=== PATIENT | female | born 1955 | race Caucasian/White ===

== ENCOUNTER → 2017-09-22 09:22 | Outpatient (CLI) | payer MEDICARE, MEDICAID, SELFPAY ==
--- NOTE | 2017-09-22 09:40 | MRI_ITS ---
STUDY: MRI BRAIN WITH AND WITHOUT CONTRAST REASON FOR EXAM: Female, 62 years old. lung ca, c/o headaches. TECHNIQUE: Standardized multiplanar fat and water weighted pulse sequences were obtained. 7 ml of Gadavist contrast material was administered intravenously for the contrast portion of the examination. COMPARISON: May 29, 2017 FINDINGS: Normal size of the ventricles and extra-axial spaces for the patient's age. There are a limited number of small white matter hyperintensities, distributed throughout the deep white matter tracts of the cerebral hemispheres, consistent with mild chronic white matter ischemic changes. There is no associated enhancement. Normal bilateral basal ganglia. Normal thalami. There is no extra-axial fluid accumulation. Normal flow voids within the major intracranial circulation suggesting patency by spin echo criteria. Normal venous enhancement. There is no enhancing intra-axial or extra-axial abnormality. Right frontal DVA is again noted. Normal sella turcica, pituitary gland, infundibular stalk, optic chiasm and hypothalamus. Normal tectal plate and pineal gland. Normal midbrain, dane and medulla. Normal cerebellum. Normal basal cisterns. Normal bilateral temporal bones. Normal bilateral internal auditory canals. No demonstrated orbital abnormality, within the constraints of a routine brain study. Normal visualized paranasal sinuses. Normal calvarium and skull base. Normal visualized soft tissue structures. Normal visualized upper cervical spine. MRI/Brain W/WO Contrast IMPRESSION: No acute intracranial abnormality or masses. Electronically Signed: Fadi Gonzales MD at 8:09 EST Tel , Service support ,
== END ==
PROVIDERS: Family Provider Family Medicine Geriatric Medicine; PCP Family Medicine Geriatric Medicine; Visit Provider Internal Medicine Medical Oncology
DX: C34.90 Malignant neoplasm of unspecified part of unspecified bronchus or lung (principal); R93.0 Abnormal findings on diagnostic imaging of skull and head, not elsewhere classified
CPT/HCPCS: 70553; A9585

== ENCOUNTER → 2017-11-04 08:29 | Outpatient (CLI) | payer MEDICARE, MEDICAID, SELFPAY ==
--- NOTE | 2017-11-04 08:32 | RAD_ITS ---
PROCEDURE: Fluoroscopic guided Hip Injection DATE: November 04, 2017. INDICATION: Female, 62 years old. Right hip pain. PHYSICIAN: Aubrey Noble M.D. MEDICATIONS: 6 mg of betamethasone and 3 cc of 1% lidocaine. 2% Lidocaine administered subcutaneously for local anesthesia. ACCESS SITE: Right hip. NEEDLE: 22-gauge spinal needle. FLUOROSCOPY TIME (if supplied): (0:33) minutes/seconds FINDINGS: The risks, benefits, and alternatives to the procedure were explained to the patient. The specific risks of bleeding, infection, and neurovascular injury were detailed and accepted. Witnessed informed consent was obtained. A 22-gauge spinal needle was positioned under radiographic fluoroscopic localization. Approximately 2 cc of Isovue-300 instilled for localization purposes. Medication was then injected. The patient tolerated the procedure well without any immediate complications. The patient was placed supine with head elevated and returned to the floor in stable condition. RAD/Inj/Asp Zak Jt Should/Hip/Knee IMPRESSION: 1. Successful fluoroscopic guided hip injection. Electronically Signed: Aubrey Noble MD at 10:24 EDT Tel [phone], Service support ,
== END ==
PROVIDERS: Family Provider Family Medicine Geriatric Medicine; PCP Family Medicine Geriatric Medicine; Visit Provider Specialist
DX: M16.11 Unilateral primary osteoarthritis, right hip (principal)
CPT/HCPCS: 20610; 77002; Q9967; J0702

== ENCOUNTER → 2017-11-17 12:36 | Outpatient (CLI) | payer MEDICARE, MEDICAID, SELFPAY ==
--- NOTE | 2017-11-17 12:38 | CT_ITS ---
STUDY: CT CHEST WITH CONTRAST REASON FOR EXAM: Female, 62 years old. Lung cancer follow up, COUGH,SMOKER RADIATION DOSAGE (If Supplied By Facility): CTDIvol = ( 12.10 ) mGy, DLP = ( 492.64 ) mGycm TECHNIQUE: Transaxial imaging was performed following intravenous administration of 100 ml of Isovue 300 contrast material. Individualized dose optimization techniques were used for this CT. COMPARISON: None. FINDINGS: The right lung upper lobe and right middle lobe has been removed. There is no demonstrated pleural abnormality. Normal heart and pericardium. Normal mediastinum. Normal hilar regions. Normal enhanced pulmonary arteries. Normal aorta arch and descending thoracic aorta. Postsurgical changes are noted in the right sixth and seventh ribs. There is no demonstrated abnormality of the visualized upper abdomen. CT/Chest WITH Contrast IMPRESSION: Status post right upper lobectomy and right middle lobectomy there is no evidence of recurrent neoplastic process or metastatic disease. Electronically Signed: Lee Bobby MD at 13:20 EDT Tel , Service support ,
[2017-11-17 12:50] LABS: CREATININE FINGERSTICK < 0.6 mg/dL (0.55-1.02); EGFR FINGERSTICK > 60.0000 mL/min (>60)
== END ==
PROVIDERS: Family Provider Family Medicine Geriatric Medicine; PCP Family Medicine Geriatric Medicine; Visit Provider Internal Medicine Medical Oncology
DX: C34.90 Malignant neoplasm of unspecified part of unspecified bronchus or lung (principal)
CPT/HCPCS: 71260; Q9967

== ENCOUNTER 2017-12-03 05:33 | Inpatient (IN) | payer MEDICARE, MEDICAID, SELFPAY ==
[2017-11-21 10:52] VITALS: BP 117/79; PULSE 76; RESP 16; TEMP 37.1; O2SAT 97; BMI 27.8
--- NOTE | 2017-11-21 11:38 | SDCEKG_ITS ---
Test Reason : Blood Pressure : / mmHG Vent. Rate : 068 BPM Atrial Rate : 068 BPM P-R Int : 138 ms QRS Dur : 082 ms QT Int : 396 ms P-R-T Axes : 070 070 069 degrees QTc Int : 421 ms Normal sinus rhythm Normal ECG Confirmed by ARIN AGUILAR, TEAGAN ([id number]), senior technical editor MIRTHA BEARDEN ([id number] on 11/24/2017 2:24:29 PM Referred By: Gabe Lerma Confirmed By:TEAGAN HINKLE MD
--- NOTE | 2017-11-21 12:00 | RAD_ITS ---
STUDY: X-RAY CHEST REASON FOR EXAM: Female, 62 years old. Preoperative evaluation for total hip replacement. History of lung cancer. TECHNIQUE: PA and lateral views of the chest. COMPARISON: Comparison is made with prior examination dated November 14, 2016. FINDINGS: Once again, the patient is status post right upper lobectomy with resultant postoperative changes in the right perihilar region. Blunting of the right costophrenic angle posteriorly. Stable mild increased markings at the left lung base suggestive of scarring. Normal size heart. Normal mediastinum and james. Normal visualized pulmonary arteries. There is atherosclerotic calcification of the aortic arch with tortuosity. There are diffuse degenerative changes of the visualized thoracic spine. Mild dextroscoliosis. Posterior rib fractures of the right seventh and eighth ribs in keeping with prior thoracotomy. There is no demonstrated abnormality of the visualized soft tissue structures of the upper abdomen. RAD/Chest PA and Lateral IMPRESSION: Stable examination. No acute abnormality is seen. Electronically Signed: Aubrey Noble MD at 12:28 EDT Tel [phone], Service support ,
[2017-11-21 12:09] LABS: Absolute Lymphocyte Count 2.43 X10^3/ul (0.83-4.51); Basophil# 0.05 X10^3/uL; Basophil% 0.6 % (0-1); Eosinophil# 0.05 X10^3/uL; Eosinophils% 0.6 % (0-5); Hematocrit 38.9 % (37-47); Hemoglobin 13.1 g/dl (12.0-15.0); Lymphocyte # 2.43 X10^3/ul (4.0); Lymphocyte % 30.3 % (19-41); Mean Corp Hgb Conc 33.7 g/gl (32-36); Mean Corpuscular Hgb 31.6 pg (27.0-32.0); Mean Corpuscular Volume 93.7 fL (81-99); Mean Platelet Vol. 9.4 fl (6.2-12.0); Monocyte# 0.53 X10^3/uL; Monocyte% 6.6 % (0-10); Neutrophil # 4.95 X10^3/uL (2.7-7.7); Neutrophil % 61.7 % (47-70); Platelet Count 292 K/mm3 (150-450); RBC Distribution Width CV 13.4 % (11.6-14.6); Red Blood Count 4.15 M/mm3 (4.2-5.4)
[2017-11-21 12:12] LABS: POSITIVE COUNT NO; POSITIVE DIFFERENTIAL NO; POSITIVE MORPHOLOGY NO
[2017-11-21 12:14] LABS: Prothrombin Time (Protime)PT. 13.4 SECONDS (11.7-14.9)
[2017-11-21 12:15] LABS: Partial Thromboplast Time 26.9 Seconds (24.1-36.2)
[2017-11-21 12:54] LABS: AST(SGOT) 9 U/L (15-37); Alanine Aminotransfer ALT/SGPT 14 U/L (13-56); Albumin, Serum 3.3 g/dL (3.2-5.0); Alkaline Phosphatase 109 U/L (45-117); Anion Gap 7 (5-15); BUN 10 mg/dL (7-18); BUN/Creat Ratio 15.4 RATIO (10-20); Bilirubin, Direct < 0.05 mg/dL (0.00-0.30); Calcium,Total 8.4 mg/dL (8.5-10.1); Chloride 106 mmol/L (98-107); Creatinine, Serum 0.65 mg/dL (0.55-1.02); EST Glomerular Filtration Rate 98 mL/min (>60); Est Glom Filt Rate - Afr Amer 119 mL/min (>60); Estimated Creatinine Clearance 71.88 ml/min; Globulin 3.7 g/dL (2.2-4.2); Glucose 102 mg/dL (74-106); Potassium 3.8 mmol/L (3.5-5.1); Sodium Level 142 mmol/L (136-145)
--- NOTE | 2017-11-21 16:50 | PCM.HP.BLA ---
History and Physical DATE OF SURGERY: 12/03/2017 SCHEDULED PROCEDURE: Direct anterior left total hip arthroplasty HISTORY OF PRESENT ILLNESS: This is a 62-year-old female who is been having ongoing pain in her left hip for the past 2 years. She has increased pain going up and down stairs, walking any amount of distance, and sitting for extended periods of time. Pain is located in her left groin. She does have start up pain. Patient has difficult time with activities of daily living including getting dressed as well as tying her shoes. Patient's pain can reach as high as a 7-8 out of 10. Patient has undergone previous conservative measures consisting of oral medications as well as corticosteroid injection. Patient states the injection helped for approximately 4 months. She continues now to have ongoing left hip pain despite conservative care. X-rays do reveal bilateral severe osteoarthritis in the hips. There is flattening of the femoral head on the left. After failing conservative measures and discussing all treatment but the patient would like to proceed with a left total hip arthroplasty. Patient currently denies any chest pain, shortness of breath, fevers chills, recent infections. Patient does have a medical history pertinent for COPD, emphysema, and anxiety. She has also had previous lung cancer in 2016. Patient is a cigarette user as well as marijuana user. REVIEW OF SYSTEMS: ROS: Const: Reports difficulty sleeping, but denies anorexia, change in appetite, fever, weight change. CV: Denies chest pain, heart murmur, irregular heartbeat and peripheral vascular disease. Resp: Reports asthma, cough, pneumonia, shortness of breath and wheezing, but denies sleep apnea and tuberculosis. GI: Reports rectal itching, but denies constipation, diarrhea, heartburn, nausea, bloody stools and vomiting. : . (F Genital Sx) Denies incontinence. Musculo: Denies leg swelling, pain, trouble walking and weakness. Skin: Reports history of shingles, but denies Raynaud's and tattoo. Neuro: Reports numbness/tingling but denies ambulatory dysfunction, dizziness and tremor. Psych: Reports anxiety, but denies depression, insomnia, mental illness and stress. Alex/Lymph: Denies anemia, bleeding/bruising tendency and past transfusion. Reviewed, no changes. PAST MEDICAL HISTORY: Advance Care Plan: Other Directive, POA Effective Date: 05/08/2017 Other Directive, LIVING WILL Effective Date: 05/08/2017 PMH: Medical Problems: COPD, Thyroid Disease, Osetoporosis, Emphysema, Arthritis, Asthma, Anxiety Cancer - LUNG Accidents: LT Elbow FX - (12/2010) Surgical Hx: Section, Bladder Surgery Gallbladder - (1974) LT Knee Arthroscopy - 1989 & 1990 LT ACL Repair - (1991) LT TKR - (2003) Carpal Tunnel Release LT - (2001) Carpal Tunnel Release RT - (2003) repeat L CTR 2003 LT TKR Revision - (2012) Discectomy, Saliva Gland Removed, , Cervical Fusion, RT Lung Cancer Removed Anesthesia Complications: None Assistive Devices: Dentures, Glasses, Cane Reviewed, no changes. SOCIAL HISTORY: SH: Marital: .Occupation: Medically Retired.Work Status: Disabled.Hand Dominance: Right-handed. Personal Habits: Cigarette Use: Currently smokes - 1 PPD.Alcohol: Occasionally.Drug Use: Denies Use.Enjoy Exercising: Exercises 1-3 X/Week. Reviewed, no changes. VITALS: Ht: 62 Wt: 152lb Wt k.947 BMI: 27.8 BP: 128/70 Pulse: 80 Resp: 16 T: 97.8 T: 36.6C ALLERGIES: No Known Drug Allergy MEDICATIONS: Soma 350 mg 1 PO qhs, Xanax 1 mg 1 PO tid, Effexor XR 150 mg 1 po qd, Synthroid 100 mcg 1 PO q am, Singulair 10 mg 1 po qd, Vitamin C 500 mg 2 po qd, Vitamin B-12 CR 1000 mcg 1 PO q day, Nasonex 50 mcg/Act sniff in each nostril daily, Gabapentin 600 mg 1 by mouth every day, Claritin 10 mg by mouth once daily, Dexilant 60 mg 1 by mouth every day, Vitamin D (Ergocalciferol) 57924 Unit one PO monthly, Latanoprost 0.005 % 2 drops each eye daily, Lidocaine 5 % apply to affected area 12 hours on, 12 hours off, Urea 40 % apply daily to foot, Montelukast Sodium 10 mg 1 by mouth every day, Alprazolam 1 mg 1po qday, Levothyroxine Sodium 88 mcg 1po qday, Albuterol Sulfate (2.5 mg/3ml) 0.083% 1po qday PRE-OP EXAM: General appearance:NORMAL Other: Eyes: Conjunctivae and lids: NORMAL Pupils: ERR Ears, Nose, Mouth, and Throat: NORMAL Other: Inspection of lips, teeth and gums: NORMAL Other: Neck: Examination of neck: no masses noted. Respiratory: Assessment of respiratory effort: NORMAL Other: Auscultation of lungs: clear to auscultation no wheezes, rhonchi or rales. Cardiovascular: Auscultation of heart: regular rate and rhythm, positive systolic murmur. Exam of carotid arteries: NORMAL Other: Gastrointestinal: Exam of abdomen: soft, nontender, nondistended bowel sounds present. PHYSICAL EXAMINATION: Patient walks with an antalgic gait. Pain is increased with left hip range of motion including flexion, internal rotation, and external rotation. Patient also has low back pain in the lumbar region with limited motion of the spine. Sensations intact light touch. Neurovascularly intact. IMAGING STUDIES: X-rays were obtained at [facility] [place] on May 22, 2017 which does reveal severe osteoarthritis of the left hip with osteophyte formation, joint space narrowing, and subchondral sclerosis with the left being worse than the right. Left hip also demonstrates femoral head flattening. Right hip does show some moderate to severe osteoarthritis. IMPRESSION: 1. Severe left hip osteoarthritis with flattening of the femoral head 2. Moderate to severe right hip osteoarthritis 3. COPD 4. Emphysema 5. Osteoporosis 6. Asthma 7. Anxiety 8. History of previous lung cancer PLAN: Dr. Lerma did discuss and review with the patient all treatment options including surgical versus nonsurgical. Patient wishes to proceed with above-stated procedure. Potential risks, benefits, and complications of this procedure were discussed in detail including but not limited to , infection, nerve and blood vessel damage, persistent pain, numbness, tingling, paresthesias, blood clot, pulmonary embolism, and requirement for further surgery. The patient expressed full understanding has no further questions for the doctor. Patient does agree to proceed with the above-stated procedure and has signed the surgery consent form. We are obtaining surgical clearance from patient's primary care physician. ___ I have re-examined the patient. There are no clinical changes since date of exam. ___ See progress notes for changes. ___ Dictated on admission Date: Time: Signature:
--- NOTE | 2017-11-21 16:59 | HP.PCM_ITS ---
History and Physical DATE OF SURGERY: 12/03/2017 SCHEDULED PROCEDURE: Direct anterior left total hip arthroplasty HISTORY OF PRESENT ILLNESS: This is a 62-year-old female who is been having ongoing pain in her left hip for the past 2 years. She has increased pain going up and down stairs, walking any amount of distance, and sitting for extended periods of time. Pain is located in her left groin. She does have start up pain. Patient has difficult time with activities of daily living including getting dressed as well as tying her shoes. Patient's pain can reach as high as a 7-8 out of 10. Patient has undergone previous conservative measures consisting of oral medications as well as corticosteroid injection. Patient states the injection helped for approximately 4 months. She continues now to have ongoing left hip pain despite conservative care. X-rays do reveal bilateral severe osteoarthritis in the hips. There is flattening of the femoral head on the left. After failing conservative measures and discussing all treatment but the patient would like to proceed with a left total hip arthroplasty. Patient currently denies any chest pain, shortness of breath, fevers chills, recent infections. Patient does have a medical history pertinent for COPD, emphysema, and anxiety. She has also had previous lung cancer in 2016. Patient is a cigarette user as well as marijuana user. REVIEW OF SYSTEMS: ROS: Const: Reports difficulty sleeping, but denies anorexia, change in appetite, fever, weight change. CV: Denies chest pain, heart murmur, irregular heartbeat and peripheral vascular disease. Resp: Reports asthma, cough, pneumonia, shortness of breath and wheezing, but denies sleep apnea and tuberculosis. GI: Reports rectal itching, but denies constipation, diarrhea, heartburn, nausea , bloody stools and vomiting. : . (F Genital Sx) Denies incontinence. Musculo: Denies leg swelling, pain, trouble walking and weakness. Skin: Reports history of shingles, but denies Raynaud's and tattoo. Neuro: Reports numbness/tingling but denies ambulatory dysfunction, dizziness and tremor. Psych: Reports anxiety, but denies depression, insomnia, mental illness and stress. Alex/Lymph: Denies anemia, bleeding/bruising tendency and past transfusion. Reviewed, no changes. PAST MEDICAL HISTORY: Advance Care Plan: Other Directive, POA Effective Date: 05/08/2017 Other Directive, LIVING WILL Effective Date: 05/08/2017 PMH: Medical Problems: COPD, Thyroid Disease, Osetoporosis, Emphysema, Arthritis, Asthma, Anxiety Cancer - LUNG Accidents: LT Elbow FX - (12/2010) Surgical Hx: Section, Bladder Surgery Gallbladder - (1974) LT Knee Arthroscopy - 1989 & 1990 LT ACL Repair - (1991) LT TKR - (2003) Carpal Tunnel Release LT - (2001) Carpal Tunnel Release RT - (2003) repeat L CTR 2003 LT TKR Revision - (2012) Discectomy, Saliva Gland Removed, , Cervical Fusion, RT Lung Cancer Removed Anesthesia Complications: None Assistive Devices: Dentures, Glasses, Cane Reviewed, no changes. SOCIAL HISTORY: SH: Marital: .Occupation: Medically Retired.Work Status: Disabled.Hand Dominance: Right-handed. Personal Habits: Cigarette Use: Currently smokes - 1 PPD.Alcohol: Occasionally.Drug Use: Denies Use.Enjoy Exercising: Exercises 1-3 X/Week. Reviewed, no changes. VITALS: Ht: 62 Wt: 152lb Wt k.947 BMI: 27.8 BP: 128/70 Pulse: 80 Resp: 16 T: 97.8 T: 36.6C ALLERGIES: No Known Drug Allergy MEDICATIONS: Soma 350 mg 1 PO qhs, Xanax 1 mg 1 PO tid, Effexor XR 150 mg 1 po qd, Synthroid 100 mcg 1 PO q am, Singulair 10 mg 1 po qd, Vitamin C 500 mg 2 po qd, Vitamin B- 12 CR 1000 mcg 1 PO q day, Nasonex 50 mcg/Act sniff in each nostril daily, Gabapentin 600 mg 1 by mouth every day, Claritin 10 mg by mouth once daily, Dexilant 60 mg 1 by mouth every day, Vitamin D (Ergocalciferol) 79804 Unit one PO monthly, Latanoprost 0.005 % 2 drops each eye daily, Lidocaine 5 % apply to affected area 12 hours on, 12 hours off, Urea 40 % apply daily to foot, Montelukast Sodium 10 mg 1 by mouth every day, Alprazolam 1 mg 1po qday, Levothyroxine Sodium 88 mcg 1po qday, Albuterol Sulfate (2.5 mg/3ml) 0.083% 1po qday PRE-OP EXAM: General appearance:NORMAL Other: Eyes: Conjunctivae and lids: NORMAL Pupils: ERR Ears, Nose, Mouth, and Throat: NORMAL Other: Inspection of lips, teeth and gums: NORMAL Other: Neck: Examination of neck: no masses noted. Respiratory: Assessment of respiratory effort: NORMAL Other: Auscultation of lungs: clear to auscultation no wheezes, rhonchi or rales. Cardiovascular: Auscultation of heart: regular rate and rhythm, positive systolic murmur. Exam of carotid arteries: NORMAL Other: Gastrointestinal: Exam of abdomen: soft, nontender, nondistended bowel sounds present. PHYSICAL EXAMINATION: Patient walks with an antalgic gait. Pain is increased with left hip range of motion including flexion, internal rotation, and external rotation. Patient also has low back pain in the lumbar region with limited motion of the spine. Sensations intact light touch. Neurovascularly intact. IMAGING STUDIES: X-rays were obtained at [facility] [place] on May 22, 2017 which does reveal severe osteoarthritis of the left hip with osteophyte formation, joint space narrowing, and subchondral sclerosis with the left being worse than the right. Left hip also demonstrates femoral head flattening. Right hip does show some moderate to severe osteoarthritis. IMPRESSION: 1. Severe left hip osteoarthritis with flattening of the femoral head 2. Moderate to severe right hip osteoarthritis 3. COPD 4. Emphysema 5. Osteoporosis 6. Asthma 7. Anxiety 8. History of previous lung cancer PLAN: Dr. Lerma did discuss and review with the patient all treatment options including surgical versus nonsurgical. Patient wishes to proceed with above- stated procedure. Potential risks, benefits, and complications of this procedure were discussed in detail including but not limited to , infection , nerve and blood vessel damage, persistent pain, numbness, tingling, paresthesias, blood clot, pulmonary embolism, and requirement for further surgery. The patient expressed full understanding has no further questions for the doctor. Patient does agree to proceed with the above-stated procedure and has signed the surgery consent form. We are obtaining surgical clearance from patient's primary care physician. ___ I have re-examined the patient. There are no clinical changes since date of exam. ___ See progress notes for changes. ___ Dictated on admission Date: Time: Signature:
--- NOTE | 2017-11-26 11:15 | CASEMGMT ---
PRE-OP Joint Call: SHAY LR called Ms. Mendez to discuss transition planning and care coordination. Ms. Mendez states she is not sure if she will want to go home with outpatient therapy, go home with HHC, or transfer to TCU for therapy prior to transitioning to home. Ms. Mendez reports she met with Dr. Martinez and he recommended TCU to her. SHAY LR educated patient to each option and MCR A/B criteria for HHC and TCU. SHAY LR advises a member of the case management team will meet with her following her surgery to go over options and assist as needed with decision making. Ms. 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 She does have a FWW and shower chair. Ms. Mendez reports if she does go home she would like a script for a toilet riser. Ms. Mendez does have 4 entry steps into her home. This SHAY CM placed Ms. Mendez on the TCU list given Ms. Mendez reports limited support and lives alone, and may require transfer to SNF for rehab. Disposition Plan: JUANCARLOS Saleem, BSN, RN-BC, CCM
[2017-12-03] VITALS (12 sets, daily range): BP systolic 114–146; BP diastolic 59–94; PULSE 66–81; RESP 16–18; TEMP 36.3–36.8; O2SAT 92–100; BMI 27.8; BMI 27.1
[2017-12-03] MEDS: Celecoxib 200 MG Capsule 400 MG PO (06:20)
[2017-12-03] MEDS: Acetaminophen 500 MG Tablet 1000 MG PO ×3 (06:20→23:12)
[2017-12-03] MEDS: oxyCODONE HCl Cr 10 MG Tablet PO (06:21)
[2017-12-03] MEDS: Lactated Ringers 1,000 ML 999 ML IV (06:35)
--- NOTE | 2017-12-03 07:04 | RAD_ITS ---
STUDY: X-RAY - PELVIS AND LEFT HIP REASON FOR EXAM: Female, 62 years old. Left anterior hip replacement. TECHNIQUE: Radiological exam, hip, unilateral, with pelvis when performed; 2 or 3 views. COMPARISON: None. FINDINGS: The patient is status post left total hip preplacement. There is good alignment. Postoperative soft tissue changes. Degenerative changes in the lower lumbar spine. RAD/Hip Min 2 Views (Portable) IMPRESSION: Status post left hip replacement. There is good alignment. Postoperative soft tissue changes. Electronically Signed: Aubrey Noble MD at 10:12 EDT Tel [phone], Service support ,
--- NOTE | 2017-12-03 07:15 | RAD_ITS ---
STUDY: X-RAY - PELVIS AND LEFT HIP REASON FOR EXAM: Female, 62 years old. Anterior hip replacement. TECHNIQUE: Radiological exam, hip, unilateral, with pelvis when performed; 2 or 3 views. COMPARISON: None. FINDINGS: The patient is status post anterior hip replacement. There is good alignment. RAD/Hip 1 view with Pelvis IMPRESSION: Imaging provided for anterior hip replacement. There is good alignment. Electronically Signed: Aubrey Noble MD at 10:11 EDT Tel [phone], Service support ,
[2017-12-03] MEDS: Cefazolin 2 GM in 0.9% Normal Saline 100 ML IV (07:16)
--- NOTE | 2017-12-03 08:46 | PCM.OPRPT ---
Report of Operation Date of Procedure: 12/03/17 Pre-Operative Diagnosis: Left hip primary osteoarthritis Post-Operative Diagnosis: Left hip primary osteoarthritis Surgery/Procedure Performed:: Left direct anterior total hip replacement Description of Surgical Findings:: Stable hip with equal leg lengths cloth wire weaver: Anisha Braun Type of Anesthesia:: Spinal Anesthesiologist: Rusty Garrett Special Medications: 2 g Ancef, 1 g TXA at incision, 1 g TXA closure, 10 mg Decadron, joint cocktail (5 mg Duramorph, 30 mL of 0.5% Ropivicaine, 1000 units of epinephrine, 30 mg of Toradol) Specimen's removed: Bony cuts Estimated Blood Loss (mL): 150 Fluids Replaced: 1200 ml crystalloid Description of Procedure: Components used: 1. Anato Marcos femoral stem size 4 2. [place] trident acetabular shell size 52 mm 3. Marcos X3 polyethylene E 4. Marcos Biolox delta 36mm, -5mm femoral head Brief history operative indications: 62yo female who failed conservative measures for their hip osteoarthritis. X-rays were consistent with osteoarthritis including joint space narrowing, osteophyte formation and subchondral cysts. Total hip replacement was discussed with the patient with risks and benefits including but not limited to blood loss, DVTs, PEs, neurovascular damage, dislocation, general risks of anesthesia including loss of life. Patient demonstrated an understanding medical clearance is obtained the patient was consented for surgery. Procedure: On the date of procedure the patient's L hip was marked in the preoperative area. Patient was then taken back to the operating room where anesthesia assumed control of the C-spine and airway and administered anesthetic. Patient was transferred to the operating table and placed in the supine position. The hips were placed at the break of the bed and a sacral bump was placed. The L lower extremity was then prepped out in a sterile fashion using chlorhexidine while the surgeon scrubbed. The PA was vital in the positioning of the patient. Upon reentering the room the L lower extremity was draped in the standard orthopedic fashion and the incision was marked. A timeout was called and everyone agreed upon the side, the site, the procedure be performed, antibody given, and patient's identity. At this time incision was made through skin, subcutaneous tissue, and fat down to fascia. The fascia was then incised and the TFL was retracted laterally. A retractor was placed on the lateral border of the femoral neck. Attention was directed to the inferior portion of the approach and all crossing vessels were identified and appropriately coagulated. A retractor was then placed on the medial portion of the femoral neck. The anterior capsule was then cleared of all soft tissue and then H shaped capsulotomy was made. The retractors were then placed inside the capsule. The femoral neck was identified and a cleanup cut was made. At this time a power corkscrew was used to remove the femoral head. Attention was then turned toward the acetabulum where the soft tissues were appropriately retracted and the acetabulum was sequentially reamed to 51 mm. A 52 mm cup was then selected and impacted into place. Acetabular liner was impacted into place and locking mechanism was verified. The position of the acetabular cup was then verified under live fluoroscopy. Attention was then turned to the femur. Soft tissue releases on the medial and lateral femoral neck were appropriately done, the leg was externally rotated and lateralized. A Trammell retractor was placed medially and proximally to the greater trochanter this allowed appropriate visualization and exposure of the femoral canal. Rongeour was then used to remove excess lateral bone. A canal finder and entry broach were used to open the proximal canal. Once we verified we were down the femoral canal we subsequently reamed the canal to 11 mm broached up to a size 4 femur. The appropriate neck was placed in the previously selected head was trialed with a -5 mm neck. Traction was pulled and the hip was reduced with internal rotation. Once it was appropriately reduced and stability was checked. There was minimal shuck, equal leg lengths and appropriate stability with hyperextension and external rotation as well as with 90? flexion and internal rotation. Fluoroscopy was then also used to verify the position of the components and leg lengths using the contralateral side for comparison. The trial components were then dislocated the proximal femur was again exposed and the components were removed from the wound. The final components were verified and opened. The wound was copiously irrigated out with normal saline. The acetabulum was checked for any residual debris. The final components were placed and impacted. Traction and internal rotation were again used to reduce the hip. After adequate reduction the hip remained stable with appropriate leg lengths. The final components were once again checked with live fluoroscopy and were found to be satisfactory. The wound was then copiously irrigated with normal saline once more, and hemostasis was obtained. Closure was then done using #1 Vicryl runner to close the fascia. A 2-0 vicryl interuppted sutures were used to close the subcutaneous skin. A 3-0 Monocryl and Steri-Strips were used for final skin closure. A Silverlon dressing was placed. Patient was awakened by anesthesia and transferred to the [facility]. Patient was then transferred to the PACU for recovery. Postoperative plan: Patient will get 24 hours postop antibiotics. Patient will get in-house physical therapy and will be weight-bear as tolerated. Patient will follow up in office in 2 weeks for a wound check and x-rays. Grafts/Implants Used: [place] - Complications None - Admit VTE Documentation VTE Present on Admission: No VTE Mechan Device Prophylaxis: SCD's, Thigh High YCNDIE Hose VTE Pharm Prophylaxis ordered?: Yes
--- NOTE | 2017-12-03 08:50 | OP.PCM_ITS ---
Report of Operation Date of Procedure: 12/03/17 Pre-Operative Diagnosis: Left hip primary osteoarthritis Post-Operative Diagnosis: Left hip primary osteoarthritis Surgery/Procedure Performed:: Left direct anterior total hip replacement Description of Surgical Findings:: Stable hip with equal leg lengths freelance graphic designer: Anisha Braun Type of Anesthesia:: Spinal Anesthesiologist: Rusty Garrett Special Medications: 2 g Ancef, 1 g TXA at incision, 1 g TXA closure, 10 mg Decadron, joint cocktail (5 mg Duramorph, 30 mL of 0.5% Ropivicaine, 1000 units of epinephrine, 30 mg of Toradol) Specimen's removed: Bony cuts Estimated Blood Loss (mL): 150 Fluids Replaced: 1200 ml crystalloid Description of Procedure: Components used: 1. Anato Marcos femoral stem size 4 2. [place] trident acetabular shell size 52 mm 3. Marcos X3 polyethylene E 4. Marcos Biolox delta 36mm, -5mm femoral head Brief history operative indications: 62yo female who failed conservative measures for their hip osteoarthritis. X- rays were consistent with osteoarthritis including joint space narrowing, osteophyte formation and subchondral cysts. Total hip replacement was discussed with the patient with risks and benefits including but not limited to blood loss, DVTs, PEs, neurovascular damage, dislocation, general risks of anesthesia including loss of life. Patient demonstrated an understanding medical clearance is obtained the patient was consented for surgery. Procedure: On the date of procedure the patient's L hip was marked in the preoperative area. Patient was then taken back to the operating room where anesthesia assumed control of the C-spine and airway and administered anesthetic. Patient was transferred to the operating table and placed in the supine position. The hips were placed at the break of the bed and a sacral bump was placed. The L lower extremity was then prepped out in a sterile fashion using chlorhexidine while the surgeon scrubbed. The PA was vital in the positioning of the patient. Upon reentering the room the L lower extremity was draped in the standard orthopedic fashion and the incision was marked. A timeout was called and everyone agreed upon the side, the site, the procedure be performed, antibody given, and patient's identity. At this time incision was made through skin, subcutaneous tissue, and fat down to fascia. The fascia was then incised and the TFL was retracted laterally. A retractor was placed on the lateral border of the femoral neck. Attention was directed to the inferior portion of the approach and all crossing vessels were identified and appropriately coagulated. A retractor was then placed on the medial portion of the femoral neck. The anterior capsule was then cleared of all soft tissue and then H shaped capsulotomy was made. The retractors were then placed inside the capsule. The femoral neck was identified and a cleanup cut was made. At this time a power corkscrew was used to remove the femoral head. Attention was then turned toward the acetabulum where the soft tissues were appropriately retracted and the acetabulum was sequentially reamed to 51 mm. A 52 mm cup was then selected and impacted into place. Acetabular liner was impacted into place and locking mechanism was verified. The position of the acetabular cup was then verified under live fluoroscopy. Attention was then turned to the femur. Soft tissue releases on the medial and lateral femoral neck were appropriately done, the leg was externally rotated and lateralized. A Trammell retractor was placed medially and proximally to the greater trochanter this allowed appropriate visualization and exposure of the femoral canal. Rongeour was then used to remove excess lateral bone. A canal finder and entry broach were used to open the proximal canal. Once we verified we were down the femoral canal we subsequently reamed the canal to 11 mm broached up to a size 4 femur. The appropriate neck was placed in the previously selected head was trialed with a -5 mm neck. Traction was pulled and the hip was reduced with internal rotation. Once it was appropriately reduced and stability was checked. There was minimal shuck, equal leg lengths and appropriate stability with hyperextension and external rotation as well as with 90? flexion and internal rotation. Fluoroscopy was then also used to verify the position of the components and leg lengths using the contralateral side for comparison. The trial components were then dislocated the proximal femur was again exposed and the components were removed from the wound. The final components were verified and opened. The wound was copiously irrigated out with normal saline. The acetabulum was checked for any residual debris. The final components were placed and impacted. Traction and internal rotation were again used to reduce the hip. After adequate reduction the hip remained stable with appropriate leg lengths. The final components were once again checked with live fluoroscopy and were found to be satisfactory. The wound was then copiously irrigated with normal saline once more, and hemostasis was obtained. Closure was then done using #1 Vicryl runner to close the fascia. A 2-0 vicryl interuppted sutures were used to close the subcutaneous skin. A 3-0 Monocryl and Steri-Strips were used for final skin closure. A Silverlon dressing was placed. Patient was awakened by anesthesia and transferred to the [facility]. Patient was then transferred to the PACU for recovery. Postoperative plan: Patient will get 24 hours postop antibiotics. Patient will get in-house physical therapy and will be weight-bear as tolerated. Patient will follow up in office in 2 weeks for a wound check and x-rays. Grafts/Implants Used: Marcos - Complications None - Admit VTE Documentation VTE Present on Admission: No VTE Mechan Device Prophylaxis: SCD's, Thigh High CYNDIE Hose VTE Pharm Prophylaxis ordered?: Yes
[2017-12-03] MEDS: Venlafaxine XR 150 MG Capsule PO (10:53)
[2017-12-03] MEDS: Loratadine 10 MG Tablet PO (10:53)
[2017-12-03] MEDS: Scopolamine 1mg/72hr Patch 1 PATCH TD (10:53)
[2017-12-03] MEDS: Ascorbic Acid 500 MG Tablet 1000 MG PO (10:54)
[2017-12-03] MEDS: Cyanocobalamin 500 MCG Tablet 1000 MCG PO (10:54)
[2017-12-03] MEDS: Montelukast 10 MG Tablet PO (10:55)
[2017-12-03] MEDS: Senna/Docusate Sodium 1 Tablet 2 TABLET PO ×2 (10:55→23:06)
[2017-12-03] MEDS: Gabapentin 600 MG Tablet PO ×2 (11:57→17:08)
[2017-12-03] MEDS: oxyCODONE 5 MG Tablet PO ×3 (11:57→23:06)
[2017-12-03] MEDS: Lactated Ringers 1,000 ML 125 ML IV (12:00)
[2017-12-03] MEDS: ALPRAZolam 0.5 MG Tablet 1 MG PO ×2 (12:00→23:12)
--- NOTE | 2017-12-03 12:12 | CASEMGMT ---
Social Work Note Pt is interested in TCU at discharge. Tim Nagy pt is on TCU list and is scheduled to come to TCU Friday to meet her required three midnight stays. Plan: TCU at discharge Michelle Cardenas MSW, VETERINARY LIVESTOCK INSPECTOR
[2017-12-03] MEDS: Albuterol 2.5 MG/3 ML VIAL.NEB. INHALATION ×2 (13:34→18:44)
[2017-12-03] MEDS: Cefazolin 1 GM/50 ML BAG IV ×2 (15:24→23:13)
--- NOTE | 2017-12-03 15:49 | PN_ITS ---
Subjective: Patient seen and examined. She has status post left total hip arthroplasty today with Dr. Lerma. Hospitalist services consulted for medical management. Patient has a past medical history of COPD, asthma, emphysema, osteoporosis, hypothyroidism, GERD, anxiety, depression. Patient denies pain currently. States she ambulated with physical therapy earlier without any significant pain. Denies shortness of breath. Denies other current complaints. - Physical Exam General: Alert, Oriented x3, Cooperative, No apparent distress HEENT: Atraumatic, PERRLA, EOMI, Normocephalic Neck: Supple, No JVD, Negative Carotid Bruits Lungs: Clear to auscultation, Diminished Cardiovascular: Regular rate, Regular Rhythm, Normal S1, Normal S2, No murmurs Abdomen: Bowel Sounds Present, Soft, Non Tender, Non-Distended Extremities: No clubbing, No cyanosis, No edema, Capillary Refill Less than 3 Seconds Skin: - - Left hip post op dressing dry and intact. Musculoskeletal: Tenderness - Left hip Neurological: Cranial nerves II-XII grossly intact, Neuro grossly intact Psych/Mental Status: Normal Affect, Appropriate Vital Signs Temp Pulse Resp BP Pulse Ox 98.3 F 80 16 117/81 H 98 12/03/17 12:45 12/03/17 13:34 12/03/17 13:34 12/03/17 12:45 12/03/17 13:34 Oxygen Delivery Method Room Air Weight: 66.86 kg Body Mass Index (BMI) 27.1 Intake and Output for Last 24 Hours 12/01/17 12/02/17 12/03/17 23:59 23:59 23:59 Intake Total 1976 Balance 1976 Medical Necessity - Tobacco Use Smoking Status: Current every day smoker Assessment/Plan 1. Status post left total hip arthroplasty with Dr. Lerma 12/03/17 secondary to left hip primary osteoarthritis-continue as needed pain regimen per ortho. PT /OT. TCU at [place]. 2. COPD/asthma/emphysema-no acute exacerbation. Oxygen stable on room air. Albuterol aerosol as needed for shortness of breath. Continue budesonide aerosol. Continue Claritin, Singulair. 3. Osteoporosis-continue calcium/Vitamin D supplementation. 4. Hypothyroidism-continue home Synthroid regimen. 5. GERD-continue PPI. 6. Anxiety/depression-continue home Effexor regimen. 7. History of lung cancer DVT prophylaxis-SCDs, Lovenox [place] Discharge planning-TCU This patient was seen by PB Friedman under the supervision of Dr. Marc.
[2017-12-03] MEDS: Aspirin 325 MG Tablet PO (17:08)
[2017-12-03] MEDS: Budesonide Respules 0.5 MG/2 ML AMPUL.NEB. INHALATION (18:44)
[2017-12-03] MEDS: Carisoprodol 350 MG Tablet PO (23:08)
[2017-12-03] MEDS: Latanoprost 0.005% 1 Bottle 1 DRP EACH EYE (23:13)
[2017-12-04] MEDS: Ketorolac 15 MG/ML Vial IV ×3 (01:38→14:25)
[2017-12-04 04:00] VITALS: BP 105/70; PULSE 73; RESP 16; TEMP 36.9; O2SAT 100
[2017-12-04 06:01] LABS: Hematocrit 28.1 % (37-47); Hemoglobin 9.3 g/dl (12.0-15.0); Mean Corp Hgb Conc 33.1 g/gl (32-36); Mean Corpuscular Hgb 31.2 pg (27.0-32.0); Mean Corpuscular Volume 94.3 fL (81-99); Mean Platelet Vol. 9.9 fl (6.2-12.0); Platelet Count 244 K/mm3 (150-450); RBC Distribution Width CV 13.1 % (11.6-14.6); RBC Distribution Width SD 43.3 fl (35.1-43.9); Red Blood Count 2.98 M/mm3 (4.2-5.4); White Blood Count 10.9 K/mm3 (4.4-11.0)
[2017-12-04 06:13] LABS: Anion Gap 7 (5-15); BUN 13 mg/dL (7-18); BUN/Creat Ratio 22.7 RATIO (10-20); Calcium,Total 7.8 mg/dL (8.5-10.1); Chloride 105 mmol/L (98-107); Creatinine, Serum 0.57 mg/dL (0.55-1.02); EST Glomerular Filtration Rate 114 mL/min (>60); Est Glom Filt Rate - Afr Amer 138 mL/min (>60); Estimated Creatinine Clearance 78.21 ml/min; Glucose 108 mg/dL (74-106); Potassium 3.6 mmol/L (3.5-5.1); Scan Indicated on CBC? Y/N NO; Sodium Level 143 mmol/L (136-145)
[2017-12-04] MEDS: Enoxaparin 40 MG/0.4 ML Syringe SC (06:25)
[2017-12-04] MEDS: Acetaminophen 500 MG Tablet 1000 MG PO ×2 (06:25→13:42)
[2017-12-04] MEDS: Levothyroxine 88 MCG Tablet PO (06:26)
[2017-12-04] MEDS: ALPRAZolam 0.5 MG Tablet 1 MG PO ×2 (06:26→13:43)
[2017-12-04] MEDS: Albuterol 2.5 MG/3 ML VIAL.NEB. INHALATION ×2 (06:57→13:14)
[2017-12-04] MEDS: Budesonide Respules 0.5 MG/2 ML AMPUL.NEB. INHALATION (06:57)
[2017-12-04 07:03] VITALS: PULSE 81; RESP 12
--- NOTE | 2017-12-04 07:32 | PN_ITS ---
Subjective: Post operative day #1 Afebrile with stable vital signs. She is 100% saturated on 2 L nasal cannula. All lab was personally reviewed. Hemoglobin has dropped from 13.1 on 11/21/2017 to 9.3 today. Platelets and white blood cell count are within normal limits. Electrolytes and BUN and creatinine are within normal limits. Chest pain, shortness of breath, wheezing, lightheadedness. Pain is adequately controlled. - Physical Exam General: Alert, Oriented x3, Cooperative, No apparent distress, Well developed, Well nourished HEENT: Atraumatic, PERRLA, EOMI Oral: Moist Mucosa Neck: Supple, No Nodes, No Nuchal Rigidity, Trachea Midline Lungs: Clear to auscultation, No rhonchi, No wheeze, No rales Cardiovascular: Regular rate, Regular Rhythm, Normal S1, Normal S2, No rub noted , No Gallop Abdomen: Bowel Sounds Present, Soft, Non Tender, Non-Distended Extremities: No cyanosis, No edema, Capillary Refill Less than 3 Seconds, - - intact neuovascular bundle LE's Skin: No rashes, - - the bandage on the left hip is dry Musculoskeletal: No Muscle Wasting Neurological: Cranial nerves II-XII grossly intact, Neuro grossly intact Psych/Mental Status: Normal Affect, Appropriate Vital Signs Temp Pulse Resp BP Pulse Ox 98.5 F 73 16 105/70 100 12/04/17 04:00 12/04/17 04:00 12/04/17 04:00 12/04/17 04:00 12/04/17 04:00 Oxygen Flow Rate (L/min) 2 Oxygen Delivery Method Nasal Cannula Weight: 147 lb 6.417 oz Body Mass Index (BMI) 27.1 Intake and Output for Last 24 Hours 12/02/17 12/03/17 12/04/17 23:59 23:59 23:59 Intake Total 3164 / 3164 908 / 908 Balance 3164 / 3164 908 / 908 Laboratory Tests Past 24 Hrs 12/04/17 12/04/17 05:20 05:20 WBC 10.9 RBC 2.98 L Hgb 9.3 L Hct 28.1 L MCV 94.3 MCH 31.2 MCHC 33.1 RDW 13.1 RDW Differential 43.3 Plt Count 244 MPV 9.9 Sodium 143 Potassium 3.6 Chloride 105 Carbon Dioxide 31.0 Anion Gap 7 BUN 13 Creatinine 0.57 Estim Creat Clear Calc 78.21 Est GFR (MDRD) Af Amer 138 Est GFR (MDRD) Non-Af 114 BUN/Creatinine Ratio 22.7 H Glucose 108 H Calcium 7.8 L Medical Necessity - Tobacco Use Smoking Status: Current every day smoker Assessment/Plan Impressions 1. S/P L DOUG 12/03 2. COPD/asthma 3. Hx of lung CA 4. Osteopenia - currently only on Calcium + vitamin D. May want to consider adding a bisphosphonate going forward and repeating the DEXA in 1 year 5. Hypothyroidism 6. anemia due to blood loss - asymptomatic Stable for DC from IM perspective. Will continue to follow as long as she is in the hospital Code Visit Inpatient E&M: 93672 Subs Hosp L2
[2017-12-04] MEDS: 0.9% NaCl Peripheral Flush Adult/Peds IV ×2 (08:08→14:25)
[2017-12-04] MEDS: Aspirin 325 MG Tablet PO ×2 (08:09→16:59)
[2017-12-04] MEDS: Senna/Docusate Sodium 1 Tablet 2 TABLET PO (08:09)
[2017-12-04] MEDS: Gabapentin 600 MG Tablet PO ×3 (08:10→16:59)
[2017-12-04] MEDS: Ascorbic Acid 500 MG Tablet 1000 MG PO (08:10)
[2017-12-04] MEDS: Cyanocobalamin 500 MCG Tablet 1000 MCG PO (08:10)
[2017-12-04] MEDS: Pantoprazole Sodium 40 MG Tablet PO (08:10)
[2017-12-04] MEDS: Venlafaxine XR 150 MG Capsule PO (08:10)
[2017-12-04] MEDS: Famotidine 20 MG Tablet PO (08:11)
[2017-12-04] MEDS: Loratadine 10 MG Tablet PO (08:11)
[2017-12-04] MEDS: Montelukast 10 MG Tablet PO (08:13)
[2017-12-04] MEDS: Fluticasone 0.05% 1 SPRAY NASAL.SRY 2 SPRAY NASAL (09:13)
[2017-12-04 09:15] VITALS: BP 106/63; PULSE 66; PULSE 70; RESP 18; TEMP 36.7; O2SAT 94
[2017-12-04 13:20] VITALS: PULSE 80; RESP 12
--- NOTE | 2017-12-04 14:14 | PN.ORTHO_ITS ---
Subjective: The patient was sitting in bed upon examination. Patient denies any chest pain , shortness of breath, dizziness, lightheadedness, nausea or vomiting, or calf pain. Pain is controlled on medications. No adverse overnight events. Overall patient is doing very well. Her pain is well controlled. She is doing well with physical therapy. Patient is requesting to get home health physical therapy due to inability to drive and therapy is 1 hour away. Patient does wish to go home today. Objective: Vital signs stable and afebrile. Patient is able to plantarflex and dorsiflex actively. Sensation is intact to light touch to saphenous, sural, superficial and deep peroneal, and tibial distribution. Dressing is clean dry and intact. Negative Homans bilaterally, negative signs and symptoms of DVT. - Physical Exam General: Alert, Oriented x3, Cooperative, No apparent distress Vital Signs Temp Pulse Resp BP Pulse Ox 98.0 F 70 18 106/63 94 12/04/17 09:15 12/04/17 09:15 12/04/17 09:15 12/04/17 09:15 12/04/17 09:15 Oxygen Flow Rate (L/min) 2 Oxygen Delivery Method Room Air Weight: 66.86 kg Body Mass Index (BMI) 27.1 Intake and Output for Last 24 Hours 12/02/17 12/03/17 12/04/17 23:59 23:59 23:59 Intake Total 3164 / 3164 908 / 908 Output Total 350 / 350 Balance 3164 / 3164 558 / 558 Laboratory Tests Past 24 Hrs 12/04/17 12/04/17 05:20 05:20 WBC 10.9 RBC 2.98 L Hgb 9.3 L Hct 28.1 L MCV 94.3 MCH 31.2 MCHC 33.1 RDW 13.1 RDW Differential 43.3 Plt Count 244 MPV 9.9 Sodium 143 Potassium 3.6 Chloride 105 Carbon Dioxide 31.0 Anion Gap 7 BUN 13 Creatinine 0.57 Estim Creat Clear Calc 78.21 Est GFR (MDRD) Af Amer 138 Est GFR (MDRD) Non-Af 114 BUN/Creatinine Ratio 22.7 H Glucose 108 H Calcium 7.8 L Medical Necessity - Tobacco Use Smoking Status: Current every day smoker Assessment/Plan 1. S/P left direct anterior total hip arthroplasty POD #1 2. Continue Pain Medications: Tylenol and oxycodone 3. DVT Prophylaxis: Aspirin 325 mg twice daily 4. PT/OT: Weightbearing as tolerated 5. H & H: 9.3/28.1, asymptomatic 6. Encouraged Incentive Spirometry 7. Continue postoperative medical management per medicine 8. Disposition: Orthopedically stable, plan is for discharge home today. Prescriptions will be E scribed to [facility]. Patient will follow-up per postop instructions. Due to patient unable to drive and therapy began 1 hour away, the patient is wishing to have home health physical therapy.
--- NOTE | 2017-12-04 14:20 | PCM.DC.THR ---
Discharge Activity: May Not Drive - while taking narcotic pain medications. May shower in (days): 1 - only if incision is dry and without drainage. Do NOT soak/submerge in tub/pool/ma/stream/hot tub. Ice area for (Minutes): 20 - Every 1-2 hours while awake Weight Bearing Status: Weight bearing as tolerated Additional Activity Instructions:: Wear elastic stockings for 2 weeks. DO NOT use alcohol with narcotic pain medication. DO NOT make important decisions while taking narcotic medication. If you have problems with taking your medication (rash, itching, nausea, etc.) call the office at once. Call your doctor if your incision/area has: Increased Pain/ Swelling, Increased Redness, Foul Smelling Discharge Call your doctor if you observe: Fever of 101 or Higher Remove Dressing in (days):: 4 - Okay to remove on December 08, 2017 Additional Instructions: Follow [place] [facility] postop instructions Allergies/Adverse Reactions: Allergies No Known Allergies Allergy (Verified 11/21/17 10:52) Medications to take at Discharge ALPRAZolam [Xanax] 1 mg PO TID 01/19/16 Albuterol Aerosols [Ventolin Aerosols] 0.083 mg INHALATION Q4H PRN PRN 01/19/16 Ascorbic Acid [Vitamin C] 1,000 mg PO DAILY 01/19/16 Carisoprodol [Soma] 350 mg PO QHS 01/19/16 Dexlansoprazole [Dexilant] 60 mg PO DAILY 01/19/16 Gabapentin [Neurontin] 600 mg PO TIDCM 01/19/16 Levothyroxine [Synthroid] 88 mcg PO DAILY 01/19/16 Loratadine [Claritin] 10 mg PO DAILY 01/19/16 Mometasone Furoate [Nasonex] 1 spray NASAL BID 01/19/16 Montelukast [Singulair] 10 mg PO DAILY 01/19/16 Venlafaxine XR [Effexor Xr] 150 mg PO DAILY 01/19/16 Cholecalciferol (Vitamin D3) [Vitamin D3] 50,000 unit PO QMONTH 11/11/16 Latanoprost 0.005% [Xalatan Opthalmic] 1 drp EACH EYE QHS 02/18/17 Cyanocobalamin (Vitamin B-12) [Vitamin B-12] 1,000 mcg PO DAILY 11/21/17 Urea [Urevaz] 40 gm TP DAILY 11/21/17 fluticasone 250 mcg-salmeterol 50 mcg/dose blistr powdr for inhalation 1 inh INHALATION BID #60 ea 11/27/17 Acetaminophen [Tylenol] 1,000 mg PO Q8 #90 tab 12/04/17 Aspirin 325 mg PO BIDCM #30 tab 12/04/17 Oxycodone [Oxyir] 5 - 10 mg PO Q4H PRN PRN 7 Days #80 tablet 12/04/17 The following prescriptions were given: Oxycodone [Oxyir] 5 - 10 mg PO Q4H PRN PRN 7 Days #80 tablet PRN Reason: Mod-Severe Pain (-05/27) Acetaminophen [Tylenol] 1,000 mg PO Q8 #90 tab Aspirin 325 mg PO BIDCM #30 tab Primary Care Physician: Oziel Maritnez Chi, MD [Primary Care Provider] - Please Follow Up With: Home health physical therapy Please Follow Up With: Dave Mckoy PA-C When: 12/17/17 @ 10:30 am
--- NOTE | 2017-12-04 16:46 | CASEMGMT ---
Social Work Note Pt is interested in home health care. Pt would like [facility]. ДМИТРИЙ placed call to [facility] but per [facility] they don't provide services in [place], [place] where pt currently lives. ДМИТРИЙ placed call to multiple home health care agencies who were unable to accept pt. ДМИТРИЙ placed call to [facility] and they are able to accept pt and they will begin services on Friday. ДМИТРИЙ updated pt of this and RN Domingo of this as well. Plan: Discharge Home with Home Health Services through [facility] Michelle Cardenas SMALL ELECTRIC ENGINE TECHNICIAN, CARE TRANSPORT NURSE
--- NOTE | 2017-12-05 09:02 | CASEMGMT ---
Social Work Note Lilo in TCU knows that pt was discharged home and that she will no longer be going to TCU. Michelle Cardenas TRAFFIC CONTROL SUPERVISOR, HIDE TRIMMER
--- NOTE | 2017-12-05 15:05 | CASEMGMT ---
Social Work Note SW faxed face to face and order for home health care to [facility] Michelle Cardenas HAND LASTER, DEVELOPMENT GEOLOGIST
== END 2017-12-04 17:43 | disposition home health service (06) | DRG 470 ==
PROVIDERS: Admitting Provider Specialist; Family Provider Family Medicine Geriatric Medicine; PCP Family Medicine Geriatric Medicine; Visit Provider Specialist
PROC: 0SRB049 Replacement of Left Hip Joint with Ceramic on Polyethylene Synthetic Substitute, Cemented, Open Approach (ICD-10-PCS; CPT 27284; principal; 2017-12-03 06:50)
DX: M16.0 Bilateral primary osteoarthritis of hip (principal); M81.0 Age-related osteoporosis without current pathological fracture; J43.9 Emphysema, unspecified; E03.9 Hypothyroidism, unspecified; F41.9 Anxiety disorder, unspecified; F17.200 Nicotine dependence, unspecified, uncomplicated; Z85.118 Personal history of other malignant neoplasm of bronchus and lung
CPT/HCPCS: 36415; 73501; 73502; 76000; 80048; 80076; 85025; 85027; 85610; 85730; 87081; 94640; 97110; 97162; 97165; 97530; 97802; 99251; J7120; A4216; G0463

== ENCOUNTER → 2018-03-05 09:16 | Outpatient (CLI) | payer MEDICARE, MEDICAID, SELFPAY | LOC: POLAB3 09:17 → LAB.FUTURE 11:05 | PROVIDERS: Family Provider Family Medicine Geriatric Medicine; PCP Family Medicine Geriatric Medicine; Visit Provider Family Medicine Geriatric Medicine | DX: E55.9 Vitamin D deficiency, unspecified (principal); R53.83 Other fatigue ==

== ENCOUNTER → 2018-03-31 11:48 | Outpatient (CLI) | payer MEDICARE, MEDICAID, SELFPAY ==
[2018-03-31 12:32] LABS: Absolute Lymphocyte Count 2.22 X10^3/ul (0.83-4.51); Absolute Neutrophil Count 5.2 X10^3/uL (2.0-7.7); Basophil# 0.04 X10^3/uL; Basophil% 0.5 % (0-1); Eosinophil# 0.05 X10^3/uL; Eosinophils% 0.6 % (0-5); Hematocrit 41.4 % (37-47); Hemoglobin 13.9 g/dl (12.0-15.0); Lymphocyte # 2.22 X10^3/ul (4.0); Lymphocyte % 27.3 % (19-41); Mean Corp Hgb Conc 33.6 g/gl (32-36); Mean Corpuscular Volume 89.2 fL (81-99); Mean Platelet Vol. 9.9 fl (6.2-12.0); Monocyte# 0.55 X10^3/uL; Monocyte% 6.8 % (0-10); Neutrophil # 5.22 X10^3/uL (2.7-7.7); Neutrophil % 64.3 % (47-70); Platelet Count 405 K/mm3 (150-450); RBC Distribution Width CV 14.6 % (11.6-14.6); RBC Distribution Width SD 47.2 fl (35.1-43.9); Red Blood Count 4.64 M/mm3 (4.2-5.4); White Blood Count 8.1 K/mm3 (4.4-11.0)
[2018-03-31 12:39] LABS: POSITIVE COUNT NO; POSITIVE DIFFERENTIAL NO; POSITIVE MORPHOLOGY NO
[2018-03-31 12:49] LABS: ALB/GLOB Ratio 0.8 RATIO (0.9-2.4); AST(SGOT) 11 U/L (15-37); Alanine Aminotransfer ALT/SGPT 21 U/L (13-56); Albumin, Serum 3.5 g/dL (3.2-5.0); Alkaline Phosphatase 120 U/L (45-117); Anion Gap 12 (5-15); BUN 9 mg/dL (7-18); BUN/Creat Ratio 12.6 RATIO (10-20); Calcium,Total 8.8 mg/dL (8.5-10.1); Chloride 100 mmol/L (98-107); Creatinine, Serum 0.71 mg/dL (0.55-1.02); EST Glomerular Filtration Rate 88 mL/min (>60); Est Glom Filt Rate - Afr Amer 107 mL/min (>60); Globulin 4.4 g/dL (2.2-4.2); Glucose 136 mg/dL (74-106); Potassium 3.7 mmol/L (3.5-5.1); Protein, Total 7.9 g/dL (6.4-8.2); Sodium Level 139 mmol/L (136-145)
[2018-04-01 08:36] LABS: Vitamin D,25 Hydroxy 23.4 ng/mL (29.95-100.01)
[2018-04-01 11:59] LABS: Hep C Antibodies 0.1 s/co ratio (0.0-0.9)
== END ==
PROVIDERS: Family Provider Family Medicine Geriatric Medicine; PCP Family Medicine Geriatric Medicine; Visit Provider Family Medicine Geriatric Medicine
DX: R53.83 Other fatigue (principal); E55.9 Vitamin D deficiency, unspecified; Z13.89 Encounter for screening for other disorder
CPT/HCPCS: 36415; 80053; 82306; 84443; 85025; 86803

== ENCOUNTER → 2018-05-01 11:16 | Outpatient (CLI) | payer MEDICARE, MEDICAID, SELFPAY ==
--- NOTE | 2018-05-01 11:29 | RAD_ITS ---
STUDY: X-RAY CHEST REASON FOR EXAM: Female, 63 years old. Cough x2 weeks and weakness TECHNIQUE: PA and lateral views of the chest. COMPARISON: 11/21/2017 FINDINGS: There is hyperinflation of the lungs consistent with chronic obstructive lung disease (COPD). Stable tethering of the right hemidiaphragm with mild elevation. Distortion right perihilar parenchyma. There is no demonstrated pleural abnormality. Normal size heart. Normal mediastinum and james. Normal visualized pulmonary arteries. Normal visualized aortic arch and descending thoracic aorta. There are diffuse degenerative changes of the visualized thoracic spine. Priors lower cervical fusion. 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 Stable mild loss of vertebral body height and gentle S scoliosis. There is no demonstrated abnormality of the visualized soft tissue structures of the upper abdomen. RAD/Chest PA and Lateral IMPRESSION: No pulmonary edema, congestive heart failure or confluent pneumonia. Stable nonacute findings as above. Electronically Signed: Jocy Potts MD at 7:00 EDT , Service support ,
== END ==
PROVIDERS: Family Provider Family Medicine Geriatric Medicine; PCP Family Medicine Geriatric Medicine; Visit Provider Nurse Practitioner Acute Care
DX: J44.9 Chronic obstructive pulmonary disease, unspecified (principal)
CPT/HCPCS: 71046; 87070; 87205

== ENCOUNTER → 2018-06-04 13:11 | Outpatient (CLI) | payer MEDICARE, MEDICAID, SELFPAY ==
--- NOTE | 2018-06-04 13:15 | BI_ITS ---
MAMMOGRAPHY - BILATERAL SCREENING REASON FOR EXAM: Female, 63 years old. Routine annual screening examination. PERTINENT HISTORY: Sister with breast cancer. TECHNIQUE: Digital bilateral breast geovanna (3D mammographic acquisition) in the CC and MLO projections. 2-D mediolateral oblique (MLO) and craniocaudad (CC) views of both breasts were obtained. CAD: Full Field Digital Mammography with Computer Added Detection was performed. COMPARISON: Comparison is made with prior examination dated December 25, 2016. FINDINGS: Breast Composition: There are scattered areas of fibroglandular density. Stable 2.3 cm x 3.4 cm inhomogeneous nodule in the deep mid lateral portion of the right breast. On the prior ultrasound the breast dated December 25, 2016, this most likely represents a hamartoma. No other significant abnormalities are identified. There has been no significant change since the prior study. BI/SCREENING MAMM (CAD), BILAT IMPRESSION: Stable bilateral screening mammogram. Yearly follow-up mammogram recommended. (A) ASSESSMENT CATEGORY: BIRADS Category 2: Benign. A letter regarding these results will be sent to the patient by the facility within 30 days. Approximately 10% of breast cancers are not detected by mammography. A normal mammogram should not delay biopsy of a clinically suspicious abnormality. [id number] Electronically Signed: Aubrey Noble MD at 10:17 EDT Tel [phone], Service support ,
== END ==
PROVIDERS: Family Provider Family Medicine Geriatric Medicine; PCP Family Medicine Geriatric Medicine; Visit Provider Family Medicine Geriatric Medicine
DX: Z12.31 Encounter for screening mammogram for malignant neoplasm of breast (principal)
CPT/HCPCS: 77063; 77067

== ENCOUNTER → 2018-06-24 14:20 | Outpatient (CLI) | payer MEDICARE, MEDICAID, SELFPAY ==
--- NOTE | 2018-06-24 14:25 | RAD_ITS ---
STUDY: X-RAY - CERVICAL SPINE REASON FOR EXAM: Female, 63 years old. Cervical radiculopathy. TECHNIQUE: 3 view(s) of the cervical spine were obtained. COMPARISON: None FINDINGS: There are degenerative changes of the anterior atlantoaxial articulation. Normal odontoid process. Normal cervical lordosis. There is anterior fusion of C4-C7. The metallic plate and screws are intact. There is minimal endplate spondylosis and disc space narrowing at C3-4. There is no evidence of acute fracture or loss of vertebral axial height. The soft tissue structures are unremarkable. RAD/Cerv Spine 2 or 3 Views IMPRESSION: Anterior fusion of C4-C7. Electronically Signed: Burt Avery DO at 23:31 EST Tel [phone], Service support ,
== END ==
PROVIDERS: Family Provider Family Medicine Geriatric Medicine; PCP Family Medicine Geriatric Medicine; Referring Provider Family Medicine Geriatric Medicine; Visit Provider Family Medicine Geriatric Medicine
DX: G54.2 Cervical root disorders, not elsewhere classified (principal)
CPT/HCPCS: 72040

== ENCOUNTER → 2018-09-01 11:34 | Outpatient (CLI) | payer MEDICARE, MEDICAID, SELFPAY ==
[2018-09-01 10:43] VITALS: BMI 25.9
== END ==
PROVIDERS: Family Provider Family Medicine Geriatric Medicine; PCP Family Medicine Geriatric Medicine; Referring Provider Nurse Practitioner Acute Care; Visit Provider Nurse Practitioner Acute Care
DX: J44.9 Chronic obstructive pulmonary disease, unspecified (principal)
CPT/HCPCS: 87070; 87205

== ENCOUNTER → 2018-09-22 10:59 | Outpatient (CLI) | payer MEDICARE, MEDICAID, SELFPAY ==
[2018-09-01 10:43] VITALS: BMI 25.9
[2018-09-22 11:00] VITALS: PULSE 101; PULSE 103; PULSE 104; PULSE 105; PULSE 89; PULSE 90; PULSE 97; O2SAT 94; O2SAT 95; O2SAT 96; O2SAT 97
--- NOTE | 2018-09-22 12:52 | PCM.PSN.6M ---
PSN 6 Minute Walk Test - 6 Minute Walk Test 6 Minute Walk Test: 6 Minute Walk Test PSN:6-Minute Walk Test Start: 09/22/18 11:32 Freq: Status: Active Protocol: RESP.6MINW Document 09/22/18 11:00 ROMY (Rec: 09/22/18 11:36 JLA [id number]) 6 Minute Walk Test Date Performed 09/22/18 Time Performed 11:00 Height 5 ft 1 in Weight: 59.874 kg Weight in Pounds 132.[address]: Patti Hope Assistive device used: None Pre-test Oxygen Delivery Method Room Air Pulse Ox (%) 96 Pulse Rate (60-100 beats/min) 90 Dyspnea Violeta Scale (0-10) 0.5 Exertion Violeta Scale (6-20) 6 1st minute Oxygen Delivery Method Room Air Pulse Ox (%) 97 Pulse Rate (60-100 beats/min) 97 2nd minute Oxygen Delivery Method Room Air Pulse Ox (%) 95 Pulse Rate (60-100 beats/min) 101 H 3rd minute Oxygen Delivery Method Room Air Pulse Ox (%) 95 Pulse Rate (60-100 beats/min) 103 H 4th minute Oxygen Delivery Method Room Air Pulse Ox (%) 94 Pulse Rate (60-100 beats/min) 104 H 5th minute Oxygen Delivery Method Room Air Pulse Ox (%) 95 Pulse Rate (60-100 beats/min) 105 H 6th minute Oxygen Delivery Method Room Air Pulse Ox (%) 95 Pulse Rate (60-100 beats/min) 104 H Reported Symptoms Increased Work of Breathing Post-test Oxygen Delivery Method Room Air Pulse Ox (%) 97 Pulse Rate (60-100 beats/min) 89 Dyspnea Violeta Scale (0-10) 4 Exertion Violeta Scale (6-20) 13 Full Laps Walked 22 Partial Lap, Number of Tiles Walked 0 Total Distance Walked (ft) 1298 - Interpretation Interpretation: The patient was able to ambulate 1298 feet over the course of 6 minutes on room air with no assistive devices or breaks. The patient experienced no significant desaturation, but did have a peak heart rate of 105 bpm. These findings are consistent with deconditioning. - Recommendations Recommendations: No supplemental oxygen is indicated at this time.
== END ==
PROVIDERS: Family Provider Family Medicine Geriatric Medicine; PCP Family Medicine Geriatric Medicine; Referring Provider Nurse Practitioner Acute Care; Visit Provider Nurse Practitioner Acute Care
DX: J44.9 Chronic obstructive pulmonary disease, unspecified (principal)
CPT/HCPCS: 94618

== ENCOUNTER → 2018-09-24 09:59 | Outpatient (CLI) | payer MEDICARE, MEDICAID, SELFPAY ==
[2018-09-01 10:43] VITALS: BMI 25.9
--- NOTE | 2018-09-24 12:48 | PFTCOMP ---
COMPLETE PULMONARY FUNCTION TEST INTERPRETATION Brief HPI: Patient is a 63 year old female, currently under the care of Zahida in 3 months with myself, who presents to [facility] for complete pulmonary function tests secondary to diagnosis of COPD. Respiratory therapist reports good effort and reproducible results. Interpretation: Forced expiration spirometry shows a moderately-severe large airways obstructive ventilatory defect with an FEV1 of 55% predicted. There is no significant bronchodilator response by strict ATS criteria. Spirograms are of good quality and plateau slowly, indicating slowly emptying areas of the lungs. The respiratory flow volume loop shows decreased expiratory flow rates at all lung volumes consistent with airway obstruction. Lung volumes by body plethysmography show an elevated total lung capacity at 5.2 L, 122% predicted. FRC and RV are elevated out of proportion. Lung volume measurements are consistent with hyperinflation and air-trapping. Diffusion capacity by carbon monoxide is at the lower limit of normal at 67% predicted. The airway resistance is elevated. Compared to previous pulmonary function tests from 08/28/2017, there has been no significant change. Impression: Irreversible moderately severe large airways obstructive ventilatory defect resulting in air trapping with hyperinflation. No significant change compared to previous.
== END ==
PROVIDERS: Family Provider Family Medicine Geriatric Medicine; PCP Family Medicine Geriatric Medicine; Referring Provider Nurse Practitioner Acute Care; Visit Provider Nurse Practitioner Acute Care
DX: J44.9 Chronic obstructive pulmonary disease, unspecified (principal)
CPT/HCPCS: 94060; 94726; 94729

== ENCOUNTER → 2018-11-18 06:41 | Outpatient (CLI) | payer MEDICARE, MEDICAID, SELFPAY ==
[2018-09-01 10:43] VITALS: BMI 25.9
--- NOTE | 2018-11-18 06:50 | CT_ITS ---
STUDY: CT CHEST WITH CONTRAST REASON FOR EXAM: Female, 63 years old. History of lung cancer with prior right upper lobectomy. RADIATION DOSAGE (If Supplied By Facility): CTDIvol = ( 9.53 ) mGy, DLP = ( 298.02 ) mGycm TECHNIQUE: Transaxial imaging was performed following intravenous administration of 100 IV Isovue 300. Multiplanar coronal and sagittal images were reformatted. Individualized dose optimization techniques were used for this CT. COMPARISON: Comparison is made with prior study dated November 17, 2017. FINDINGS: Mild degree of volume loss in the right upper hemithorax secondary to prior lumpectomy. This is unchanged. Mild scarring in the right lower lobe. There is no demonstrated pleural abnormality. Normal heart and pericardium. Normal mediastinum. Normal hilar regions. Normal enhanced pulmonary arteries. Normal aorta arch and descending thoracic aorta. There are multi-level degenerative changes of the thoracic spine. There is no demonstrated abnormality of the visualized upper abdomen. CT/Chest WITH Contrast IMPRESSION: Status post right upper lobectomy. There has been no change since prior study. Electronically Signed: Aubrey Noble, at 15:34 EDT , Service support ,
[2018-11-18 07:01] LABS: CREATININE FINGERSTICK 0.7 mg/dL (0.55-1.02); EGFR FINGERSTICK > 60.0000 mL/min (>60)
== END ==
PROVIDERS: Family Provider Family Medicine Geriatric Medicine; PCP Family Medicine Geriatric Medicine; Referring Provider Internal Medicine Medical Oncology; Visit Provider Internal Medicine Medical Oncology
DX: C34.11 Malignant neoplasm of upper lobe, right bronchus or lung (principal)
CPT/HCPCS: 71260; Q9967

== ENCOUNTER → 2018-12-08 14:58 | Outpatient (CLI) | payer MEDICARE, MEDICAID, SELFPAY ==
[2018-12-08 11:00] VITALS: BMI 26.0
[2018-12-08 16:56] LABS: Absolute Lymphocyte Count 2.63 X10^3/ul (0.83-4.51); Absolute Neutrophil Count 4.6 X10^3/uL (2.0-7.7); Basophil# 0.09 X10^3/uL; Basophil% 1.1 % (0-1); Eosinophil# 0.01 X10^3/uL; Eosinophils% 0.1 % (0-5); Hematocrit 39.4 % (37-47); Hemoglobin 13.2 g/dl (12.0-15.0); Lymphocyte # 2.63 X10^3/ul (4.0); Lymphocyte % 33.5 % (19-41); Mean Corp Hgb Conc 33.5 g/gl (32-36); Mean Corpuscular Hgb 31.5 pg (27.0-32.0); Mean Platelet Vol. 9.7 fl (6.2-12.0); Monocyte# 0.44 X10^3/uL; Monocyte% 5.6 % (0-10); Neutrophil # 4.64 X10^3/uL (2.7-7.7); Neutrophil % 59.3 % (47-70); Platelet Count 314 K/mm3 (150-450); RBC Distribution Width CV 13.8 % (11.6-14.6); RBC Distribution Width SD 47.3 fl (35.1-43.9); Red Blood Count 4.19 M/mm3 (4.2-5.4); White Blood Count 7.8 K/mm3 (4.4-11.0)
[2018-12-08 17:16] LABS: POSITIVE COUNT NO; POSITIVE DIFFERENTIAL NO; POSITIVE MORPHOLOGY NO
[2018-12-08 17:19] LABS: AST(SGOT) 12 U/L (15-37); Alanine Aminotransfer ALT/SGPT 20 U/L (13-56); Albumin, Serum 3.6 g/dL (3.2-5.0); Alkaline Phosphatase 92 U/L (45-117); Anion Gap 6 (5-15); BUN 10 mg/dL (7-18); BUN/Creat Ratio 17.9 RATIO (10-20); Calcium,Total 8.8 mg/dL (8.5-10.1); Chloride 102 mmol/L (98-107); Creatinine, Serum 0.56 mg/dL (0.55-1.02); EST Glomerular Filtration Rate 117 mL/min (>60); Est Glom Filt Rate - Afr Amer 141 mL/min (>60); Globulin 3.7 g/dL (2.2-4.2); Glucose 109 mg/dL (74-106); Potassium 3.8 mmol/L (3.5-5.1); Protein, Total 7.3 g/dL (6.4-8.2); Sodium Level 139 mmol/L (136-145); Thyroid Stim Hormone (TSH) 1.12 uIU/mL (0.358-3.74)
[2018-12-08 17:23] LABS: Vitamin D,25 Hydroxy 21.7 ng/mL (29.95-100.01)
== END ==
PROVIDERS: Family Provider Family Medicine Geriatric Medicine; PCP Family Medicine Geriatric Medicine; Visit Provider Family Medicine Geriatric Medicine
DX: R53.83 Other fatigue (principal); E55.9 Vitamin D deficiency, unspecified
CPT/HCPCS: 36415; 80053; 82306; 84443; 85025

== ENCOUNTER → 2019-04-05 09:53 | Outpatient (CLI) | payer MEDICARE, MEDICAID, SELFPAY ==
[2018-12-08 11:00] VITALS: BMI 26.0
[2019-04-05 12:37] LABS: Absolute Lymphocyte Count 1.97 X10^3/uL (0.83-4.51); Absolute Neutrophil Count 3.8 X10^3/uL (2.0-7.7); Basophil# 0.07 X10^3/uL; Basophil% 1.1 % (0-1); Eosinophil# 0.04 X10^3/uL; Eosinophils% 0.6 % (0-5); Hematocrit 40.5 % (37-47); Hemoglobin 13.6 g/dL (12.0-15.0); Lymphocyte # 1.97 X10^3/ul (4.0); Lymphocyte % 31.1 % (19-41); Mean Corp Hgb Conc 33.6 g/dL (32-36); Mean Corpuscular Hgb 32.1 pg (27.0-32.0); Mean Corpuscular Volume 95.5 fL (81-99); Monocyte# 0.48 X10^3/uL; Monocyte% 7.6 % (0-10); NRBC Flagged by Analyzer 0 % (0-5); Neutrophil # 3.76 X10^3/uL (2.7-7.7); Neutrophil % 59.3 % (47-70); Platelet Count 283 K/mm3 (150-450); RBC Distribution Width CV 13.2 % (11.6-14.6); RBC Distribution Width SD 46.5 fl (35.1-43.9); Red Blood Count 4.24 M/mm3 (4.2-5.4); White Blood Count 6.3 K/mm3 (4.4-11.0)
[2019-04-05 12:54] LABS: Vitamin D,25 Hydroxy 29.7 ng/mL (29.95-100.01)
[2019-04-05 12:55] LABS: ALB/GLOB Ratio 0.8 RATIO (0.9-2.4); AST(SGOT) 11 U/L (15-37); Alanine Aminotransfer ALT/SGPT 19 U/L (13-56); Albumin, Serum 3.3 g/dL (3.2-5.0); Alkaline Phosphatase 109 U/L (45-117); Anion Gap 5 (5-15); BUN 13 mg/dL (7-18); BUN/Creat Ratio 24.7 RATIO (10-20); Calcium,Total 8.8 mg/dL (8.5-10.1); Chloride 105 mmol/L (98-107); Creatinine, Serum 0.53 mg/dL (0.55-1.02); EST Glomerular Filtration Rate 125 mL/min (>60); Est Glom Filt Rate - Afr Amer 151 mL/min (>60); Glucose 102 mg/dL (74-106); Potassium 4.1 mmol/L (3.5-5.1); Protein, Total 7.3 g/dL (6.4-8.2); Sodium Level 141 mmol/L (136-145); Thyroid Stim Hormone (TSH) 1.13 uIU/mL (0.358-3.74)
== END ==
PROVIDERS: Family Provider Family Medicine Geriatric Medicine; PCP Family Medicine Geriatric Medicine; Visit Provider Family Medicine Geriatric Medicine
DX: E55.9 Vitamin D deficiency, unspecified (principal); R53.83 Other fatigue
CPT/HCPCS: 36415; 80053; 82306; 84443; 85025

== ENCOUNTER → 2019-05-25 13:06 | Outpatient (CLI) | payer MEDICARE, MEDICAID, SELFPAY ==
[2019-05-25 12:56] VITALS: BMI 26.0
--- NOTE | 2019-05-25 13:50 | RAD_ITS ---
STUDY: X-RAY CHEST REASON FOR EXAM: Female, 64 years old. Short of breath. TECHNIQUE: 2 view chest. COMPARISON: 11/18/2018 CT chest. FINDINGS: No evidence of pneumonia, pulmonary edema, pneumothorax or pleural effusion. Emphysema, partial right pneumonectomy, and bibasilar scarring again demonstrated. Cardiac silhouette, hilar and mediastinal contours with no acute findings. Atherosclerosis of the thoracic aorta. Degenerative osseous changes with no acute osseous abnormality. Cervical spine fusion hardware and mild reverse S scoliosis. Postthoracotomy changes right posterior seventh rib. RAD/Chest PA and Lateral IMPRESSION: No acute findings. Emphysema, previous partial right pneumonectomy. Electronically Signed: Kehinde Jordan, at 18:48 EDT Tel , Service support ,
--- NOTE | 2019-05-25 14:31 | CPS ---
Given as a outpatient per Dr. martinez.
== END ==
PROVIDERS: Family Provider Family Medicine Geriatric Medicine; PCP Family Medicine Geriatric Medicine; Referring Provider Nurse Practitioner Acute Care; Visit Provider Nurse Practitioner Acute Care
DX: R05 Cough (principal); C34.90 Malignant neoplasm of unspecified part of unspecified bronchus or lung
CPT/HCPCS: 71046; 87070; 87077; 87186; 87205; 94667

== ENCOUNTER → 2019-06-07 08:33 | Outpatient (CLI) | payer MEDICARE, MEDICAID, SELFPAY ==
[2018-12-08 11:00] VITALS: BMI 26.0
[2019-05-25 12:56] VITALS: BMI 26.0
--- NOTE | 2019-06-07 08:35 | BI_ITS ---
MAMMOGRAPHY - BILATERAL SCREENING REASON FOR EXAM: Female, 64 years old. Routine annual screening examination. PERTINENT HISTORY: Sister with breast cancer. Patient has a history of lung cancer. TECHNIQUE: Digital bilateral breast gab (3D mammographic acquisition) in the CC and MLO projections. 2-D mediolateral oblique (MLO) and craniocaudad (CC) views of both breasts were obtained. CAD: Full Field Digital Mammography with Computer Added Detection was performed. COMPARISON: Comparison is made with prior examination dated June 04, 2018 and December 25, 2016. FINDINGS: Breast Composition: There are scattered areas of fibroglandular density. There are no dominant masses or suspicious calcifications. Stable 2.3 cm x 3.4 cm inhomogeneous nodule in the deep mid lateral portion of the right breast. Findings suggestive of fat containing within the nodule. This most likely represents a hamartoma. This is unchanged. Stable appearance of the small benign-appearing bilateral axillary lymph nodes. No other significant abnormalities are identified. There has been no significant change since the prior study. BI/SCREEN MAMM (CAD) W/GAB BILAT IMPRESSION: Stable bilateral screening mammogram. Yearly follow-up mammogram recommended. (A) ASSESSMENT CATEGORY: BIRADS Category 2: Benign. A letter regarding these results will be sent to the patient by the facility within 30 days. Approximately 10% of breast cancers are not detected by mammography. A normal mammogram should not delay biopsy of a clinically suspicious abnormality. [id number] Electronically Signed: Aubrey Noble, at 11:19 EDT , Service support ,
== END ==
PROVIDERS: Family Provider Family Medicine Geriatric Medicine; PCP Family Medicine Geriatric Medicine; Referring Provider Family Medicine Geriatric Medicine; Visit Provider Family Medicine Geriatric Medicine
DX: Z12.31 Encounter for screening mammogram for malignant neoplasm of breast (principal); Z80.3 Family history of malignant neoplasm of breast; Z85.118 Personal history of other malignant neoplasm of bronchus and lung
CPT/HCPCS: 77063; 77067

== ENCOUNTER → 2019-06-10 13:59 | Outpatient (CLI) | payer MEDICARE, MEDICAID, SELFPAY ==
[2019-06-10 12:47] VITALS: BMI 24.1
[2019-06-13 04:08] LABS: Alternaria alternata <0.10 kU/L (Class 0); Bermuda Grass <0.10 kU/L (Class 0); Bluegrass, Kentucky <0.10 kU/L (Class 0); Cat Hair/Dander, Standard <0.10 kU/L (Class 0); D farinae Mite <0.10 kU/L (Class 0); D pteronyssinus <0.10 kU/L (Class 0); Dog Epithelia <0.10 kU/L (Class 0); Elm, American White <0.10 kU/L (Class 0); Oak, White <0.10 kU/L (Class 0); Plantain, English <0.10 kU/L (Class 0); Ragweed, Short/Common <0.10 kU/L (Class 0)
[2019-06-14 10:23] LABS: Immunoglobulin E 79 IU/mL (6-495)
[2019-06-14 10:37] LABS: Mouse Urine <0.10 kU/L (Class 0)
== END ==
PROVIDERS: Family Provider Family Medicine Geriatric Medicine; PCP Family Medicine Geriatric Medicine; Referring Provider Nurse Practitioner Acute Care; Visit Provider Nurse Practitioner Acute Care
DX: J30.9 Allergic rhinitis, unspecified (principal)
CPT/HCPCS: 36415; 82785; 86003

== ENCOUNTER → 2019-06-23 06:20 | Outpatient (CLI) | payer MEDICARE, MEDICAID, SELFPAY ==
[2019-06-10 12:47] VITALS: BMI 24.1
--- NOTE | 2019-06-23 06:33 | MRI_ITS ---
STUDY: MRI LUMBAR SPINE WITHOUT CONTRAST REASON FOR EXAM: Female, 64 years old. The patient presents with a history of multilevel degenerative disc disease, scoliosis, radiculopathy and back pain, with a history of small cell lung carcinoma. TECHNIQUE: Standardized fat and water weighted pulse sequences were obtained in the sagittal and axial planes. COMPARISON: X-RAY LUMBAR SPINE-September 26, 2015 FINDINGS: Vertebrae, Alignment and Curvature Vertebrae: Sagittal STIR sequence demonstrates bone marrow edema of the inferior endplate of T9 vertebra, mild bone marrow edema of the T10 and T11 vertebra. The marrow edema also involves the associated pedicles and margin of the corresponding ribs., There is no geographic pattern of destruction suggesting osteoporotic stress phenomena. The x-ray examination of September 26, 2015 further discloses severe multilevel degenerative disc disease and endplate spondylosis at the corresponding vertebra. There is intense bone marrow edema of the T12 and L1 vertebra (sagittal STIR series 5, image 12) extending from the superior inferior endplates of both vertebra. There are underlying vertebral body hemangiomas of the T12 and L1 vertebra (axial T2 series 6, images 26 and 30; sagittal T2 series 2, image 13). There is disc desiccation, collapse of the intervertebral discs with prominent anterior endplate spondylosis and minimal retrolisthesis of T12 vertebra. There are linear hypointense central regions within both the T12 and L1 vertebra (sagittal STIR series 5, image 10), consistent with acute intervertebral stress fractures. There is no endplate compression fracture or loss of vertical height of either the T12 or L1 vertebra. There is no geographic pattern of destruction and there are no findings suspicious for metastatic disease. The findings are most compatible with acute compression fracture superimposed upon underlying vertebral body hemangiomas. There is a heterogeneous hypointense fibrous bone marrow consistent with senescent marrow changes. Alignment: Multilevel malalignment with mild retrolisthesis of the T12, L1 vertebra with anterolisthesis of the L3 and L4 vertebrae, further described below. Curvature: Exaggerated cervical lordosis. There is a prominent dextroscoliosis of the thoracolumbar junction measuring approximately 18 degrees, unchanged as to the degree of scoliosis demonstrated on the x-ray lumbar spine on September 26, 2015. Thoracic Cord (visualized distal) / Conus Medullaris Normal. Terminates at the superior endplate of the L1 vertebra. Disc Space Levels N.B.: Normal level statement indicates: Normal endplates; disc height, signal and morphology; facet joints; central canal, lateral recesses, and intervertebral neuroformina. T9-10: (Imaged only in the sagittal plane). There is disc desiccation, collapse intervertebral disc with a posterior right central disc extrusion (sagittal T2 series 2, image 12). This disc extrusion measures approximately 4 mm in its AP dimension with no demonstrated impingement upon the thoracic cord or exiting nerve root. Normal central canal and intervertebral neural foramina. T10-11: (Imaged only in the sagittal plane). There is disc desiccation, collapse intervertebral discs with circumferential endplate spondylosis. Normal central canal and intervertebral neural foramina. T11-12: (Imaged only in the sagittal plane). There is disc desiccation, collapse intervertebral discs with circumferential endplate spondylosis. Normal central canal and intervertebral neural foramina. T12-L1: Vertebral body hemangiomas with acute compression fractures of the T12 and L1 vertebra, as described above). There is disc desiccation with collapse of the intervertebral disc without demonstrated endplate destruction or intervertebral disc fluid. There is no perivertebral inflammatory phlegmon and there are no findings of an disc or vertebral osteomyelitis. There is a 3 mm retrolisthesis of the T12 vertebra in relationship to the L1 vertebra with uncovering the annulus. Normal central canal with patent intervertebral neural foramina.. L1-L2: There is disc desiccation, collapse of the intervertebral disc, prominent anterior disc protrusion with a 3 mm L1 retrolisthesis relationship to the L2 vertebra with uncovering the annulus. There is annular bulging and mild facet arthrosis. The intervertebral neural foramina are mildly compromised however there is no definitive neural impingement upon the exiting L1 nerve roots. L2-L3: There is disc desiccation, preservation of the disc height with posterior right foraminal annular bulging with a left foraminal disc herniation of protrusion type (sagittal T2 series 2, 6; axial T2 series 6, image 18). Disc protrusion measures approximately 4 mm in width and is producing retrodiscal foraminal compromise but without morphologic neural impingement upon the exiting left L2 nerve root (sagittal T1 series 4, images 6-7). Normal central canal with a patent right L2-3 intervertebral neural foramina. L3-L4: There is disc desiccation, preservation of the disc height, severe bilateral facet arthroses (axial T2 series 6, image 12-13 with hypertrophy and infolding of the ligamentum flavum. There is a minimal 2 mm anterolisthesis of the L3 vertebra in relationship to the L3-L4 vertebra. There is a posterior right foraminal disc protrusion (sagittal T2 series 2, image 10; axial T2 series 6, image 12) measuring approximately 3 mm in width. There is mild uncovering the annulus with mild left-sided foraminal annular bulging. There is no foraminal neural impingement upon the exiting L3 nerve roots. There remains a normal central canal. L4-L5: There is disc desiccation, collapse intervertebral disc, severe bilateral hypertrophic facet arthrosis (right greater than left), (axial T2 series 6, image 9), with a 6 mm L4 anterolisthesis relationship to the L5 vertebra with uncovering the annulus. The combined processes have produced severe foraminal neural impingement upon the exiting right L4 nerve root (sagittal T2 series 2, images 11-12). The left L4-5 intervertebral neural foramina remains patent. There is hypertrophy with infolding of ligamentum flavum producing dorsolateral thecal sac flattening. The residual AP diameter of the central canal measures approximately 8 mm consistent with a mild central canal stenosis. L5-S1: There is disc desiccation, collapse intervertebral disc, circumferential endplate spondylosis, annular bulging and moderate bilateral facet arthroses. There is mild marrow edema of the L5 and sacral vertebra (sagittal STIR series 5, image 8), consistent with a marrow stress phenomena. There is bilateral foraminal stenosis with neural impingement upon the bilateral exiting L5 nerve roots (sagittal T2 series 2, images 3 and 12). Normal central canal. Sacral Alae: Normal. Retroperitoneum and Paraspinal Structures Kidneys: Partially imaged with no demonstrated abnormality. Aorta: Normal. Inferior Vena Cava: Normal. Lymph Nodes: None visualized. Muscles (Paraspinal): Normal. MRI/Spine Lumbar (Routine) IMPRESSION: 1. Severe multilevel degenerative disc disease, endplate spondylosis and facet arthrosis producing an increased lumbar lordosis and moderate dextroscoliosis of the vertebra, 2. 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 3. T12-L1 vertebral body hemangiomas with acute intervertebral linear fractures but without endplate compression fractures or loss of the vertical height of the vertebral bodies. 4. L2-3 left foraminal disc protrusion without neural impingement. 5. L3-4 small posterior right foraminal disc protrusion without neural impingement. 6. L4-5 severe bilateral facet arthroses (right greater than left), with an L4 anterolisthesis producing severe foraminal neural impingement upon the exiting right L4 nerve root. 7. L4-5 mild central canal stenosis. 8. L5-S1 juxta-endplate bone marrow edema consistent with type I discogenic endplate degeneration with bilateral foraminal stenosis with neural impingement upon the bilateral exiting L5 nerve roots. Electronically Signed: Keaton Palomino DO at 11:15 EST Tel , Service support ,
== END ==
PROVIDERS: Family Provider Family Medicine Geriatric Medicine; PCP Family Medicine Geriatric Medicine; Referring Provider Physician Assistant; Visit Provider Physician Assistant
DX: M41.9 Scoliosis, unspecified (principal); M51.36 Other intervertebral disc degeneration, lumbar region; M43.16 Spondylolisthesis, lumbar region; M54.16 Radiculopathy, lumbar region
CPT/HCPCS: 72148

== ENCOUNTER → 2019-07-09 14:25 | Outpatient (CLI) | payer MEDICARE, MEDICAID, SELFPAY ==
[2019-06-10 12:47] VITALS: BMI 24.1
--- NOTE | 2019-07-09 14:32 | CT_ITS ---
STUDY: CT CHEST WITH CONTRAST REASON FOR EXAM: Female, 64 years old. History of lung cancer. RADIATION DOSAGE (If Supplied By Facility): CTDIvol = ( 10.06 ) mGy, DLP = ( 230.36 ) mGycm TECHNIQUE: Transaxial imaging was performed following intravenous administration of IV Isovue 300 100. Multiplanar coronal and sagittal images were reformatted. Individualized dose optimization techniques were used for this CT. COMPARISON: 11/18/2018. FINDINGS: The lungs are normally expanded with mild bullous disease along the bilateral mid upper lung martinez and more so in the lung apices . There is mild diffuse interstitial prominence, nonspecific. There are 2 subpleural calcified nodules or plaques within the right lung field, image 38, series 4. There is a small nodularity within the right lower lobe, image 25, series 4 measuring 3.5 mm, stable in the interval. Unremarkable throughout with no solid lesion or pleural effusion. Heart maintains normal size. Normal mediastinum with no distinct lymphadenopathy. Sequela of volume loss within the right lung field with changes consistent with known prior right upper lobectomy. Otherwise normal hilar regions. Normal enhanced pulmonary arteries. There is atherosclerotic calcification of the aortic arch with tortuosity and elongation of the aortic arch and descending thoracic aorta. There are severe, multi-level degenerative changes of the thoracic spine. There is a low-attenuation nodule within the body of the left adrenal gland measuring approximately 1.2 x 1.0 cm. Questionable second nodules with the medial limb, ill-defined, new when compared to 10/07/2016, cannot exclude left adrenal metastatic lesion. Otherwise there is no demonstrated abnormality of the visualized upper abdomen. CT/Chest WITH Contrast IMPRESSION: Status post right upper lobectomy with mild bilateral bullous/emphysematous changes. Small left-sided nodularity as described above and stable in the interval Siemens 05/20/2017 . No lymphadenopathy or mass visualized. Questionable enlargement versus nodule within the left adrenal gland, new or increased in the interval when compared to 10/07/2016 examination and therefore, cannot exclude metastatic disease at this level. Clinical correlation recommended. Electronically Signed: Maggi Buck MD at 3:51 EST , Service support ,
[2019-07-09 14:56] LABS: CREATININE FINGERSTICK < 0.6 mg/dL (0.55-1.02)
== END ==
PROVIDERS: Family Provider Family Medicine Geriatric Medicine; PCP Family Medicine Geriatric Medicine; Referring Provider Nurse Practitioner Family; Visit Provider Nurse Practitioner Family
DX: Z85.118 Personal history of other malignant neoplasm of bronchus and lung (principal); Z90.2 Acquired absence of lung [part of]
CPT/HCPCS: 71260; Q9967

== ENCOUNTER → 2019-10-04 | Outpatient (CLI) | payer MEDICARE, MEDICAID, SELFPAY ==
[2019-07-12 10:10] VITALS: BMI 24.1
[2019-10-04 12:38] LABS: Absolute Lymphocyte Count 2.03 X10^3/uL (0.83-4.51); Absolute Neutrophil Count 4.8 X10^3/uL (2.0-7.7); Basophil# 0.08 X10^3/uL; Basophil% 1.1 % (0-1); Eosinophil# 0.03 X10^3/uL; Eosinophils% 0.4 % (0-5); Hematocrit 43.1 % (37-47); Lymphocyte # 2.03 X10^3/ul (4.0); Lymphocyte % 27.2 % (19-41); Mean Corp Hgb Conc 32.5 g/dL (32-36); Mean Corpuscular Hgb 30.6 pg (27.0-32.0); Mean Corpuscular Volume 94.3 fL (81-99); Mean Platelet Vol. 9.9 fl (6.2-12.0); Monocyte% 6.7 % (0-10); NRBC Flagged by Analyzer 0 % (0-5); Neutrophil # 4.77 X10^3/uL (2.7-7.7); Neutrophil % 64.1 % (47-70); Platelet Count 300 K/mm3 (150-450); RBC Distribution Width CV 13.3 % (11.6-14.6); RBC Distribution Width SD 45.9 fl (35.1-43.9); Red Blood Count 4.57 M/mm3 (4.2-5.4); White Blood Count 7.5 K/mm3 (4.4-11.0)
[2019-10-04 13:08] LABS: ALB/GLOB Ratio 0.9 RATIO (0.9-2.4); AST(SGOT) 16 U/L (15-37); Alanine Aminotransfer ALT/SGPT 26 U/L (13-56); Albumin, Serum 3.6 g/dL (3.2-5.0); Alkaline Phosphatase 100 U/L (45-117); Anion Gap 5 (5-15); BUN 16 mg/dL (7-18); BUN/Creat Ratio 23.7 RATIO (10-20); Calcium,Total 9.2 mg/dL (8.5-10.1); Chloride 102 mmol/L (98-107); Creatinine, Serum 0.68 mg/dL (0.55-1.02); EST Glomerular Filtration Rate 93 mL/min (>60); Est Glom Filt Rate - Afr Amer 113 mL/min (>60); Glucose 115 mg/dL (74-106); Protein, Total 7.6 g/dL (6.4-8.2); Sodium Level 136 mmol/L (136-145); Thyroid Stim Hormone (TSH) 1.54 uIU/mL (0.358-3.74)
[2019-10-04 14:20] LABS: Vitamin D,25 Hydroxy 16.1 ng/mL (29.95-100.01)
== END | disposition home or self-care (01) ==
LOC: POLAB3 09:05
PROVIDERS: PCP Family Medicine Geriatric Medicine; Visit Provider Family Medicine Geriatric Medicine
DX: E55.9 Vitamin D deficiency, unspecified (principal); R53.83 Other fatigue
CPT/HCPCS: 36415; 80053; 82306; 84443; 85025

== ENCOUNTER → 2020-02-07 13:05 | Outpatient (CLI) | payer MEDICARE, MEDICAID, SELFPAY ==
[2019-07-12 10:10] VITALS: BMI 24.1
[2019-11-25 08:18] VITALS: BMI 24.1
--- NOTE | 2020-02-07 13:06 | CT_ITS ---
STUDY: CT CHEST WITH CONTRAST REASON FOR EXAM: Female, 64 years old. PT STATED F/U TO LUNG CA, HX COPD, SMOKER, TUMOR AND NODES REMOVED 2014 RADIATION DOSAGE (If Supplied By Facility): CTDIvol = ( 8.76 ) mGy, DLP = ( 272.37 ) mGycm TECHNIQUE: Transaxial imaging was performed following intravenous administration of IV 100mL Isovue-370. Individualized dose optimization techniques were used for this CT. COMPARISON: 07/09/2019 FINDINGS: Lung windows again show underlying emphysema with bleb formation in the upper lobes. Chronic interstitial changes noted in both lung martinez without a superimposed infiltrate or effusion. No suspicious groundglass opacifications. Soft tissue windows show normal-appearing thyroid gland. No suspicious axillary, mediastinal, or perihilar adenopathy. Normal heart and pericardium. There are calcifications of the coronary arteries. Normal mediastinum. Normal hilar regions. Normal enhanced pulmonary arteries. Normal aorta arch and descending thoracic aorta. There are multi-level degenerative changes of the thoracic spine. Limited cuts through the upper abdomen show a stable 1 cm low-density left adrenal nodule on axial image 102 CT/Chest WITH Contrast IMPRESSION: Stable emphysematous changes in both lung martinez with chronic interstitial changes but no superimposed acute pulmonary process, or suspicious noncalcified mass or nodule Calcified coronary vessels Degenerative bony changes Stable 1 cm low-density left adrenal nodule, no specific follow-up needed as it is unchanged from previous studies Electronically Signed: Isidoro Cerda MD at 13:52 EDT , Service support ,
[2020-02-07 13:15] LABS: CREATININE FINGERSTICK < 0.6 mg/dL (0.55-1.02)
== END ==
PROVIDERS: PCP Family Medicine Geriatric Medicine; Referring Provider Internal Medicine Medical Oncology; Visit Provider Internal Medicine Medical Oncology
DX: C34.11 Malignant neoplasm of upper lobe, right bronchus or lung (principal); Z85.118 Personal history of other malignant neoplasm of bronchus and lung
CPT/HCPCS: 71260; Q9967

== ENCOUNTER → 2020-04-06 | Outpatient (CLI) | payer MEDICARE, MEDICAID, SELFPAY ==
[2020-02-17 08:28] VITALS: BMI 24.5
[2020-04-06 12:21] LABS: Absolute Lymphocyte Count 2.15 X10^3/uL (0.83-4.51); Absolute Neutrophil Count 5.1 X10^3/uL (2.0-7.7); Basophil# 0.09 X10^3/uL; Basophil% 1.1 % (0-1); Eosinophil# 0.04 X10^3/uL; Eosinophils% 0.5 % (0-5); Hematocrit 44.6 % (37-47); Hemoglobin 14.5 g/dL (12.0-15.0); Lymphocyte # 2.15 X10^3/ul (4.0); Lymphocyte % 27.5 % (19-41); Mean Corp Hgb Conc 32.5 g/dL (32-36); Mean Corpuscular Hgb 31.4 pg (27.0-32.0); Mean Corpuscular Volume 96.5 fL (81-99); Mean Platelet Vol. 9.6 fl (6.2-12.0); Monocyte# 0.41 X10^3/uL; Monocyte% 5.2 % (0-10); NRBC Flagged by Analyzer 0 % (0-5); Neutrophil # 5.08 X10^3/uL (2.7-7.7); Neutrophil % 64.9 % (47-70); Platelet Count 354 K/mm3 (150-450); RBC Distribution Width CV 13.1 % (11.6-14.6); RBC Distribution Width SD 46.7 fl (35.1-43.9); Red Blood Count 4.62 M/mm3 (4.2-5.4); White Blood Count 7.8 K/mm3 (4.4-11.0)
[2020-04-06 12:43] LABS: Vitamin D,25 Hydroxy 23.3 ng/mL
[2020-04-06 12:54] LABS: ALB/GLOB Ratio 0.9 RATIO (0.9-2.4); AST(SGOT) 11 U/L (15-37); Alanine Aminotransfer ALT/SGPT 19 U/L (13-56); Albumin, Serum 3.7 g/dL (3.2-5.0); Alkaline Phosphatase 103 U/L (45-117); Anion Gap 2 (5-15); BUN 9 mg/dL (7-18); BUN/Creat Ratio 18.2 RATIO (10-20); Calcium,Total 9.4 mg/dL (8.5-10.1); Chloride 101 mmol/L (98-107); Creatinine, Serum 0.49 mg/dL (0.55-1.02); EST Glomerular Filtration Rate 134 mL/min (>60); Est Glom Filt Rate - Afr Amer 162 mL/min (>60); Globulin 4.1 g/dL (2.2-4.2); Glucose 75 mg/dL (74-106); Potassium 3.9 mmol/L (3.5-5.1); Protein, Total 7.8 g/dL (6.4-8.2); Sodium Level 138 mmol/L (136-145); Thyroid Stim Hormone (TSH) 1.85 uIU/mL (0.358-3.74)
== END | disposition home or self-care (01) ==
LOC: POLAB3 11:39
PROVIDERS: PCP Family Medicine Geriatric Medicine; Visit Provider Family Medicine Geriatric Medicine
DX: E55.9 Vitamin D deficiency, unspecified (principal); R53.83 Other fatigue
CPT/HCPCS: 36415; 80053; 82306; 84443; 85025

== ENCOUNTER → 2020-04-28 | Outpatient (CLI) | payer MEDICARE, MEDICAID, SELFPAY ==
[2020-02-17 08:28] VITALS: BMI 24.5
== END | disposition home or self-care (01) ==
LOC: MTDU 10:24
PROVIDERS: PCP Family Medicine Geriatric Medicine; Referring Provider Nurse Practitioner Acute Care; Visit Provider Nurse Practitioner Acute Care
DX: R50.9 Fever, unspecified (principal)
CPT/HCPCS: 87635; C9803; U0003

== ENCOUNTER → 2020-05-04 | Outpatient (CLI) | payer MEDICARE, MEDICAID, SELFPAY ==
[2020-02-17 08:28] VITALS: BMI 24.5
--- NOTE | 2020-05-04 13:18 | RAD_ITS ---
STUDY: X-RAY CHEST REASON FOR EXAM: Female, 65 years old. POSSIBLE PNEUMONIA VS COPD EXACERBATION TECHNIQUE: PA and lateral views of the chest. COMPARISON: Comparison is made with prior examination dated 05/25/2019. FINDINGS: Decreased bronchovascular markings in the upper lobes suggestive of emphysematous change. Stable postoperative changes in the medial aspect of the right upper lobe. Hyperinflation. Stable increased markings at the lung bases suggestive of scarring. Blunting of both costophrenic angles. Normal size heart. Normal mediastinum and james. Normal visualized pulmonary arteries. There is atherosclerotic calcification of the aortic arch with tortuosity. Normal visualized thoracic spine. Prior fusion of the lower cervical spine. Postsurgical changes of the right seventh rib. There is no demonstrated abnormality of the visualized soft tissue structures of the upper abdomen. RAD/Chest PA and Lateral IMPRESSION: Hyperinflation with scarring at the lung bases. No acute abnormality is seen. Electronically Signed: Aubrey Noble, at 14:37 EDT , Service support ,
== END | disposition home or self-care (01) ==
PROVIDERS: PCP Family Medicine Geriatric Medicine; Referring Provider Internal Medicine Critical Care Medicine; Visit Provider Internal Medicine Critical Care Medicine
DX: J44.9 Chronic obstructive pulmonary disease, unspecified (principal)
CPT/HCPCS: 71046; 87633

== ENCOUNTER → 2020-05-23 | Outpatient (CLI) | payer MEDICARE, MEDICAID, SELFPAY ==
[2020-02-17 08:28] VITALS: BMI 24.5
--- NOTE | 2020-05-24 08:25 | PFT ---
INTRODUCTION: The patient is a 65-year-old female who presents for pulmonary function studies secondary to a diagnosis of COPD. Respiratory therapy reports good patient effort. Bronchodilators were used during testing. INTERPRETATION: Forced expiration spirometry demonstrates the presence of a moderately severe large airways obstructive ventilatory defect. There was no significant response to aerosolized bronchodilators. Spirograms are of fair quality and do not plateau indicating slow emptying of the lungs. Body plethysmography was performed and revealed an elevated TLC and RV, indicative of underlying hyperinflation and air trapping. Diffusing capacity by single breath CO is at the lower limits of normal. IMPRESSION: Irreversible moderately severe large airways obstructive ventilatory defect with associated hyperinflation, air trapping and mild reduction in diffusing capacity.
== END | disposition home or self-care (01) ==
LOC: PSN 09:54
PROVIDERS: PCP Family Medicine Geriatric Medicine; Referring Provider Nurse Practitioner Acute Care; Visit Provider Nurse Practitioner Acute Care
DX: J44.9 Chronic obstructive pulmonary disease, unspecified (principal)
CPT/HCPCS: 94060; 94726; 94729

== ENCOUNTER → 2020-05-25 | Outpatient (CLI) | payer MEDICARE, MEDICAID, SELFPAY ==
[2020-02-17 08:28] VITALS: BMI 24.5
[2020-05-25 13:03] VITALS: PULSE 89; PULSE 90; PULSE 94; PULSE 98; PULSE 99; O2SAT 91; O2SAT 92; O2SAT 94
--- NOTE | 2020-05-27 09:15 | PCM.PSN.6M ---
PSN 6 Minute Walk Test - 6 Minute Walk Test 6 Minute Walk Test: 6 Minute Walk Test PSN:6-Minute Walk Test Start: 05/25/20 13:03 Freq: Status: Active Protocol: RESP.6MINW Document 05/25/20 13:03 BRYAN (Rec: 05/25/20 13:09 BRYAN [id number]) 6 Minute Walk Test Date Performed 05/25/20 Time Performed 12:30 Height 5 ft Weight: 128 lb Weight in Pounds 128.[address]: Lux Marsh Assistive device used: None Pre-test Oxygen Delivery Method Room Air Pulse Ox (%) 94 Pulse Rate (60-100 beats/min) 89 Dyspnea Violeta Scale (0-10) 0 Exertion Violeta Scale (6-20) 6 1st minute Oxygen Delivery Method Room Air Pulse Ox (%) 92 Pulse Rate (60-100 beats/min) 94 2nd minute Oxygen Delivery Method Room Air Pulse Ox (%) 92 Pulse Rate (60-100 beats/min) 99 3rd minute Oxygen Delivery Method Room Air Pulse Ox (%) 91 Pulse Rate (60-100 beats/min) 99 4th minute Oxygen Delivery Method Room Air Pulse Ox (%) 92 Pulse Rate (60-100 beats/min) 99 5th minute Oxygen Delivery Method Room Air Pulse Ox (%) 91 Pulse Rate (60-100 beats/min) 99 6th minute Oxygen Delivery Method Room Air Pulse Ox (%) 92 Pulse Rate (60-100 beats/min) 98 Dyspnea Violeta Scale (0-10) 4 Exertion Violeta Scale (6-20) 14 Post-test Oxygen Delivery Method Room Air Pulse Ox (%) 94 Pulse Rate (60-100 beats/min) 90 Full Laps Walked 14 Partial Lap, Number of Tiles Walked 36 Total Distance Walked (ft) 862 - Interpretation Interpretation: The patient ambulated 862 feet over the course of 6 minutes beginning on room air without assistive devices or breaks. Pretesting oxygen saturation was noted to be 94% on room air. With ambulation, the elmer oxygen saturation was 91%. There was no significant exertional oxygen desaturation. - Recommendations Recommendations: There is no indication for the use of supplemental oxygen at this time.
== END | disposition home or self-care (01) ==
LOC: PSN 12:32
PROVIDERS: PCP Family Medicine Geriatric Medicine; Referring Provider Nurse Practitioner Acute Care; Visit Provider Nurse Practitioner Acute Care
DX: J44.9 Chronic obstructive pulmonary disease, unspecified (principal)
CPT/HCPCS: 94618

== ENCOUNTER → 2020-06-13 | Outpatient (CLI) | payer MEDICARE, MEDICAID, SELFPAY ==
[2020-02-17 08:28] VITALS: BMI 24.5
[2020-06-07 09:53] VITALS: BMI 26.2
--- NOTE | 2020-06-13 10:29 | BI_ITS ---
MAMMOGRAPHY - BILATERAL SCREENING REASON FOR EXAM: Female, 65 years old. Routine annual screening examination. PERTINENT HISTORY: Sister with breast cancer. TECHNIQUE: Digital bilateral breast gab (3D mammographic acquisition) in the CC and MLO projections. 2-D mediolateral oblique (MLO) and craniocaudad (CC) views of both breasts were obtained. CAD: Full Field Digital Mammography with Computer Added Detection was performed. COMPARISON: Comparison is made with prior study dated 06/07/2019 and 06/04/2018. FINDINGS: Breast Composition: There are scattered areas of fibroglandular density. There are no dominant masses or suspicious calcifications. Stable 2.3 cm x 3.4 cm heterogeneous nodule in the deep mid lateral aspect of the right breast. This most likely represents a hamartoma. No other significant abnormalities are identified. There has been no significant change since the prior study. BI/SCREEN MAMM (CAD) W/GAB BILAT IMPRESSION: Stable bilateral screening mammogram. Yearly follow-up mammogram recommended. (A) ASSESSMENT CATEGORY: BIRADS Category 2: Benign. A letter regarding these results will be sent to the patient by the facility within 30 days. Approximately 10% of breast cancers are not detected by mammography. A normal mammogram should not delay biopsy of a clinically suspicious abnormality. [id number] Electronically Signed: Aubrey Noble, at 11:59 EDT , Service support ,
--- NOTE | 2020-06-13 10:35 | BD_ITS ---
STUDY: DUAL ENERGY X-RAY ABSORPTIOMETRY / DXA REASON FOR EXAM: Female, 65 years old. 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 COMPARISON: Comparison is made with prior study dated 03/06/2016. FINDINGS: Lumbar Spine (L1-L4): g/cm2 (1.464) / T-score (2.2) / Z-score (3.7) Findings are suggestive of normal bone density with a low fracture risk. Right Femur Total: g/cm2 (0.859) / T-score (-1.2) / Z-score (0.0) Right Femoral Neck: g/cm2 (0.758) / T-score (-2.0) / Z-score (0.6) The T-Scores on the most recent prior examination were: Lumbar Spine (L1-L4): There has been improvement of bone density since the previous examination. Right Femur Total: which represents a worsening of 16.4%. BD/Dexa Bone Density Study IMPRESSION: The patient is considered osteopenic as outlined below according to World Rm Organization (WHO) criteria with a moderate fracture risk. There has been worsening of bone density since the previous examination. Reference Information: The T-score is the number of standard deviations above or below the standard which is normal for young adults at their peak bone mineral density. The World Health Organization (WHO) interprets the T-scores as follows: Above -1 Normal bone density Between -1 and -2.5 Osteopenia Equal to / or below -2.5 Osteoporosis As a practical clinical guideline, osteopenia may be graded as follows: Mild -1 through -1.5 Moderate -1.6 through -2.0 Severe -2.1 through -2.4 The Z-score is the number of standard deviations above or below age-matched controls. A Z-score of less than -1.5 would be considered abnormal. References: 1. NIH Osteoporosis and Related Bone Diseases www osteo.org 2. International Society for Clinical Densitometry www iscd.org 3. National Osteoporosis Foundation www nof.org Electronically Signed: Aubrey Noble, at 13:52 EDT , Service support ,
== END | disposition home or self-care (01) ==
LOC: OPBD 10:27
PROVIDERS: PCP Family Medicine Geriatric Medicine; Referring Provider Family Medicine Geriatric Medicine; Visit Provider Family Medicine Geriatric Medicine
DX: Z78.0 Asymptomatic menopausal state (principal); Z12.31 Encounter for screening mammogram for malignant neoplasm of breast
CPT/HCPCS: 77063; 77067; 77080

== ENCOUNTER → 2020-07-20 12:05 | Outpatient (CLI) | payer MEDICARE, MEDICAID, SELFPAY ==
[2020-02-17 08:28] VITALS: BMI 24.5
[2020-06-07 09:53] VITALS: BMI 26.2
--- NOTE | 2020-07-20 12:07 | CT_ITS ---
STUDY: CT CHEST WITH CONTRAST REASON FOR EXAM: Female, 65 years old. LUNG CA, PARTIAL LOBECTOMY, CURRENT SMOKER 10 CIGS PER DAY FOR 45 DAYS RADIATION DOSAGE (If Supplied By Facility): CTDIvol = ( 10.41 ) mGy, DLP = ( 264.20 ) mGycm TECHNIQUE: Transaxial imaging was performed following intravenous administration of 100ML ISOVUE 370. Multiplanar coronal and sagittal images were reformatted. Individualized dose optimization techniques were used for this CT. COMPARISON: Comparison is made with prior study dated 02/07/2020. FINDINGS: The patient is status post right upper lobectomy. Emphysematous changes more prominent in the upper lobes. There is no demonstrated pleural abnormality. Normal heart and pericardium. Normal mediastinum. Normal hilar regions. Normal enhanced pulmonary arteries. Minimal atherosclerotic calcification of the aortic arch. There are multi-level degenerative changes of the thoracic spine. Stable 1.2 cm low-attenuation nodule in the left adrenal gland suggestive of adenoma. CT/Chest WITH Contrast IMPRESSION: Stable examination. Electronically Signed: Aubrey Noble, at 12:59 EST , Service support ,
[2020-07-20 12:36] LABS: CREATININE FINGERSTICK < 0.6 mg/dL (0.55-1.02)
== END ==
PROVIDERS: PCP Family Medicine Geriatric Medicine; Referring Provider Internal Medicine Medical Oncology; Visit Provider Internal Medicine Medical Oncology
DX: C34.11 Malignant neoplasm of upper lobe, right bronchus or lung (principal); Z85.118 Personal history of other malignant neoplasm of bronchus and lung
CPT/HCPCS: 71260; Q9967

== ENCOUNTER → 2020-10-11 09:45 | Outpatient (CLI) | payer MEDICARE, MEDICAID, SELFPAY ==
[2020-09-07 10:36] VITALS: BMI 25.1
[2020-10-11 11:56] LABS: Absolute Lymphocyte Count 2.17 X10^3/uL (0.83-4.51); Absolute Neutrophil Count 4.7 X10^3/uL (2.0-7.7); Basophil# 0.08 X10^3/uL; Basophil% 1.1 % (0-1); Eosinophil# 0.07 X10^3/uL; Eosinophils% 0.9 % (0-5); Hematocrit 40.8 % (37-47); Hemoglobin 13.3 g/dL (12.0-15.0); Lymphocyte # 2.17 X10^3/ul (4.0); Lymphocyte % 28.9 % (19-41); Mean Corp Hgb Conc 32.6 g/dL (32-36); Mean Corpuscular Hgb 31.5 pg (27.0-32.0); Mean Corpuscular Volume 96.7 fL (81-99); Mean Platelet Vol. 9.8 fl (6.2-12.0); Monocyte# 0.48 X10^3/uL; Monocyte% 6.4 % (0-10); NRBC Flagged by Analyzer 0 % (0-5); Neutrophil # 4.68 X10^3/uL (2.7-7.7); Neutrophil % 62.4 % (47-70); Platelet Count 338 K/mm3 (150-450); RBC Distribution Width CV 13.1 % (11.6-14.6); RBC Distribution Width SD 46.7 fl (35.1-43.9); Red Blood Count 4.22 M/mm3 (4.2-5.4); White Blood Count 7.5 K/mm3 (4.4-11.0)
[2020-10-11 12:27] LABS: Vitamin D,25 Hydroxy 16.2 ng/mL
[2020-10-11 12:33] LABS: ALB/GLOB Ratio 1.2 RATIO (0.9-2.4); AST(SGOT) 10 U/L (15-37); Alanine Aminotransfer ALT/SGPT 18 U/L (13-56); Albumin, Serum 4.2 g/dL (3.2-5.0); Alkaline Phosphatase 94 U/L (45-117); Anion Gap 3 (5-15); BUN 17 mg/dL (7-18); BUN/Creat Ratio 22.6 RATIO (10-20); Chloride 101 mmol/L (98-107); Creatinine, Serum 0.75 mg/dL (0.55-1.02); EST Glomerular Filtration Rate 82 mL/min (>60); Est Glom Filt Rate - Afr Amer 100 mL/min (>60); Globulin 3.4 g/dL (2.2-4.2); Glucose 111 mg/dL (74-106); Protein, Total 7.6 g/dL (6.4-8.2); Sodium Level 136 mmol/L (136-145)
== END ==
PROVIDERS: PCP Family Medicine Geriatric Medicine; Visit Provider Family Medicine Geriatric Medicine
DX: E55.9 Vitamin D deficiency, unspecified (principal); R53.83 Other fatigue
CPT/HCPCS: 36415; 80053; 82306; 84443; 85025

== ENCOUNTER → 2021-01-18 12:52 | Outpatient (CLI) | payer MEDICARE, MEDICAID, SELFPAY ==
[2020-09-07 10:36] VITALS: BMI 25.1
[2020-12-25 08:59] VITALS: BMI 24.3
--- NOTE | 2021-01-18 13:14 | CT_ITS ---
STUDY: CT CHEST WITH CONTRAST REASON FOR EXAM: Female, 65 years old. LUNG CANCER-SURVEILLANCE RADIATION DOSAGE (If Supplied By Facility): CTDIvol = ( 11.65 ) mGy, DLP = ( 361.83 ) mGycm TECHNIQUE: Transaxial imaging was performed following intravenous administration of IV 100mL Isovue-300. Multiplanar coronal and sagittal images were reformatted. Individualized dose optimization techniques were used for this CT. COMPARISON: Comparison is made with prior study dated 07/20/2020. FINDINGS: Stable small benign appearing bilateral axillary lymph nodes. Hyperinflation. Emphysematous changes. The patient is status post right upper lobectomy. There is no demonstrated pleural abnormality. Normal heart and pericardium. Normal mediastinum. Normal hilar regions. Normal enhanced pulmonary arteries. Normal aorta arch and descending thoracic aorta. There are multi-level degenerative changes of the thoracic spine. Stable 1.2 cm low-attenuation nodule left adrenal gland suggestive of adenoma. CT/Chest WITH Contrast IMPRESSION: Stable examination. Electronically Signed: Aubrey Noble MD at 14:26 EDT , Service support ,
[2021-01-18 13:16] LABS: CREATININE FINGERSTICK 0.7 mg/dL (0.55-1.02); EGFR FINGERSTICK > 60.0000 mL/min (>60)
== END ==
PROVIDERS: PCP Family Medicine Geriatric Medicine; Referring Provider Internal Medicine Medical Oncology; Visit Provider Internal Medicine Medical Oncology
DX: Z85.118 Personal history of other malignant neoplasm of bronchus and lung (principal)
CPT/HCPCS: 71260; Q9967; A4216

== ENCOUNTER → 2021-04-11 11:32 | Outpatient (CLI) | payer MEDICARE, MEDICAID, SELFPAY ==
[2021-04-11 12:47] LABS: Absolute Lymphocyte Count 2.52 X10^3/uL (0.83-4.51); Absolute Neutrophil Count 3.1 X10^3/uL (2.0-7.7); Basophil# 0.08 X10^3/uL; Basophil% 1.2 % (0-1); Eosinophil# 0.05 X10^3/uL; Eosinophils% 0.8 % (0-5); Hematocrit 40.3 % (37-47); Hemoglobin 13.5 g/dL (12.0-15.0); Lymphocyte # 2.52 X10^3/ul (0.83-4.51); Lymphocyte % 39.3 % (19-41); Mean Corp Hgb Conc 33.5 g/dL (32-36); Mean Corpuscular Hgb 31.8 pg (27.0-32.0); Mean Corpuscular Volume 94.8 fL (81-99); Monocyte# 0.62 X10^3/uL; Monocyte% 9.7 % (0-10); NRBC Flagged by Analyzer 0 % (0-5); Neutrophil # 3.13 X10^3/uL (2.7-7.7); Neutrophil % 48.7 % (47-70); Platelet Count 308 K/mm3 (150-450); RBC Distribution Width CV 13.2 % (11.6-14.6); RBC Distribution Width SD 45.8 fl (35.1-43.9); Red Blood Count 4.25 M/mm3 (4.2-5.4); White Blood Count 6.4 K/mm3 (4.4-11.0)
[2021-04-11 13:04] LABS: Vitamin D,25 Hydroxy 46.7 ng/mL
[2021-04-11 13:09] LABS: ALB/GLOB Ratio 0.9 RATIO (0.9-2.4); AST(SGOT) 16 U/L (15-37); Alanine Aminotransfer ALT/SGPT 29 U/L (13-56); Albumin, Serum 3.7 g/dL (3.2-5.0); Alkaline Phosphatase 92 U/L (45-117); Anion Gap 5 (5-15); BUN 10 mg/dL (7-18); BUN/Creat Ratio 15.5 RATIO (10-20); Chloride 101 mmol/L (98-107); Creatinine, Serum 0.65 mg/dL (0.55-1.02); EST Glomerular Filtration Rate 98 mL/min (>60); Est Glom Filt Rate - Afr Amer 118 mL/min (>60); Globulin 4.1 g/dL (2.2-4.2); Glucose 101 mg/dL (74-106); Potassium 3.5 mmol/L (3.5-5.1); Protein, Total 7.8 g/dL (6.4-8.2); Sodium Level 138 mmol/L (136-145); Thyroid Stim Hormone (TSH) 2.56 uIU/mL (0.358-3.74)
== END ==
PROVIDERS: PCP Family Medicine Geriatric Medicine; Visit Provider Family Medicine Geriatric Medicine
DX: E55.9 Vitamin D deficiency, unspecified (principal); R53.83 Other fatigue
CPT/HCPCS: 36415; 80053; 82306; 84443; 85025

== ENCOUNTER → 2021-06-15 08:27 | Outpatient (CLI) | payer MEDICARE, MEDICAID, SELFPAY ==
--- NOTE | 2021-06-15 08:34 | BI_ITS ---
MAMMOGRAPHY - BILATERAL SCREENING REASON FOR EXAM: Female, 66 years old. Routine annual screening examination. PERTINENT HISTORY: Sister with breast cancer. TECHNIQUE: Digital bilateral breast gab (3D mammographic acquisition) in the CC and MLO projections. 2-D mediolateral oblique (MLO) and craniocaudad (CC) views of both breasts were obtained. CAD: Full Field Digital Mammography with Computer Added Detection was performed. COMPARISON: Comparison is made with prior examination dated 06/13/2020 and 06/07/2019. FINDINGS: Breast Composition: There are scattered areas of fibroglandular density. Stable 1.9 cm x 3 cm slightly heterogeneous nodule in the central slightly lateral aspect of the right breast. Lucencies are seen within it. This most likely represents an hamartoma. This is unchanged. No other significant abnormalities are identified. There has been no significant change since the prior study. BI/SCRN MAMM (CAD)W/GAB BILAT IMPRESSION: Stable bilateral screening mammogram. Yearly follow-up mammogram recommended. (A) ASSESSMENT CATEGORY: BIRADS Category 2: Benign. A letter regarding these results will be sent to the patient by the facility within 30 days. Approximately 10% of breast cancers are not detected by mammography. A normal mammogram should not delay biopsy of a clinically suspicious abnormality. [id number] Electronically Signed: Aubrey Noble MD at 10:50 EDT , Service support ,
== END ==
PROVIDERS: PCP Family Medicine Geriatric Medicine; Referring Provider Family Medicine Geriatric Medicine; Visit Provider Family Medicine Geriatric Medicine
DX: Z12.31 Encounter for screening mammogram for malignant neoplasm of breast (principal)
CPT/HCPCS: 77063; 77067

== ENCOUNTER 2021-10-10 10:38 | Outpatient (CLI) | payer MEDICARE, MEDICAID, SELFPAY ==
[2021-10-10 12:41] LABS: Absolute Lymphocyte Count 1.96 X10^3/uL (0.83-4.51); Absolute Neutrophil Count 3.2 X10^3/uL (2.0-7.7); Basophil# 0.07 X10^3/uL; Basophil% 1.2 % (0-1); Eosinophil# 0.07 X10^3/uL; Eosinophils% 1.2 % (0-5); Hematocrit 38.6 % (37-47); Hemoglobin 13.4 g/dL (12.0-15.0); Lymphocyte # 1.96 X10^3/ul (0.83-4.51); Lymphocyte % 33.1 % (19-41); Mean Corp Hgb Conc 34.7 g/dL (32-36); Mean Corpuscular Hgb 32.8 pg (27.0-32.0); Mean Corpuscular Volume 94.4 fL (81-99); Mean Platelet Vol. 10.2 fl (6.2-12.0); Monocyte# 0.56 X10^3/uL; Monocyte% 9.5 % (0-10); NRBC Flagged by Analyzer 0 % (0-5); Neutrophil # 3.24 X10^3/uL (2.7-7.7); Neutrophil % 54.7 % (47-70); Platelet Count 292 K/mm3 (150-450); RBC Distribution Width CV 12.9 % (11.6-14.6); RBC Distribution Width SD 44.7 fl (35.1-43.9); Red Blood Count 4.09 M/mm3 (4.2-5.4); White Blood Count 5.9 K/mm3 (4.4-11.0)
[2021-10-10 12:51] LABS: Vitamin D,25 Hydroxy 27.2 ng/mL
[2021-10-10 13:15] LABS: ALB/GLOB Ratio 0.9 RATIO (0.9-2.4); AST(SGOT) 10 U/L (15-37); Alanine Aminotransfer ALT/SGPT 16 U/L (13-56); Albumin, Serum 3.3 g/dL (3.2-5.0); Alkaline Phosphatase 108 U/L (45-117); Anion Gap 4 (5-15); BUN 9 mg/dL (7-18); BUN/Creat Ratio 14.9 RATIO (10-20); Calcium,Total 8.9 mg/dL (8.5-10.1); Chloride 101 mmol/L (98-107); EST Glomerular Filtration Rate 106 mL/min (>60); Est Glom Filt Rate - Afr Amer 128 mL/min (>60); Globulin 3.5 g/dL (2.2-4.2); Glucose 93 mg/dL (74-106); Potassium 3.5 mmol/L (3.5-5.1); Protein, Total 6.8 g/dL (6.4-8.2); Sodium Level 139 mmol/L (136-145); Thyroid Stim Hormone (TSH) 0.59 uIU/mL (0.358-3.74)
== END 2021-10-10 23:59 | disposition home or self-care (01) ==
LOC: POLAB3 10:40
PROVIDERS: PCP Family Medicine Geriatric Medicine; Visit Provider Family Medicine Geriatric Medicine
DX: E55.9 Vitamin D deficiency, unspecified (principal); R53.83 Other fatigue
CPT/HCPCS: 36415; 80053; 82306; 84443; 85025

== ENCOUNTER 2021-10-23 09:45 | Outpatient (CLI) | payer MEDICARE, MEDICAID, SELFPAY ==
--- NOTE | 2021-10-23 09:56 | US_ITS ---
STUDY: ABDOMINAL ULTRASOUND - RIGHT UPPER QUADRANT REASON FOR VISIT: Female, 66 years old HEPATOMEGALY TECHNIQUE: Ultrasound evaluation of the right upper quadrant was performed with real-time and static salomon-scale imaging. TECHNICAL QUALITY: Adequate. COMPARISON: Comparison is made with prior examination dated 09/05/2017. FINDINGS: Liver: The liver measures 13.5 cm. There is normal echogenicity of the liver. The bile ducts are within normal limits. There is hepatic color flow. The direction of portal flow is hepatopetal. There is no demonstrated mass lesion. Gallbladder: The patient is status post cholecystectomy. Common Bile Duct (C.B.D.): The common bile duct measures 11.8 mm. Pancreas: Normal size of the head, body and tail of the pancreas. There is no demonstrated pancreatic mass or cyst. Right Kidney: Normal size of the right kidney. The right kidney measures 10.8 cm x 5 cm x 3.6 cm. Normal renal cortex. The right cortex measures 1.3 cm. There is no demonstrated renal mass or cyst. There is no right hydronephrosis. US/Abdomen Limited IMPRESSION: Status post cholecystectomy. Mildly dilated common bile duct most likely secondary to the postcholecystectomy state. Electronically Signed: Aubrey Noble MD at 14:29 EST ,
== END 2021-10-23 23:59 | disposition home or self-care (01) ==
LOC: US 09:47
PROVIDERS: PCP Family Medicine Geriatric Medicine; Referring Provider Family Medicine Geriatric Medicine; Visit Provider Family Medicine Geriatric Medicine
DX: R16.0 Hepatomegaly, not elsewhere classified (principal)
CPT/HCPCS: 76705

== ENCOUNTER → 2022-01-17 | Outpatient (CLI) | payer MEDICARE, MEDICAID, SELFPAY ==
--- NOTE | 2022-01-17 13:20 | CT_ITS ---
STUDY: CT CHEST WITH CONTRAST REASON FOR EXAM: Female, 66 years old. MONITOR-LUNG CANCER RADIATION DOSAGE (If Supplied By Facility): CTDIvol = ( 7.29 ) mGy, DLP = ( 188.83 ) mGycm TECHNIQUE: Transaxial imaging was performed following intravenous administration of IV 100mL Isovue-300. Individualized dose optimization techniques were used for this CT. COMPARISON: Comparison is made with prior study dated 01/18/2021. FINDINGS: CHEST Stable small benign-appearing bilateral axillary lymph nodes. Consent, the patient is status post right upper lobectomy with volume loss in the right upper lobe. Stable linear scarring at the right lung base. Stable 4 mm noncalcified pleural-based nodule in the peripheral lateral aspect of the right middle lobe as seen on axial image #38. A similar-appearing nodule measuring 3 mm is also seen. These 2 nodules are seen adjacent to each other on axial image #38 and 39. There is no demonstrated pleural abnormality. Normal heart and pericardium. Normal mediastinum. Normal hilar regions. Normal unenhanced pulmonary arteries. Atherosclerotic plaque formation of the aortic arch. There are degenerative changes of the thoracic spine. Stable 1.2 cm hypodensity in the left adrenal gland suggestive of an adenoma. CT/Chest WITH Contrast IMPRESSION: Stable examination. Electronically Signed: Aubrey Noble MD at 14:17 EDT ,
[2022-01-17 13:30] LABS: CREATININE FINGERSTICK < 0.9 mg/dL (0.55-1.02); EGFR FINGERSTICK > 60.0000 mL/min (>60)
== END | disposition home or self-care (01) ==
PROVIDERS: PCP Family Medicine Geriatric Medicine; Referring Provider Internal Medicine Medical Oncology; Visit Provider Internal Medicine Medical Oncology
DX: C34.90 Malignant neoplasm of unspecified part of unspecified bronchus or lung (principal)
CPT/HCPCS: 71260; Q9967

== ENCOUNTER → 2022-04-17 | Outpatient (CLI) | payer MEDICARE, MEDICAID, SELFPAY ==
[2022-04-17 12:33] LABS: Absolute Neutrophil Count 3.9 X10^3/uL (2.0-7.7); Basophil# 0.07 X10^3/uL; Basophil% 1.1 % (0-1); Eosinophil# 0.07 X10^3/uL; Eosinophils% 1.1 % (0-5); Hematocrit 38.2 % (37-47); Hemoglobin 12.7 g/dL (12.0-15.0); Lymphocyte % 27.8 % (19-41); Mean Corp Hgb Conc 33.2 g/dL (32-36); Mean Corpuscular Hgb 32.2 pg (27.0-32.0); Mean Corpuscular Volume 96.7 fL (81-99); Mean Platelet Vol. 10.2 fl (6.2-12.0); Monocyte% 6.5 % (0-10); NRBC Flagged by Analyzer 0 % (0-5); Neutrophil # 3.86 X10^3/uL (2.7-7.7); Neutrophil % 63.2 % (47-70); Platelet Count 299 K/mm3 (150-450); RBC Distribution Width SD 46.5 fl (35.1-43.9); Red Blood Count 3.95 M/mm3 (4.2-5.4); White Blood Count 6.1 K/mm3 (4.4-11.0)
[2022-04-17 12:48] LABS: Vitamin D,25 Hydroxy 46.6 ng/mL
[2022-04-17 13:07] LABS: ALB/GLOB Ratio 0.9 RATIO (0.9-2.4); AST(SGOT) 8 U/L (15-37); Alanine Aminotransfer ALT/SGPT 22 U/L (13-56); Albumin, Serum 3.4 g/dL (3.2-5.0); Alkaline Phosphatase 90 U/L (45-117); Anion Gap 6 (5-15); BUN 10 mg/dL (7-18); BUN/Creat Ratio 18.2 RATIO (10-20); Chloride 100 mmol/L (98-107); Creatinine, Serum 0.55 mg/dL (0.55-1.02); EST Glomerular Filtration Rate 118 mL/min (>60); Est Glom Filt Rate - Afr Amer 143 mL/min (>60); Globulin 3.7 g/dL (2.2-4.2); Glucose 107 mg/dL (74-106); Potassium 3.7 mmol/L (3.5-5.1); Protein, Total 7.1 g/dL (6.4-8.2); Sodium Level 138 mmol/L (136-145); Thyroid Stim Hormone (TSH) 0.34 uIU/mL (0.358-3.74)
== END | disposition home or self-care (01) ==
LOC: POLAB3 09:18
PROVIDERS: PCP Family Medicine Geriatric Medicine; Visit Provider Family Medicine Geriatric Medicine
DX: R53.83 Other fatigue (principal); E55.9 Vitamin D deficiency, unspecified
CPT/HCPCS: 36415; 80053; 82306; 84443; 85025

== ENCOUNTER → 2022-05-10 | Outpatient (CLI) | payer MEDICARE, MEDICAID, SELFPAY ==
[2022-05-10 13:49] VITALS: PULSE 101; PULSE 104; PULSE 107; PULSE 87; PULSE 89; PULSE 99; O2SAT 88; O2SAT 89; O2SAT 92; O2SAT 93; O2SAT 94; O2SAT 95; O2SAT 96
--- NOTE | 2022-05-10 13:51 | CPS ---
Patient walked entire test on room air. At about 2 minutes and 45 seconds, patient wanted to take a break due to shortness of breath and leg pain. At this time SpO2 was 91%, as patient was resting SpO2 dropped and sustained at 88% for a few seconds with a compatible heart rate and good reading indicator. SpO2 then jumped up to 93% and patient started walking again for the remainder of the test on room air.
--- NOTE | 2022-05-11 06:41 | PCM.PSN.6M ---
PSN 6 Minute Walk Test 6 Minute Walk Test 6 Minute Walk Test: 6 Minute Walk Test PSN:6-Minute Walk Test Start: 05/10/22 13:48 Freq: Status: Active Protocol: RESP.6MINW Document 05/10/22 13:49 DEBORAHJC (Rec: 05/10/22 13:55 DEBORAHJC [id number]) 6 Minute Walk Test Date Performed 05/10/22 Time Performed 12:45 Height 5 ft Weight: 107 lb Weight in Pounds 107.[address]: Lux Marsh Assistive device used: None Pre-test Oxygen Delivery Method Room Air Pulse Ox (%) 95 Pulse Rate (60-100 beats/min) 89 Dyspnea Violeta Scale (0-10) 0.5 Exertion Violeta Scale (6-20) 6 1st minute Oxygen Delivery Method Room Air Pulse Ox (%) 94 Pulse Rate (60-100 beats/min) 99 2nd minute Oxygen Delivery Method Room Air Pulse Ox (%) 92 Pulse Rate (60-100 beats/min) 101 H Number of Rests Taken 1 3rd minute Oxygen Delivery Method Room Air Pulse Ox (%) 88 Pulse Rate (60-100 beats/min) 104 H Number of Rests Taken 1 4th minute Oxygen Delivery Method Room Air Pulse Ox (%) 92 Pulse Rate (60-100 beats/min) 101 H 5th minute Oxygen Delivery Method Room Air Pulse Ox (%) 93 Pulse Rate (60-100 beats/min) 104 H 6th minute Oxygen Delivery Method Room Air Pulse Ox (%) 89 Pulse Rate (60-100 beats/min) 107 H Dyspnea Violeta Scale (0-10) 5 Exertion Violeta Scale (6-20) 14 Post-test Oxygen Delivery Method Room Air Pulse Ox (%) 96 Pulse Rate (60-100 beats/min) 87 Full Laps Walked 7 Partial Lap, Number of Tiles Walked 18 Total Distance Walked (ft) 431 05/10/22 13:51 Cardiopulmonary Services by Lianet Loo Patient walked entire test on room air. At about 2 minutes and 45 seconds, patient wanted to take a break due to shortness of breath and leg pain. At this time SpO2 was 91%, as patient was resting SpO2 dropped and sustained at 88% for a few seconds with a compatible heart rate and good reading indicator. SpO2 then jumped up to 93% and patient started walking again for the remainder of the test on room air. Initialized on 05/10/22 13:51 - END OF NOTE Interpretation Interpretation: The patient ambulated 431 feet over the course of 6 minutes beginning on room air without assistive devices. Pretesting oxygen saturation was noted to be 95% on room air. According to respiratory therapy documentation, the patient did have a transient drop to 88% at minute 3 of testing for several seconds only to quickly rebound into the low 90s. Supplemental oxygen was not applied. This testing indicated the presence of impaired walk distance and significant exertional oxygen desaturation, consistent with a pulmonary limitation to exercise tolerance. Recommendations Recommendations: Close interval follow-up is recommended, given the degree of oxygen desaturation noted during this study.
== END | disposition home or self-care (01) ==
PROVIDERS: PCP Family Medicine Geriatric Medicine; Referring Provider Internal Medicine Critical Care Medicine; Visit Provider Internal Medicine Critical Care Medicine
DX: J44.9 Chronic obstructive pulmonary disease, unspecified (principal)
CPT/HCPCS: 94618

== ENCOUNTER → 2022-05-17 | Outpatient (CLI) | payer MEDICARE, MEDICAID, SELFPAY | END | disposition home or self-care (01) | LOC: LAB 13:50 | PROVIDERS: PCP Family Medicine Geriatric Medicine; Visit Provider Internal Medicine Critical Care Medicine | DX: J44.9 Chronic obstructive pulmonary disease, unspecified (principal) | CPT/HCPCS: 87070; 87205 ==

== ENCOUNTER → 2022-06-17 | Outpatient (CLI) | payer MEDICARE, MEDICAID, SELFPAY ==
--- NOTE | 2022-06-17 08:06 | BI_ITS ---
MAMMOGRAPHY - BILATERAL SCREENING REASON FOR EXAM: Female, 67 years old. Routine annual screening examination. PERTINENT HISTORY: Sister with breast cancer. Patient has a history of lung cancer. TECHNIQUE: Digital bilateral breast gab (3D mammographic acquisition) in the CC and MLO projections. 2-D mediolateral oblique (MLO) and craniocaudad (CC) views of both breasts were obtained. CAD: Full Field Digital Mammography with Computer Added Detection was performed. COMPARISON: Comparison is made with prior study 06/15/2021 and 06/13/2020. FINDINGS: Breast Composition: There are scattered areas of fibroglandular density. Stable 2 cm x 1.5 cm slightly heterogeneous nodule in the central slightly lateral aspect of the right breast. Faint lucencies are seen within the. This most likely represents unremarkable. No other significant abnormalities are identified. There has been no significant change since the prior study. BI/SCRN MAMM (CAD)W/GAB BILAT IMPRESSION: Stable bilateral screening mammogram. Yearly follow-up mammogram recommended. (A) ASSESSMENT CATEGORY: BIRADS Category 2: Benign. A letter regarding these results will be sent to the patient by the facility within 30 days. Approximately 10% of breast cancers are not detected by mammography. A normal mammogram should not delay biopsy of a clinically suspicious abnormality. [id number] Electronically Signed: Aubrey Noble MD at 9:45 EDT ,
== END | disposition home or self-care (01) ==
LOC: OPBI 08:05
PROVIDERS: PCP Family Medicine Geriatric Medicine; Visit Provider Family Medicine Geriatric Medicine
DX: Z12.31 Encounter for screening mammogram for malignant neoplasm of breast (principal); Z80.3 Family history of malignant neoplasm of breast
CPT/HCPCS: 77063; 77067

== ENCOUNTER → 2022-06-19 | Outpatient (CLI) | payer MEDICARE, MEDICAID, SELFPAY ==
--- NOTE | 2022-06-19 08:42 | BD_ITS ---
STUDY: DUAL ENERGY X-RAY ABSORPTIOMETRY / DXA REASON FOR EXAM: Female, 67 years old. [id number] TECHNIQUE: Bone Mineral Density (BMD) measurements of lumbar spine and right hip were obtained. COMPARISON: Comparison is made with prior study 06/13/2020. FINDINGS: Lumbar Spine (L1-L4): g/cm2 (1.297) / T-score (1.8) / Z-score (3.7) Findings are suggestive of normal bone density with a low fracture risk. Right Femur Total: g/cm2 (0.785) / T-score (-1.3) / Z-score (0.0) Right Femoral Neck: g/cm2 (0.618) / T-score (-2.1) / Z-score (-0.5) The T-Scores on the most recent prior examination were: Lumbar Spine (L1-L4): There has been improvement of bone density since the previous examination. Right Femur Total: which represents a worsening of 1.6%. BD/Dexa Bone Density Study IMPRESSION: The patient is considered osteopenic as outlined below according to World Rm Organization (WHO) criteria with a moderate fracture risk. There has been worsening of bone density since the previous examination. Reference Information: The T-score is the number of standard deviations above or below the standard which is normal for young adults at their peak bone mineral density. The World Health Organization (WHO) interprets the T-scores as follows: Above -1 Normal bone density Between -1 and -2.5 Osteopenia Equal to / or below -2.5 Osteoporosis As a practical clinical guideline, osteopenia may be graded as follows: Mild -1 through -1.5 Moderate -1.6 through -2.0 Severe -2.1 through -2.4 The Z-score is the number of standard deviations above or below age-matched controls. A Z-score of less than -1.5 would be considered abnormal. References: 1. NIH Osteoporosis and Related Bone Diseases www osteo.org 2. International Society for Clinical Densitometry www iscd.org 3. National Osteoporosis Foundation www nof.org Electronically Signed: Aubrey Noble MD at 15:41 EDT ,
== END | disposition home or self-care (01) ==
LOC: OPBD 08:33
PROVIDERS: PCP Family Medicine Geriatric Medicine; Visit Provider Family Medicine Geriatric Medicine
DX: Z78.0 Asymptomatic menopausal state (principal); M85.80 Other specified disorders of bone density and structure, unspecified site
CPT/HCPCS: 77080

== ENCOUNTER 2022-11-17 18:33 | Emergency (ER) | payer MEDICARE, MEDICAID, SELFPAY ==
[2022-11-17 18:38] VITALS: BP 173/108; PULSE 116; RESP 28; TEMP 37.1; O2SAT 88; BMI 18.2
[2022-11-17 18:46] VITALS: O2SAT 100
--- NOTE | 2022-11-17 19:02 | EKG12_ITS ---
Test Reason : SOB Blood Pressure : / mmHG Vent. Rate : 089 BPM Atrial Rate : 089 BPM P-R Int : 128 ms QRS Dur : 076 ms QT Int : 346 ms P-R-T Axes : -04 077 094 degrees QTc Int : 420 ms Normal sinus rhythm with sinus arrhythmia Septal infarct , age undetermined Abnormal ECG Confirmed by MELINDA AGUILAR, BARBARA ([id number]), city editor YUAN CALLE ([id number]) on 11/20/2022 10:01:34 AM Referred By: Confirmed By:ALANA LAWRENCE MD
--- NOTE | 2022-11-17 19:05 | EDS_ITS ---
HPI History of Present Illness Chief Complaint: Shortness of Breath Detail of Chief Complaint: Shortness of breath for 1 week Informant: patient Narrative Narrative: Patient presents the emergency department at the urging of her son who brings her in for evaluation of her dyspnea. Patient states that she swore to her health services manager she would never come to the emergency department for breathing. Patient states that she did not feel like she could make it to her appointment in [address] Marsh. Patient complains of a cough. She had no fever. She denies any chest pain out of the ordinary just from the constant coughing. Patient bringing up some green phlegm at times. Patient has history of COPD and wears home O2 at night but states that throughout the week she has been wearing it all the time. Patient denies recent travel or surgery. Patient tells me that normally her health services manager gives her Levaquin and steroids and typically she does well with that. [facility] Medical History Anxiety Anxiety and depression Asthma Back pain Bronchitis Chronic back pain Chronic prescription benzodiazepine use DDD (degenerative disc disease) Depression Dyspnea Emphysema Gallstone Gastrointestinal complaints, unspecific Generalized anxiety disorder GERD (gastroesophageal reflux disease) Glaucoma Glucose intolerance Hammer toe of right foot Headache History of pneumonia History of pneumothorax History of shingles Hypersomnia Hypothyroidism Insomnia Knee arthropathy Liver enlargement Lung cancer Neuropathy Osteoarthritis Osteopenia Pneumonia Salivary gland obstruction Seasonal allergies Spondylolisthesis Stage 2 moderate COPD by GOLD classification Tobacco abuse Vitamin D deficiency Vitamin deficiency, unspecified Home Medications latanoprost 0.005 % eye drops 1 drp EACH EYE QHS GLAUCOMA 02/18/17 [History Last Taken Unknown] Pulse Oximeter #1 ea 05/31/19 [Rx Last Taken Unknown] automatic Blood pressure cuff #1 ea 05/31/19 [Rx Last Taken Unknown] albuterol sulfate 0.63 mg/3 mL solution for nebulization 0.63 mg (3 mL) inhalation Q4H PRN shortness of breath or wheezing #180 vials 06/15/20 [Rx Last Taken Unknown] oxygen-air delivery systems ##1 02/09/21 [History Last Taken Unknown] loratadine 10 mg tablet 10 mg PO DAILY ALLERGIES #90 tabs 01/24/22 [Rx Last Taken Unknown] mometasone 50 mcg/actuation nasal spray 2 spray intranasal DAILY #3 device 01/24/22 [Rx Last Taken Unknown] montelukast 10 mg tablet 10 mg PO DAILY ALLERGIES #90 tabs 01/24/22 [Rx Last Taken Unknown] umeclidinium 62.5 mcg/actuation blister powder for inhalation (Incruse Ellipta) 1 inh inhalation DAILY #3 ea 01/24/22 [Rx Last Taken Unknown] cyanocobalamin (vitamin B-12) 1,000 mcg capsule 1,000 mcg PO DAILY 01/31/22 [History Last Taken Unknown] multivitamin 1 tab PO DAILY 01/31/22 [History Last Taken Unknown] albuterol sulfate 0.63 mg/3 mL solution for nebulization 0.63 mg (3 mL) inhalation Q4H PRN shortness of breath or wheezing #180 vials 05/02/22 [Rx Last Taken Unknown] roflumilast 500 mcg tablet (Daliresp) 500 mcg PO DAILY #60 tabs 05/08/22 [Rx Last Taken Unknown] ascorbic acid (vitamin C) 1,000 mg tablet 2 g PO DAILY 06/20/22 [History Last Taken Unknown] cholecalciferol (vitamin D3) 50 mcg (2,000 unit) capsule 50 mcg PO DAILY 06/20/22 [History Last Taken Unknown] levothyroxine 88 mcg tablet 88 mcg PO DAILY #90 tabs 07/19/22 [Rx Last Taken Unknown] fluticasone 500 mcg-salmeterol 50 mcg/dose blistr powdr for inhalation (Advair Diskus) 1 inh inhalation BID #3 ea 08/01/22 [Rx Last Taken Unknown] carisoprodol 350 mg tablet (Soma) 350 mg PO QHS #30 tabs 08/15/22 [Rx Last Taken Unknown] alprazolam 1 mg tablet 1 mg PO DAILY PRN ANXIETY #30 tabs 09/02/22 [Rx Last Taken Unknown] Disability Placard #1 ea 09/30/22 [Rx Last Taken Unknown] dexlansoprazole 60 mg capsule,biphase delayed release (Dexilant) 60 mg PO DAILY #90 caps 09/30/22 [Rx Last Taken Unknown] gabapentin 600 mg tablet 600 mg PO TID #90 tabs 10/30/22 [Rx Last Taken Unknown] venlafaxine 150 mg tablet,extended release 24 hr 150 mg PO DAILY #90 tabs 10/30/22 [Rx Last Taken Unknown] albuterol sulfate 90 mcg/actuation aerosol inhaler (ProAir HFA) 2 inh inhalation Q6H PRN shortness of breath or wheezing #18 grams 11/11/22 [Rx Last Taken Unknown] tolterodine 4 mg capsule,extended release 24 hr See Rx Instructions .Route .COMPLEX #90 caps 11/11/22 [Rx Last Taken Unknown] levofloxacin 750 mg tablet 750 mg PO DAILY #7 tabs 11/17/22 [Rx Last Taken Unknown] prednisone 20 mg tablet 20 mg PO BID #10 tabs 11/17/22 [Rx Last Taken Unknown] Allergy/AdvReac Type Severity Reaction Status Date / Time amoxicillin AdvReac Diarrhea Verified 11/17/22 18:41 flunisolide AdvReac epistaxis Verified 11/17/22 18:41 Family History Father Prostate cancer Sister Breast cancer, Onset Age: 60 Arthritis Brother Prostate cancer Surgical History Anterior cervical plate placement History of carpal tunnel surgery History of section History of cholecystectomy History of discectomy History of endoscopy History of fusion of cervical spine History of hip replacement, total History of knee replacement History of lobectomy of lung History of neck surgery History of repair of ACL History of right hip replacement Removal of saliva gland Social History household members: none housing: house Smoking Status: Current every day smoker tobacco type: cigarettes second hand exposure: Yes alcohol intake: current substance use type: marijuana frequency: 3-4 times per week do you feel safe at home: Yes ROS ROS ED Review of Systems ROS Unobtainable: other Constitutional Constitutional ED: Reports lethargy; Denies chills, fever(s), sweats or weight loss Eyes Eyes: Denies blurry vision, change in vision or diplopia ENT ENT ED: Denies rhinorrhea or sore throat Cardiovascular Cardiovascular: Reports chest pain; Denies orthopnea or racing heartbeat Respiratory/Chest Respiratory/Chest: Reports dyspnea, dyspnea on exertion and sputum; Denies cough or orthopnea Gastrointestinal Gastrointestinal: Denies abdominal pain, diarrhea, nausea or vomiting Genitourinary Genitourinary ED: Denies dysuria, hematuria or urinary frequency Musculoskeletal Musculoskeletal: Denies arthralgias, back pain, myalgias or neck pain Integumentary Denies abscess, Abrasions or rash Neurologic Neurologic: Denies headache(s) or weakness Psychiatric Psychiatric: Denies anxiety, depression or suicidal thoughts Endocrine Endocrinology: Denies polydipsia, polyphagia or polyuria Hematologic/Lymphatic Hematologic/Lymphatic: Denies easy bleeding, easy bruising or lymphadenopathy Allergic/Immunologic Allergic/Immunologic ED: Denies mouth swelling, tongue swelling or urticaria EXAM Physical Exam Const Vital Signs: 11/17/22 18:38 11/17/22 18:42 11/17/22 18:46 Temperature 98.7 F Temperature Source Temporal Pulse Rate 116 H Respiratory Rate 28 H Respiratory Effort Short of Breath Labored Accessory Muscle Use Respiratory Depth Deep Respiratory Pattern Tachypnea Blood Pressure 173/108 H Blood Pressure Mean 129 Pulse Ox 88 Oxygen Delivery Method Room Air Nasal Cannula Nasal Cannula Oxygen Flow Rate (L/min) 2 11/17/22 19:10 11/17/22 19:39 Temperature Temperature Source Pulse Rate 97 99 Respiratory Rate 19 H 22 H Respiratory Effort Respiratory Depth Respiratory Pattern Blood Pressure 140/88 H Blood Pressure Mean 105 Pulse Ox 98 Oxygen Delivery Method Room Air Oxygen Flow Rate (L/min) Positive well nourished and well developed General Appearance ED: well developed and NAD HEENT Reports TM's clear and moist mucous membranes normocephalic and atraumatic; Negative for trauma or tenderness Tympanic Membrane ED: Yes TM's clear Eyes PERRL and EOMs intact bilaterally General Eye ED: Negative for pale conjunctiva or scleral icterus Neck no lymphadenopathy, supple and no JVD General: Negative for tenderness Chest Wall inspection of chest normal and palpation of chest normal Chest: Negative for tenderness Resp Resp Narrative: Patient with expiratory wheezes throughout and diminished breath sounds bilaterally. Mild tachypnea. No accessory muscle use or retractions. Effort and Inspection: Negative for respiratory distress or pain with movement Auscultation: wheezes; Negative for rhonchi or diminished lung sounds Cardio regular rate, regular rhythm, S1 normal heart sound, S2 normal heart sound and no murmurs Peripheral Pulses: pulses 2+ throughout GI normal to inspection, nondistended, normoactive bowel sounds, soft to palpation, non-tender, non-distended and no masses Back/Spine no CVA tenderness and no thoracic nor lumbar tenderness Extremity normal to inspection General Extremety ED: Negative for edema General Extremity: Negative for edema Neuro oriented x3, CN's II-XII intact bilaterally, no sensory deficits noted and gait normal Sensorium / Orientation: awake, alert, oriented to person, oriented to place and oriented to time Motor Exam: strength 5/5 throughout and strength abnormal Psych mental status grossly normal Skin no rashes or lesions noted and no wounds MDM MDM MDM Narrative Medical decision making narrative: Patient presents with 1 week history of increased dyspnea. Patient with history of COPD. IV line established. Patient placed on home care associate. EKG obtained showed no acute disease process. She was given DuoNeb aerosol followed by albuterol aerosols and Solu-Medrol 25 mg IV. Chest x-ray showed no evidence of infiltrate. Patient was started on Levaquin. After treatment she was reevaluated at 20:20 and she is feeling markedly improved. She does not feel like her breathing is labored and she feels like he is back to baseline. Patient has home O2 as well as breathing treatments. I will start her on prednisone as well as Levaquin. Patient has appointment with her health services manager in 2 days. Patient advised to return if increased difficulty breathing or condition should worsen anyway. Also D-dimer here was normal. I do not feel she is having acute coronary syndrome and we ruled out PE. Lab Data Labs: Laboratory Results - last 24 hr 11/17/22 11/17/22 11/17/22 19:15 19:15 19:15 WBC 12.2 H RBC 4.43 Hgb 14.3 Hct 40.9 MCV 92.3 MCH 32.3 H MCHC 35.0 RDW Std Deviation 41.4 RDW Coeff of [place] 12.1 Plt Count 365 MPV 9.1 Immature Gran % (Auto) 0.300 Neut % (Auto) 73.0 H Lymph % (Auto) 19.7 [place] % (Auto) 6.6 Eos % (Auto) 0.0 Baso % (Auto) 0.4 Absolute Neuts (auto) 8.9 H Absolute Lymphs (auto) 2.39 Nucleated RBC % 0 D-Dimer Quant (PE/DVT) 0.28 Sodium 138 Potassium 3.3 L Chloride 102 Carbon Dioxide 32.0 Anion Gap 4 L BUN 11 Creatinine 0.56 Estim Creat Clear Calc 39.47 Est GFR (MDRD) Af Amer 139 Est GFR (MDRD) Non-Af 115 BUN/Creatinine Ratio 19.7 Glucose 134 H Calcium 9.6 Troponin I High Sens 3 Radiography Chest X-Ray - ED: 1 View Diagnostic Testing: Clinical Impression(s) from Imaging Studies Chest X-Ray 11/17/22 19:34 IMPRESSION: There are no acute findings. Electronically Signed: Moises Todd MD at 19:50 EDT Reading Location ID and State: [facility] / [place] , Service support , 1 view chest x-ray obtained interpreted by myself as hyperinflation with no evidence of infiltrate or pneumothorax. Radiology in agreement. EKG Initial EKG: Attestation: I personally reviewed and interpreted this EKG as follows: Comments: Sinus rhythm with a rate of 89 bpm with no acute ST segment changes noted. Discharge Plan Triage Chief Complaint: Shortness of Breath ED Provider: Toño Goldstein Dx/Rx/DC Orders Clinical Impression: Acute exacerbation of chronic obstructive pulmonary disease Instructions: ED COPD Flare Prescriptions: New levofloxacin 750 mg tablet 750 mg PO DAILY Qty: 7 0RF prednisone 20 mg tablet 20 mg PO BID Qty: 10 0RF No Action (DME) oxygen-air delivery systems Device See Rx Instructions .ROUTE .MEDSUPPLY Qty: 1 Rx Instructions: As directed, at night only loratadine 10 mg tablet 10 mg PO DAILY Qty: 90 3RF mometasone 50 mcg/actuation spray,non-aerosol 2 spray INTRANASAL DAILY Qty: 3 3RF Rx Instructions: administer into each nostril montelukast 10 mg tablet 10 mg PO DAILY Qty: 90 3RF Incruse Ellipta 62.5 mcg/actuation blister with device 1 inh inhalation DAILY Qty: 3 3RF multivitamin Tablet 1 tab PO DAILY cyanocobalamin (vitamin B-12) 1,000 mcg capsule 1,000 mcg PO DAILY Daliresp 500 mcg tablet 500 mcg PO DAILY Qty: 60 0RF fluticasone propion-salmeterol [Advair Diskus] 500-50 mcg/dose blister with device 1 inh inhalation BID Qty: 3 3RF ascorbic acid (vitamin C) 1,000 mg tablet 2 g PO DAILY cholecalciferol (vitamin D3) 50 mcg (2,000 unit) capsule 50 mcg PO DAILY levothyroxine 88 mcg tablet 88 mcg PO DAILY Qty: 90 2RF venlafaxine 150 mg tablet extended release 24hr 150 mg PO DAILY Qty: 90 3RF gabapentin 600 mg tablet 600 mg PO TID Qty: 90 3RF alprazolam 1 mg tablet 1 mg PO DAILY PRN (Reason: ANXIETY) Qty: 30 0RF latanoprost 1 DROP bottle 1 drp EACH EYE QHS Label Comments: (DME) Pulse Oximeter Qty: 1 0RF Rx Instructions: As directed (DME) automatic Blood pressure cuff Qty: 1 0RF Rx Instructions: As directed albuterol sulfate 0.63 mg/3 mL solution for nebulization 0.63 mg INHALATION Q4H PRN (Reason: shortness of breath or wheezing) Qty: 180 11RF carisoprodol [Soma] 350 mg tablet 350 mg PO QHS Qty: 30 0RF (DME) Disability Placard See Rx Instructions .Route .MEDSUPPLY Qty: 1 0RF Rx Instructions: Expires 09/30/2027 Dexilant 60 mg capsule,biphase delayed releas 60 mg PO DAILY Qty: 90 3RF albuterol sulfate [ProAir HFA] 90 mcg/actuation HFA aerosol inhaler 2 inh inhalation Q6H PRN (Reason: shortness of breath or wheezing) Qty: 18 6RF tolterodine 4 mg capsule,extended release 24hr See Rx Instructions .ROUTE .COMPLEX Qty: 90 1RF Dose Instruction: TAKE ONE CAPSULE BY MOUTH AT BEDTIME Rx Instructions: TAKE ONE CAPSULE BY MOUTH AT BEDTIME Primary Care Provider: Xena Duckworth Referrals: Lux Marsh MD [Med Staff - Active Staff] - 2 Days Xena Duckworth MD [Primary Care Provider] - Disposition Disposition: Home, Self Care
[2022-11-17] MEDS: Albuterol 2.5 MG/3 ML VIAL.NEB. INHALATION ×2 (19:07)
[2022-11-17] MEDS: Ipratropium/Albuterol Sulfate 3 ML AMPUL.NEB INHALATION (19:07)
[2022-11-17 19:10] VITALS: PULSE 97; RESP 19
[2022-11-17] MEDS: 0.9% Normal Saline 1,000 ML 150 ML IV (19:16)
[2022-11-17] MEDS: MethylPREDNISolone 125 MG/2 ML Vial IV (19:16)
[2022-11-17 19:23] LABS: Absolute Lymphocyte Count 2.39 X10^3/uL (0.83-4.51); Absolute Neutrophil Count 8.9 X10^3/uL (2.0-7.7); Basophil# 0.05 X10^3/uL; Basophil% 0.4 % (0-1); Hematocrit 40.9 % (37-47); Hemoglobin 14.3 g/dL (12.0-15.0); Lymphocyte # 2.39 X10^3/ul (0.83-4.51); Lymphocyte % 19.7 % (19-41); Mean Corpuscular Hgb 32.3 pg (27.0-32.0); Mean Corpuscular Volume 92.3 fL (81-99); Mean Platelet Vol. 9.1 fl (6.2-12.0); Monocyte% 6.6 % (0-10); NRBC Flagged by Analyzer 0 % (0-5); Neutrophil # 8.87 X10^3/uL (2.7-7.7); Platelet Count 365 K/mm3 (150-450); RBC Distribution Width CV 12.1 % (11.6-14.6); RBC Distribution Width SD 41.4 fl (35.1-43.9); Red Blood Count 4.43 M/mm3 (4.2-5.4); White Blood Count 12.2 K/mm3 (4.4-11.0)
--- NOTE | 2022-11-17 19:34 | RAD_ITS ---
STUDY: XR Chest 1 View 11/17/2022 7:31 PM REASON FOR EXAM: Female, 67 years old. CHEST PAIN dyspnea COMPARISON: None TECHNIQUE: XR Chest 1 View FINDINGS: There is no demonstrated pleural abnormality. Cervical spine fusion hardware noted. Right rib resection. Normal heart size. Normal mediastinum. Normal james. Prominent appearing increased interstitial lung markings. Normal visualized pulmonary arteries. There is atherosclerotic calcification of the aortic arch with tortuosity. There are diffuse degenerative changes of the visualized thoracic spine. There is degenerative osteoarthritis of the bilateral shoulders. There is no demonstrated abnormality of the visualized soft tissue structures of the upper abdomen. RAD/Chest 1 View (Portable) IMPRESSION: There are no acute findings. Electronically Signed: Moises Todd MD at 19:50 EDT ,
[2022-11-17 19:35] LABS: D-Dimer Quantitative (DVT/PE) 0.28 FEU/ug/m (0.27-0.49)
[2022-11-17 19:39] VITALS: BP 140/88; PULSE 99; RESP 22; O2SAT 98
[2022-11-17 19:45] LABS: Anion Gap 4 (5-15); BUN 11 mg/dL (7-18); BUN/Creat Ratio 19.7 RATIO (10-20); Calcium,Total 9.6 mg/dL (8.5-10.1); Chloride 102 mmol/L (98-107); Creatinine, Serum 0.56 mg/dL (0.55-1.02); EST Glomerular Filtration Rate 115 mL/min (>60); Est Glom Filt Rate - Afr Amer 139 mL/min (>60); Estimated Creatinine Clearance 39.47 ml/min; Glucose 134 mg/dL (74-106); Potassium 3.3 mmol/L (3.5-5.1); Sodium Level 138 mmol/L (136-145); Troponin-I HS 3 pg/mL (3.0-54.0)
[2022-11-17 20:19] VITALS: BP 126/90; PULSE 93; RESP 22; O2SAT 96
[2022-11-17 20:20] VITALS: BP 126/90; PULSE 90; RESP 26; O2SAT 96
[2022-11-17] MEDS: levoFLOXacin 750 MG Tablet PO (20:29)
== END 2022-11-17 20:35 | disposition home or self-care (01) ==
PROVIDERS: Emergency Provider Emergency Medicine; PCP Internal Medicine; Visit Provider Emergency Medicine
DX: J44.1 Chronic obstructive pulmonary disease with (acute) exacerbation (principal); F17.210 Nicotine dependence, cigarettes, uncomplicated; Z79.52 Long term (current) use of systemic steroids
CPT/HCPCS: 71045; 80048; 84484; 85025; 85379; 93005; 94640; 96361; 96374; 99284

== ENCOUNTER → 2022-11-27 | Outpatient (CLI) | payer MEDICARE, MEDICAID, SELFPAY ==
[2022-11-27 16:18] LABS: Thyroid Stim Hormone (TSH) 0.11 uIU/mL (0.358-3.74)
== END | disposition home or self-care (01) ==
LOC: BIMLAB 14:09
PROVIDERS: PCP Internal Medicine; Referring Provider Internal Medicine; Visit Provider Internal Medicine
DX: E03.9 Hypothyroidism, unspecified (principal)
CPT/HCPCS: 36415; 84443

== ENCOUNTER → 2023-01-17 | Outpatient (CLI) | payer MEDICARE, MEDICAID, SELFPAY ==
--- NOTE | 2023-01-17 07:29 | CT_ITS ---
STUDY: CT CHEST WITH CONTRAST REASON FOR EXAM: Female, 67 years old. H/o NSCLC RADIATION DOSAGE (If Supplied By Facility): CTDIvol = ( 7.31 ) mGy, DLP = ( 170.14 ) mGycm TECHNIQUE: Transaxial imaging was performed following intravenous administration of IV 100mL Isovue-300. Multiplanar coronal and sagittal images were reformatted. Individualized dose optimization techniques were used for this CT. COMPARISON: Comparison is made with prior study dated January 17, 2022. FINDINGS: CHEST Stable small benign-appearing bilateral axillary lymph nodes. Emphysematous changes. The patient is status post right upper lobectomy and volume loss in the right upper lobe. Stable linear scarring at the right lung base as well as stable 4 mm noncalcified pleural-based nodule in the peripheral aspect of the right middle lobe. A similar appearing nodule measuring 3 mm also seen adjacent to it. There is no demonstrated pleural abnormality. Normal heart and pericardium. No calcification of the coronary arteries. Normal mediastinum. Normal hilar regions. Normal unenhanced pulmonary arteries. There is atherosclerotic calcification of the aortic arch. There are degenerative changes of the thoracic spine. Stable 1.2 cm hypodensity in the left adrenal gland. CT/Chest WITH Contrast IMPRESSION: Stable examination. Electronically Signed: Aubrey Noble MD at 13:02 EDT ,
[2023-01-17 07:55] LABS: CREATININE FINGERSTICK < 0.9 mg/dL (0.55-1.02); EGFR FINGERSTICK > 60.0000 mL/min (>60)
== END | disposition home or self-care (01) ==
LOC: CT 07:28
PROVIDERS: PCP Internal Medicine; Referring Provider Nurse Practitioner Family; Visit Provider Nurse Practitioner Family
DX: C34.90 Malignant neoplasm of unspecified part of unspecified bronchus or lung (principal)
CPT/HCPCS: 71260; Q9967

== ENCOUNTER → 2023-06-25 | Outpatient (CLI) | payer MEDICARE, MEDICAID, SELFPAY ==
[2023-06-25 12:20] LABS: Absolute Lymphocyte Count 2.28 X10^3/uL (0.83-4.51); Absolute Neutrophil Count 4.7 X10^3/uL (2.0-7.7); Basophil# 0.09 X10^3/uL; Basophil% 1.1 % (0-1); Eosinophil# 0.04 X10^3/uL; Eosinophils% 0.5 % (0-5); Hematocrit 41.7 % (37-47); Hemoglobin 13.6 g/dL (12.0-15.0); Lymphocyte # 2.28 X10^3/ul (0.83-4.51); Mean Corp Hgb Conc 32.6 g/dL (32-36); Mean Corpuscular Hgb 32.1 pg (27.0-32.0); Mean Corpuscular Volume 98.3 fL (81-99); Mean Platelet Vol. 9.6 fl (6.2-12.0); Monocyte# 0.66 X10^3/uL; Monocyte% 8.4 % (0-10); NRBC Flagged by Analyzer 0 % (0-5); Neutrophil # 4.74 X10^3/uL (2.7-7.7); Neutrophil % 60.5 % (47-70); Platelet Count 339 K/mm3 (150-450); RBC Distribution Width CV 12.8 % (11.6-14.6); RBC Distribution Width SD 46.3 fl (35.1-43.9); Red Blood Count 4.24 M/mm3 (4.2-5.4); White Blood Count 7.9 K/mm3 (4.4-11.0)
[2023-06-25 12:45] LABS: ALB/GLOB Ratio 0.9 RATIO (0.9-2.4); AST(SGOT) 7 U/L (15-37); Alanine Aminotransfer ALT/SGPT 16 U/L (13-56); Albumin, Serum 3.2 g/dL (3.2-5.0); Alkaline Phosphatase 92 U/L (45-117); Anion Gap 2 (5-15); BUN 11 mg/dL (7-18); BUN/Creat Ratio 20.6 RATIO (10-20); Calcium,Total 9.3 mg/dL (8.5-10.1); Chloride 106 mmol/L (98-107); Creatinine, Serum 0.54 mg/dL (0.55-1.02); EST Glomerular Filtration Rate 121 mL/min (>60); Est Glom Filt Rate - Afr Amer 146 mL/min (>60); Globulin 3.7 g/dL (2.2-4.2); Glucose 77 mg/dL (74-106); Potassium 3.8 mmol/L (3.5-5.1); Protein, Total 6.9 g/dL (6.4-8.2); Sodium Level 143 mmol/L (136-145)
== END | disposition home or self-care (01) ==
LOC: BIMLAB 11:44
PROVIDERS: PCP Internal Medicine; Referring Provider Internal Medicine; Visit Provider Internal Medicine
DX: Z01.818 Encounter for other preprocedural examination (principal)
CPT/HCPCS: 36415; 80053; 85025

== ENCOUNTER 2023-07-18 11:30 | Day surgery (SDC) | payer MEDICARE, MEDICAID, SELFPAY ==
--- NOTE | 2023-06-26 13:15 | RAD_ITS ---
STUDY: X-RAY CHEST REASON FOR EXAM: Female, 68 years old. Presurgical evaluation. TECHNIQUE: Single frontal view of the chest. COMPARISON: November 17, 2022 FINDINGS: Hyperinflation with scattered healed parenchymal granulomatous calcifications. Right pleural thickening/scarring with pleural tenting, unchanged. Mild cardiomegaly with aortic tortuosity and calcification unchanged. Incidentally noted is left calcific tendinosis. No abnormality of the visualized soft tissue structures of the upper abdomen. RAD/Chest 1 View IMPRESSION: Stable chest with no acute or active cardiopulmonary disease. Electronically Signed: Riky Fuentes MD at 14:33 EST ,
[2023-07-11 21:07] LABS: Cotinine Screen Blood 183.3 ng/mL (.); Nicotine Blood 16.4 ng/mL (.)
[2023-07-18] VITALS (8 sets, daily range): BP systolic 117–172; BP diastolic 68–109; PULSE 72–93; RESP 16–20; TEMP 36.2–36.4; O2SAT 89–98; BMI 21.1
[2023-07-18] MEDS: Lactated Ringers 1,000 ML 15 ML IV (12:05)
[2023-07-18] MEDS: Cefazolin 2 GM in 0.9% Normal Saline (100mL Bag) 100 ML IV (13:13)
--- NOTE | 2023-07-18 13:17 | DCINST_ITS ---
Discharge Instructions Diet Discharge Diet: No restrictions Activity Discharge Activity: May Not Drive, May Shower (Please utilize cast bag covering to the right lower extremity to keep dressings clean, dry, and intact) and Use Walker (Please remain nonweightbearing to the right lower extremity with use of crutches/walker/knee scooter) Weight Bearing Status: No weight bearing (Please remain nonweightbearing to the right lower extremity with the assistance of crutches/walker/knee scooter) Keep extremity elevated above heart level: Right Leg (Elevate right lower extremity at all times of rest for postoperative edema control) Dressing / Incision Call your doctor if you observe: Fever of 101 or Higher, Shortness of breath, Chest pain, Calf discomfort and Uncontrolled pain Change Dressing in: leave in place till F/U Remove Dressing in: do not remove dressing (Do not change dressing. Leave dressing in place and physician will change at first postoperative appointment.) Cleanse incision/area with: Do not get Incision Wet and Keep Dressing Clean & Dry (Do not get wet. Use cast bag covering when showering to keep dressings clean, dry, and intact to the right foot) Follow Up Care Please Follow Up With: Raymundo Roberson DPM When: Patient has first postoperative appointment in office with me early next week Test Results: Test results from this visit will be discussed in further detail at your follow- up appointment, if applicable. Discharge Plan Admission Attending Provider: Raymundo Roberson Primary Care Provider: Xena Duckworth Consulting Providers: Xena Duckworth Discharge Orders/Prescriptions Prescriptions: New doxycycline hyclate 100 mg capsule 100 mg PO DAILY Qty: 10 0RF aspirin 325 mg capsule 325 mg PO DAILY Qty: 20 0RF oxycodone-acetaminophen 5-325 mg tablet 1 tab PO Q8H PRN (Reason: pain) 7 Days Qty: 28 0RF No Action (DME) oxygen-air delivery systems Device See Rx Instructions .ROUTE .MEDSUPPLY Qty: 1 Rx Instructions: As directed, at night only multivitamin Tablet 1 tab PO DAILY cyanocobalamin (vitamin B-12) 1,000 mcg capsule 1,000 mcg PO DAILY Daliresp 500 mcg tablet 500 mcg PO DAILY Qty: 60 0RF fluticasone propion-salmeterol [Advair Diskus] 500-50 mcg/dose blister with device 1 inh inhalation BID Qty: 3 3RF cholecalciferol (vitamin D3) 50 mcg (2,000 unit) capsule 50 mcg PO DAILY ascorbic acid (vitamin C) 1,000 mg tablet 4 g PO DAILY venlafaxine 150 mg tablet extended release 24hr 150 mg PO DAILY Qty: 90 3RF gabapentin 600 mg tablet 600 mg PO .FOUR TIMES DAILY latanoprost 1 DROP bottle 1 drp EACH EYE QHS Patient Comments: tolterodine 4 mg capsule,extended release 24hr 4 mg PO QHS Rx Instructions: TAKE ONE CAPSULE BY MOUTH AT BEDTIME levothyroxine 75 mcg tablet 75 mcg PO DAILY (DME) Pulse Oximeter Qty: 1 0RF Rx Instructions: As directed (DME) automatic Blood pressure cuff Qty: 1 0RF Rx Instructions: As directed (DME) Disability Placard See Rx Instructions .Route .MEDSUPPLY Qty: 1 0RF Rx Instructions: Expires 09/30/2027 Dexilant 60 mg capsule,biphase delayed releas 60 mg PO DAILY Qty: 90 3RF albuterol sulfate 0.63 mg/3 mL solution for nebulization 0.63 mg INHALATION Q4H PRN (Reason: shortness of breath or wheezing) Qty: 180 11RF buspirone 5 mg tablet 5 mg PO BID 90 Days Qty: 180 3RF Incruse Ellipta 62.5 mcg/actuation blister with device 1 inh inhalation DAILY Qty: 3 3RF loratadine 10 mg tablet 10 mg PO DAILY Qty: 90 3RF montelukast 10 mg tablet 10 mg PO DAILY Qty: 90 3RF mometasone 50 mcg/actuation spray,non-aerosol 2 spray INTRANASAL DAILY Qty: 3 3RF Rx Instructions: administer into each nostril albuterol sulfate [ProAir HFA] 90 mcg/actuation HFA aerosol inhaler 2 inh inhalation Q6H PRN (Reason: shortness of breath or wheezing) Qty: 18 6RF Referrals / Follow Up: Xena Duckworth MD [Primary Care Provider] - Disposition Disposition (needs filled in before D/C Order can be placed): Home, Self Care
[2023-07-18] MEDS: Bupivacaine Mpf 0.5% 30 ML VIAL (13:23)
[2023-07-18] MEDS: Lidocaine 1% (20 ml mdv) 20 ML Vial (13:23)
--- NOTE | 2023-07-18 13:40 | RAD_ITS ---
EXAM: XR RIGHT FOOT, 2 VIEWS CLINICAL INDICATION: BUNIONECTOMY TECHNIQUE: Frontal and lateral views of the right foot. COMPARISON: No relevant prior studies available. FINDINGS: BONES/JOINTS: 5 fluoroscopic spot views of the foot obtained before and after bunionectomy, osteotomy of the distal first metatarsal and proximal portion of the first proximal phalanx and K wire placement across the second MTP joint. Bony structures appear well aligned. SOFT TISSUES: Normal. RAD/Foot 2 Views IMPRESSION: As above. Electronically Signed: Nahum De La Torre MD at 11:16 EST ,
--- NOTE | 2023-07-18 17:00 | RAD_ITS ---
INDICATION: Postop chevron bunionectomy 2nd HT (in PACU) EXAMINATION/TECHNIQUE: X-RAY - RIGHT XR Foot Min 3 Views 3 VIEWS COMPARISON: None. FINDINGS: Partial splint obscures detail. BONES: Surgical hardware with pins and or K wires transfixing the osteotomy sites at the great toe base of the proximal phalanx, distal first metatarsal, and second digit from the distal phalanx to the metatarsal. Alignment is grossly anatomic. JOINTS: No dislocation. SOFT TISSUES: Unremarkable. RAD/Foot min 3 Views IMPRESSION: Postsurgical changes. Electronically Signed: Renata Hines MD at 20:41 EST ,
--- NOTE | 2023-07-18 17:25 | PCM.OPRPT ---
Problems Associated Problem List Diagnoses (1) Hallux valgus (acquired), right foot: (2) Other hammer toe(s) (acquired), right foot: (3) Pain in right foot: Report of Operation Date of Procedure: 07/18/23 Pre-Operative Diagnosis: 1. Hallux Abductovalgus deformity right foot 2. Hammertoe deformity second digit right foot Post-Operative Diagnosis: 1. Hallux Abductovalgus deformity right foot 2. Hammertoe deformity second digit right foot Surgery/Procedure Performed:: 1. Correction of hallux Abductovalgus deformity with Kevin/Chevron bunionectomy right foot 2. Linwood osteotomy right foot 3. Correction of hammertoe deformity second digit right foot with PIPJ arthrodesis 4. Flexor tendon transfer second digit right foot 5. Capsulorraphy first metatarsophalangeal joint Description of Surgical Findings:: See operative note for findings Surgeon: Raymundo Roberson digital strategist senior manager: Shalonda Verdugo DPM PGY-1 Type of Anesthesia: General and Local (20 cc one-to-one mixture of 1% lidocaine plain and 0.5% Marcaine plain) Specimen's removed: None Drains: None Estimated Blood Loss (mL): < 10mL Description of Procedure: HPI/indication: Patient is a 68-year-old female who presented to office with longstanding history of hallux abductovalgus deformity of the right foot with second digit hammertoe. Patient had been following conservative guidelines of supportive shoes, limiting barefoot activity, orthotic inserts, and bunion shielding. However, she did continue to develop medial eminence pain in addition to second digit hammertoe pain which had worsened over the last year with worsening of bunion deformity. Patient does admit to some bump rubor and some occasional neuritis which is made wearing some shoes difficult due to rubbing in addition to making barefoot ambulation difficult with increasing pain. She would like to proceed forward with surgical intervention. Discussed with her her second digit hammertoe deformity noted to be flexible at the MTPJ but semirigid at the PIPJ, and her HAV deformity with intermetatarsal angle 1 2 noted to be 12.5 degrees and reducible with no elevatus or hypermobility. Medial eminence is prominent and painful. Joint does demonstrate smooth range of motion with range of motion decreased in the form position and improved with a corrected position. No track bound noted, but there is slight tracking noted during range of motion. Discussed second digit hammertoe surgery with flexor tendon transfer in detail in addition to chevron bunionectomy in detail. I reviewed the conditions and reviewed the treatment options. Patient does continue to have limiting pain with significant symptoms despite nonsurgical care and would like to proceed forward with the surgical intervention. We discussed all possible benefits versus the risk and potential complications in detail. Discussed risks include, but are not limited to the following: Pain, continued pain, complex regional pain syndrome, deformity, continued deformity, recurrence, overcorrection, under correction, numbness/neuritis, swelling, scarring, poor cosmetic result, bleeding, hardware failure, symptomatic hardware, need for further surgery/procedures, fracture, nonunion, delayed union, nonhealing/delayed healing, dehiscence, infection, blood clot, allergic reaction, transfer lesions, postoperative arthritis, weakness, shoe gear problems, inability to walk, inability to wear shoes, floating toe, contracted toe, deviated toe, stroke, heart attack, addiction to pain medication, loss of function, loss of limb, loss of life. Patient expressed understanding and agreement of these and was able to repeat these back. Surgical consent was signed freely by the patient. No promises were made. No guarantees were given. She was instructed to stop smoking 1 week prior to surgical intervention and to continue non-smoking during the postoperative recovery period. She does voice understanding of this. She was scheduled to undergo correction of hallux abductovalgus deformity with Kevin/chevron bunionectomy of the right foot with Linwood osteotomy and second digit PIPJ arthrodesis with flexor tendon transfer at [facility] on 07/18/2023. All diagnostic data was reviewed prior to entering the OR. Operative limb was signed prior to entering the OR. Procedure: Under mild sedation patient was brought into the operating placed on table in supine position and secured with safety belt. Following induction of general anesthesia a local anesthetic block was then performed about the patient's right ankle consisting of 20 cc of a one-to-one mixture of 1% lidocaine plain and 0.5% Marcaine plain. A pneumatic ankle tourniquet was then placed about the patient's right ankle. [place] hip bump was utilized and elevated via a blanket bump. The right foot was then scrubbed, prepped, and draped in usual aseptic manner. An Esmarch bandage was then utilized to exsanguinate the right foot and the right foot was elevated and the pneumatic tourniquet inflated to 250 mmHg. Next, fluoroscopic imaging was utilized to confirm bunion deformity and second digit hammertoe deformity in multiple views. A linear incision was made from the midshaft of the first metatarsal head proximally extended distally to the proximal phalanx utilizing a #15 blade. Incision was made medial to the EHL tendon. Incision was deepened via blunt and sharp dissection and care was taken to identify and retract all vital neurovascular structures. EHL tendon was identified and retracted laterally and protected throughout the duration of this case. First metatarsophalangeal joint capsule was incised linearly and an L-shaped capsulotomy was utilized to access the first metatarsal head at the surgical field. Next, utilizing a sagittal saw the medial eminence was resected and passed from the operative field to the table in toto. A lateral release was then performed of the first metatarsophalangeal joint. Next, a K wire was inserted at the medial head of the first metatarsal and driven across the first metatarsal head parallel to the second metatarsal. Next, utilizing a sagittal saw and Kevin/Chevron osteotomy was performed at the first metatarsal head. Capital fragment was then shifted laterally and temporarily fixated with a 0.062 K wire. At this time reduction of deformity was confirmed in multiple fluoroscopic views. A second 0.062 K wire was then driven perpendicular to the opposing K wire and utilized for additional temporary fixation of the capital fragment. Following AO principles a 3.5 x 22 mm Arthrex headless compression screw was utilized for fixation of the osteotomy site. Excellent compression was noted across the osteotomy site with fixation in place and all temporary fixation was removed. Fixation visualized in multiple fluoroscopic views and deemed to be excellent. At this time a sagittal saw was utilized to resect the remaining medial bone shelf, and bone was passed from the field to the operative table in toto. At this time foot was loaded to simulate weightbearing and hallux did have some remaining lateral deviation and thus an Danielle osteotomy was then performed at the proximal phalanx utilizing a sagittal saw. A nitinol staple was utilized for fixation following AO principles and manufacture guidelines. During fixation of the staple the proximal staple hinge did bust through the base of the proximal phalanx towards the osteotomy site and thus a 0.062 K wire was inserted across the osteotomy site for additional fixation and stabilization of the osteotomy. K wire was bent, trimmed, and buried against the proximal phalanx. Fixation was then confirmed in multiple fluoroscopic views and deemed satisfactory. Sites were then flushed with copious amounts of normal sterile saline. Foot was then loaded to simulate weightbearing and noted to have reduction of the HAV deformity with rectus hallux. At this time attention was directed to the second digit where a linear incision was performed from the head of the second metatarsal distally to the base of the distal phalanx utilizing a #15 blade. Incision was deepened through blunt and sharp dissection with care taken to identify and retract all vital neurovascular structures. The extensor tendon to the second digit was identified and retracted laterally and protected through the duration of this case. The proximal interphalangeal joint was identified and transected free to expose the head of the proximal phalanx of the operative field. Next a sagittal saw was utilized to resect the head of the proximal phalanx and the base of the middle phalanx. Resected bone was transferred from the operative field to the table in toto. Next, the flexor tendon was identified clamped with hemostat transected and a flexor tendon transfer was then performed of the second digit. Flexor tendon was then repaired utilizing 4-0 Vicryl in simple interrupted fashion. A 0.045 K wire was then utilized for fixation of the proximal interphalangeal joint arthrodesis site with adequate compression noted. The K wire was then bent, trimmed, and covered with pin cover. Next, the foot was loaded to simulate weightbearing in the second digit was straight and rectus with deformity reduced. Next there was a small palpable exostosis of the medial aspect of the head of the middle phalanx which was resected with a rongeur and smoothed with a bone rasp. Next, reduction of deformity was confirmed via multiple fluoroscopic views. All sites again flushed with copious amounts of normal sterile saline. There was noted to have a small laceration to the medial aspect of the extensor tendon which was repaired with a 4-0 Vicryl. Deep tissues of the second digit closed with 4-0 Vicryl. Subcutaneous tissues of the second digit closed with 4-0 Monocryl. Skin reapproximated with 3-0 Prolene in simple interrupted fashion. At this time the medial capsulorraphy was performed for redundant capsule secondary to medial eminence and capsule was repaired with 4-0 Vicryl. Next, 2cc of DBM putty was utilized to pack small void at proximal phalanx base where staple fixation failed. Next, deep tissues were closed utilizing 4-0 Vicryl. Subcutaneous tissues closed utilizing 4-0 Monocryl. At this time the pneumatic ankle tourniquet was deflated and a prompt hyperemic response was noted to the digits of the right foot. The skin was then reapproximated utilizing 3-0 Prolene in simple interrupted fashion. The incision sites were dressed with Betadine soaked Adaptic, 4 x 4 fluff between digits, 4 x 4 gauze, Kerlix x2, Webril cast padding, 4 inch Dimitry, 6 inch Dimitry. A well-padded posterior splint was then applied to the right lower extremity and anchored with a 4 inch Dimitry and 6 inch Dimitry wrap and modified Avila compression fashion. The patient tolerated the procedure and anesthesia well was transferred ported to PACU with vital signs stable and vascular status intact to the digits of the right foot. Postoperative imaging was obtained in PACU and reviewed prior to leaving. Discussed with patient family her discharge instructions stating to keep dressings clean, dry, and intact to the right lower extremity. To utilize shower chair seated while showering with cast bag covering. To elevate lower extremity at all times of rest for postoperative edema control. Discussed with them she is to remain nonweightbearing to the right lower extremity at all times with assistance of crutches/walker/knee scooter. These instructions were outlined to patient and family prior to surgical intervention and they were reminded again following the surgical procedure. Patient has first postoperative appointment with me in office early next week. Grafts/Implants Used: 3.5 x 22 mm headless compression screw, nitinol staple, 0.062 & 0.045 Kwire Complications None Admit VTE Documentation VTE Present on Admission: No VTE Mechan Device Prophylaxis: SCD's VTE Pharm Prophylaxis ordered?: Yes
== END 2023-07-18 18:34 | disposition home or self-care (01) ==
LOC: SDC 11:33 → AC 11:35
PROVIDERS: PCP Internal Medicine; Referring Provider Student in an Organized Health Care Education/Training Program; Visit Provider Student in an Organized Health Care Education/Training Program
PROC: (CPT 28292; principal; 2023-07-18 12:45)
DX: M20.11 Hallux valgus (acquired), right foot (principal); J43.9 Emphysema, unspecified; M20.41 Other hammer toe(s) (acquired), right foot; E03.9 Hypothyroidism, unspecified; F41.1 Generalized anxiety disorder; F32.A Depression, unspecified; F17.210 Nicotine dependence, cigarettes, uncomplicated; Z79.890 Hormone replacement therapy; Z79.899 Other long term (current) drug therapy
CPT/HCPCS: 28299; 28285; 01480; 36415; 71045; 73620; 73630; 76000; 80323; C1713; J7120; G0480; J2405

== ENCOUNTER → 2023-10-07 | Outpatient (CLI) | payer MEDICARE, MEDICAID, SELFPAY | END | disposition home or self-care (01) | LOC: LABSPEC 11:00 | PROVIDERS: PCP Internal Medicine; Referring Provider Student in an Organized Health Care Education/Training Program; Visit Provider Student in an Organized Health Care Education/Training Program | DX: J44.9 Chronic obstructive pulmonary disease, unspecified (principal) | CPT/HCPCS: 87070; 87205 ==

== ENCOUNTER → 2023-10-21 | Outpatient (CLI) | payer MEDICARE, MEDICAID, SELFPAY ==
--- NOTE | 2023-10-21 08:04 | CT_ITS ---
INDICATION: New left lower lobe mass measuring 1.2 x 1.1 cm EXAMINATION: CT CHEST WITHOUT CONTRAST - CT Chest W/O Contrast Injection TECHNIQUE: Helically acquired images were obtained of the chest. A radiation dose optimization technique was used for this scan. IV Contrast dosage and agent: None. RADIATION DOSAGE (If Supplied By Facility): CTDIvol = ( 6.38 ) mGy, DLP = ( 229.54 ) mGycm COMPARISON: Prior study dated: 05/08/2016 FINDINGS: LUNGS, PLEURA AND LARGE AIRWAYS: The lungs are hyperinflated with moderate centrilobular emphysema. Pleural-based density in the lateral aspect of the right upper lobe. Moderate stranding in the right lower lung and lingula likely due to scarring. No pleural effusion or thickening. No pneumothorax. THYROID: No thyroid lesions. HEART AND PERICARDIUM: Heart size is normal. No pericardial effusion. CORONARY ARTERIES: Mild coronary calcifications. VESSELS: Atherosclerotic calcifications of the thoracic aorta without evidence of aneurysm. MEDIASTINUM AND LALI: No mediastinal or hilar adenopathy. Esophagus is unremarkable. No hiatal hernia. UPPER ABDOMEN: No acute pathology. BONES: Multilevel degenerative changes of the spine. Anterior fusion lower cervical spine. CT/Chest without Contrast IMPRESSION: 1. Emphysematous changes and moderate scarring essentially unchanged. 2. Otherwise no new infiltrate or pleural effusions. Electronically Signed: Ari Bryant MD at 14:09 EST ,
--- OUTSIDE RECORDS SUMMARY | 2023-10-21 08:30 | XMS RPT_ITS | CCD ---
Author Name Unknown Address [address] [place] [address] Organization [facility] Care Team Providers Care Rent Control Office Manager Name Role Phone Juan AGUILAR, Mohsen Primary Care Provider PAUL CORRAL Admitting Unavailable PAUL CORRAL Primary Care Unavailable PAUL CORRAL Attending Unavailable ALBERTO DUCKWORTH MD Consulting Unavailable ALBERTO DUCKWORTH MD Referring Unavailable PROVIDER, UNKNOWN Consulting Unavailable ALBERTO DUCKWORTH MD Consulting Unavailable JACQUIE OCONNOR MD Admitting Unavailable JACQUIE OCONNOR MD Primary Care Unavailable JACQUIE OCONNOR MD Attending Unavailable PROVIDER, UNKNOWN Consulting Unavailable JIAME LARA Attending Unavailable EDILIA ELIZABETH Referring Unavailable MOHSEN MARTINEZ Primary Care Unavailable JAIME LARA Admitting Unavailable JAIME LARA Consulting Unavailable Medications Current Medications Medication Drug Class(es) Dates Sig (Normalized) Sig (Original) [id number] 200 actuat albuterol 0.09 mg/actuat metered dose inhaler (8 sources) beta2-Adrenergic Agonist take 2 puff(s) by inhalation every six hours as needed for wheezing albuterol 108 (90 Base) MCG/ACT inhaler Inhale 2 puffs every 6 hours as needed for wheezing or shortness of breath. 0 Active apixaban 5 mg oral tablet (3 sources) Factor Xa Inhibitor Start: 07-29-2023 End: 10-27-2023 take 2 tablets by mouth twice daily, then take 1 tablet by mouth twice daily apixaban (Eliquis) 5 MG tablet Take 2 tablets (10 mg) by mouth 2 times daily for 7 days, THEN 1 tablet (5 mg) 2 times daily. 0 07/29/2023 10/27/2023 Active Completed/Discontinued Medications Medication Drug Class(es) Dates Sig (Normalized) Sig (Original) acetaminophen 325 mg oral tablet (2 sources) Start: 07-25-2023 End: 07-29-2023 take 1 tablet by mouth every four hours acetaminophen (Tylenol) tablet 650 mg Problems Active Problems Problem Classification Problem Date Documented Date Episodic/Chronic Acquired foot deformities (8 sources) Hammer toe; Translations: [Other hammer toe(s) (acquired), unspecified foot] Onset: 07-18-2023 07-23-2023 Chronic Anxiety disorders (9 sources) Anxiety; Translations: [Anxiety disorder, unspecified] Onset: 03-04-2016 05-30-2022 Chronic Cancer of bronchus; lung (11 sources) Primary malignant neoplasm of upper lobe of right lung; Translations: [Malignant neoplasm of upper lobe, right bronchus or lung] Onset: 03-26-2016 05-30-2022 Chronic Chronic obstructive pulmonary disease and bronchiectasis (12 sources) Chronic obstructive lung disease; Translations: [Chronic obstructive pulmonary disease, unspecified] Onset: 03-04-2016 05-30-2022 Chronic Esophageal disorders (8 sources) Gastroesophageal reflux disease without esophagitis; Translations: [Gastro-esophageal reflux disease without esophagitis] Onset: 03-04-2016 05-30-2022 Chronic Fever of unknown origin (1 source) Fever, unspecified; Translations: [Fever, unspecified] Onset: 07-29-2023 Episodic Fluid and electrolyte disorders (1 source) Hypokalemia; Translations: [Hypokalemia] Onset: 07-29-2023 Episodic Nutritional deficiencies (6 sources) Deficiency of macronutrients; Translations: [Unspecified protein-calorie malnutrition] Onset: 07-22-2023 07-29-2023 Chronic Osteoporosis (9 sources) Osteoporosis; Translations: [Age-related osteoporosis without current pathological fracture] Onset: 03-04-2016 05-30-2022 Chronic Other injuries and conditions due to external causes (10 sources) H/O: hip fracture; Translations: [Personal history of (healed) traumatic fracture] Onset: 07-22-2023 07-22-2023 Episodic Other injuries and conditions due to external causes (2 sources) Personal history of (healed) traumatic fracture; Translations: [Personal history of (healed) traumatic fracture] Onset: 07-22-2023 Episodic Residual codes; unclassified (1 source) Pain, unspecified; Translations: [Pain, unspecified] Onset: 07-29-2023 Episodic Spondylosis; intervertebral disc disorders; other back problems (11 sources) Disorder of lumbar disc; Translations: [Unspecified thoracic, thoracolumbar and lumbosacral intervertebral disc disorder] Onset: 03-04-2016 05-30-2022 Chronic Substance-related disorders (8 sources) Cigarette smoker ; Translations: [Nicotine dependence, cigarettes, uncomplicated] Onset: 07-23-2023 07-23-2023 Chronic Thyroid disorders (11 sources) Acquired hypothyroidism; Translations: [Hypothyroidism, unspecified] Onset: 03-04-2016 05-30-2022 Chronic Past or Other Problems Problem Classification Problem Date Documented Da te Episodic/Chronic Residual codes; unclassified (8 sources) Tobacco user; Translations: [Tobacco use] Onset: 03-04-2016 05-30-2022 Episodic Viral infection (8 sources) Postherpetic neuralgia; Translations: [Other postherpetic nervous system involvement] Onset: 03-04-2016 05-30-2022 Episodic Results Test Name Value Interpretation Reference Range Facil ity Vital Signs Date Time Vital Sign Value Performing Clinician Clark rasmussen 07-29-2023 08:24-0500 Body temperature 98.01 [degF] Raymundo Garduno DO Work Phone: [employer] 07-29-2023 08:24-0500 Diastolic blood pressure 78 mm[Hg] Raymundo Shaan DO Work Phone: [employer] 07-29-2023 08:24-0500 Heart rate 70 /min Raymundo Garduno DO Work Phone: [employer] 07-29-2023 08:24-0500 Respiratory rate 16 /min Raymundo Garduno DO Work Phone: [employer] 07-29-2023 08:24-0500 SaO2% (BldA) [Mass fraction] 99 % Raymundo Garduno DO Work Phone: [employer] 07-29-2023 08:24-0500 Systolic blood pressure 127 mm[Hg] Raymundo Garduno DO Work Phone: [facility] 07-22-2023 17:05-0500 Body height 157.5 cm Raymundo Garduno DO Work Phone: [facility] 07-22-2023 17:05-0500 Body mass index (BMI) [Ratio] 19.94 kg/m2 Raymundo Garduno DO Work Phone: [facility] 07-22-2023 17:05-0500 Body weight 49.44 kg Raymundo Garduno DO Work Phone: [facility] Encounters Encounter Date Encounter Type Care Provider Facility Start: 07-29-2023 Telephone encounter Timi James MD Work Phone: [facility] Start: 07-29-2023 End: 08-17-2023 ambulatory ALBERTO AGUILAR [facility] Start: 07-25-2023 End: 07-25-2023 Evaluation and management of inpatient Jennifer Gama [place] [employer] Work Phone: [facility]U H6 Start: 07-22-2023 End: 07-29-2023 [facility] Start: 07-22-2023 End: 07-29-2023 Evaluation and management of inpatient Raymundo Garduno DO Work Phone: [facility] H[facility] Procedures Date Procedure Procedure Detail Performing Clinician Start: 07-29-2023 Thromboplastin time partial plasma/whole blood Lzu Perez DO Work Phone: Start: 07-29-2023 Basic metabolic pane l calcium total Casey Rubio MD Work Phone: Start: 07-28-2023 Thromboplastin time partial plasma/whole blood Luz Perez DO Work Phone: Start: 07-28-2023 OXYGEN THERAPY Casey Rubio MD Work Phone: Start: 07-28-2023 End: 07-28-2023 Basic metabolic panel calcium total Casey Rubio MD Work Phone: Start: 07-27-2023 Blood count hematocrit Hi Townsend MD Work Phone: Start: 07-27-2023 Ct abdomen & pelvis w/contrast material Hi Townsend MD Work Phone: Start: 07-27-2023 Compatibility each u nit electronic Hi Townsend MD Work Phone: Start: 07-27-2023 OXYGEN THERAPY Casey Rubio MD Work Phone: Start: 07-27-2023 Antibody screen JAIME ANGLINAntelmo Plan of Treatment Date Care Activity Detail Author Start: 03-28-2027 DTaP/Tdap/Td Vaccine s (2 - Td or Tdap) DTaP/Tdap/Td Vaccines (2 - Td or Tdap) [facility] Start: 06-17-2023 Screening for malign ant neoplasm of breast Mammogram [facility] Start: 04-18-2023 Influenza vaccination Influenza Vacc ine (#1) [facility] Start: 06-28-2022 Pneumococcal Vaccine : 65+ Years (2 - PCV) Pneumococcal Vaccine: 65+ Years (2 - PCV) [facility] Start: 2016 Hepatitis B Vaccines (1 of 3 - Risk 3-dose series) Hepatitis B Vaccines (1 of 3 - Risk 3-dose series) [facility] Start: 2016 RSV Immunization age d 60 or older (1 - 1-dose 60+ series) RSV Immunization aged 60 or older (1 - 1-dose 60+ series) [facility] Start: 1975 Hepatitis A Vaccines (1 of 2 - Risk 2-dose series) Hepatitis A Vaccines (1 of 2 - Risk 2-dose series) [facility] Start: 1974 Hepatitis C screening Hepatitis C Sc reening [facility] Start: 1968 Depression Screening Depression Scre ening [facility] Start: 1956 Lipid panel Lipid Panel [facility] Start: 1955 Medicare Advantage A nnual Wellness Visit (AWV) Medicare Advantage Annual Wellness Visit (AWV) [facility] Start: 1955 Screening for malign ant neoplasm of colon [facility] Start: 1956 Screening for osteoporosis Bone Dens ity Scan [facility] Start: 1956 Thyroid stimulating hormone measurement TSH Level [facility] End: 07-24-2023 Basic metabolic 1998 panel - Serum or Plasma Basic metabolic panel Lab Timed Once for 1 Occurrences starting 07/24/2023 until 07/24/2023 [facility] Immunizations Immunization Date Immunization Notes Care Provider Mars pineda 06-25-2023 influenza virus vacc ine, unspecified formulation Jennifer Mc [employer] Work Phone: [facility] Payers Date Payer Category Payer Medicare [id number] 2021 Medicare [id number] 1955 Unknown [id number] 1955 Unknown [id number] Medicaid [id number] Medicare [id number] Social History Date Type Detail Facility Tobacco smoking stat [facility] Smokes tobacco daily [facility] Work Phone: History of tobacco use Cigarette Smoker [facility] Start: 07-24-2023 End: 07-28-2023 Alcohol intake Current drinker of alcohol (finding) [facility] Start: 07-23-2023 End: 07-28-2023 History of Social function [facility] Start: 07-23-2023 End: 07-28-2023 Alcohol Use Disorder Identification Test - Consumption [AUDIT-C] [facility] How often to you hav e a drink containing alcohol? Never [facility] How many standard dr inks containing alcohol do you have on a typical day? Patient does not drink [facility] Start: 1955 Sex Assigned At Female S [facility] Start: 07-22-2023 Gender identity Identifies as female gender (finding) [facility] Medical Equipment Procedure Code Equipment Code Equipment Origin al Text Equipment Identifier Dates Sikh Adm/ Mdm X3 Insert For Adm/Mdm [id number] Start: 07-24-2023 Cable Orth Vit 2 mm Beaded Set - [id number] Start: 07-24-2023 Liner Mdm Cocr 4 2mm E - [id number] Start: 07-24-2023 Clinical Notes 07-22-2023 to 08-11-2023 Candice Carpenter - 07/29/2023 3:11 PM Rosio Gardiner PTA - 07/29/2023 2:28 PM Sera Strauss - 07/29/2023 1:50 PM Karri James MD - 07/29/2023 7:54 AM ESTDischarge Instructions Note Date & Type Note Facility 08-11-2023 Note . MICRO - Microbiology PROCEDURE: Culture Beta Strep Only [*1] SOURCE: Throat BODY SITE: COLLECTED DATE/TIME: 08/09/2023 12:00 EST RECEIVED DATE/TIME: 08/09/2023 15:55 EST START DATE/TIME: 08/09/2023 15:55 EST FREE TEXT SOURCE: FINAL REPORTS Final Report [] Verified Date/Time/Personnel: 08/11/2023 13:41 EST No Beta Strep isolated at 48hrs. PRELIMINARY REPORTS Preliminary Report [] Verified Date/Time/Personnel: 08/10/2023 10:12 EST Culture results pending. Performing Locations *1: This test was performed at: [address], [facility] ([place]) 07-29-2023 Note Internal Medicine: M ed Team Discharge Summary Miri Plasencia : 1955 ADMIT DATE: 07/22/2023 DISCHARGE DATE: 07/29/23 PCP: MOHSEN MARTINEZ MD Visit Status: Admission Code Status: FULL CODE Primary Discharge Diagnosis: Left proximal femur fracture Secondary Discharge Diagnoses: COPD Right lower lobe pulmonary embolism-ADDENDUM per CDI Query: Clinically significant PE Acute anemia Tobacco abuse Constipation in setting of opioids Hypokalemia Neuropathy Hypothyroidism Anxiety, depression GERD Sore throat Insomnia Reason for Admission & Hospital Course: Miri Plasencia is a 68 y.o. female with PMH COPD, hypothyroidism, neuropathy, NSC lung cancer that presented to [facility] on 07/22/2023 and was admitted for left hip fracture after fall from standing height. Patient originally had a surgery for right hammer toe deformity on 07/18. Patient was on crutches and fell at home on 07/19, was found down by son and taken to [facility]. She was found to have a left proximal femur fracture and transferred to [facility]. Orthopedic surgery was consulted and ORIF was performed on 07/24. During this admission, CT chest abdomen pelvis found a small lung lesion measuring 12x11 mm and a small PE in right lower arterial branch. Patient was asymptomatic throughout this time. Patient was anticoagulated with heparin and transitioned to Eliquis on discharge. Patient discharged to SNF in stable condition. Disposition: SNF Activity: up with assist Diet: Adult diet Regular Discharge Medications: Medication List START taking these medications apixaban 5 MG tablet Commonly known as: Eliquis Take 2 tablets (10 mg) by mouth 2 times daily for 7 days, THEN 1 tablet (5 mg) 2 times daily. Start taking on: July 29, 2023 cefadroxil 500 MG capsule Commonly known as: Duricef Take 1 capsule (500 mg) by mouth 2 times daily for 7 days. oxyCODONE 5 MG immediate release tablet Commonly known as: Roxicodone Take 1 tablet (5 mg) by mouth every 4 hours as needed for moderate pain (4-6) for up to 5 days. CONTINUE taking these medications albuterol 108 (90 Base) MCG/ACT inhaler busPIRone 5 MG tablet Commonly known as: Buspar Cyanocobalamin 1000 MCG capsule Dexilant [address] capsule Generic drug: dexlansoprazole DULoxetine [address] capsule Commonly known as: Cymbalta gabapentin 600 MG tablet Commonly known as: Neurontin Incruse Ellipta 62.5 MCG/ACT inhalation Generic drug: umeclidinium latanoprost 0.005 % ophthalmic solution Commonly known as: Xalatan levothyroxine 75 MCG tablet Commonly known as: Synthroid, Levoxyl loratadine 10 MG tablet Commonly known as: Claritin montelukast 10 MG tablet Commonly known as: Singulair MULTIPLE VITAMIN PO Roflumilast 500 MCG tablet Commonly known as: Daliresp tolterodine LA 4 MG 24 hr capsule Commonly known as: Detrol LA Wixela Inhub 500-50 MCG/ACT aerosol powder Generic drug: Fluticasone-Salmeterol Where to Get Your Medications You can get these medications from any pharmacy Bring a paper prescription for each of these medications oxyCODONE 5 MG immediate release tablet Information about where to get these medications is not yet available Ask your nurse or doctor about these medications apixaban 5 MG tablet cefadroxil 500 MG capsule Notable Medication Changes & Reasoning: Start Eliquis 10 mg BID for 7 days, followed by 5 mg BID for 90 days total Start Duricef 500 mg BID for 7 days Start oxycodone 5 mg q4h for moderate pain for up to 5 days [facility] Orthopedic surgery Procedures Performed Left revision total hip arthroplasty, both components 07/24/23 Significant Laboratory/Radiographic Data: XR femur left 07/22/23 IMPRESSION: 1. Status post left total hip arthroplasty and periprostatic fracture in left proximal femur, as reported. XR femur left 07/24/23 IMPRESSION: Unremarkable total left hip arthroplasty with longstem femoral component and cerclage wires. CT chest abdomen pelvis with contrast 07/27/23 IMPRESSION: 1. Bilateral pneumonia. Nodular density left lower lobe. Fleischner Society guidelines indicate that for a solitary nodule measuring greater than 8 mm in average cross-sectional size in a low or high risk patient, one of the following should be performed in three months: CT follow-up, biopsy, or PET-CT. Note that negative PET-CT does not exclude low-grade malignancy, and FDG uptake may be underestimated in small nodules (<1 cm), or those close to the diaphragm. For multiple nodules greater than 8 mm in average cross-sectional size in a low risk patient, CT follow-up is recommended in 3-6 months, then consider additional CT follow-up at 18-24 months. In a high risk patient with multiple nodules greater than 8 mm in average cross-sectional size, recommend CT follow-up in 3-6 months, with additional follow-up at 18-24 months. 2. Centrilobular emphysema. 3. Constipation. 4. Recent frac (more content not included)... [facility] 07-29-2023 History of Presen t illness Narrative Nutrition update completed. Chart reviewed. Refer patient to the Dietitian due to protein-calorie malnutrition. Candice Mitan, DT Images from the original note were not included. PHYSICAL THERAPY [facility] Treatment Note Name/MRN: Miri Plasencia ([id number]) Date of : 1955 Age: 68 y.o. Room[facility]Bed: [facility] Discharge Recommendation: Longterm Facility Equipment Needed: No/TBD at next level of care-likely will use [facility] Prior Level of Function ADL Assistance: Independent Ambulation Assistance: Independent Device(s) used: crutches and just since recent hammer toe surgery Transfer Assistance: Independent Pt stated she was home for <24 hours prior to falling and breaking L hip. Stated her son does not assist with home management. Assessment Pt requires mod to max assist for mobility. Needed verbal cues for maintaining NWB RLE. No PT goals met this session. Recommend SNF at discharge. Subjective Pt sitting up in the chair, agrees to PT. Pain: RN managing pain. Medical Precautions: No active isolations Proper PPE donned/doffed in accordance with facility standards. Fall Risk: [place]fall Fall Risk Score: 95 (High Risk) Precautions/Restrictions: Right LE Weight Bearing: Non-Weight Bearing Left LE Weight Bearing: Weight Bearing As Tolerated Hip Precautions: No left hip ABduction Overall Cognitive Status: WFL Overall Orientation Status: Oriented x4 Family/Caregiver Present: none Objective Transfers/Mobility Sit to stand: Mod Assist Stand to sit: Mod Assist Stand pivot: Max Assist NWB RLE, POSTMASTER RELIEF infront of pt Bed Mobility Sit to supine: Mod Assist Scooting: Mod Assist Balance: pt sat at EOB with SBA, static stand with mod assist Plan Continue acute PT per plan of care. Safety/Education Safety Safety Devices in place: All fall risk precautions in place, call light within reach, left in bed, bed alarm in place, gait belt, patient at risk for falls, nurse notified, and no alarms engaged upon entry Restraints: No Education Education Given To: patient Education Provided: PT Role, PT Goals, Plan of Care, Precautions, Transfer Training, and Discharge Recommendations Education Method: Verbal Barriers to Learning: None Education Outcome: Verbalized Understanding Outcome Measures AM-PAC AM-PAC Inpatient Mobility Raw Score (No Stairs) : 10 JH-HLM JH-HLM Score: Transferred to chair/commode Goals Patient Stated Goal: to feel safe with mobility Encounter Problems Encounter Problems (Active) Balance Patient will maintain dynamic standing balance for 3 minutes with supervision in order to demonstrate decreased risk of falling. (Progressing) Start: 07/25/23 Expected End: 08/22/23 Patient will maintain static standing balance for 5 minutes with supervision in order to demonstrate decreased risk of falling. (Progressing) Start: 07/25/23 Expected End: 08/22/23 Mobility Patient will ambulate 20 feet with supervision and least restrictive device in order to improve safety and independence with mobility. (Not Addressed) Start: 07/25/23 Expected End: 08/22/23 Pain - Adult Safety Patient will recall/demonstrate weight bearing and/or ROM restrictions with all functional mobility in order to promote healing and safety with functional tasks. (Progressing) Start: 07/25/23 Expected End: 08/22/23 Transfers Patient will perform bed mobility with supervision in order to improve independence and prepare for out of bed mobility. (Progressing) Start: 07/25/23 Expected End: 08/22/23 Patient will complete functional transfer with least restrictive device with supervision in order to prepare for ambulation. (Progressing) Start: 07/25/23 Expected End: 08/22/23 Therapy Time Individual Co-treatment Time In 1220 Time Out 1244 Minutes 24 Timed Code Treatment Minutes: (2FA) Yessica Gardiner PTA Spiritual Care Note [facility] Palliative [facility] Patient Name:Miri Plasencia Chief Complaint: Chief Complaint Patient presents with Fall Pt is a transfer from [facility]. Pt fell on Friday and was found today by her son. Pt has left hip rotation, confirmed hip fracture and was transferred here as an ortho consult. Hip Pain Reason for visit: Microbiology Technician Consult Services Provided To:patient Background and visit note: Introduced myself and pastoral care to patient. She was doing good. She shared what brought her back the hospital. She sees it as God using it to get her attention. She is very strong in her aaron stating God is going to get her through it the healing. She was also glad that she is going to be at a facility close to home.She was somewhat sad to miss donaldo [facility]. No follow up needed due to patient is being discharged. Is there spiritual distress? NO Comment: Interventions: spiritual support provided, emotional support provided, empathetic listening, validated feelings, partnership building, promotion of health, and respect for patients values. Care Plan: No follow up needed . Follow Up: Patient is being discharged. Debriefed: with patients nurse. Iman Strauss 07/29/23 Med Team Progress Note Miri Plasencia : 1955(68 y.o.) Date: July 29, 2023 Med Team: Deepak Attending: Dr. Lara Chief Complaint: Fall Subjective: - Overnight, no acute events. - Patient seen resting in bed this AM. She denies any acute complaints this AM. Patient will be discharged to SNF today. We will switch her to Eliquis. Review of Systems Constitutional: Negative for fever. Respiratory: Negative for chest tightness and shortness of breath. Cardiovascular: Negative for chest pain. Gastrointestinal: Positive for constipation. Negative for abdominal pain, blood in stool, nausea and vomiting. Genitourinary: Negative for difficulty urinating. Musculoskeletal: Pain following surgery Neurological: Negative for dizziness, light-headedness and headaches. Scheduled Meds:acetaminophen, 650 mg, Oral, Q4H busPIRone, 5 mg, Oral, BID cephalexin, 250 mg, Oral, 4x daily cetirizine, 10 mg, Oral, Daily cyanocobalamin, 1,000 mcg, Oral, Daily DULoxetine, 30 mg, Oral, BID gabapentin, 600 mg, Oral, TID latanoprost, 1 drop, Both Eyes, Daily levalbuterol, 0.315 mg, Nebulization, TID levothyroxine, 75 mcg, Oral, qAM AC Lidocaine, 1 patch, Topical, Daily melatonin, 5 mg, Oral, Nightly montelukast, 10 mg, Oral, Daily nicotine, 1 patch, TransDERmal, Daily Followed by [START ON 09/03/2023] nicotine, 1 patch, TransDERmal, Daily pantoprazole, 40 mg, Oral, qAM AC polyethylene glycol (PEG) 3350, 17 g, Oral, Daily Roflumilast, 500 mcg, Oral, Daily senna-docusate sodium, 2 tablet, Oral, BID tiotropium, 1 capsule, Inhalation, Daily trospium, 20 mg, Oral, Daily Continuous Infusions:heparin, 5-30 Units/kg/hr, Last Rate: 20 Units/kg/hr (07/29/23 0729) PRN meds used in last 24hrs: Dilaudid x 4, Robaxin x 3, oxycodone x 5, Objective: BP 110/73 (BP Location: Right arm, Patient Position: Lying) Pulse 72 Temp 36.6 C (97.9 F) (Temporal) Resp 17 Ht 5' 2 (1.575 m) Wt 109 lb (49.4 kg) SpO2 100% BMI 19.94 kg/m Physical Exam Constitutional: General: She is not in acute distress. Appearance: Normal appearance. HENT: Head: Normocephalic. Eyes: Extraocular Movements: Extraocular movements intact. Cardiovascular: Rate and Rhythm: Normal rate and regular rhythm. Pulses: Normal pulses. Heart sounds: Normal heart sounds. Pulmonary: Effort: Pulmonary effort is normal. Breath sounds: Wheezing present. Abdominal: General: Bowel sounds are normal. Palpations: Abdomen is soft. Tenderness: There is no abdominal tenderness. Musculoskeletal: Left lower leg: No edema. Comments: Right leg wrapped in cast. Skin: General: Skin is warm and dry. Capillary Refill: Capillary refill takes less than 2 seconds. Neurological: General: No focal deficit present. Mental Status: She is alert. Psychiatric: Mood and Affect: Mood normal. [facility] Labs within last 24 hours Auto WBC Date Value Ref Range Status 07/29/2023 6.6 3.6 - 10.7 10*3/uL Final Hemoglobin Date Value Ref Range Status 07/29/2023 9.2 (L) 11.7 - 16.0 g/dL Final Hematocrit Date Value Ref Range Status 07/29/2023 26.9 (L) 35.0 - 47.0 % Final Platelets Date Value Ref Range Status 07/29/2023 367 140 - 440 10*3/uL Final MCV Date Value Ref Range Status 07/29/2023 92.4 80.0 - 98.0 fL Final SODIUM Date Value Ref Range Status 07/29/2023 133 (L) 135 - 145 mmol/L Final POTASSIUM Date Value Ref Range Status 07/29/2023 3.9 3.5 - 5.1 mmol/L Final CHLORIDE Date Value Ref Range Status 07/29/2023 100 98 - 107 mmol/L Final CARBON DIOXIDE Date Value Ref Range Status 07/29/2023 30 22 - 30 mmol/L Final UREA NITROGEN Date Value Ref Range Status 07/29/2023 15 7 - 17 mg/dL Final CREATININE Date Value Ref Range Status 07/29/2023 0.42 (L) 0.52 - 1.04 mg/dL Final GLUCOSE Date Value Ref Range Status 07/29/2023 108 (H) 70 - 100 mg/dL Final CALCIUM Date Value Ref Range Status 07/29/2023 8.3 (L) 8.4 - 10.4 mg/dL Final MAGNESIUM Date Value Ref Range Status 07/29/2023 2.0 1.6 - 2.3 mg/dL Final PHOSPHORUS Date Value Ref Range Status 07/29/2023 3.9 2.5 - 4.5 mg/dL Final APTT Date Value Ref Range Status 07/29/2023 43.6 (H) 20.0 - 30.5 s Final No results found for: CKTOTAL , CKMB , TROPONINI No results found for: PROCAL , CHOL , TRIG , HDL , TSH , VITD25 , HGBA1C , VANCOTROUGH Assessment and Plan: Left proximal femur fracture - Pt initially seen at [facility] - Hip x-ray shows s/p total left hip arthroplasty with periprostatic fracture of left proximal femur - Orthopedic surgery following- s/p left hip revision arthroplasty on 07/24. Wound VAC in place. No further plans for surgical intervention. Will need 30 days of postoperative DVT prophylaxis. - Discharge with Duricef twice daily for 7 days - Pain control per acute pain services. On scheduled Tylenol, home gabapentin, and lidocaine patch. Has as needed p.o. oxycodone and IV Dilaudid as needed for breakthrough pain. - Hgb stable at 9.2 - Discharge to SNF today COPD Tobacco use Right lower lobe PE - Per pt, she is on 2 L NC at night - Continue home 2 L O2 NC at bedtime - Pt on Fluticasone-salmeterol, albuterol, montelukast, roflumilast, umeclidinium at home for COPD - Continue home medications - Nicotine patches - CT chest abdomen pelvis noted a new rounded lesion in left lower lobe measuring 12 x 11 mm and small PE in right lower lobe arterial branch. Will need outpatient follow-up in 3 months for the new lung lesion. Per the PESI score, patient is high risk of 30-day mortality from PE due to her prior cancer history and and COPD. - Switch heparin to Eliquis 10 mg BID for 7 days, followed by 5 mg BID for remainder of 90 days Constipation in setting of opioids - On scheduled MiraLAX and senna Hypokalemia- resolved - Replete lytes as necessary - Monitor with BMP Neuropathy - Continue home gabapentin 600 mg 3 times daily Hypothyroidism - Continue home levothyroxine 75 mcg daily Anxiety and depression - Continue home Cymbalta and BuSpar GERD - Continue Protonix Sore throat - Continue oral lozenges Insomnia - Continue melatonin 5 mg nightly - Goals of Care: FULL CODE - DVT Prophylaxis: Lovenox - GI Prophylaxis: Protonix daily - Diet: General - Disposition: Discharge to SNF Associated attestation - Jaime Lara DO - 07/29/2023 4:58 PM EST I saw and evaluated the patient. I agree with the findings and plan of care as documented in the resident's note, except as noted in Green text. Patient seen and examined personally at bedside (Date of Service: 07/29/23) Oleary Changes to Care Plan: Patient was evaluated at bedside and doing well without any signs or symptoms of bleeding. She had a small PE noted on the CT of the chest which she is asymptomatic for. Despite this, she is high risk for clots given her postsurgical course, history of cancer, and now suggestion of a clot on the CT. We will send her out on Eliquis. She will go to inpatient rehab for her left proximal femur fracture. 7AM-5PM: contact resident on [facility] Med [facility] (find by hovering over attending's name on left side of patient's chart) 5PM-7AM: contact AI3 res Family Communication Number Called: [phone] Name of Designated Family Finish Mill Operator: Jose Alberto King Relationship: brother Phone Call Outcome: I spoke with the individual listed above. Family Finish Mill Operator Updated on the Following: Patient status following surgery, need for transfusion and currently stable hemoglobin, pulmonary emboli finding on her most recent CT requiring IV heparin, and to be transitioned to Eliquis tomorrow. Incidental finding of lung nodule, informed patient that she will need to follow up outpatient to likely get a repeat CT scan to determine if further management is warranted. Spiritual Care Note [facility]iative [facility] Patient Name:Miri Plasencia Chief Complaint: Chief Complaint Patient presents with Fall Pt is a transfer from [facility]. Pt fell on Friday and was found today by her son. Pt has left hip rotation, confirmed hip fracture and was transferred here as an ortho consult. Hip Pain Reason for visit: Microbiology Technician Consult Services Provided To:patient Background and visit note: Attempted to visit patient twice. She was on a call when I came to visit. Will follow up. Care Plan: build trust, self reflection, and connect to higher power. Follow Up: PRN and when patient is able. Debriefed: N/A. Iman Strauss 07/28/23 PAGING: The Acute Pain Service providers are available exclusively via Easy Tempo SECURE CHAT. [facility] does not utilize pagers. 07/28/2023 Lab Results Component Value Date CREATININE 0.33 (L) 07/28/2023 AST 27 07/22/2023 ALT 23 07/22/2023 Discharge Recommendations: Percocet 5/325. 1 tab q6h prn Pain Management Adjuvants: 0700 --> 0700 07/24/2023 07/25/23 07/26/2307/27 Scheduled APAP 1000mg 2600mg 3900mg 2600mg Gabapentin 1200mg 1800mg 1800mg 1800mg Lidocaine patches on on PRN Hydromorphone IV 1.5mg 1mg 1.5mg 1.5mg Methocarbamol 750mg 1500mg 2250mg Oxycodone 15mg 25mg 20mg 17.5mg Ibuprofen 400mg Assessment / Pain Management Plan: dc IV dilaudid. SNF today vs tomorrow? Acute Postsurgical LLE pain Multimodal pain regimen: BLOCK: Fascia Iliaca Continue Acetaminophen 650 mg po q4h scheduled ATC. Liver enzymes WNL, last checked: 07/22/23 Continue Gabapentin 600mg PO TID. This is patient's home dose which she is on for residual shingle pain Continue Lidocaine patch x 1. Cut and place as needed. Discontinue Hydromorphone 0.25 mg - 0.5 mg IVP q4h prn moderate to severe breakthrough pain. Please utilize oral medications first. Continue Methocarbamol 750 mg PO TID PRN. Increased Oxycodone to 5 - 7.5 mg po q4h prn moderate to severe breakthrough pain on 07/27/23. Continue Naloxone 0.4 mg IVP prn opioid reversal. PRN if respiratory rate is less than 6/min and patient is difficult to arouse then notify physician STAT. Mix 9 mL of sodium chloride 0.9% with 0.4 mg (1 mL) of naloxone (NARCAN) in 10 mL syringe. (Note: dilution is 0.04 mg/mL) Give 0.08 mg (2 mL of special dilution), slow IV push, repeat up to 0.4 mg (10 mL) or until patient is responsive to physical stimulation and respiratory rate is equal to or greater than 6 breaths/min. Continue to observe, if no response within 3 minutes of administration of 0.4 mg (10 mL) total, repeat dose (0.4 mg as administered previously). Left periprosthetic proximal femur fracture S/p Left revision total hip arthroplasty, both components (cpt 77592) 07/24/23 See #1 Constipation At risk for opioid induced constipation Patient currently receiving opioids for pain management necessitating a bowel regimen. Recommend initiating scheduled Sennakot-S 8.6/50mg, 1 tablet PO BID. Would also recommend Milk of Magnesia 400mg/5ml, administer 30mL by mouth daily PRN. Opioid Use Acute: Expected to be short term post op pain, see #1 OARRS reviewed for past two years. Recurrent Gabapentin Reviewed and educated patient on responsible use of opioids: after surgery, it can be normal to experience pain. If it is mild and you can move about without great difficulty or discomfort, you may not need to take pain medication. It is very important to take your pain medication only as needed. Avoiding excessive or unnecessary medication, will enable you to progress your activity each day to improve your muscle tone and movement, deep breathing, digestion, circulation and your body's ability to heal itself. Patient pain is well controlled at this time on current pain regimen. We will sign off at this time. Please re-consult our service if patient's pain becomes uncontrolled. Thank you for inviting us to participate in the care of this patient. Plan discussed with patient who appears to understand and agrees. Subjective: We have been asked to see this 68 y.o. female for postoperative pain management s/p Left revision total hip arthroplasty Reviewed XR Femur left 07/24/23 CHARLES, korey feliciano. Pt worked with PT this am: rec SNF at discharge Pt appears well, comfortable. Pt talkative and cooperative, feels pain is controlled. Agreeable to discontinue IV dilaudid today Plans for SNF today/tomorrow Patient educated on pain regimen, aware that oxycodone po, hydromorphone IV, methocarbamol are PRN and patient must ask for these medications when needed. Educated patient to utilize oral pain medications as first line and reserve IV pain medications for severe breakthrough pain. Pt is realistic about pain control: Not all pain will be taken away, but pain should be tolerable/manageable with current regimen. Pt instructed to have staff page [facility] if pain becomes uncontrolled when utilizing present regimen. Pt agreeable, denies further questions. PMH reviewed below Pain Location: LLE Aggravating Factors: Moving Sedation score: 1: Awake and alert Pain Severity: mild- moderate Pain Quality: aching Alleviating Factors: Rest/Pain medications Pain Management: Alberto Duckworth MD The patient's medical history and physical assessment, medications, allergies, patient's current medical condition, imaging, and labs were reviewed as part of this consultation. [x] Patient's Medications have been reviewed. [x] Patient's OARRS report (PDMP) have been reviewed. Social History Tobacco Use Smoking Status Every Day Packs/day: 1 Types: Cigarettes Smokeless Tobacco Not on file Social History Substance and Sexual Activity Alcohol Use Yes Social History Substance and Sexual Activity Drug Use Not on file Objective Findings: Height: 157.5 cm (5' 2 ) Weight: 49.4 kg (109 lb) BMI (Calculated): 19.93 Vital signs: Blood pressure 113/66, pulse 74, temperature 36.8 C (98.2 F), temperature source Temporal, resp. rate 18, height 1.575 m (5' 2 ), weight 49.4 kg (109 lb), SpO2 98%. Allergies: Patient has no known allergies. Past Medical History: Diagnosis Date Acquired hypothyroidism 03/04/2016 Allergic rhinitis Anxiety Asthma COPD (chronic obstructive pulmonary disease) ([facility]) Gastroesophageal reflux disease without esophagitis 03/04/2016 GERD (gastroesophageal reflux disease) Hypothyroidism Lumbar disc disease 03/04/2016 Lung mass Osteoporosis 03/04/2016 Post herpetic neuralgia 03/04/2016 S/P lung surgery, follow-up exam 04/04/2016 Tobacco abuse 03/04/2016 Past Surgical History: Procedure Laterality Date CARPAL TUNNEL RELEASE Bilateral CERVICAL DISCECTOMY SECTION (HISTORICAL) CHOLECYSTECTOMY JOINT REPLACEMENT MOUTH SURGERY PLEURA BIOPSY Right 03/18/2016 Bowden-lobectomy Family History Problem Relation Name Age of Onset Other ([id number]) Mother Cancer Father Cancer Sister Patient Active Problem List Diagnosis Osteoporosis Acquired hypothyroidism COPD (chronic obstructive pulmonary disease) ([facility]) Gastroesophageal reflux disease without esophagitis Anxiety Post herpetic neuralgia Tobacco abuse Lumbar disc disease Primary cancer of right upper lobe of lung (HCC) S/p left hip fracture Hammer toe Cigarette smoker Objective Findings: Height: 157.5 cm (5' 2 ) Weight: 49.4 kg (109 lb) BMI (Calculated): 19.93 Vital signs: Blood pressure 113/66, pulse 74, temperature 36.8 C (98.2 F), temperature source Temporal, resp. rate 18, height 1.575 m (5' 2 ), weight 49.4 kg (109 lb), SpO2 98%. Lab Results Component Value Date HGB 9.0 (L) 07/28/2023 HCT 26.6 (L) 07/28/2023 PLT 284 07/28/2023 WBC 6.2 07/28/2023 PROTIME 10.6 07/22/2023 INR 1.0 07/22/2023 NA 135 07/28/2023 K 3.7 07/28/2023 BUN 12 07/28/2023 CREATININE 0.33 (L) 07/28/2023 GLUCOSE 118 (H) 07/28/2023 AST 27 07/22/2023 ALT 23 07/22/2023 Allergies: Patient has no known allergies. Past Medical History: Diagnosis Date Acquired hypothyroidism 03/04/2016 Allergic rhinitis Anxiety Asthma COPD (chronic obstructive pulmonary disease) ([facility]) Gastroesophageal reflux disease without esophagitis 03/04/2016 GERD (gastroesophageal reflux disease) Hypothyroidism Lumbar disc disease 03/04/2016 Lung mass Osteoporosis 03/04/2016 Post herpetic neuralgia 03/04/2016 S/P lung surgery, follow-up exam 04/04/2016 Tobacco abuse 03/04/2016 Past Surgical History: Procedure Laterality Date CARPAL TUNNEL RELEASE Bilateral CERVICAL DISCECTOMY SECTION (HISTORICAL) CHOLECYSTECTOMY JOINT REPLACEMENT MOUTH SURGERY PLEURA BIOPSY Right 03/18/2016 Dr. Hernandezinal-lobectomy Family History Problem Relation Name Age of Onset Other ([id number]) Mother Cancer Father Cancer Sister Patient Active Problem List Diagnosis Osteoporosis Acquired hypothyroidism COPD (chronic obstructive pulmonary disease) ([facility]) Gastroesophageal reflux disease without esophagitis Anxiety Post herpetic neuralgia Tobacco abuse Lumbar disc disease Primary cancer of right upper lobe of lung (HCC) S/p left hip fracture Hammer toe Cigarette smoker Review of Systems Respiratory: Negative for shortness of breath. Cardiovascular: Negative for chest pain. Gastrointestinal: Negative for abdominal pain, nausea and vomiting. Musculoskeletal: Positive for arthralgias. Skin: Positive for wound (surgical). Psychiatric/Behavioral: Negative for confusion. Physical Exam Vitals and nursing note reviewed. Constitutional: General: She is not in acute distress. Cardiovascular: Rate and Rhythm: Normal rate. Pulmonary: Effort: Pulmonary effort is normal. Musculoskeletal: General: Tenderness present. Comments: RLE in hard cast Skin: General: Skin is warm and dry. Comments: Surgical incision c/d/I Neurological: Mental Status: She is alert and oriented to person, place, and time. Psychiatric: Mood and Affect: Mood normal. Behavior: Behavior normal. PAGING: The Acute Pain Service providers are available exclusively via Easy Tempo SECURE CHAT. [facility] does not utilize pagers. Images from the original note were not included. Orthopedic Progress Note Name: Miri Plasencia Date:07/28/2023 Attending:Jaime Lara DO Subjective CHIEF COMPLAINT: s/p hammertoe correction on R foot 07/18 HPI: Patient is seen resting in bedside chair. She reports the pain into her right foot is very manageable at this time. The patient endorses that her most severe pain is in to her left femur, status post revision ORIF on 07/24/2023. Patient denies any fevers, chills, or feelings of malaise. She states that it has been difficult to ambulate while abiding by the nonweightbearing right lower extremity restrictions in the context of her recent surgery. Objective PAST MEDICAL HISTORY Patient Active Problem List Diagnosis Osteoporosis Acquired hypothyroidism COPD (chronic obstructive pulmonary disease) ([facility]) Gastroesophageal reflux disease without esophagitis Anxiety Post herpetic neuralgia Tobacco abuse Lumbar disc disease Primary cancer of right upper lobe of lung (HCC) S/p left hip fracture Hammer toe Cigarette smoker PAST SURGICAL HISTORY Past Surgical History: Procedure Laterality Date CARPAL TUNNEL RELEASE Bilateral CERVICAL DISCECTOMY SECTION (HISTORICAL) CHOLECYSTECTOMY JOINT REPLACEMENT MOUTH SURGERY PLEURA BIOPSY Right 03/18/2016 Bowden-lobectomy HOME MEDICATIONS Prior to Admission medications Medication Sig Start Date End Date Taking? Authorizing Provider Cyanocobalamin 1000 MCG capsule Take 1 capsule by mouth daily. 01/31/22 Yes Historical Provider, MULTIPLE VITAMIN PO Take by mouth. 01/31/22 Yes Historical Provider, albuterol 108 (90 Base) MCG/ACT inhaler Inhale 2 puffs every 6 hours as needed for wheezing or shortness of breath. Historical Provider, busPIRone (Buspar) 5 MG tablet Take 5 mg by mouth 2 times daily. Historical Provider, cefadroxil (Duricef) 500 MG capsule Take 1 capsule (500 mg) by mouth 2 times daily for 7 days. 07/24/23 07/31/23 Casey Rubio MD dexlansoprazole (Dexilant) [address] capsule Take 60 mg by mouth daily. Historical Provider, DULoxetine (Cymbalta) [address] capsule Take 30 mg by mouth 2 times daily. Do not crush or chew. Historical Provider, Fluticasone-Salmeterol (Wixela Inhub) 500-50 MCG/ACT aerosol powder Inhale 1 Inhalation 2 times daily. Historical Provider, gabapentin (Neurontin) 600 MG tablet Take 600 mg by mouth 3 times daily. Historical Provider, latanoprost (Xalatan) 0.005 % ophthalmic solution Administer 1 drop into both eyes before bedtime. Historical Provider, levothyroxine (Synthroid, Levoxyl) 75 MCG tablet Take 75 mcg by mouth every morning (before breakfast). Historical Provider, loratadine (Claritin) 10 MG tablet Take 10 mg by mouth daily. Historical Provider, montelukast (Singulair) 10 MG tablet Take 10 mg by mouth daily. Historical Provider, Roflumilast (Daliresp) 500 MCG tablet Take 500 mcg by mouth daily. Historical Provider, tolterodine LA (Detrol LA) 4 MG 24 hr capsule Take 4 mg by mouth Nightly. Do not crush, chew, or split. Historical Provider, umeclidinium (Incruse Ellipta) 62.5 MCG/ACT inhalation Inhale 1 puff daily. Historical Provider, Fluticasone-Salmeterol (Advair Diskus) 500-50 MCG/ACT aerosol powder 07/23/23 Historical Provider, CURRENT HOSPITAL MEDICATIONS Current Facility-Administered Medications: acetaminophen (Tylenol) tablet 650 mg, 650 mg, Oral, Q4H, Jennifer Mc, [employer] SE[employer] - [employer], 650 mg at 07/28/23 0311 busPIRone (Buspar) tablet 5 mg, 5 mg, Oral, BID, Casey Rubio MD, 5 mg at 07/27/232129 cephalexin (Keflex) capsule 250 mg, 250 mg, Oral, 4x daily, Casey Rubio MD, 250 mg at 07/27/232130 cetirizine (ZyrTEC) tablet 10 mg, 10 mg, Oral, Daily, Casey Rubio MD, 10 mg at 07/27/23823 cyanocobalamin (Vitamin B-12) tablet 1,000 mcg, 1,000 mcg, Oral, Daily, Casey Rubio MD, 1,000 mcg at 07/27/23823 DULoxetine (Cymbalta) DR capsule 30 mg, 30 mg, Oral, BID, Casey Rubio MD, 30 mg at 07/27/232129 enoxaparin (Lovenox) syringe 40 mg, 40 mg, SubCUTAneous, Daily, Hi Townsend MD, 40 mg at 07/26/23816 gabapentin (Neurontin) capsule 600 mg, 600 mg, Oral, TID, Casey Rubio MD, 600 mg at 07/27/232129 HYDROmorphone (Dilaudid) injection 0.25 mg, 0.25 mg, IntraVENous, q4h PRN OR HYDROmorphone (Dilaudid) injection 0.5 mg, 0.5 mg, IntraVENous, q4h PRN, Casey Rubio MD, 0.5 mg at 07/28/23 0534 ipratropium-albuterol (Duo-Neb) 0.5-2.5 mg/3 mL nebulizer solution 3 mL, 3 mL, Nebulization, PRN, Casey Rubio MD latanoprost (Xalatan) 0.005 % ophthalmic solution 1 drop, 1 drop, Both Eyes, Daily, Casey Rubio MD, 1 drop at 07/27/232232 levalbuterol (Xopenex) 0.63 MG/3ML nebulizer solution 0.315 mg, 0.315 mg, Nebulization, TID, Casey Rubio MD, 0.315 mg at 07/27/23 194 levothyroxine (Synthroid, Levoxyl) tablet 75 mcg, 75 mcg, Oral, qAM AC, Casey Rubio MD, 75 mcg at 07/28/23 05 Lidocaine 4 % patch 1 patch, 1 patch, Topical, Daily, Jennifer Mc APRN - [employer], 1 patch at 07/27/23 08 melatonin tablet 5 mg, 5 mg, Oral, Nightly, Roc Martinez DO, 5 mg at 07/27/232130 methocarbamol (Robaxin) tablet 750 mg, 750 mg, Oral, q8h PRN, OANH Theodore CNP, 750 mg at 07/28/23310 montelukast (Singulair) tablet 10 mg, 10 mg, Oral, Daily, Casey Rubio MD, 10 mg at 07/27/23 0824 naloxone (Narcan) injection 0.4 mg, 0.4 mg, IntraVENous, PRN, Casey Rubio MD nicotine (Nicoderm, Step 2) 14 MG/24HR patch 1 patch, 1 patch, TransDERmal, Daily, 1 patch at 07/27/23822 FOLLOWED BY [START ON 09/03/2023] nicotine (Nicoderm, Step 3) 7 MG/24HR patch 1 patch, 1 patch, TransDERmal, Daily, Casey Rubio MD ondansetron ODT (Zofran-ODT) disintegrating tablet 4 mg, 4 mg, Oral, q8h PRN OR ondansetron (Zofran) injection 4 mg, 4 mg, IntraVENous, q6h PRN, Casey Rubio MD oxyCODONE (Roxicodone) immediate release tablet 5 mg, 5 mg, Oral, q4h PRN, 5 mg at 07/28/23310 OR oxyCODONE (Roxicodone) immediate release tablet 7.5 mg, 7.5 mg, Oral, q4h PRN, OANH Theodore CNP pantoprazole (ProtoNix) EC tablet 40 mg, 40 mg, Oral, qAM AC, Casey Rubio MD, 40 mg at 07/28/23 0534 phenol (Chloraseptic) 1.4 % mouth/throat spray 1 spray, 1 spray, Mouth/Throat, q2h PRN, Casey Rubio MD, 1 spray at 07/24/231947 polyethylene glycol (PEG) 3350 (Miralax) packet 17 g, 17 g, Oral, Daily, Timi James MD, 17 g at 07/27/23 08 Roflumilast (Daliresp) tablet 500 mcg, 500 mcg, Oral, Daily, Casey Rubio MD, 500 mcg at 07/27/23 08 senna-docusate sodium (Senokot-S) 8.6-50 MG tablet 2 tablet, 2 tablet, Oral, Daily, Timi James MD, 2 tablet at 07/27/23 08 sodium chloride 0.9 % infusion, 250 mL/hr, IntraVENous, PRN, Hi Townsend MD tiotropium (Spiriva) 18 MCG per inhalation capsule 18 mcg, 1 capsule, Inhalation, Daily, Casey Rubio MD, 18 mcg at 07/27/23 0830 trospium (Sanctura) tablet 20 mg, 20 mg, Oral, Daily, Casey Rubio MD, 20 mg at 07/27/23 0824 ALLERGIES: Patient has no known allergies. SOCIAL HISTORY: Social History Socioeconomic History Marital status: Spouse name: Not on file Number of children: Not on file Years of education: Not on file Highest education level: Not on file Occupational History Not on file Tobacco Use Smoking status: Every Day Packs/day: 1 Types: Cigarettes Smokeless tobacco: Not on file Substance and Sexual Activity Alcohol use: Yes Drug use: Not on file Sexual activity: Not on file Other Topics Concern Not on file Social History Narrative Not on file Social Determinants of Health Financial Resource Strain: Not on file Food Insecurity: Not on file Transportation Needs: Not on file Physical Activity: Not on file Stress: Not on file Social Connections: Not on file Intimate Partner Violence: Not on file Housing Stability: Not on file FAMILY HISTORY: Family History Problem Relation Name Age of Onset Other ([id number]) Mother Cancer Father Cancer Sister Further Family History is noncontributory to this injury. REVIEW OF SYSTEMS: Review of Systems - General ROS: negative for - chills, fatigue, fever, malaise or night sweats Psychological ROS: negative Ophthalmic ROS: negative ENT ROS: negative for - headaches or sore throat Hematological and Lymphatic ROS: negative for - bleeding problems or blood clots Respiratory ROS: no cough, shortness of breath, or wheezing Cardiovascular ROS: no chest pain or dyspnea on exertion Gastrointestinal ROS: negative Musculoskeletal ROS: See HPI Neurological ROS: negative for - bowel and bladder control changes, gait disturbance or numbness/tingling All other systems reviewed and are negative VITALS: Vitals: 07/27/23 1458 07/27/23 1827 07/27/23 1944 07/28/23 0859 BP: 108/72 117/69 113/66 Pulse: 76 79 83 73 Resp: 18 18 18 18 Temp: 36.9 C (98.4 F) 36.4 C (97.6 F) 36.8 C (98.2 F) TempSrc: Temporal Temporal Temporal SpO2: 95% 97% 98% 99% Weight: Height: PHYSICAL EXAM: GENERAL: Patient is well developed/well nourished in NAD. A+O x 4 MOOD AND AFFECT: Calm appropriate to situation GAIT AND STATION: Patient is in bed COORDINATION and BALANCE: Patient is grossly coordinated LYMPHADENOPATHY: none on examination of the affected extremity(s) RLE INSPECTION DRESSING: Splint is Clean/Dry/Intact. NEUROLOGICAL: SILT intact to Saphenous/Superficial Peroneal/Deep Peroneal/Tibial/Sural distributions MOTOR: +toe wiggle LABS: CBC: Lab Results Component Value Date WBC 6.2 07/28/2023 RBC 2.89 (L) 07/28/2023 BMP: Lab Results Component Value Date GLUCOSE 118 (H) 07/28/2023 CO2 31 (H) 07/28/2023 BUN 12 07/28/2023 CREATININE 0.33 (L) 07/28/2023 CALCIUM 7.9 (L) 07/28/2023 PT/INR: No results found for: PT , INR , APTT Type and Screen: Lab Results Component Value Date RH POS 07/27/2023 CRP: No results found for: CRP ESR: No results found for: SEDRATE HgBA1c: No components found for: LABA1C The above labs were reviewed by me. Assessment Miri is a 68 y.o.female s/p hammertoe correction on R foot 07/18 Plan -Operative plans: No further plans for surgery this admission -Weight bearing: RLE: NWB LLE: WBAT RUE: WBAT LUE: WBAT -Range of motion parameters: No abduction of left hip -Immobilization: RLE splint - continue, if going to remove please let ortho team know. -Diet: no restrictions from ortho standpoint -Labs: None further from Ortho standpoint -PT/OT -PT recommended outpatient/post discharge?: Yes, for basic ADLs -Medical management, dvt ppx and pain control per primary -DVT ppx recommended?: Yes, 30 days of post operative DVT ppx recommended -Follow-up with physician in [place] for right foot surgery postop appointment -Ortho to sign off, please call with questions/concerns Images from the original note were not included. OCCUPATIONAL THERAPY [facility] Treatment Note Name/MRN: Miri Plasencia ([id number]) Date of : 1955 Age: 68 y.o. Room[facility]Bed: [facility] Discharge Recommendation: Longterm Facility Prior Level of Function ADL Assistance: Independent Ambulation Assistance: Recently using crutches due to right foot sx, prior to this no device. Transfer Assistance: Independent Assessment Currently, Pt required MAX A for SPT and static standing balance with focus on NWB RLE. Pt required SUP after set up for UB ADL and MOD A for LB ADL with use of AE. Pt required SUP after set up for grooming task seated EOB with F+ balance. Pt is limited by pain, NWB precautions of RLE and decreased standing balance. Recommending SNF upon discharge in order to achieve highest level of function. Subjective Pt reclined in bed upon entry. Pt reports pain 6/10 in L hip- nsg notified of such and ice pack provided for comfort at the EOS. Pt pleasant and agreeable to OT TX. Pain: RN managing pain. Medical Precautions: No active isolations Proper PPE donned/doffed in accordance with facility standards. Fall Risk: [place] Fall Risk Score: 95 (High Risk) Precautions/Restrictions: Right LE Weight Bearing: Non-Weight Bearing Left LE Weight Bearing: Weight Bearing As Tolerated Hip Precautions: No left hip ABduction Family/Caregiver Present: none Objective ADLs Feeding: Modified Independent Grooming: Supervision, after setup- Seated EOB for approx 16 minutes to wash face, perform oral hygiene and comb and style hair. UE Bathing: Supervision, after setup LE Bathing: Mod Assist- to wash from thighs to knees UE Dressing: Modified Independent LE Dressing: Mod Assist- to haider attend and socks with WIRE TWISTER for improved technique with estimator printing and sock aid with improvement 2nd trial Adaptive Equipment: Numerical Control Machine Tool Operator and sock aid Bed Mobility Supine to sit: Mod Assist Sit to supine: Mod Assist Rolling to right: Mod Assist Rolling to left: Mod Assist Scooting: Mod Assist Transfers/Mobility Sit to stand: Max Assist Stand to sit: Max Assist Stand pivot: Max Assist- from bed level towards recliner chair with armrest removed from chair and verbal cues for controlled descend. Sitting balance: Supervision Standing balance: Max Assist MAX A for static standing balance approx 60 seconds x 5 at bed level with focus on NWB precautions of RLE and verbal cues for posture. Device(s) used: Support of GAN/L infront of Pt for improved safety and stability. Plan Continue acute OT per plan of care. Safety/Education Safety Safety Devices in place: All fall risk precautions in place, call light within reach, left in chair, chair alarm in place, and nurse notified Restraints: No Education Education Given To: patient Education Provided: OT Role, Plan of Care, Precautions, ADL Adaptive Strategies, Transfer Training, Energy Conservation, Orientation, Equipment, Discharge Recommendations, Benefits of Increasing Activity, and Breathing Techniques Education Method: Verbal, Demonstration, and Teach Back Barriers to Learning: None Education Outcome: Verbalized Understanding and Continued Education Needed AM-PAC AM-PAC Inpatient Daily Activity Raw Score: 19 ADL Inpatient CMS G-Code Modifier: CK Goals Patient Stated Goal: to get stronger Encounter Problems Encounter Problems (Active) Balance Static standing balance x 30 seconds min assist in prep for LE ADLs/toileting. (Initiated) Start: 07/25/23 Expected End: 08/22/23 Cognition Utilize 1 coping skill prior to OOB transfers to mitigate fear of falling, min cues. (Slowly Progressing) Start: 07/25/23 Expected End: 08/22/23 Dressings Lower Extremities Patient will dress lower body min assist. (Slowly Progressing) Start: 07/25/23 Expected End: 08/22/23 Safety Patient will recall/demonstrate weight bearing and/or ROM restrictions with all functional mobility in order to promote healing and safety with functional tasks, no cues. (Slowly Progressing) Start: 12/08/23 Expected End: 08/22/23 Recall 3 safe transfer techniques prior to OOB transfers, min cues. (Slowly Progressing) Start: 07/25/23 Expected End: 08/22/23 Toileting Patient will complete toileting tasks with mod assist. (Not Addressed) Start: 07/25/23 Expected End: 08/22/23 Toilet transfer mod assist. (Not Addressed) Start: 07/25/23 Expected End: 08/22/23 Therapy Time Individual Co-treatment Time In 0747 Time Out 0840 Minutes 53 Timed Code Treatment Minutes: 53 Minutes (2-ADL; 2- FUNCT ACT) [facility] Med Team Progress Note Miri Plasencia : 1955(68 y.o.) Date: July 28, 2023 Med Team: Deepak Attending: Dr. Lara Chief Complaint: Fall Subjective: - Overnight, no acute events. - This morning, patient seen sitting up in chair eating her breakfast. States that she still has not had a bowel movement, but she feels like a large 1 is coming soon. She does feel little upset about the CT chest findings of the left lower lobe pulmonary lesion and small PE. However, patient remains enthusiastic about going to rehab soon. Denies any shortness of breath, chest pain, abdominal pain or nausea vomiting. Review of Systems Constitutional: Negative for fever. Respiratory: Negative for chest tightness and shortness of breath. Cardiovascular: Negative for chest pain. Gastrointestinal: Positive for constipation. Negative for abdominal pain, blood in stool, nausea and vomiting. Genitourinary: Negative for difficulty urinating. Musculoskeletal: Pain following surgery Neurological: Negative for dizziness, light-headedness and headaches. Scheduled Meds:acetaminophen, 650 mg, Oral, Q4H busPIRone, 5 mg, Oral, BID cephalexin, 250 mg, Oral, 4x daily cetirizine, 10 mg, Oral, Daily cyanocobalamin, 1,000 mcg, Oral, Daily DULoxetine, 30 mg, Oral, BID enoxaparin, 40 mg, SubCUTAneous, Daily gabapentin, 600 mg, Oral, TID latanoprost, 1 drop, Both Eyes, Daily levalbuterol, 0.315 mg, Nebulization, TID levothyroxine, 75 mcg, Oral, qAM AC Lidocaine, 1 patch, Topical, Daily melatonin, 5 mg, Oral, Nightly montelukast, 10 mg, Oral, Daily nicotine, 1 patch, TransDERmal, Daily Followed by [START ON 09/03/2023] nicotine, 1 patch, TransDERmal, Daily pantoprazole, 40 mg, Oral, qAM AC polyethylene glycol (PEG) 3350, 17 g, Oral, Daily Roflumilast, 500 mcg, Oral, Daily senna-docusate sodium, 2 tablet, Oral, Daily tiotropium, 1 capsule, Inhalation, Daily trospium, 20 mg, Oral, Daily Continuous Infusions: PRN meds used in last 24hrs: Dilaudid x 4, Robaxin x 3, oxycodone x 5, Objective: BP 117/69 Pulse 83 Temp 36.4 C (97.6 F) (Temporal) Resp 18 Ht 5' 2 (1.575 m) Wt 109 lb (49.4 kg) SpO2 98% BMI 19.94 kg/m Physical Exam Constitutional: General: She is not in acute distress. Appearance: Normal appearance. HENT: Head: Normocephalic. Eyes: Extraocular Movements: Extraocular movements intact. Cardiovascular: Rate and Rhythm: Normal rate and regular rhythm. Pulses: Normal pulses. Heart sounds: Normal heart sounds. Pulmonary: Effort: Pulmonary effort is normal. Breath sounds: Wheezing present. Abdominal: General: Bowel sounds are normal. Palpations: Abdomen is soft. Tenderness: There is no abdominal tenderness. Musculoskeletal: Left lower leg: No edema. Comments: Right leg wrapped in cast. Skin: General: Skin is warm and dry. Capillary Refill: Capillary refill takes less than 2 seconds. Neurological: General: No focal deficit present. Mental Status: She is alert. Psychiatric: Mood and Affect: Mood normal. [facility] Labs within last 24 hours Auto WBC Date Value Ref Range Status 07/28/2023 6.2 3.6 - 10.7 10*3/uL Final Hemoglobin Date Value Ref Range Status 07/28/2023 9.0 (L) 11.7 - 16.0 g/dL Final 07/27/2023 8.8 (L) 11.7 - 16.0 g/dL Final Hematocrit Date Value Ref Range Status 07/28/2023 26.6 (L) 35.0 - 47.0 % Final Platelets Date Value Ref Range Status 07/28/2023 284 140 - 440 10*3/uL Final MCV Date Value Ref Range Status 07/28/2023 92.1 80.0 - 98.0 fL Final SODIUM Date Value Ref Range Status 07/28/2023 135 135 - 145 mmol/L Final POTASSIUM Date Value Ref Range Status 07/28/2023 3.7 3.5 - 5.1 mmol/L Final CHLORIDE Date Value Ref Range Status 07/28/2023 99 98 - 107 mmol/L Final CARBON DIOXIDE Date Value Ref Range Status 07/28/2023 31 (H) 22 - 30 mmol/L Final UREA NITROGEN Date Value Ref Range Status 07/28/2023 12 7 - 17 mg/dL Final CREATININE Date Value Ref Range Status 07/28/2023 0.33 (L) 0.52 - 1.04 mg/dL Final GLUCOSE Date Value Ref Range Status 07/28/2023 118 (H) 70 - 100 mg/dL Final CALCIUM Date Value Ref Range Status 07/28/2023 7.9 (L) 8.4 - 10.4 mg/dL Final MAGNESIUM Date Value Ref Range Status 07/28/2023 2.3 1.6 - 2.3 mg/dL Final PHOSPHORUS Date Value Ref Range Status 07/28/2023 3.9 2.5 - 4.5 mg/dL Final No results found for: AST , ALT , PROT , BILITOT , ALKPHOS , INR , APTT , LIPASE No results found for: CKTOTAL , CKMB , TROPONINI No results found for: PROCAL , CHOL , TRIG , HDL , TSH , VITD25 , HGBA1C , VANCOTROUGH Assessment and Plan: Left proximal femur fracture - Pt initially seen at [facility] - Hip x-ray shows s/p total left hip arthroplasty with periprostatic fracture of left proximal femur - Orthopedic surgery following- s/p left hip revision arthroplasty on 07/24. Wound VAC in place. No further plans for surgical intervention. Will need 30 days of postoperative DVT prophylaxis. - 7 days of keflex while inpatient -> duricef as outpatient per ortho - Pain control per acute pain services. On scheduled Tylenol, home gabapentin, and lidocaine patch. Has as needed p.o. oxycodone and IV Dilaudid as needed for breakthrough pain. - Hemoglobin improved from 5.5 to 9 after 2 units packed red blood cells. Can transfuse if hemoglobin under 7. CT chest/abdomen/pelvis negative for findings concerning for bleeding COPD Tobacco use Right lower lobe PE - Per pt, she is on 2 L NC at night - Continue home 2 L O2 NC at bedtime - Pt on Fluticasone-salmeterol, albuterol, montelukast, roflumilast, umeclidinium at home for COPD - Continue home medications - Nicotine patches - CT chest abdomen pelvis noted a new rounded lesion in left lower lobe measuring 12 x 11 mm and small PE in right lower lobe arterial branch. Will need outpatient follow-up in 3 months for the new lung lesion. Per the PESI score, patient is high risk of 30-day mortality from PE due to her prior cancer history and and COPD. Will start heparin drip with plan to transition to Eliquis tomorrow if hemoglobin remains stable Constipation in setting of opioids - On scheduled MiraLAX. Will increase senna to twice daily Hypokalemia- resolved - Replete lytes as necessary - Monitor with BMP Neuropathy - Continue home gabapentin 600 mg 3 times daily Hypothyroidism - Continue home levothyroxine 75 mcg daily Anxiety and depression - Continue home Cymbalta and BuSpar GERD - Continue Protonix Sore throat - Continue oral lozenges Insomnia - Continue melatonin 5 mg nightly - Goals of Care: FULL CODE - DVT Prophylaxis: Lovenox - GI Prophylaxis: Protonix daily - Diet: General - Disposition: Pending placement to SNF tomorrow Associated attestation - Jaime Lara DO - 07/28/2023 5:01 PM EST I saw and evaluated the patient. I agree with the findings and plan of care as documented in the resident's note, except as noted in Green text. Patient seen and examined personally at bedside (Date of Service: 07/28/23) Oleary Changes to Care Plan: Patient doing well without any signs of bleeding. Had a small PE on CTA and no symptoms of PE. Despite this, she is a high risk for clots (post surgical, hx of cancer) with perhaps evidence of a clot so we will anticoagulate. We will do heparin and likely transition to eliquis. 7AM-5PM: contact resident on [facility] Med B (find by hovering over attending's name on left side of patient's chart) 5PM-7AM: contact AI3 res Notified by Dr. Childress of patient's CT findings which showed 12x11 mm left lower lobe density which will require follow-up per Fleischner Society guidelines. CT scan also showed small right-sided pulmonary embolism. I updated the patient on the findings that we did not find any source of bleed but did find LLL lung nodule. She notes she has a history of small cell lung cancer on the RUL which was previously treated and resected. Previously received follow-up low-dose chest CT yearly, most recently February or March, though patient does not know if these prior CT showed this LLL nodule before. Also mentioned incidental and asymptomatic small right-sided pulmonary embolism. She mentions being on home O2 at 2L nightly for COPA/emphysema. We monitored her SpO2 on 2L and on RA and continued to saturate above 94%+. Mentioned no intervention needed. DVT ppx previously held due to concern for possible bleed given acute HgB drop 7.0>5.5, now most recently 8.8. Given no obvious* active bleed/hematoma on CT, re-started lovenox. OCCUPATIONAL THERAPY Attempted OT services twice this morning; 9:20 pt was initiated with transfusion and 10:50 where transport arrived for CT scan. Will re attempt as schedule allows. Images from the original note were not included. PHYSICAL THERAPY [facility] Name/MRN: Miri Plasencia ([id number]) Date: 07/27/2023 Attempted to see patient today but within the first two minutes of arrival the transport team came to take pt for CT. Will check back as able. Michelle Corbin, [employer]IEF Med Team Progress Note Miri Plasencia : 1955(68 y.o.) Date: July 27, 2023 Med Team: Deepak Attending: Dr. Lara Chief Complaint: Fall Subjective: - Overnight, patient's hemoglobin had dropped to 5.5. The night team resident received consent and ordered 2 units of packed red blood cells. Additionally, a peripheral smear and a CT chest abdomen pelvis with contrast was ordered CT chest abdomen and pelvis with contrast was ordered. To rule out a potential bleed. - Currently, Patient is sitting comfortably in bed watching TV. Her pain is overall well-controlled on current regimen. She states that she is a bit fatigued this morning. . Patient has not yet had her bowel movement but feels that she is coming close to it. However she has passed gas. I informed the patient that she should be aware of if she sees any blood in her stool either bright red or tarry. She has not noticed any blood in her urine. Patient's lungs had wheezing on examination, she states that she usually feels better after breathing treatments which she is getting 3 times a day in the house. She also feels like her allergies are acting up which she has medication for. Review of Systems Constitutional: Positive for fatigue. Negative for fever. Respiratory: Negative for chest tightness and shortness of breath. Cardiovascular: Negative for chest pain. Gastrointestinal: Negative for abdominal pain, blood in stool, nausea and vomiting. Genitourinary: Negative for difficulty urinating. Musculoskeletal: Pain following surgery Neurological: Negative for dizziness, light-headedness and headaches. Scheduled Meds:acetaminophen, 650 mg, Oral, Q4H busPIRone, 5 mg, Oral, BID cephalexin, 250 mg, Oral, 4x daily cetirizine, 10 mg, Oral, Daily cyanocobalamin, 1,000 mcg, Oral, Daily DULoxetine, 30 mg, Oral, BID [Held by provider] enoxaparin, 40 mg, SubCUTAneous, Daily gabapentin, 600 mg, Oral, TID latanoprost, 1 drop, Both Eyes, Daily levalbuterol, 0.315 mg, Nebulization, TID levothyroxine, 75 mcg, Oral, qAM AC Lidocaine, 1 patch, Topical, Daily melatonin, 5 mg, Oral, Nightly montelukast, 10 mg, Oral, Daily nicotine, 1 patch, TransDERmal, Daily Followed by [START ON 09/03/2023] nicotine, 1 patch, TransDERmal, Daily pantoprazole, 40 mg, Oral, qAM AC polyethylene glycol (PEG) 3350, 17 g, Oral, Daily Roflumilast, 500 mcg, Oral, Daily senna-docusate sodium, 2 tablet, Oral, Daily tiotropium, 1 capsule, Inhalation, Daily trospium, 20 mg, Oral, Daily Continuous Infusions: PRN meds used in last 24hrs: Dilaudid x 4, Robaxin x 3, oxycodone x 5, Objective: BP 96/52 Pulse 77 Temp 36.3 C (97.4 F) (Temporal) Resp 18 Ht 5' 2 (1.575 m) Wt 109 lb (49.4 kg) SpO2 97% BMI 19.94 kg/m Physical Exam Constitutional: General: She is not in acute distress. Appearance: Normal appearance. HENT: Head: Normocephalic. Eyes: Extraocular Movements: Extraocular movements intact. Pupils: Pupils are equal, round, and reactive to light. Cardiovascular: Rate and Rhythm: Normal rate and regular rhythm. Pulses: Normal pulses. Heart sounds: Normal heart sounds. Pulmonary: Effort: Pulmonary effort is normal. Breath sounds: Wheezing present. Abdominal: General: Abdomen is flat. Tenderness: There is no abdominal tenderness. Musculoskeletal: Left lower leg: No edema. Comments: Right leg wrapped in cast. Skin: General: Skin is warm and dry. Capillary Refill: Capillary refill takes less than 2 seconds. Neurological: Mental Status: She is alert. [facility] within last 24 hours Auto WBC Date Value Ref Range Status 07/27/2023 6.3 3.6 - 10.7 10*3/uL Final Hemoglobin Date Value Ref Range Status 07/27/2023 5.5 (LL) 11.7 - 16.0 g/dL Final Comment: I-Anemia Hematocrit Date Value Ref Range Status 07/27/2023 15.9 (L) 35.0 - 47.0 % Final Platelets Date Value Ref Range Status 07/27/2023 274 140 - 440 10*3/uL Final MCV Date Value Ref Range Status 07/27/2023 93.8 80.0 - 98.0 fL Final SODIUM Date Value Ref Range Status 07/27/2023 134 (L) 135 - 145 mmol/L Final POTASSIUM Date Value Ref Range Status 07/27/2023 3.6 3.5 - 5.1 mmol/L Final CHLORIDE Date Value Ref Range Status 07/27/2023 96 (L) 98 - 107 mmol/L Final CARBON DIOXIDE Date Value Ref Range Status 07/27/2023 34 (H) 22 - 30 mmol/L Final UREA NITROGEN Date Value Ref Range Status 07/27/2023 15 7 - 17 mg/dL Final CREATININE Date Value Ref Range Status 07/27/2023 0.43 (L) 0.52 - 1.04 mg/dL Final GLUCOSE Date Value Ref Range Status 07/27/2023 120 (H) 70 - 100 mg/dL Final CALCIUM Date Value Ref Range Status 07/27/2023 8.2 (L) 8.4 - 10.4 mg/dL Final MAGNESIUM Date Value Ref Range Status 07/27/2023 1.7 1.6 - 2.3 mg/dL Final PHOSPHORUS Date Value Ref Range Status 07/27/2023 4.0 2.5 - 4.5 mg/dL Final No results found for: AST , ALT , PROT , BILITOT , ALKPHOS , INR , APTT , LIPASE No results found for: CKTOTAL , CKMB , TROPONINI No results found for: PROCAL , CHOL , TRIG , HDL , TSH , VITD25 , HGBA1C , VANCOTROUGH Assessment and Plan: Left proximal femur fracture - Pt initially seen at [facility] - Hip x-ray shows s/p total left hip arthroplasty with periprostatic fracture of left proximal femur - Orthopedic surgery following- s/p left hip revision arthroplasty on 07/24. Wound VAC in place. No further plans for surgical intervention. Will need 30 days of postoperative DVT prophylaxis. - 7 days of keflex while inpatient -> duricef as outpatient per ortho - Pain control per acute pain services. On scheduled Tylenol, home gabapentin, and lidocaine patch. Has as needed p.o. oxycodone and IV Dilaudid as needed for breakthrough pain. -On 07/27, patient hemoglobin down to 5.5. 2 units packed red blood cells transfused. Pending follow-up hemoglobin and CT abdomen/pelvis. If patient hemoglobin under 7 on repeat H&H, will transfuse more red blood cells. COPD Tobacco use - Per pt, she is on 2 L NC at night - Continue home 2 L O2 NC at bedtime - Pt on Fluticasone-salmeterol, albuterol, montelukast, roflumilast, umeclidinium at home for COPD - Continue home medications - Nicotine patches Hypokalemia- resolved - Replete lytes as necessary - Monitor with BMP Neuropathy - Continue home gabapentin 600 mg 3 times daily Hypothyroidism - Continue home levothyroxine 75 mcg daily Anxiety and depression - Continue home Cymbalta and BuSpar GERD - Continue Protonix Sore throat - Continue oral lozenges Insomnia - Continue melatonin 5 mg nightly - Goals of Care: FULL CODE - DVT Prophylaxis: Lovenox - GI Prophylaxis: Protonix daily - Diet: General - Disposition: Pending placement to SNF Associated attestation - Jaime Lara DO - 07/27/2023 10:09 PM EST I saw and evaluated the patient. I agree with the findings and plan of care as documented in the resident's note, except as noted in Green text. Patient seen and examined personally during bedside teaching rounds (Date of Service: 07/27/23) Summary and Oleary Changes to Care Plan: Ms. Plasencia is a 68-year-old female presenting with a fall found to have a left hip fracture. She recently had a podiatry surgery and had fallen because she lost balance with her crutches. Additional history includes COPD, hypothyroidism, neuropathy (due to hiatal hernia?), And NSC lung cancer. Patient continues to only have symptoms of pain that is well controlled. She does not have shortness of breath, fever, or chills. Her hemoglobin dropped to 5.5 overnight which may be partly position in which it was drawn (can vary by 1pt by upright vs laying down blood draw) and getting her blood drawn. No active signs of bleeding. She was ordered 2 units of PRBCs overnight when her hemoglobin dropped and her hemoglobin went up to 8.8. CT was ordered at the time and indicated possible pneumonia and a small subsegmental PE. Regarding the read of pneumonia, she has no cough, or shortness of breath. She does not have a leukocytosis. In terms of the PE, she was just transfused yesterday, and it is small and a place where at times, these can be overcalled. We can consider full anticoagulation tomorrow if hemoglobin is stable. Overview of plan -will hold of on treatment of pneumonia -will monitor for signs of bleed -consider anticoagulation tomorrow if hemoglobin is stable 7AM-5PM: contact resident on [facility] B (find by hovering over attending's name on left side of patient's chart) 5PM-7AM: contact 3 res PAGING: The Acute Pain Service providers are available exclusively via [employer]. APS does not utilize pagers. 07/27/2023 Lab Results Component Value Date CREATININE 0.43 (L) 07/27/2023 AST 27 07/22/2023 ALT 23 07/22/2023 Discharge Recommendations: Percocet 5/325. 1 tab q6h prn Pain Management Adjuvants: 0700 --> 0700 07/24/2023 07/25/23 07/26/23 Scheduled APAP 1000mg 2600mg 3900mg Gabapentin 1200mg 1800mg 1800mg Lidocaine patches on PRN Hydromorphone IV 1.5mg 1mg 1.5mg Methocarbamol 750mg 1500mg Oxycodone 15mg 25mg 20mg Ibuprofen 400mg Assessment / Pain Management Plan: Acute Postsurgical LLE pain Multimodal pain regimen: BLOCK: Fascia Iliaca Continue Acetaminophen 650 mg po q4h scheduled ATC. Liver enzymes WNL, last checked: 07/22/23 Continue Gabapentin 600mg PO TID. This is patient's home dose which she is on for residual shingle pain Continue Lidocaine patch x 1. Cut and place as needed. Continue Hydromorphone 0.25 mg - 0.5 mg IVP q4h prn moderate to severe breakthrough pain. Please utilize oral medications first. Continue Methocarbamol 750 mg PO TID PRN. Increased Oxycodone to 5 - 7.5 mg po q4h prn moderate to severe breakthrough pain on 07/27/23. Continue Naloxone 0.4 mg IVP prn opioid reversal. PRN if respiratory rate is less than 6/min and patient is difficult to arouse then notify physician STAT. Mix 9 mL of sodium chloride 0.9% with 0.4 mg (1 mL) of naloxone (NARCAN) in 10 mL syringe. (Note: dilution is 0.04 mg/mL) Give 0.08 mg (2 mL of special dilution), slow IV push, repeat up to 0.4 mg (10 mL) or until patient is responsive to physical stimulation and respiratory rate is equal to or greater than 6 breaths/min. Continue to observe, if no response within 3 minutes of administration of 0.4 mg (10 mL) total, repeat dose (0.4 mg as administered previously). Left periprosthetic proximal femur fracture S/p Left revision total hip arthroplasty, both components (cpt 35676) 07/24/23 See #1 Constipation At risk for opioid induced constipation Patient currently receiving opioids for pain management necessitating a bowel regimen. Recommend initiating scheduled Sennakot-S 8.6/50mg, 1 tablet PO BID. Would also recommend Milk of Magnesia 400mg/5ml, administer 30mL by mouth daily PRN. Opioid Use Acute: Expected to be short term post op pain, see #1 OARRS reviewed for past two years. Recurrent Gabapentin Reviewed and educated patient on responsible use of opioids: after surgery, it can be normal to experience pain. If it is mild and you can move about without great difficulty or discomfort, you may not need to take pain medication. It is very important to take your pain medication only as needed. Avoiding excessive or unnecessary medication, will enable you to progress your activity each day to improve your muscle tone and movement, deep breathing, digestion, circulation and your body's ability to heal itself. Will follow. Plan discussed with patient who appears to understand and agrees. Subjective: We have been asked to see this 68 y.o. female for postoperative pain management s/p Left revision total hip arthroplasty Reviewed XR Femur left 07/24/23 [place], no pages. On arrival, pt lying in bed. Pt appears well, comfortable. Pt talkative and cooperative throughout exam, she feels like she is using a lot of IV Dilaudid for her pain as she cannot get to a comfortable level with the oral medications. LLE pain is rated as 8/10, cont, aching to stabbing and she is now experiencing groin pain as of this morning. Advised pt to notify ortho team. She states she told her RN We discussed increasing her Oxycodone slightly to see if pain is better controlled with PO meds versus using IV. Agreeable to this pain. Tolerating diet, denies n/v -BM +gas Patient educated on pain regimen, aware that oxycodone po, hydromorphone IV, methocarbamol are PRN and patient must ask for these medications when needed. Educated patient to utilize oral pain medications as first line and reserve IV pain medications for severe breakthrough pain. Pt is realistic about pain control: Not all pain will be taken away, but pain should be tolerable/manageable with current regimen. Pt instructed to have staff page APS if pain becomes uncontrolled when utilizing present regimen. Pt agreeable, denies further questions. PMH reviewed below Pain Location: LLE Aggravating Factors: Moving Sedation score: 1: Awake and alert Pain Severity: 8 on scale of 1-10 Pain Quality: aching Alleviating Factors: Rest/Pain medications Pain Management: Alberto Duckworth MD The patient's medical history and physical assessment, medications, allergies, patient's current medical condition, imaging, and labs were reviewed as part of this consultation. [x] Patient's Medications have been reviewed. [x] Patient's OARRS report (PDMP) have been reviewed. Social History Tobacco Use Smoking Status Every Day Packs/day: 1 Types: Cigarettes Smokeless Tobacco Not on file Social History Substance and Sexual Activity Alcohol Use Yes Social History Substance and Sexual Activity Drug Use Not on file Objective Findings: Height: 157.5 cm (5' 2 ) Weight: 49.4 kg (109 lb) BMI (Calculated): 19.93 Vital signs: Blood pressure 98/55, pulse 81, temperature 36.5 C (97.7 F), temperature source Temporal, resp. rate 16, height 1.575 m (5' 2 ), weight 49.4 kg (109 lb), SpO2 96%. Allergies: Patient has no known allergies. Past Medical History: Diagnosis Date Acquired hypothyroidism 03/04/2016 Allergic rhinitis Anxiety Asthma COPD (chronic obstructive pulmonary disease) (HCC) Gastroesophageal reflux disease without esophagitis 03/04/2016 GERD (gastroesophageal reflux disease) Hypothyroidism Lumbar disc disease 03/04/2016 Lung mass Osteoporosis 03/04/2016 Post herpetic neuralgia 03/04/2016 S/P lung surgery, follow-up exam 04/04/2016 Tobacco abuse 03/04/2016 Past Surgical History: Procedure Laterality Date CARPAL TUNNEL RELEASE Bilateral CERVICAL DISCECTOMY SECTION (HISTORICAL) CHOLECYSTECTOMY JOINT REPLACEMENT MOUTH SURGERY PLEURA BIOPSY Right 03/18/2016 Dr. Hernandezinal-lobectomy Family History Problem Relation Name Age of Onset Other (36539) Mother Cancer Father Cancer Sister Patient Active Problem List Diagnosis Osteoporosis Acquired hypothyroidism COPD (chronic obstructive pulmonary disease) (HCC) Gastroesophageal reflux disease without esophagitis Anxiety Post herpetic neuralgia Tobacco abuse Lumbar disc disease Primary cancer of right upper lobe of lung (HCC) S/p left hip fracture Hammer toe Cigarette smoker Review of Systems Constitutional: Negative. HENT: Negative. Eyes: Negative. Respiratory: Negative. Cardiovascular: Negative. Gastrointestinal: Negative. Musculoskeletal: Negative. Skin: Positive for wound. Surgical wound Neurological: Negative. Psychiatric/Behavioral: Negative. Physical Exam Vitals and nursing note reviewed. Constitutional: Appearance: Normal appearance. HENT: Head: Normocephalic and atraumatic. Eyes: Extraocular Movements: Extraocular movements intact. Conjunctiva/sclera: Conjunctivae normal. Pupils: Pupils are equal, round, and reactive to light. Cardiovascular: Rate and Rhythm: Normal rate and regular rhythm. Pulmonary: Comments: Pt on 3LNC O2 Abdominal: General: Bowel sounds are normal. Palpations: Abdomen is soft. Musculoskeletal: Cervical back: Normal range of motion and neck supple. Comments: RLE in hard cast Skin: General: Skin is warm and dry. Comments: Surgical incision c/d/I Neurological: General: No focal deficit present. Mental Status: She is alert and oriented to person, place, and time. Psychiatric: Mood and Affect: Mood normal. Behavior: Behavior normal. Thought Content: Thought content normal. PAGING: The Acute Pain Service providers are available exclusively via [employer]. APS does not utilize pagers. Notified ~2:30AM of critical lab value of acute HgB drop from 7.0 to 5.5 which did not look dilutional. Upon evaluation, consent for blood transfusion was obtained. Patient does not have any abdominal or flank pain out of proportion to what she chronically has. She did not have any abdominal pain to palpation, guarding, rebound tenderness, or peritonitis. There was no apparent ecchymosis visible on the abdomen, L hip area, or flank areas. She was conversational and not in any distress at time of evaluation. Given acuity and severity of drop, will also do a CT following blood transfusion for possible RP bleed/hematoma. She was agreeable to blood transfusion and after that a CT scan. Plan: - 2 units pRBC - Peripheral smear - CT chest/abd/pelvis with contrast after blood transfusion Images from the original note were not included. PHYSICAL THERAPY [facility] Treatment Note Name/MRN: Miri Plasencia ([id number]) Date of : 1955 Age: 68 y.o. Room/Bed: 6123/-61 A Discharge Recommendation: Longterm Facility Equipment Needed: No Prior Level of Function ADL Assistance: Independent Ambulation Assistance: Independent Device(s) used: crutches and just since recent hammer toe surgery Transfer Assistance: Independent Pt stated she was home for <24 hours prior to falling and breaking L hip. Stated her son does not assist with home management. Assessment Pt needs increased time for all mobility as she expresses multiple times having a fear of falling. Pt transferred to chair today via a lateral slide transfer. Pts pain level was high at time of treatment since she was due for pain meds. Overall mod assist to get to chair but did well at keeping RLE NWB. Recommend SNF level therapy at discharge. Subjective Pt supine in bed with HOB up. Super talkative but very pleasant. Expresses fear of falling and being scared multiple times but does well with reassurance. Agreeable to PT. Pain: did not rate on a pain scale but reports pulling sensation on left lateral thigh with exercises. Medical Precautions: No active isolations Proper PPE donned/doffed in accordance with facility standards. Fall Risk: Westfall Fall Risk Score: 70 (High Risk) Precautions/Restrictions: Right LE Weight Bearing: Non-Weight Bearing Left LE Weight Bearing: Weight Bearing As Tolerated Hip Precautions: No left hip ABduction Overall Cognitive Status: WNL Overall Orientation Status: Oriented x4 Family/Caregiver Present: none Objective Transfers/Mobility Lateral transfer without a slideboard, mod assist. Good upper body strength. Increased time to complete transfer Device(s) used: none Exercises Exercises Quad Sets: supine x 10 reps, BLE Gluteal Sets: supine x 5 reps Knee Long Arc Quad: seated x 10 reps, BLE Ankle Pumps: supine LLE x 10 reps (right foot in splint) Bed Mobility Supine to sit: Mod Assist Scooting: Mod Assist HOB up most of the way Balance: Pt sat EOB with supervision. Posture: good Plan Continue acute PT per plan of care. Safety/Education Safety Safety Devices in place: All fall risk precautions in place, call light within reach, left in chair, and no alarms engaged upon entry Restraints: No Education HEP, Transfer Outcome Measures AM-PAC AM-PAC Inpatient Mobility Raw Score (No Stairs) : 11 JH-HLM JH-HLM Score: Transferred to chair/commode Goals Patient Stated Goal: to feel safe with mobility Encounter Problems Encounter Problems (Active) Balance Patient will maintain dynamic standing balance for 3 minutes with supervision in order to demonstrate decreased risk of falling. (Not Addressed) Start: 07/25/23 Expected End: 08/22/23 Patient will maintain static standing balance for 5 minutes with supervision in order to demonstrate decreased risk of falling. (Progressing) Start: 07/25/23 Expected End: 08/22/23 Mobility Patient will ambulate 20 feet with supervision and least restrictive device in order to improve safety and independence with mobility. (Not Addressed) Start: 07/25/23 Expected End: 08/22/23 Pain - Adult Safety Patient will recall/demonstrate weight bearing and/or ROM restrictions with all functional mobility in order to promote healing and safety with functional tasks. (Progressing) Start: 07/25/23 Expected End: 01/05/24 Transfers Patient will perform bed mobility with supervision in order to improve independence and prepare for out of bed mobility. (Progressing) Start: 07/25/23 Expected End: 08/22/23 Patient will complete functional transfer with least restrictive device with supervision in order to prepare for ambulation. (Progressing) Start: 07/25/23 Expected End: 08/22/23 Therapy Time Individual Co-treatment Time In 1058 Time Out 1138 Minutes 40 Timed Code Treatment Minutes: 40 Minutes (FA x 2, TP) Brianna Severino PTA Med Team Progress Note Miri Plasencia : 1955(68 y.o.) Date: July 26, 2023 Med Team: Deepka Attending: Dr. Lara Chief Complaint: Left hip fracture Subjective: - Overnight, no acute events. - This morning, patient seen resting in bed comfortably. States that her pain is doing well and that she was also able to sleep well with the melatonin. Has not had a bowel movement for feels that she may have 1 soon. Denies any chest pain, shortness of breath or abdominal pain. Review of Systems Constitutional: Negative for appetite change and fever. Respiratory: Positive for cough. Negative for chest tightness and shortness of breath. Cardiovascular: Negative for chest pain and palpitations. Gastrointestinal: Negative for abdominal pain, nausea and vomiting. Musculoskeletal: Positive for myalgias (L hip pain). Scheduled Meds:acetaminophen, 650 mg, Oral, Q4H busPIRone, 5 mg, Oral, BID cephalexin, 250 mg, Oral, 4x daily cetirizine, 10 mg, Oral, Daily cyanocobalamin, 1,000 mcg, Oral, Daily DULoxetine, 30 mg, Oral, BID enoxaparin, 40 mg, SubCUTAneous, Daily gabapentin, 600 mg, Oral, TID latanoprost, 1 drop, Both Eyes, Daily levalbuterol, 0.315 mg, Nebulization, TID levothyroxine, 75 mcg, Oral, qAM AC Lidocaine, 1 patch, Topical, Daily melatonin, 5 mg, Oral, Nightly montelukast, 10 mg, Oral, Daily nicotine, 1 patch, TransDERmal, Daily Followed by [START ON 09/03/2023] nicotine, 1 patch, TransDERmal, Daily pantoprazole, 40 mg, Oral, qAM AC polyethylene glycol (PEG) 3350, 17 g, Oral, Daily Roflumilast, 500 mcg, Oral, Daily senna-docusate sodium, 2 tablet, Oral, Daily tiotropium, 1 capsule, Inhalation, Daily trospium, 20 mg, Oral, Daily PRN meds used in last 24hrs: IV Dilaudid and p.o. Oxy Objective: BP 103/65 Pulse 91 Temp 36.2 C (97.1 F) (Temporal) Resp 18 Ht 5' 2 (1.575 m) Wt 109 lb (49.4 kg) SpO2 92% BMI 19.94 kg/m Physical Exam Constitutional: General: She is not in acute distress. Appearance: Normal appearance. She is not ill-appearing. HENT: Head: Normocephalic and atraumatic. Eyes: Extraocular Movements: Extraocular movements intact. Conjunctiva/sclera: Conjunctivae normal. Cardiovascular: Rate and Rhythm: Normal rate and regular rhythm. Pulmonary: Effort: Pulmonary effort is normal. No respiratory distress. Breath sounds: Wheezing present. Abdominal: General: Bowel sounds are normal. There is no distension. Palpations: Abdomen is soft. Tenderness: There is no abdominal tenderness. There is no guarding. Musculoskeletal: General: Tenderness (L hip pain) and signs of injury (Right foot wrapped and bandaged) present. Skin: General: Skin is warm and dry. Neurological: General: No focal deficit present. Mental Status: She is alert. Psychiatric: Mood and Affect: Mood normal. Select Labs within last 24 hours Auto WBC Date Value Ref Range Status 07/26/2023 8.3 3.6 - 10.7 10*3/uL Final Hemoglobin Date Value Ref Range Status 07/26/2023 7.0 (L) 11.7 - 16.0 g/dL Final Hematocrit Date Value Ref Range Status 07/26/2023 19.8 (L) 35.0 - 47.0 % Final Platelets Date Value Ref Range Status 07/26/2023 257 140 - 440 10*3/uL Final MCV Date Value Ref Range Status 07/26/2023 94.1 80.0 - 98.0 fL Final SODIUM Date Value Ref Range Status 07/26/2023 133 (L) 135 - 145 mmol/L Final POTASSIUM Date Value Ref Range Status 07/26/2023 3.6 3.5 - 5.1 mmol/L Final CHLORIDE Date Value Ref Range Status 07/26/2023 98 98 - 107 mmol/L Final CARBON DIOXIDE Date Value Ref Range Status 07/26/2023 30 22 - 30 mmol/L Final UREA NITROGEN Date Value Ref Range Status 07/26/2023 15 7 - 17 mg/dL Final CREATININE Date Value Ref Range Status 07/26/2023 0.40 (L) 0.52 - 1.04 mg/dL Final GLUCOSE Date Value Ref Range Status 07/26/2023 120 (H) 70 - 100 mg/dL Final CALCIUM Date Value Ref Range Status 07/26/2023 8.5 8.4 - 10.4 mg/dL Final MAGNESIUM Date Value Ref Range Status 07/26/2023 1.7 1.6 - 2.3 mg/dL Final PHOSPHORUS Date Value Ref Range Status 07/26/2023 3.5 2.5 - 4.5 mg/dL Final No results found for: AST , ALT , PROT , BILITOT , ALKPHOS , INR , APTT , LIPASE No results found for: CKTOTAL , CKMB , TROPONINI No results found for: PROCAL , CHOL , TRIG , HDL , TSH , VITD25 , HGBA1C , VANCOTROUGH Assessment and Plan: Left proximal femur fracture - Pt initially seen at [facility] - Hip x-ray shows s/p total left hip arthroplasty with periprostatic fracture of left proximal femur - Orthopedic surgery following- s/p left hip revision arthroplasty on 07/24. Wound VAC in place. No further plans for surgical intervention. Will need 30 days of postoperative DVT prophylaxis. - 7 days of keflex while inpatient -> duricef as outpatient per ortho - Pain control per acute pain services. On scheduled Tylenol, home gabapentin, and lidocaine patch. Has as needed p.o. oxycodone and IV Dilaudid as needed for breakthrough pain. COPD Tobacco use - Per pt, she is on 2 L NC at night - Continue home 2 L O2 NC at bedtime - Pt on Fluticasone-salmeterol, albuterol, montelukast, roflumilast, umeclidinium at home for COPD - Continue home medications - Nicotine patches Hypokalemia- resolved - Replete lytes as necessary - Monitor with BMP Neuropathy - Continue home gabapentin 600 mg 3 times daily Hypothyroidism - Continue home levothyroxine 75 mcg daily Anxiety and depression - Continue home Cymbalta and BuSpar GERD - Continue Protonix Sore throat - Continue oral lozenges Insomnia - Continue melatonin 5 mg nightly - Goals of Care: FULL CODE - DVT Prophylaxis: Lovenox - GI Prophylaxis: Protonix daily - Diet: General - Disposition: Pending placement to SNF Associated attestation - Jaime Lara DO - 07/26/2023 9:53 PM EST I saw and evaluated the patient. I agree with the findings and plan of care as documented in the resident's note, except as noted in Green text. Patient seen and examined personally during bedside teaching rounds (Date of Service: 07/26/23) Summary and Oleary Changes to Care Plan: Ms. Plasencia is a 68-year-old female presenting with a fall found to have a left hip fracture. She recently had a podiatry surgery and had fallen because she lost balance with her crutches. Additional history includes COPD, hypothyroidism, neuropathy (due to hiatal hernia?), And NSC lung cancer. Patient continues to do well and her pain is well controlled. We are not waiting for placement to acute rehab. 7AM-5PM: contact resident on [facility] Med B (find by hovering over attending's name on left side of patient's chart) 5PM-7AM: contact 3 [facility] Orthopedic Progress Note Name: Miir Plasencia Date:07/26/2023 Attending:Jaime Lara DO Subjective Pain controlled. States that her nurse helped her undo her splint last night. Objective Vitals: 07/25/23 0953 07/25/23 1410 07/25/23 1633 12/08/23 1958 BP: 109/63 112/66 BP Location: Patient Position: Pulse: 92 66 (!) 115 110 Resp: 20 18 20 18 Temp: 37.2 C (98.9 F) 36.8 C (98.3 F) TempSrc: Temporal Temporal SpO2: 97% 92% 91% 94% Weight: Height: Physical Exam: General: Resting in bed, NAD LLE Dressing/Skin: Prevena intact and holding suction, scant serosanguinous output SILT: Saphenous/Superficial Peroneal/Deep Peroneal/Tibial/Sural distributions Motor: +Dorsiflexion/Plantarflexion/Gr eat toe extension Pulses: Palpable DP/PT RLE splint had completely fallen off. It was reapplied and lightly re-wrapped. LABS: Recent Labs 07/24/23 0151 07/24/23 1306 07/24/23 1702 07/25/23 0311 WBC 8.7 -- -- 7.0 HGB 13.1 10.9* 7.7* 7.0* HCT 39.1 32.3* 23.0* 20.5* PLT 333 -- -- 243 Recent Labs 07/24/23 0151 07/25/23 0311 NA 139 136 K 3.5 3.6 CL 104 102 CO2 29 29 BUN 22* 17 CREATININE 0.35* 0.43* CALCIUM 8.9 8.4 PHOS 3.8 3.5 No results for input(s): INR in the last 72 hours. No results for input(s): SEDRATE , CRP in the last 72 hours. No results for input(s): HCG in the last 72 hours. Assessment Miri is a 68 y.o.female with a Left B2 Baker periprosthetic proximal femur fracture s/p revision+ORIF on 07/24, also s/p hammertoe correction on R foot 07/18 Plan -Operative plans: No further plans for surgery this admission -Weight bearing: RLE: NWB LLE: WBAT RUE: WBAT LUE: WBAT -Range of motion parameters: No abduction of left hip -Immobilization: RLE splint - continue, if going to remove please let ortho team know. -Antibiotics: 24 post op IV abx > 7 days keflex inpatient then switch to duricef as an outpatient, rx written -Dressings: Continue wound vac 125mmHg continous. Measure cannister output every shift. -Other: None -Diet: no restrictions from ortho standpoint -Labs: Hgb check 2 days post op -7 yesterday, repeat p -PT/OT -PT recommended outpatient/post discharge?: Yes, for basic ADLs -Medical management, dvt ppx and pain control per primary -DVT ppx recommended?: Yes, 30 days of post operative DVT ppx recommended -Follow-up with Dr. Styles in 2 weeks -Ortho to sign off, please call with questions/concerns PAGING: The Acute Pain Service providers are available exclusively via [employer]. APS does not utilize pagers. 07/26/2023 Lab Results Component Value Date CREATININE 0.40 (L) 07/26/2023 AST 27 07/22/2023 ALT 23 07/22/2023 Discharge Recommendations: Pending Pain Management Adjuvants: 0700 --> 0700 07/24/2023 07/25/23 Scheduled APAP 1000mg 2600mg Gabapentin 1200mg 1800mg Lidocaine patches on PRN Hydromorphone 1.5mg 1mg Methocarbamol 750mg Oxycodone 15mg 25mg Ibuprofen 400mg Assessment / Pain Management Plan: Acute Postsurgical LLE pain Multimodal pain regimen: BLOCK: Fascia Iliaca Continue Acetaminophen 650 mg po q4h scheduled ATC. Liver enzymes WNL, last checked: 07/22/23 Continue Gabapentin 600mg PO TID. This is patient's home dose which she is on for residual shingle pain Continue Lidocaine patch x 1. Cut and place as needed. Continue Hydromorphone 0.25 mg - 0.5 mg IVP q4h prn moderate to severe breakthrough pain. Please utilize oral medications first. Continue Methocarbamol 750 mg PO TID PRN. Continue Oxycodone 2.5 - 5 mg po q4h prn moderate to severe breakthrough pain. Continue Naloxone 0.4 mg IVP prn opioid reversal. PRN if respiratory rate is less than 6/min and patient is difficult to arouse then notify physician STAT. Mix 9 mL of sodium chloride 0.9% with 0.4 mg (1 mL) of naloxone (NARCAN) in 10 mL syringe. (Note: dilution is 0.04 mg/mL) Give 0.08 mg (2 mL of special dilution), slow IV push, repeat up to 0.4 mg (10 mL) or until patient is responsive to physical stimulation and respiratory rate is equal to or greater than 6 breaths/min. Continue to observe, if no response within 3 minutes of administration of 0.4 mg (10 mL) total, repeat dose (0.4 mg as administered previously). Left periprosthetic proximal femur fracture S/p Left revision total hip arthroplasty, both components (cpt 98402) 07/24/23 See #1 Constipation At risk for opioid induced constipation Patient currently receiving opioids for pain management necessitating a bowel regimen. Recommend initiating scheduled Sennakot-S 8.6/50mg, 1 tablet PO BID. Would also recommend Milk of Magnesia 400mg/5ml, administer 30mL by mouth daily PRN. Opioid Use Acute: Expected to be short term post op pain, see #1 OARRS reviewed for past two years. Recurrent Gabapentin Reviewed and educated patient on responsible use of opioids: after surgery, it can be normal to experience pain. If it is mild and you can move about without great difficulty or discomfort, you may not need to take pain medication. It is very important to take your pain medication only as needed. Avoiding excessive or unnecessary medication, will enable you to progress your activity each day to improve your muscle tone and movement, deep breathing, digestion, circulation and your body's ability to heal itself. Will follow. Plan discussed with patient who appears to understand and agrees. Subjective: We have been asked to see this 68 y.o. female for postoperative pain management s/p Left revision total hip arthroplasty Reviewed XR Femur left 07/24/23 CHARLES, no pages. On arrival, pt lying in bed. Pt appears well, comfortable. Pt talkative and cooperative throughout exam, happy with current pain regimen. Pain controlled. Tolerating diet, denies n/v. Patient educated on pain regimen, aware that oxycodone po, hydromorphone IV, methocarbamol are PRN and patient must ask for these medications when needed. Educated patient to utilize oral pain medications as first line and reserve IV pain medications for severe breakthrough pain. Pt is realistic about pain control: Not all pain will be taken away, but pain should be tolerable/manageable with current regimen. Pt instructed to have staff page APS if pain becomes uncontrolled when utilizing present regimen. Pt agreeable, denies further questions. PMH reviewed below Pain Location: RLE, LLE, 5/10 Aggravating Factors: Moving Sedation score: 1: Awake and alert Pain Severity: 5 on scale of 1-10 Pain Quality: aching Alleviating Factors: Rest/Pain medications Pain Management: Alberto Duckworth MD The patient's medical history and physical assessment, medications, allergies, patient's current medical condition, imaging, and labs were reviewed as part of this consultation. [x] Patient's Medications have been reviewed. [x] Patient's OARRS report (PDMP) have been reviewed. Social History Tobacco Use Smoking Status Every Day Packs/day: 1 Types: Cigarettes Smokeless Tobacco Not on file Social History Substance and Sexual Activity Alcohol Use Yes Social History Substance and Sexual Activity Drug Use Not on file Objective Findings: Height: 157.5 cm (5' 2 ) Weight: 49.4 kg (109 lb) BMI (Calculated): 19.93 Vital signs: Blood pressure 103/65, pulse 91, temperature 36.2 C (97.1 F), temperature source Temporal, resp. rate 18, height 1.575 m (5' 2 ), weight 49.4 kg (109 lb), SpO2 92%. Allergies: Patient has no known allergies. Past Medical History: Diagnosis Date Acquired hypothyroidism 03/04/2016 Allergic rhinitis Anxiety Asthma COPD (chronic obstructive pulmonary disease) (HCC) Gastroesophageal reflux disease without esophagitis 03/04/2016 GERD (gastroesophageal reflux disease) Hypothyroidism Lumbar disc disease 03/04/2016 Lung mass Osteoporosis 03/04/2016 Post herpetic neuralgia 03/04/2016 S/P lung surgery, follow-up exam 04/04/2016 Tobacco abuse 03/04/2016 Past Surgical History: Procedure Laterality Date CARPAL TUNNEL RELEASE Bilateral CERVICAL DISCECTOMY SECTION (HISTORICAL) CHOLECYSTECTOMY JOINT REPLACEMENT MOUTH SURGERY PLEURA BIOPSY Right 03/18/2016 Dr. Hernandezinal-lobectomy Family History Problem Relation Name Age of Onset Other ([id number]) Mother Cancer Father Cancer Sister Patient Active Problem List Diagnosis Osteoporosis Acquired hypothyroidism COPD (chronic obstructive pulmonary disease) (HCC) Gastroesophageal reflux disease without esophagitis Anxiety Post herpetic neuralgia Tobacco abuse Lumbar disc disease Primary cancer of right upper lobe of lung (HCC) S/p left hip fracture Hammer toe Cigarette smoker Review of Systems Constitutional: Negative. HENT: Negative. Eyes: Negative. Respiratory: Negative. Cardiovascular: Negative. Gastrointestinal: Negative. Musculoskeletal: Negative. Skin: Positive for wound. Surgical wound Neurological: Negative. Psychiatric/Behavioral: Negative. Physical Exam Vitals and nursing note reviewed. Constitutional: Appearance: Normal appearance. HENT: Head: Normocephalic and atraumatic. Eyes: Extraocular Movements: Extraocular movements intact. Conjunctiva/sclera: Conjunctivae normal. Pupils: Pupils are equal, round, and reactive to light. Cardiovascular: Rate and Rhythm: Normal rate and regular rhythm. Pulmonary: Comments: Pt on 3LNC O2 Abdominal: General: Bowel sounds are normal. Palpations: Abdomen is soft. Musculoskeletal: Cervical back: Normal range of motion and neck supple. Comments: RLE in hard cast Skin: General: Skin is warm and dry. Comments: Surgical incision c/d/I Neurological: General: No focal deficit present. Mental Status: She is alert and oriented to person, place, and time. Psychiatric: Mood and Affect: Mood normal. Behavior: Behavior normal. Thought Content: Thought content normal. PAGING: The Acute Pain Service providers are available exclusively via [employer]. APS does not utilize pagers. Images from the original note were not included. OCCUPATIONAL THERAPY [facility] Initial Evaluation Name/MRN: Miri Plasencia ([id number]) Evaluation Date: 07/25/2023 Date of : 1955 Admission Date: 07/22/2023 4:07 PM Age: 68 y.o. Room/Bed: 61/61 A Discharge Recommendation: Longterm Facility Assessment IMPRESSION: Pt admitted due to a fall after right hammer toe surgery. Now with left hip fx requiring surgical repair. Greatly limited by fear of falling and anticipatory pain in conjunction to new weight bearing and ROM restrictions. Will need ongoing therapies as all activity today was limited to seated or within pivot distances. Performance Deficits /Impairments: Increased Pain, Decreased Functional Mobility, Decreased ADL status, Decreased Strength, Decreased Safety Awareness, Decreased Cognition, Decreased Endurance, Decreased Balance, Decreased High Level IADLs, and Decreased Posture Prognosis: Good Decision Making: Medium Complexity Subjective Pt cooperative and frequent cues to redirect as she is tangential and easily distracted. RN provided pain meds prior to OOB. Pain: Villanueva-Oden Pain Ratin = Hurts even more Pain Location: Right foot and left hip Past Medical History: Past Medical History: Diagnosis Date Acquired hypothyroidism 03/04/2016 Allergic rhinitis Anxiety Asthma COPD (chronic obstructive pulmonary disease) ([facility]) Gastroesophageal reflux disease without esophagitis 03/04/2016 GERD (gastroesophageal reflux disease) Hypothyroidism Lumbar disc disease 03/04/2016 Lung mass Osteoporosis 03/04/2016 Post herpetic neuralgia 03/04/2016 S/P lung surgery, follow-up exam 04/04/2016 Tobacco abuse 03/04/2016 Past Surgical History: Past Surgical History: Procedure Laterality Date CARPAL TUNNEL RELEASE Bilateral CERVICAL DISCECTOMY SECTION (HISTORICAL) CHOLECYSTECTOMY JOINT REPLACEMENT MOUTH SURGERY PLEURA BIOPSY Right 03/18/2016 Dr. Hernandezinal-lobectomy Admission Diagnosis: Patient Active Problem List Diagnosis Date Noted Cigarette smoker 07/23/2023 S/p left hip fracture 07/22/2023 Hammer toe 07/18/2023 Primary cancer of right upper lobe of lung ([facility]) 03/26/2016 Osteoporosis 03/04/2016 Acquired hypothyroidism 03/04/2016 COPD (chronic obstructive pulmonary disease) ([facility]) 03/04/2016 Gastroesophageal reflux disease without esophagitis 03/04/2016 Anxiety 03/04/2016 Post herpetic neuralgia 03/04/2016 Tobacco abuse 03/04/2016 Lumbar disc disease 03/04/2016 Medical Precautions: No active isolations Proper PPE donned/doffed in accordance with facility standards. Fall Risk: Westfall Fall Risk Score: 80 (High Risk) Precautions/Restrictions: Right LE Weight Bearing: Non-Weight Bearing Left LE Weight Bearing: Weight Bearing As Tolerated Hip Precautions: No left hip ABduction Family/Caregiver Present: none Overall Cognitive Status: Decreased safety/judgment; tangential and easily distracted; high fear of falling; timid for mobility; anticipatory pain; Emotional lability. Overall Orientation Status: Oriented to Place, Oriented to Situation, and Oriented to Person Social/Functional History Patient admitted from home. Lives With: Other (typically she is alone, has a son and his girlfriend staying with him now) Type of Home: trailer Home Layout: Single Level Home Home Access: Stairs to Enter with Rails (# of stairs: 4) Home Equipment: crutches Homemaking Responsibilities: Independent Receives Help From: None Prior Level of Function ADL Assistance: Independent Ambulation Assistance: Recently using crutches due to right foot sx, prior to this no device. Transfer Assistance: Independent Objective ADLs Feeding: Modified Independent, after setup Grooming: Supervision, EOB level pt washed face and combed hair, assist provided only to wash pt's back LE Dressing: Dependent, Left sock donned Engaged in EOB ADLs to increase upright activity tolerance and provide distraction from pain. Upper Extremity Assessment AROM: WFL PROM: WFL Strength: Exceptions: Grossly 3+/5 throughout, fair bilateral grasp. Bed Mobility Supine to sit: Max Assist Scooting: Max Assist Transfers/Functional Mobility Sit to stand: Max Assist, x2 Person Assist Stand to sit: Max Assist, x2 Person Assist Stand pivot: Max Assist, x2 Person Assist Standing balance: Max Assist, x2 Person Assist Transfer training initiated- required 2 skilled therapists due to need for multi-modal cues, physical assist for keeping right LE NWB, and left knee blocking. Completed x 2 stands + pivot to chair. Poor ability to come to upright position with FWW and significant walker safety concerns. Subsequent stand/pivot with therapists on each side of pt. AM-PAC AM-PAC Inpatient Daily Activity Raw Score: 17 ADL Inpatient CMS G-Code Modifier: CK Plan Pt would benefit from skilled acute OT services to address Strengthening, ROM, Balance Training, Functional Mobility Training, Endurance Training, Gait Training, Pain Management, Safety Education and Training, Patient/Caregiver Training, Equipment Evaluation/Education, Positioning, Self-Care/ADL Training, and Cognitive/Perceptual Training. Frequency: 5x/week for 4 weeks Barriers: Pain and New weightbearing/ROM restrictions Prognosis: good Safety/Education Safety Safety Devices in place: call light within reach, left in chair, gait belt, patient at risk for falls, and nurse notified Restraints: N/A Education Education Given To: patient Education Provided: OT Role, Plan of Care, Precautions, ADL Adaptive Strategies, and Transfer Training Education Method: Verbal Barriers to Learning: Cognition Education Outcome: Continued Education Needed Goals Patient Stated Goal: I just don't want to fall Encounter Problems Encounter Problems (Active) Balance Static standing balance x 30 seconds min assist in prep for LE ADLs/toileting. Start: 07/25/23 Expected End: 08/22/23 Cognition Utilize 1 coping skill prior to OOB transfers to mitigate fear of falling, min cues. Start: 07/25/23 Expected End: 08/22/23 Dressings Lower Extremities Patient will dress lower body min assist. Start: 07/25/23 Expected End: 08/22/23 Safety Patient will recall/demonstrate weight bearing and/or ROM restrictions with all functional mobility in order to promote healing and safety with functional tasks, no cues. Start: 07/25/23 Expected End: 08/22/23 Recall 3 safe transfer techniques prior to OOB transfers, min cues. Start: 07/25/23 Expected End: 08/22/23 Toileting Patient will complete toileting tasks with mod assist. Start: 07/25/23 Expected End: 08/22/23 Toilet transfer mod assist. Start: 07/25/23 Expected End: 08/22/23 Therapy Time Individual Co-treatment Time In 0852 Time Out 0925 Minutes 33 Timed Code Treatment Minutes: 13 Minutes (1- self) Patient's Occupational Therapy Plan of Care supervision is transferred to a [facility] Therapy Services Occupational Therapist. Goals and/or treatment plan was established in collaboration with patient/family/other representatives. Mya Valdes OTR/L Images from the original note were not included. PHYSICAL THERAPY [facility] Initial Evaluation Name/MRN: Miri Plasencia ([id number]) Evaluation Date: 07/25/2023 Date of : 1955 Admission Date: 07/22/2023 4:07 PM Age: 68 y.o. Room/Bed: H-6123/H-6123 A Discharge Recommendation: Longterm Facility Equipment Needed: No Assessment IMPRESSION: 68 y.o. pt admitted to [facility] for fall with L hip fracture. They were Max A for bed mobility, and Max A x2 for transfers. HIGH fear of falling limiting all mobility. Poor compliance with RLE NWB status. Pt is at high risk for falls. Would recommend SNF at discharge. Diagnosis: fall, Left B2 Baker periprosthetic proximal femur fracture s/p revision+ORIF on 07/24, also s/p hammertoe correction on R foot 07/18 Prognosis: good Performance Deficits /Impairments: Increased Pain, Decreased Functional Mobility, Decreased ROM, Decreased Endurance, Decreased Balance, and Decreased Fine Motor Control Decision Making: Medium Complexity Subjective Pt supine in bed. Agreeable to PT session. Cleared by nursing Pain: Villanueva-Oden Pain Ratin = Hurts even more Pain Location: L hip Past Medical History: Past Medical History: Diagnosis Date Acquired hypothyroidism 03/04/2016 Allergic rhinitis Anxiety Asthma COPD (chronic obstructive pulmonary disease) ([facility]) Gastroesophageal reflux disease without esophagitis 03/04/2016 GERD (gastroesophageal reflux disease) Hypothyroidism Lumbar disc disease 03/04/2016 Lung mass Osteoporosis 03/04/2016 Post herpetic neuralgia 03/04/2016 S/P lung surgery, follow-up exam 04/04/2016 Tobacco abuse 03/04/2016 Past Surgical History: Past Surgical History: Procedure Laterality Date CARPAL TUNNEL RELEASE Bilateral CERVICAL DISCECTOMY SECTION (HISTORICAL) CHOLECYSTECTOMY JOINT REPLACEMENT MOUTH SURGERY PLEURA BIOPSY Right 03/18/2016 Dr. Hernandezinal-lobectomy Admission Diagnosis: Patient Active Problem List Diagnosis Date Noted Cigarette smoker 07/23/2023 S/p left hip fracture 07/22/2023 Hammer toe 07/18/2023 Primary cancer of right upper lobe of lung ([facility]) 03/26/2016 Osteoporosis 03/04/2016 Acquired hypothyroidism 03/04/2016 COPD (chronic obstructive pulmonary disease) ([facility]) 03/04/2016 Gastroesophageal reflux disease without esophagitis 03/04/2016 Anxiety 03/04/2016 Post herpetic neuralgia 03/04/2016 Tobacco abuse 03/04/2016 Lumbar disc disease 03/04/2016 Medical Precautions: No active isolations Proper PPE donned/doffed in accordance with facility standards. Fall Risk: Westfall Fall Risk Score: 80 (High Risk) Precautions/Restrictions: Right LE Weight Bearing: Non-Weight Bearing Left LE Weight Bearing: Weight Bearing As Tolerated and NO hip abduction Lines/Drains/Airways: harding, PIV Family/Caregiver Present: none Overall Cognitive Status: WFL, emotionally labile, required increased time, high fear of falling, tentative for all mobility Overall Orientation Status: Oriented x4 Vision: no visual deficits Hearing: normal Social/Functional History Patient admitted from home. Lives With: Other (typically she is alone, has a son and his girlfriend staying with him now) Type of Home: trailer Home Layout: Single Level Home Home Access: Stairs to Enter with Rails (# of stairs: 4) Bathroom Shower/Tub: Toilet: N/A Home Equipment: crutches Homemaking Responsibilities: Independent Receives Help From: None Active Service Control Operator: Prior Level of Function ADL Assistance: Independent Ambulation Assistance: Independent Device(s) used: crutches and just since recent hammer toe surgery Transfer Assistance: Independent Pt stated she was home for <24 hours prior to falling and breaking L hip. Stated her son does not assist with home management. Objective Lower Extremity Assessment AROM: WFL PROM: WFL Strength: Exceptions: RLE at least 3/5. LLE 3+/5 Bed Mobility: Supine to sit: Max Assist HOB elevated, cues for hand placement for bed rail assist. Cues for all sequencing. Increased time. Full trunk assist, slight BLE assist to EOB. Transfers Sit to stand: Max Assist, x2 Person Assist Stand to sit: Max Assist, x2 Person Assist Stand pivot: Max Assist, x2 Person Assist EOB x1 at FWW with full L knee blocking, R foot propped with notable force through heel. Second stand EOB arm in arm with 2 skilled therapists, L knee blocking and support of RLE, force placed through R heel noted, unable to advance LLE, pivot performed to chair. Ambulation Did not assess this session. Sensation: WFL Outcome Measures AM-PAC How much HELP from another person do you currently need Turning from your back to your side while in a flat bed without using bedrails?: A Lot Moving from lying on your back to sitting on the side of a flat bed without using bedrails?: A Lot Moving to and from a bed to a chair (including a wheelchair)?: A Lot Standing up from a chair using your arms (wheelchair or bedside chair)?: A Lot Walking in a hospital room?: Total Stair climbing assessed?: No AM-PAC Inpatient Mobility Raw Score (No Stairs) : 9 JH-HLM JH-HLM Score: Transferred to chair/commode Plan Pt would benefit from skilled acute PT services to address Strengthening, ROM, Balance Training, Functional Mobility Training, Endurance Training, Gait Training, Safety Education and Training, Patient/Caregiver Training, and Equipment Evaluation/Education. Frequency: 5x/week for 4 weeks Barriers: Pain, New weightbearing/ROM restrictions, Anxiety, Lower extremity weakness, and Stairs at home Safety/Education Safety Safety Devices in place: All fall risk precautions in place, left in chair, gait belt, patient at risk for falls, and nurse notified Restraints: No Education Education Given To: patient Education Provided: PT Role, PT Goals, Gait Training, Plan of Care, Precautions, Transfer Training, Energy Conservation, Equipment, Fall Prevention Education, and Benefits of Increasing Activity Education Method: Verbal Barriers to Learning: anxiety Education Outcome: Continued Education Needed Goals Patient Stated Goal: to feel safe with mobility Encounter Problems Encounter Problems (Active) Balance Patient will maintain dynamic standing balance for 3 minutes with supervision in order to demonstrate decreased risk of falling. Start: 07/25/23 Expected End: 08/22/23 Patient will maintain static standing balance for 5 minutes with supervision in order to demonstrate decreased risk of falling. Start: 07/25/23 Expected End: 08/22/23 Mobility Patient will ambulate 20 feet with supervision and least restrictive device in order to improve safety and independence with mobility. Start: 07/25/23 Expected End: 08/22/23 Pain - Adult Safety Patient will recall/demonstrate weight bearing and/or ROM restrictions with all functional mobility in order to promote healing and safety with functional tasks. Start: 07/25/23 Expected End: 08/22/23 Transfers Patient will perform bed mobility with supervision in order to improve independence and prepare for out of bed mobility. Start: 07/25/23 Expected End: 08/22/23 Patient will complete functional transfer with least restrictive device with supervision in order to prepare for ambulation. Start: 07/25/23 Expected End: 08/22/23 Therapy Time Individual Co-treatment Time In 0851 Time Out 0926 Minutes 35 Timed Code Treatment Minutes: 30 Minutes (mod eval, 1 FA) Variance: 5 (seated EOB) Misty Ortiz PT Patient's Physical Therapy Plan of Care supervision is transferred to a [facility] Therapy Services Physical Therapist. Goals and/or treatment plan was established in collaboration with patient/family/other representatives. Med Team Progress Note Miri Plasencia : 1955(68 y.o.) Date: July 25, 2023 Med Team: Deepak Attending: Dr. Lara Chief Complaint: Left hip fracture Subjective: - Overnight, patient complaining of pain and insomnia. Patient was not due to pain medication yet and received ibuprofen 400 and melatonin. - Currently, patient seen resting in bed comfortably. She states she did not sleep well last night due to anxiety and requests her home melatonin. Patient underwent left hip revision yesterday. She is endorsing hip pain and left foot pain, but denies any chest pain, shortness of breath, fever, chills, nausea, vomiting. She states the dilaudid helps the pain. Patient states she has not had a bowel movement since last Friday. Review of Systems Constitutional: Negative for fever. Respiratory: Positive for cough. Negative for chest tightness and shortness of breath. Cardiovascular: Negative for chest pain and palpitations. Gastrointestinal: Negative for abdominal distention, abdominal pain, nausea and vomiting. Musculoskeletal: Positive for myalgias (L hip pain). Scheduled Meds:acetaminophen, 1,000 mg, Oral, q8h busPIRone, 5 mg, Oral, BID ceFAZolin, 2,000 mg, IntraVENous, q8h [START ON 07/26/2023] cephalexin, 250 mg, Oral, 4x daily cetirizine, 10 mg, Oral, Daily cyanocobalamin, 1,000 mcg, Oral, Daily DULoxetine, 30 mg, Oral, BID gabapentin, 600 mg, Oral, TID latanoprost, 1 drop, Both Eyes, Daily levalbuterol, 0.315 mg, Nebulization, TID levothyroxine, 75 mcg, Oral, qAM AC melatonin, 1 mg, Oral, Nightly montelukast, 10 mg, Oral, Daily nicotine, 1 patch, TransDERmal, Daily Followed by [START ON 09/03/2023] nicotine, 1 patch, TransDERmal, Daily pantoprazole, 40 mg, Oral, qAM AC Roflumilast, 500 mcg, Oral, Daily tiotropium, 1 capsule, Inhalation, Daily trospium, 20 mg, Oral, Daily Continuous Infusions: PRN meds used in last 24hrs: Objective: BP 99/64 (BP Location: Right arm, Patient Position: Lying) Pulse 98 Temp 36.3 C (97.3 F) (Temporal) Resp 18 Ht 5' 2 (1.575 m) Wt 109 lb (49.4 kg) SpO2 100% BMI 19.94 kg/m Physical Exam Constitutional: General: She is not in acute distress. Appearance: Normal appearance. She is normal weight. She is not ill-appearing. HENT: Head: Normocephalic and atraumatic. Nose: Nose normal. Eyes: Extraocular Movements: Extraocular movements intact. Pupils: Pupils are equal, round, and reactive to light. Cardiovascular: Rate and Rhythm: Normal rate and regular rhythm. Pulses: Normal pulses. Heart sounds: Normal heart sounds. Pulmonary: Effort: Pulmonary effort is normal. No respiratory distress. Breath sounds: Wheezing present. Abdominal: General: Abdomen is flat. There is no distension. Palpations: Abdomen is soft. Tenderness: There is no abdominal tenderness. Musculoskeletal: General: Tenderness (L hip pain) and signs of injury (Right foot wrapped and bandaged) present. Skin: General: Skin is warm and dry. Neurological: Mental Status: She is alert and oriented to person, place, and time. [facility] Labs within last 24 hours Auto WBC Date Value Ref Range Status 07/25/2023 7.0 3.6 - 10.7 10*3/uL Final Hemoglobin Date Value Ref Range Status 07/25/2023 7.0 (L) 11.7 - 16.0 g/dL Final 07/24/2023 7.7 (L) 11.7 - 16.0 g/dL Final 07/24/2023 10.9 (L) 11.7 - 16.0 g/dL Final Hematocrit Date Value Ref Range Status 07/25/2023 20.5 (L) 35.0 - 47.0 % Final Platelets Date Value Ref Range Status 07/25/2023 243 140 - 440 10*3/uL Final MCV Date Value Ref Range Status 07/25/2023 94.6 80.0 - 98.0 fL Final SODIUM Date Value Ref Range Status 07/25/2023 136 135 - 145 mmol/L Final POTASSIUM Date Value Ref Range Status 07/25/2023 3.6 3.5 - 5.1 mmol/L Final CHLORIDE Date Value Ref Range Status 07/25/2023 102 98 - 107 mmol/L Final CARBON DIOXIDE Date Value Ref Range Status 07/25/2023 29 22 - 30 mmol/L Final UREA NITROGEN Date Value Ref Range Status 07/25/2023 17 7 - 17 mg/dL Final CREATININE Date Value Ref Range Status 07/25/2023 0.43 (L) 0.52 - 1.04 mg/dL Final GLUCOSE Date Value Ref Range Status 07/25/2023 119 (H) 70 - 100 mg/dL Final CALCIUM Date Value Ref Range Status 07/25/2023 8.4 8.4 - 10.4 mg/dL Final MAGNESIUM Date Value Ref Range Status 07/25/2023 1.7 1.6 - 2.3 mg/dL Final PHOSPHORUS Date Value Ref Range Status 07/25/2023 3.5 2.5 - 4.5 mg/dL Final No results found for: AST , ALT , PROT , BILITOT , ALKPHOS , INR , APTT , LIPASE No results found for: CKTOTAL , CKMB , TROPONINI No results found for: PROCAL , CHOL , TRIG , HDL , TSH , VITD25 , HGBA1C , VANCOTROUGH Assessment and Plan: Left proximal femur fracture - Pt initially seen at [facility] - Hip x-ray shows s/p total left hip arthroplasty with periprostatic fracture of left proximal femur - Orthopedic surgery consulted - s/p left hip revision arthroplasty on 07/24 - Pain control with Tylenol 1000 mg q8h PRN, oxycodone 2.5/5 mg q6h PRN, Dilaudid 0.25/0.5 mg IV q4h PRN - Ok to start DVT prophylaxis; will start Lovenox - 7 days of keflex while inpatient -> duricef as outpatient COPD - Per pt, she is on 2 L NC at night - Continue home 2 L O2 NC at bedtime - Med rec completed - Pt on Fluticasone-salmeterol, albuterol, montelukast, roflumilast, umeclidinium at home for COPD - Continue home medications Hypokalemia, improved - K 3.6 this AM - Replete lytes as necessary - Monitor with BMP Neuropathy - Pt on home gabapentin - Continue home gabapentin 600 mg 3 times daily Hypothyroidism - Continue home levothyroxine 75 mcg daily Sore throat - Continue oral lozenges Insomnia - Continue melatonin 5 mg nightly - Goals of Care: FULL CODE - DVT Prophylaxis: Lovenox - GI Prophylaxis: Protonix daily - Diet: General - Disposition: GMF Associated attestation - Jaime Lara DO - 07/25/2023 4:53 PM EST I saw and evaluated the patient. I agree with the findings and plan of care as documented in the resident's note, except as noted in Green text. Patient seen and examined personally at bedside (Date of Service: 07/25/23) Summary and Oleary Changes to Care Plan: Ms. Plasencia is a 68-year-old female presenting with a fall found to have a left hip fracture. She recently had a podiatry surgery and had fallen because she lost balance with her crutches. Additional history includes COPD, hypothyroidism, neuropathy (due to hiatal hernia?), And NSC lung cancer. Patient is doing well postoperatively and has been getting oxycodone and IV Dilaudid for breakthrough pain. Moreover, she will be receiving Keflex for the next 7 days following surgery. 1. Complexity of problems addressed: Hip fracture 2. Data Reviewed or Ordered: A. Reviewed: CBC and CMP A. Ordered: CBC and CMP 3. Drug therapy requiring intensive monitoring for toxicity: IV hydromorphone 7AM-5PM: contact resident on [facility] Med B (find by hovering over attending's name on left side of patient's chart) 5PM-7AM: contact 3 [facility] Orthopedic Progress Note Name: Miri Plasencia Date:07/25/2023 Attending:Jaime Lara DO Subjective Patient doing great this morning, pain well controlled. Her main issue is pain in her R foot, likely neuropathic-type pain. Denies any new numbness or tingling to the surgical extremity. Not lightheaded. Denies chest pain or SOB Objective Vitals: 07/24/23 1700 07/24/23 1746 07/24/23 2031 07/24/23 2232 BP: 90/63 111/65 99/64 BP Location: Right arm Patient Position: Lying Pulse: 102 100 103 98 Resp: Temp: 36.8 C (98.2 F) 36.3 C (97.3 F) TempSrc: Temporal Temporal SpO2: (!) 89% 97% 92% 100% Weight: Height: Physical Exam: General: Resting in bed, NAD LLE Dressing/Skin: Prevena intact and holding suction, scant serosanguinous output SILT: Saphenous/Superficial Peroneal/Deep Peroneal/Tibial/Sural distributions Motor: +Dorsiflexion/Plantarflexion/Gr eat toe extension Pulses: Palpable DP/PT LABS: Recent Labs 07/22/23 1846 07/24/23 0151 07/24/23 1306 07/24/23 1702 07/25/23 0311 WBC 8.1 8.7 -- -- 7.0 HGB 12.1 13.1 10.9* 7.7* 7.0* HCT 35.3 39.1 32.3* 23.0* 20.5* PLT 283 333 -- -- 243 Recent Labs 07/22/23 1846 07/24/23 0151 07/25/23 0311 NA 138 139 136 K 3.1* 3.5 3.6 CL 106 104 102 CO2 24 29 29 BUN 18* 22* 17 CREATININE 0.31* 0.35* 0.43* CALCIUM 8.6 8.9 8.4 PHOS 3.7 3.8 3.5 Recent Labs 07/22/231845 INR 1.0 No results for input(s): SEDRATE , CRP in the last 72 hours. No results for input(s): HCG in the last 72 hours. Assessment Miri is a 68 y.o.female with a Left B2 Baker periprosthetic proximal femur fracture s/p revision+ORIF on 07/24, also s/p hammertoe correction on R foot 07/18 Plan -Operative plans: No further plans for surgery this admission -Weight bearing: RLE: NWB LLE: WBAT RUE: WBAT LUE: WBAT -Range of motion parameters: No abduction of left hip -Immobilization: No immobilization needed -Consults: None -Antibiotics: 24 post op IV abx > 7 days keflex inpatient then switch to duricef as an outpatient, rx written -Dressings: Continue wound vac 125mmHg continous. Measure cannister output every shift. -Other: None -Diet: no restrictions from ortho standpoint -Labs: Hgb check 2 days post op -currently 7.0, will continue to monitor. Asymptomatic this AM. -PT/OT -PT recommended outpatient/post discharge?: Yes, for basic ADLs -Medical management, dvt ppx and pain control per primary -DVT ppx recommended?: Yes, 30 days of post operative DVT ppx recommended -Follow-up with Dr. Styles in 2 weeks -Ortho to follow. Ronny River MD Orthopaedic Surgery PGY3 07/25/2023 6:28 AM Paged by RN as patient has a headache and wanted something for sleep. Upon evaluation, headache is reportedly bilateral and frontal. Was not yet due for Tylenol at that time. Ordered 1x dose of ibuprofen 400 and melatonin 5mg. -Operative plans: No further plans for surgery this admission -Weight bearing: RLE: NWB LLE: WBAT RUE: WBAT LUE: WBAT -Range of motion parameters: No abduction of left hip -Immobilization: No immobilization needed -Consults: None -Antibiotics: 24 post op IV abx > 7 days keflex inpatient then switch to duricef as an outpatient, rx written -Dressings: Continue wound vac 125mmHg continous. Measure cannister output every shift. -Other: None -Diet: no restrictions from ortho standpoint -Labs: Hgb check 2 days post op -PT/OT -PT recommended outpatient/post discharge?: Yes, for basic ADLs -Medical management, dvt ppx and pain control per primary -DVT ppx recommended?: Yes, 30 days of post operative DVT ppx recommended -Follow-up with Dr. Styles in 2 weeks -Ortho to follow. Nutrition rescreen completed. Chart reviewed. Patient to be monitored and followed by the diet medic technician. [facility] Med Team Progress Note Miri Plasencia : 1955(68 y.o.) Date: July 24, 2023 Med Team: Deepak Attending: Dr. Lara Chief Complaint: Left hip fracture Subjective: - No acute events overnight. - Currently, patient seen resting in bed comfortably. Patient says she is anxious for the procedure today. She is endorsing hip pain, but denies any chest pain, shortness of breath, fever, chills, nausea, vomiting. Patient for OR today. Review of Systems Constitutional: Negative for fever. Respiratory: Positive for cough. Negative for chest tightness and shortness of breath. Cardiovascular: Negative for chest pain and palpitations. Gastrointestinal: Negative for abdominal distention, abdominal pain, nausea and vomiting. Musculoskeletal: Positive for myalgias (L hip pain). Scheduled Meds:acetaminophen, 1,000 mg, Oral, q8h busPIRone, 5 mg, Oral, BID cetirizine, 10 mg, Oral, Daily cyanocobalamin, 1,000 mcg, Oral, Daily DULoxetine, 30 mg, Oral, BID gabapentin, 600 mg, Oral, TID latanoprost, 1 drop, Both Eyes, Daily levalbuterol, 0.315 mg, Nebulization, TID levothyroxine, 75 mcg, Oral, qAM AC montelukast, 10 mg, Oral, Daily nicotine, 1 patch, TransDERmal, Daily Followed by [START ON 09/03/2023] nicotine, 1 patch, TransDERmal, Daily pantoprazole, 40 mg, Oral, qAM AC Roflumilast, 500 mcg, Oral, Daily tiotropium, 1 capsule, Inhalation, Daily trospium, 20 mg, Oral, Daily Continuous Infusions: PRN meds used in last 24hrs: Objective: BP 121/77 (BP Location: Right arm, Patient Position: Sitting) Pulse 95 Temp 36.8 C (98.2 F) (Temporal) Resp 24 Ht 5' 2 (1.575 m) Wt 109 lb (49.4 kg) SpO2 96% BMI 19.94 kg/m Physical Exam Constitutional: General: She is not in acute distress. Appearance: Normal appearance. She is normal weight. She is not ill-appearing. HENT: Head: Normocephalic and atraumatic. Nose: Nose normal. Eyes: Extraocular Movements: Extraocular movements intact. Pupils: Pupils are equal, round, and reactive to light. Cardiovascular: Rate and Rhythm: Normal rate and regular rhythm. Pulses: Normal pulses. Heart sounds: Normal heart sounds. Pulmonary: Effort: Pulmonary effort is normal. No respiratory distress. Breath sounds: Wheezing present. Abdominal: General: Abdomen is flat. There is no distension. Palpations: Abdomen is soft. Tenderness: There is no abdominal tenderness. Musculoskeletal: General: Tenderness (L hip pain) and signs of injury (Right foot wrapped and bandaged) present. Skin: General: Skin is warm and dry. Neurological: Mental Status: She is alert and oriented to person, place, and time. [facility] Labs within last 24 hours Auto WBC Date Value Ref Range Status 07/24/2023 8.7 3.6 - 10.7 10*3/uL Final Hemoglobin Date Value Ref Range Status 07/24/2023 13.1 11.7 - 16.0 g/dL Final Hematocrit Date Value Ref Range Status 07/24/2023 39.1 35.0 - 47.0 % Final Platelets Date Value Ref Range Status 07/24/2023 333 140 - 440 10*3/uL Final MCV Date Value Ref Range Status 07/24/2023 94.7 80.0 - 98.0 fL Final SODIUM Date Value Ref Range Status 07/24/2023 139 135 - 145 mmol/L Final POTASSIUM Date Value Ref Range Status 07/24/2023 3.5 3.5 - 5.1 mmol/L Final CHLORIDE Date Value Ref Range Status 07/24/2023 104 98 - 107 mmol/L Final CARBON DIOXIDE Date Value Ref Range Status 07/24/2023 29 22 - 30 mmol/L Final UREA NITROGEN Date Value Ref Range Status 07/24/2023 22 (H) 7 - 17 mg/dL Final CREATININE Date Value Ref Range Status 07/24/2023 0.35 (L) 0.52 - 1.04 mg/dL Final GLUCOSE Date Value Ref Range Status 07/24/2023 125 (H) 70 - 100 mg/dL Final CALCIUM Date Value Ref Range Status 07/24/2023 8.9 8.4 - 10.4 mg/dL Final MAGNESIUM Date Value Ref Range Status 07/24/2023 2.0 1.6 - 2.3 mg/dL Final PHOSPHORUS Date Value Ref Range Status 07/24/2023 3.8 2.5 - 4.5 mg/dL Final No results found for: AST , ALT , PROT , BILITOT , ALKPHOS , INR , APTT , LIPASE No results found for: CKTOTAL , CKMB , TROPONINI No results found for: PROCAL , CHOL , TRIG , HDL , TSH , VITD25 , HGBA1C , VANCOTROUGH Assessment and Plan: Left proximal femur fracture - Pt initially seen at [facility] - Hip x-ray shows s/p total left hip arthroplasty with periprostatic fracture of left proximal femur - Orthopedic surgery consulted - Plan for ORIF today 07/24 - Hold DVT prophylaxis - NPO for surgery - Pain control with Tylenol 1000 mg q8h PRN and oxycodone 2.5/5 mg q6h PRN - Pre-operative risk assessment ARISCAT score puts her at intermediate risk for surgery - NSQUIP indicates below average risk overall COPD - Per pt, she is on 2 L NC at night - Continue home 2 L O2 NC at bedtime - Med rec completed - Pt on Fluticasone-salmeterol, albuterol, montelukast, roflumilast, umeclidinium at home for COPD - Continue home medications Hypokalemia, improved - K 3.5 this AM - Replete lytes as necessary - Monitor with BMP Neuropathy - Pt on home gabapentin - Continue home gabapentin 600 mg 3 times daily Hypothyroidism - Continue home levothyroxine 75 mcg daily Sore throat - Continue oral lozenges - Goals of Care: FULL CODE - DVT Prophylaxis: No DVT prophylaxis for surgery - GI Prophylaxis: Protonix daily - Diet: NPO - Disposition: GMF Associated attestation - Jaime Lara DO - 07/24/2023 10:16 PM EST I saw and evaluated the patient. I agree with the findings and plan of care as documented in the resident's note, except as noted in Green text. Patient seen and examined personally at bedside in the PACU (Date of Service: 07/24/23) Summary and Oleary Changes to Care Plan: Ms. Plasencia is a 68-year-old female presenting with a fall found to have a left hip fracture. She recently had a podiatry surgery and had fallen because she lost balance with her crutches. Additional history includes COPD, hypothyroidism, neuropathy (due to hiatal hernia?), And NSC lung cancer. I evaluated patient after her surgery. Per her nurse she had roughly 1000cc of blood loss during the procedure, yet she was doing well. She was conversational and alert. She was mildly tachycardic. Her O2 sat was in the high 80s. 1. Complexity of problems addressed: Hip fracture in over 65 yr old 2. Data Reviewed or Ordered: A. Reviewed: CBC and CMP A. Ordered: CBC and CMP B. I personally discussed this patient's case with: Inpatient pharmacist 3. Drug therapy requiring intensive monitoring for toxicity: IV hydromorphone 7AM-5PM: contact resident on [facility] B (find by hovering over attending's name on left side of patient's chart) 5PM-7AM: contact 3 [facility] Orthopedic Progress Note Name: Miri Plasencia Date:07/24/2023 Attending:Jaime Lara DO Subjective Pt doing ok. Pain tolerable if she doesn't move. No new questions about surgery. Objective Vitals: 07/23/23 0802 07/23/23 1015 07/23/23 1350 07/23/231958 BP: (!) 151/80 121/77 BP Location: Right arm Right arm Patient Position: Sitting Pulse: 88 95 Resp: 24 Temp: 36.4 C (97.5 F) 36.8 C (98.2 F) TempSrc: Temporal Temporal SpO2: 94% 95% 95% 96% Weight: Height: Physical Exam: General: Resting in bed, NAD LLE Dressing/Skin: Skin intact SILT: Saphenous/Superficial Peroneal/Deep Peroneal/Tibial/Sural distributions Motor: +Dorsiflexion/Plantarflexion/Gr eat toe extension Pulses: Palpable DP/PT LABS: Recent Labs 07/22/23 1846 07/24/23 0151 WBC 8.1 8.7 HGB 12.1 13.1 HCT 35.3 39.1 PLT 283 333 Recent Labs 07/22/23 1846 07/24/23 0151 NA 138 139 K 3.1* 3.5 CL 106 104 CO2 24 29 BUN 18* 22* CREATININE 0.31* 0.35* CALCIUM 8.6 8.9 PHOS 3.7 3.8 Recent Labs 07/22/231845 INR 1.0 No results for input(s): SEDRATE , CRP in the last 72 hours. No results for input(s): HCG in the last 72 hours. Assessment Miri is a 68 y.o.female with a Left B2 Baker periprosthetic proximal femur fracture Plan -Plan for OR for L femur ORIF and L hip revision arthroplasty today -NPO -Clear per medicine -Consented -Signed -Ice -APS consulted for gabino-operative pain, hip block done by ED -Bedrest -harding -Pain control & medical management per primary -Please hold DVT prophylaxis in anticipation of OR -Please comment on clearance in case of OR, page ortho application security architect with clearance status Rusty Daley MD Orthopedic Surgery, PGY5 07/24/23 6:32 AM [phone] Spoke with patient's floor coverer apprentice Amor Roberson about post-op recs. Patient was prescribed 10 days of doxycyline for prophylaxis for surgical wound infection. She would be non-weight bearing until pins are removed in 6 weeks after surgery. He requested Dr. Andersen keep an eye on it while she's here. Will hold off on doxycycline for now unless surgical wound shows signs of infection. Images from the original note were not included. PHYSICAL THERAPY [facility] Name/MRN: Miri Plasencia ([id number]) Date: 07/23/2023 Pt's current order is bedrest as surgery is planned for 07/24. Will follow post-op. Cal Sauceda PT Brief Orthopedic Surgery Progress Note Orthopedics team contacted treating surgeon office and discussed patient's L DOUG. For preoperative planning and documentation, implants used listed below: Anato Bath femoral stem size 4 Marcos trident acetabular shell size 52mm Bath X3 polyethylene E Marcos Biolox delta 36mm, -5mm femoral head Plan -D/w Dr. Mcnamara -Plan for OR for L femur ORIF and L hip revision arthroplasty on 07/24 -NPO at Midnight, 07/24 -Clear per medicine pending -Consented -Pre-op workup in process -Ice -APS consulted for gabino-operative pain, hip block done by ED -Bedrest -harding -Admit to medicine -Pain control & medical management per primary -Please hold DVT prophylaxis in anticipation of OR -Please comment on clearance in case of OR, page ortho application security architect with clearance status Devan Ignacio M.D. Orthopaedic Surgery PGY-1 07/23/2023 Med Team Progress Note Miri Plasencia : 1955(68 y.o.) Date: July 23, 2023 Med Team: Deepak Attending: Dr. Lara Chief Complaint: Left hip fracture Subjective: - No acute events overnight. - Currently, patient seen resting comfortably in bed. Patient states that the left hip pain is bearable, and that she does wants to avoid taking the oxycodone if she can. She currently denies any other symptoms including chest pain, shortness of breath, fever, chills, nausea. She is endorsing sore throat with her chronic cough. Review of Systems Constitutional: Negative for chills and fever. HENT: Positive for sore throat. Respiratory: Positive for cough. Negative for chest tightness and shortness of breath. Cardiovascular: Negative for chest pain and palpitations. Gastrointestinal: Negative for abdominal pain, nausea and vomiting. Musculoskeletal: Positive for myalgias (left leg pain). Scheduled Meds:acetaminophen, 1,000 mg, Oral, q8h gabapentin, 600 mg, Oral, TID ipratropium-albuterol, 3 mL, Nebulization, TID nicotine, 1 patch, TransDERmal, Daily Followed by [START ON 09/03/2023] nicotine, 1 patch, TransDERmal, Daily pantoprazole, 40 mg, Oral, qAM AC Continuous Infusions: PRN meds used in last 24hrs: Objective: BP (!) 145/90 Pulse 77 Temp 36.5 C (97.7 F) (Temporal) Resp 18 Ht 5' 2 (1.575 m) Wt 109 lb (49.4 kg) SpO2 96% BMI 19.94 kg/m Physical Exam Constitutional: General: She is not in acute distress. Appearance: Normal appearance. She is normal weight. She is not ill-appearing. HENT: Head: Normocephalic and atraumatic. Nose: Nose normal. Eyes: Extraocular Movements: Extraocular movements intact. Pupils: Pupils are equal, round, and reactive to light. Cardiovascular: Rate and Rhythm: Normal rate and regular rhythm. Pulses: Normal pulses. Heart sounds: Normal heart sounds. Pulmonary: Effort: Pulmonary effort is normal. No respiratory distress. Breath sounds: Normal breath sounds. Abdominal: General: Abdomen is flat. Bowel sounds are normal. Palpations: Abdomen is soft. Tenderness: There is abdominal tenderness. Musculoskeletal: General: Tenderness (left hip pain) and signs of injury (Right lower leg bandaged) present. Skin: General: Skin is warm and dry. Neurological: Mental Status: She is alert and oriented to person, place, and time. [facility] within last 24 hours Auto WBC Date Value Ref Range Status 07/22/2023 8.1 3.6 - 10.7 10*3/uL Final Hemoglobin Date Value Ref Range Status 07/22/2023 12.1 11.7 - 16.0 g/dL Final Hematocrit Date Value Ref Range Status 07/22/2023 35.3 35.0 - 47.0 % Final Platelets Date Value Ref Range Status 07/22/2023 283 140 - 440 10*3/uL Final MCV Date Value Ref Range Status 07/22/2023 95.0 80.0 - 98.0 fL Final SODIUM Date Value Ref Range Status 07/22/2023 138 135 - 145 mmol/L Final POTASSIUM Date Value Ref Range Status 07/22/2023 3.1 (L) 3.5 - 5.1 mmol/L Final CHLORIDE Date Value Ref Range Status 07/22/2023 106 98 - 107 mmol/L Final CARBON DIOXIDE Date Value Ref Range Status 07/22/2023 24 22 - 30 mmol/L Final UREA NITROGEN Date Value Ref Range Status 07/22/2023 18 (H) 7 - 17 mg/dL Final CREATININE Date Value Ref Range Status 07/22/2023 0.31 (L) 0.52 - 1.04 mg/dL Final GLUCOSE Date Value Ref Range Status 07/22/2023 99 70 - 100 mg/dL Final CALCIUM Date Value Ref Range Status 07/22/2023 8.6 8.4 - 10.4 mg/dL Final MAGNESIUM Date Value Ref Range Status 07/22/2023 1.8 1.6 - 2.3 mg/dL Final PHOSPHORUS Date Value Ref Range Status 07/22/2023 3.7 2.5 - 4.5 mg/dL Final AST (SGOT) Date Value Ref Range Status 07/22/2023 27 15 - 46 U/L Final ALT Date Value Ref Range Status 07/22/2023 23 0 - 34 U/L Final TOTAL PROTEIN Date Value Ref Range Status 07/22/2023 6.6 6.3 - 8.2 g/dL Final BILIRUBIN, TOTAL Date Value Ref Range Status 07/22/2023 0.6 0.2 - 1.3 mg/dL Final ALKALINE PHOSPHATASE Date Value Ref Range Status 07/22/2023 97 38 - 126 U/L Final INR Date Value Ref Range Status 07/22/2023 1.0 0.9 - 1.1 Final Comment: Recommended Anticoagulant Therapy: SEE BELOW ----- INR of 2.0 - 3.0 : - Prophylaxis of Venous Thrombosis (high-risk surgery) - Treatment of Venous Thrombosis - Treatment of Pulmonary Embolism (Includes tissue heart valves, Acute Myocardial Infarction to prevent systemic embolism, Valvular Heart Disease, and Atrial Fibrillation) ----- INR of 2.5 - 3.5 : - Mechanical Prosthetic Valves (high risk) - If oral anticoagulant therapy is used to prevent Myocardial Infarction No results found for: CKTOTAL , CKMB , TROPONINI No results found for: PROCAL , CHOL , TRIG , HDL , TSH , VITD25 , HGBA1C , VANCOTROUGH Assessment and Plan: Left proximal femur fracture - Pt initially seen at [facility] - Hip x-ray shows s/p total left hip arthroplasty with periprostatic fracture of left proximal femur - Orthopedic surgery consulted - Plan for ORIF on 07/24 - Hold DVT prophylaxis - NPO at midnight tonight - Pain control with Tylenol 1000 mg q8h PRN and oxycodone 2.5/5 mg q6h PRN - Pre-operative risk assessment - Revised Cardiac Risk Index score 6% 30 day risk of , MS, cardiac arrest COPD - Per pt, she is on 2 L NC at night - Continue home 2 L O2 NC at bedtime - Med rec completed - Pt on Fluticasone-salmeterol, albuterol, montelukast, roflumilast, umeclidinium at home for COPD - Will resume home medications - Start duo-nebs Hypokalemia - K 3.1 on admission - Replete lytes as necessary - Monitor with BMP Neuropathy - Pt on home gabapentin - Continue home gabapentin 600 mg 3 times daily Hypothyroidism - Continue home levothyroxine 75 mcg daily Sore throat - Start oral lozenges - Goals of Care: FULL CODE - DVT Prophylaxis: No DVT prophylaxis in anticipation for surgery - GI Prophylaxis: Protonix daily - Diet: General, NPO at midnight Associated attestation - Jaime Lara DO - 07/24/2023 8:29 AM EST I have discussed the care of Miri Plasencia with the medical student and/or resident. I have personally taken a history, examined the patient, and performed the associated medical decision making activities. I have reviewed & verified the attested documentation. Unless otherwise noted below, this documentation reflects the history, physical exam, and medical decision making that I performed myself. Please see the H&P from this date for my comments. Patient seen and examined personally (Date of Service: 07/24/23) 7AM-5PM: contact resident on [facility] Med B team (found by hoovering over attending's name on left side of patient's chart) 5PM-7AM: contact AI2 (Med Team A or B) or AI3 (Med Team C or D) res Images from the original note were not included. OCCUPATIONAL THERAPY [facility] Name/MRN: Miri Plasencia ([id number]) Date: 07/23/2023 OT orders received. Plan for OR for L femur ORIF and L hip revision arthroplasty on 07/24. Will follow up post-op. Mya Valdes OTR/L documented in this encounter [facility] 07-29-2023 Hospital course Narrative Internal Medicine: Med Team Discharge Summary Miri Plasencia : 1955 ADMIT DATE: 07/22/2023 DISCHARGE DATE: 07/29/23 PCP: MOHSEN MARTINEZ MD Visit Status: Admission Code Status: FULL CODE Primary Discharge Diagnosis: Left proximal femur fracture Secondary Discharge Diagnoses: COPD Right lower lobe pulmonary embolism Acute anemia Tobacco abuse Constipation in setting of opioids Hypokalemia Neuropathy Hypothyroidism Anxiety, depression GERD Sore throat Insomnia Reason for Admission & Hospital Course: Miri Plasencia is a 68 y.o. female with PMH COPD, hypothyroidism, neuropathy, NSC lung cancer that presented to [facility] on 07/22/2023 and was admitted for left hip fracture after fall from standing height. Patient originally had a surgery for right hammer toe deformity on 07/18. Patient was on crutches and fell at home on 07/19, was found down by son and taken to [facility]. She was found to have a left proximal femur fracture and transferred to [facility]. Orthopedic surgery was consulted and ORIF was performed on 07/24. During this admission, CT chest abdomen pelvis found a small lung lesion measuring 12x11 mm and a small PE in right lower arterial branch. Patient was asymptomatic throughout this time. Patient was anticoagulated with heparin and transitioned to Eliquis on discharge. Patient discharged to SNF in stable condition. Disposition: SNF Activity: up with assist Diet: Adult diet Regular Discharge Medications: Medication List START taking these medications apixaban 5 MG tablet Commonly known as: Eliquis Take 2 tablets (10 mg) by mouth 2 times daily for 7 days, THEN 1 tablet (5 mg) 2 times daily. Start taking on: July 29, 2023 cefadroxil 500 MG capsule Commonly known as: Duricef Take 1 capsule (500 mg) by mouth 2 times daily for 7 days. oxyCODONE 5 MG immediate release tablet Commonly known as: Roxicodone Take 1 tablet (5 mg) by mouth every 4 hours as needed for moderate pain (4-6) for up to 5 days. CONTINUE taking these medications albuterol 108 (90 Base) MCG/ACT inhaler busPIRone 5 MG tablet Commonly known as: Buspar Cyanocobalamin 1000 MCG capsule Dexilant [address] capsule Generic drug: dexlansoprazole DULoxetine [address] capsule Commonly known as: Cymbalta gabapentin 600 MG tablet Commonly known as: Neurontin Incruse Ellipta 62.5 MCG/ACT inhalation Generic drug: umeclidinium latanoprost 0.005 % ophthalmic solution Commonly known as: Xalatan levothyroxine 75 MCG tablet Commonly known as: Synthroid, Levoxyl loratadine 10 MG tablet Commonly known as: Claritin montelukast 10 MG tablet Commonly known as: Singulair MULTIPLE VITAMIN PO Roflumilast 500 MCG tablet Commonly known as: Daliresp tolterodine LA 4 MG 24 hr capsule Commonly known as: Detrol LA Wixela Inhub 500-50 MCG/ACT aerosol powder Generic drug: Fluticasone-Salmeterol Where to Get Your Medications You can get these medications from any pharmacy Bring a paper prescription for each of these medications oxyCODONE 5 MG immediate release tablet Information about where to get these medications is not yet available Ask your nurse or doctor about these medications apixaban 5 MG tablet cefadroxil 500 MG capsule Notable Medication Changes & Reasoning: Start Eliquis 10 mg BID for 7 days, followed by 5 mg BID for 90 days total Start Duricef 500 mg BID for 7 days Start oxycodone 5 mg q4h for moderate pain for up to 5 days [facility] Orthopedic surgery Procedures Performed Left revision total hip arthroplasty, both components 07/24/23 Significant Laboratory/Radiographic Data: XR femur left 07/22/23 IMPRESSION: 1. Status post left total hip arthroplasty and periprostatic fracture in left proximal femur, as reported. XR femur left 07/24/23 IMPRESSION: Unremarkable total left hip arthroplasty with longstem femoral component and cerclage wires. CT chest abdomen pelvis with contrast 07/27/23 IMPRESSION: 1. Bilateral pneumonia. Nodular density left lower lobe. Fleischner Society guidelines indicate that for a solitary nodule measuring greater than 8 mm in average cross-sectional size in a low or high risk patient, one of the following should be performed in three months: CT follow-up, biopsy, or PET-CT. Note that negative PET-CT does not exclude low-grade malignancy, and FDG uptake may be underestimated in small nodules (<1 cm), or those close to the diaphragm. For multiple nodules greater than 8 mm in average cross-sectional size in a low risk patient, CT follow-up is recommended in 3-6 months, then consider additional CT follow-up at 18-24 months. In a high risk patient with multiple nodules greater than 8 mm in average cross-sectional size, recommend CT follow-up in 3-6 months, with additional follow-up at 18-24 months. 2. Centrilobular emphysema. 3. Constipation. 4. Recent fracture and surgery involving left hip with swelling of the upper left thigh. Discrete hematoma is not visualized with certainty given artifact. 5. Small right-sided pulmonary embolism. Pending Results at Time of Discharge None Follow Up Appointment(s): Follow up with PCP as needed Items to Address at Followup Visit: Hospital Follow up Associated attestation - Jaime Lara DO - 07/29/2023 5:00 PM EST Patient seen & examined on day of discharge. Please refer to note dated on the day of discharge (07/29/2023) for associated attestation, exam, and plan. documented in this encounter [facility] 07-29-2023 Nurse Note Report called to [facility]. Report given to SHAY Pop. Patient set to leave [facility] around 2:30pm via ambulance. [facility] 07-29-2023 Nurse Note Report called to [facility]. Report given to SHAY Pop. Patient set to leave [facility] around 2:30pm via ambulance. IMS @ bedside documented in this encounter [facility] 07-29-2023 Note Formatting of this n ote might be different from the original. Transport arranged for 1430 today to transfer pt to [facility]. RN, , TCC, pt and [facility] notified. [facility] 07-29-2023 Miscellaneous Notes Transport arranged for 1430 today to transfer pt to [facility]. RN, US, TCC, pt and [facility] notified. Patient Choice Patient Name: MIRI PLASENCIA Date of : 1955 All Providers Sent Referral Name: [facility] [place] Phone: [phone] Address: [address] [place] [address] Name: [facility] [facility] [employer] Phone: [phone] Address: [address] [place] [address] Name: [address] Phone: [phone] Address: [address] [place] [address] Discharge med list transmitted to [facility] via Careport per TCC request. 7000 was entered into LiveRamp. Discharge order noted. CM portion of EDISON updated. Task sent to [facility] to send discharge paperwork to facility and to complete 7000.. SW arranging transportation. Insurance auth approved for [facility]. Updated treatment team. Awaiting orders. Problem: Pain - Adult Goal: Verbalizes/displays adequate comfort level or baseline comfort level Outcome: Progressing Problem: Safety - Adult Goal: Free from fall injury Outcome: Progressing Problem: Discharge Planning Goal: Discharge to home or other facility with appropriate resources Outcome: Progressing Problem: Chronic Conditions and Co-morbidities Goal: Patient's chronic conditions and co-morbidity symptoms are monitored and maintained or improved Outcome: Progressing Problem: Knowledge Deficit Goal: Patient/family/caregiver demonstrates understanding of disease process, treatment plan, medications, and discharge instructions Outcome: Progressing Problem: Potential for Compromised Skin Integrity Goal: Skin Integrity is Maintained or Improved Outcome: Progressing Goal: Nutritional status is improving Outcome: Progressing Problem: Urinary Incontinence Goal: Perineal skin integrity is maintained or improved Outcome: Progressing Images from the original note were not included. CARE COORDINATION DAILY NOTE/UPDATE Medical Plan: admitted with with a Left B2 Baker periprosthetic proximal femur fracture s/p revision+ORIF on 07/24, also s/p hammertoe correction on R foot 07/18. Ortho has signed off. Wound VAC in place. Discharge Plan: Located within [facility]- reviewing [facility] -unable to accept [address] -able to accept Discharge Barriers: pending updated therapy notes, then AUTH to be submitted, and completion of discharge orders/EDISON/med rec This TCC was tasked to follow this patient through the weekend assisting with discharge planning. Chart and Careport reviewed. Facility responses to referrals listed above. Call placed to patients room, patient is agreeable to [address]. Facility updated and asked to start AUTH. Updated docs uploaded. Therapy line called and updated PT/OT notes requested to be completed on Friday for submission of AUTH Friday. Expected discharge, Discharge Milestones, and Rapid Rounding reviewed and updated. TCC will continue to follow. Discharge Milestones and Delays Expected Date/Time: 07/28/[address] discharge order Complete med reconciliation Case mgmt discharge readiness Clinical Stability Diagnsotic Workup Expected Discharge History Expected Date/Time Set By Reviewed At 07/28/2023 Neha Cunningham RN 07/26/2023 11:38 AM pending updated therapy notes, then AUTH to be submitted, and completion of discharge orders/EDISON/med rec 07/26/2023 Victoriano Marrufo RN 07/25/2023 7:55 AM TCC ESTIMATE 07/26/2023 Victoriano Marrufo RN 07/24/2023 7:56 AM 07/25/2023 Victoriano Marrufo RN 07/23/2023 8:00 AM 07/25/2023 Timi James MD 07/23/2023 12:40 AM 07/25/2023 Timi James MD 07/22/2023 10:42 PM 07/26/2023 Luz Perez DO 07/22/2023 10:32 PM Length of Stay (Days): 4 GMLOS: 3.2 Referral placed to [facility]- [facility] and nursing [facility] Let facilities know , patient will have Prevena wound VAC at discharge. Anticipate she will be ready on Friday via Careport per TCC request. Await review and response regarding ability to accept. TCC notified. Images from the original note were not included. Care Management Progress Note Patient remains on H6, s/p L hip ORIF on 07/24 (also s/p R hammertoe surgery on 07/18 before admission). Prevena wound vac in use. On IV antibiotics. Supplemental oxygen at 4L (baseline is 2L at home). Hemoglobin is 7. Discharge plan is penitentiary: Task sent via Careport to [facility] to send referrals to [facility], [facility], and [facility] per patient request. Will await replies. TCC will continue to follow. Discharge Milestones and Delays Expected Date/Time: 07/26/[address] discharge order Complete med reconciliation Case mgmt discharge readiness Clinical Stability Diagnsotic Workup Expected Discharge History Expected Date/Time Set By Reviewed At 07/26/2023 Victoriano Marrufo RN 07/25/2023 7:55 AM TCC ESTIMATE 07/26/2023 Victoriano Marrufo RN 07/24/2023 7:56 AM 07/25/2023 Victoriano Marrufo RN 07/23/2023 8:00 AM 07/25/2023 Timi James MD 07/23/2023 12:40 AM 07/25/2023 Timi James MD 07/22/2023 10:42 PM 07/26/2023 Luz Perez DO 07/22/2023 10:32 PM Length of Stay (Days): 3 GMLOS: 3.2 SW coverage for today. Ambulance form completed and placed on pt's chart. [facility] [address] [facility] [id number] Dept: [phone] Loc: [phone] Operative Report Patient Name: Miri Plasencia Date of : 1955 Date of Surgery: 07/24/23 Pre-operative diagnosis: Left periprosthetic proximal femur fracture Post-operative diagnosis: Same Procedure(s): Left revision total hip arthroplasty, both components (cpt 93581) Surgeon: Faisal Styles M.D. Church Worker(s): Casey Rubio M.D. Anesthesia: General EBL: 1000 cc IVF: 2L Crystalloid, 300 mL 25% albumin Medications: Ancef 2 grams IV at start of procedure, redosed another 2g at the 4-hour emigdio Implants: Bath Sikh Modular Hip System size 115mm x 18mm diaphyseal stem, size 21mm/+10 proximal body, Marcos Biolox ceramic V40 head size 28/-2.7mm, Marcos MDM liner size 42mm, X3 outer poly size 42mm, three 2.0mm Dall-Miles cables Clinical History/Indication for Surgery The patient is a 68 y.o. year old female who was presents for left periprosthetic proximal femur fracture. X-rays showed a Baker B2 proximal femur fracture with a loose femoral component. Given the fracture and state of her implant, recommendation was for revision DOUG to diaphyseal fitting femoral stem and revision to dual mobility. Risks, benefits, and alternatives of surgery were reviewed at length to include bleeding, infection, dislocation, leg length discrepancy, neurovascular injury, fracture, failure to provide the intended benefits, need for further surgery, blood clots and general medical risks. The patient expressed understanding and ultimately elected to proceed with the indicated surgery. Operative Narration The patient was brought to the operating room and transferred to the operating table. A spinal anesthetic was placed by the anesthesia team. The patient was then turned to the lateral decubitus position with the operative extremity facing up. An axillary roll was placed. All bony prominences were protected with padding. The operative leg was then prepped and draped in standard sterile orthopedic fashion. A surgical timeout was then performed to confirm the correct patient, correct extremity, and correct x-rays. Antibiotics and TXA were confirmed to be given. An incision was made for a posterior approach, centered over the greater trochanter and taken down to the fascia. The fascia was incised and retracted. The sciatic nerve was palpated posterior to the surgical field and protected throughout the case. The Charnley retractor was placed. The piriformis along with the remaining short external rotators were identified and released from the posterior trochanter. These were tagged for later repair. A capsulotomy was performed and deep flaps were tagged with suture and retracted. Hematoma was encountered. The femoral stem's neck was identified and dissection carried along the neck posteriorly until the acetabular component was encountered. The redundant capsule was excised. The femoral head was dislocated. A tamp was used to remove the head from the trunnion. The distal femur could be felt to be separate from the trochanter fracture. The femur was fully internally rotated, and a posterior retractor was placed for the femur and the proximal femur was exposed. Inspection of the proximal femur showed micromotion of the stem with manipulation as well as some fibrous growth between the proximal femur and femoral stem. Soft tissue and bone was removed to expose the shoulder of the implant. A pencil-tip saul was used to disrupt any remaining surfaces between the proximal implant and bone. A removal device was assembled to the trunnion and the femoral component was easily extracted. Evaluation of the proximal femur showed the proximal segment of the greater and lesser trochanter to be fractured in once piece from the distal segment of the femur. Next, the acetabulum was exposed with circumferential retractors directly on bone. Any remaining scar tissue was removed. The edges of the acetabular component were fully exposed. A drill was used to make a packing machine pilot can router hole in the poly liner and a screw inserted to remove the liner. A hemalatha was used to pull on the cup, which showed complete movement of the pelvis signifying excellent fixation of the cup. Decision at this time was to insert the final dual mobility metal shell. The final shell of above size was impacted into place with excellent initial seat. Irrigation was performed. Attention was then turned back to the femur. Distal exposure was continued with a subvastus approach, elevating the vastus lateralis off the posterior margin and reflecting it anteriorly. This was carried down past the fracture to allow placement of a prophylactic cable. Cable passer was used right off bone and the cable passed and tensioned just distal to the fracture site. A large reduction clamp was then used to manipulate the proximal femur fracture fragment and a second cable was passed in similar fashion. The cable was tensioned and fluoroscopy confirmed good reduction of the fracture and cable placement. The femur was fully internally rotated, and a posterior retractor was placed for the femur and the proximal femur was exposed in preparation for the diaphyseal stem. The canal was initially reamed with flexible reamers and then sequentially reamed with the rigid reamers to the above size where good cortical screaming was heard. Fluoroscopy confirmed good cortical fit and stem length in the diaphysis. The reamer was removed and the final diaphyseal stem of the above size was impacted into place. Next, the proximal body was prepared. The reamers were sequentially placed to the above size. Trialing was performed with the trial proximal body in adequate anteversion and the above noted dual mobility, which showed that the above neck length was appropriate for limb length and offset hoahaoism. It was noted that the greater trochanter fractured from the lesser trochanter fragment at this point. The vastus-abductor sleeve was well-maintained with the greater trochanter and it was decided to leave this fragment alone. A third cable was passed just distal to the lesser trochanter to provide another point of fixation for the main fracture. The hip was dislocated and the trial components removed. The wound was copiously irrigated with normal saline. The final proximal body was impacted into place, with care to note the appropriate anteversion from trialing. The above noted head was impacted onto the trunnion and the hip reduced. Final range of motion of the hip demonstrated a stable hip to 65 of internal rotation at 90 of hip flexion and to full external rotation with the leg in full extension. Leg lengths were restored. Next, thorough irrigation was performed with normal saline and dilute betadine. 1g of Vancomycin powder was placed into the joint. The capsule was closed with #5 Ethibond. The subvastus exposure was closed with a running #2 barbed monofilament suture. The fascial layer was then reapproximated with 0 vicryl and a running #2 barbed monofilament suture. 2-0 Vicryl sutures were used to close the subcutaneous skin, and kelvin were used for the skin closure. A Prevena incisional vac was applied. The patient was awakened and transferred to the recovery room in stable condition. Postoperative Plan WBAT operative extremity Posterior hip precautions x6 weeks No active hip abduction Abx x24h postop, then PO x7 days PT DVT per primary Prevena to remain for 14 days Follow-up in 2 weeks This operative report was prepared and signed by Faisal Styles MD at 07/24/23, 3:41 PM Care Managment Initial Assessment Date: 07/23/2023 Patient Name: Miri Plasencia : 1955 Patient Information Source of Information: Patient Cognition/Language: WFL - Within Functional Limits Permission given to speak with patient denial management representative/caregiver as indicated: No Confirmation of Payer with patient/family: Yes Payer Name: [employer] MEDICARE ADVANTAGE [place]: No Confirmation of Primary Care Physician: Confirmed PCP Name: Dr Duckworth Seen in last 2 years?: Yes Primary Caregiver: Self If assistance needed, confirmed caregiver ready, willing and able to care for patient at discharge: Confirmed with: Living Arrangements Current Residence: Private Residence (trailer) Number of Floors 1 Number of Entry Steps: 4 Bed/Bath Levels: Both first floor Facility: Facility Name: Plan to Return: Lives with: Children, Extended family members Support Systems: Children, Family members Activities of Daily Living Ambulation: Independent Bathing/Dressing: Independent Elimination/Continence/Toiletin g: Independent Feeding: Independent Who Assists with Activities of Daily Living: Instrumental Activities of Daily Living Prescription Coverage: Yes [facility] Medication Management: Independent Transportation/Shopping: Assistance Provider Transportation/Shopping Assistance Provider Name: son is helping Transportation Mode: Car Needs Assistance with Transportation at Discharge: No Meal Preparation: Assistance Provider Meal Prep Assistance Provider Name: son and daughter in law Laundry/Cleaning: Assistance Provider Laundry/Cleaning Assistance Provider Name: son and daughter in law Finances/Bill Paying: Independent Communication: Independent Types of Care Services/Equipment Utilized Care Services: (NA) Dialysis Type: NA Durable Medical Equipment: Oxygen (Continuous or prn), Other (Comment), Nebulizer, Walker, Wheelchair (standard or power), Cane, Raised Toilet Seat Oxygen Flow Rate: 2L Patient's Goal/Discharge Plan Patient expects to be discharged to: home with home care vs rehab Discharge Planning Actions: Continue to follow Patient's Choice Rights and [employer] and Collaborative Relationships Disclosed as Indicated for Post-Acute Care: NA Interdisciplinary Team Engagement: PT/OT Social Work Referral for: Additional Information: Met with patient at their bedside. Introduced self and role. Discussed discharge planning. Patient has help at home and transportation available upon discharge. Discharge plan is to be determined pending therapy recommendations after surgery.Patient verbalized understanding of discharge plan and agrees with plan. TCC will continue to follow. Associated Order(s): Nerve Block Procedure Nerve Block Performed by: Martell Hunter MD Authorized by: Raymundo Garduno DO Consent: Consent obtained: Written Consent given by: Patient Risks discussed: Infection, intravenous injection, pain, unsuccessful block, bleeding, allergic reaction, nerve damage and swelling Alternatives discussed: No treatment [place] protocol: Procedure explained and questions answered to patient or proxy's satisfaction: yes Relevant documents present and verified: yes Test results available: yes Imaging studies available: yes Required blood products, implants, devices, and special equipment available: yes Site/side marked: yes Immediately prior to procedure, a time out was called: yes Patient identity confirmed: Arm band and hospital-assigned identification number Indications: Indications: Pain relief Location: Body area: Lower extremity Lower extremity nerve: Femoral (fascial iliaca and femoral nerve block) Laterality: Left Pre-procedure details: Skin preparation: Chlorhexidine Preparation: Patient was prepped and draped in usual sterile fashion Skin anesthesia: Skin anesthesia method: Local infiltration Local anesthetic: Bupivacaine 0.5% w/o epi Procedure details: Block needle gauge: 21 G Guidance: ultrasound Anesthetic injected: Bupivacaine 0.5% w/o epi Injection procedure: Anatomic landmarks identified, incremental injection, negative aspiration for blood and introduced needle Post-procedure details: Outcome: Pain relieved Procedure completion: Tolerated well, no immediate complications Martell Hunter MD Resident 07/22/232311 documented in this encounter [facility] 07-29-2023 Note Formatting of this n ote might be different from the original. Patient Choice Patient Name: MIRI PLASENCIA Date of : 1955 All Providers Sent Referral Name: [facility] Phone: [phone] Address: [address] [place] [address] Name: [facility] [facility] [employer] Phone: [phone] Address: [address] [place] [address] Name: [address] Phone: [phone] Address: [address] [place], [place] [id number] [facility] 07-29-2023 Note Formatting of this n ote might be different from the original. Discharge med list [facility] request. 7[address] was entered into LiveRamp. [facility] 07-29-2023 Note Formatting of this n ote might be different from the original. Discharge order noted. CM portion of EDISON updated. Task sent to [facility] to send discharge paperwork to facility and to complete 7000.. SW arranging transportation. [employer] [facility] 07-29-2023 Note If severe anemia is persistent without identified underlying cause, evaluation for a primary marrow disorder like myelodysplastic syndrome may be indicated. Please correlate with clinical findings. [employer] Phone: 07-29-2023 Note Peripheral smear sli de prepared for evaluation. [employer] Phone: 07-28-2023 Note Family Communication Number Called: [phone] Name of Designated Family Finish Mill Operator: Jose Alberto King Relationship: brother Phone Call Outcome: I spoke with the individual listed above. Family Finish Mill Operator Updated on the Following: Patient status following surgery, need for transfusion and currently stable hemoglobin, pulmonary emboli finding on her most recent CT requiring IV heparin, and to be transitioned to Eliquis tomorrow. Incidental finding of lung nodule, informed patient that she will need to follow up outpatient to likely get a repeat CT scan to determine if further management is warranted. [facility] 07-28-2023 Note Addendum created 07/10 1000 by OANH Kruger CNP Clinical Note Signed, Order list changed, SmartForm saved [facility] 07-28-2023 Note Orthopedic Progress Note Name: Miri Plasencia Date:07/28/2023 Attending:Jaime Lara DO Subjective CHIEF COMPLAINT: s/p hammertoe correction on R foot 07/18 HPI: Patient is seen resting in bedside chair. She reports the pain into her right foot is very manageable at this time. The patient endorses that her most severe pain is in to her left femur, status post revision ORIF on 07/24/2023. Patient denies any fevers, chills, or feelings of malaise. She states that it has been difficult to ambulate while abiding by the nonweightbearing right lower extremity restrictions in the context of her recent surgery. Objective PAST MEDICAL HISTORY Patient Active Problem List Diagnosis Osteoporosis Acquired hypothyroidism COPD (chronic obstructive pulmonary disease) (HCC) Gastroesophageal reflux disease without esophagitis Anxiety Post herpetic neuralgia Tobacco abuse Lumbar disc disease Primary cancer of right upper lobe of lung (HCC) S/p left hip fracture Hammer toe Cigarette smoker PAST SURGICAL HISTORY Past Surgical History: Procedure Laterality Date CARPAL TUNNEL RELEASE Bilateral CERVICAL DISCECTOMY SECTION (HISTORICAL) CHOLECYSTECTOMY JOINT REPLACEMENT MOUTH SURGERY PLEURA BIOPSY Right 03/18/2016 Dr. Hernandezinal-lobectomy HOME MEDICATIONS Prior to Admission medications Medication Sig Start Date End Date Taking? Authorizing Provider Cyanocobalamin 1000 MCG capsule Take 1 capsule by mouth daily. 01/31/22 Yes Historical Provider, MULTIPLE VITAMIN PO Take by mouth. 01/31/22 Yes Historical Provider, albuterol 108 (90 Base) MCG/ACT inhaler Inhale 2 puffs every 6 hours as needed for wheezing or shortness of breath. Historical Provider, busPIRone (Buspar) 5 MG tablet Take 5 mg by mouth 2 times daily. Historical Provider, cefadroxil (Duricef) 500 MG capsule Take 1 capsule (500 mg) by mouth 2 times daily for 7 days. 07/24/23 07/31/23 Casey Rubio MD dexlansoprazole (Dexilant) [address] capsule Take 60 mg by mouth daily. Historical Provider, DULoxetine (Cymbalta) [address] capsule Take 30 mg by mouth 2 times daily. Do not crush or chew. Historical Provider, Fluticasone-Salmeterol (Wixela Inhub) 500-50 MCG/ACT aerosol powder Inhale 1 Inhalation 2 times daily. Historical Provider, gabapentin (Neurontin) 600 MG tablet Take 600 mg by mouth 3 times daily. Historical Provider, latanoprost (Xalatan) 0.005 % ophthalmic solution Administer 1 drop into both eyes before bedtime. Historical Provider, levothyroxine (Synthroid, Levoxyl) 75 MCG tablet Take 75 mcg by mouth every morning (before breakfast). Historical Provider, loratadine (Claritin) 10 MG tablet Take 10 mg by mouth daily. Historical Provider, montelukast (Singulair) 10 MG tablet Take 10 mg by mouth daily. Historical Provider, Roflumilast (Daliresp) 500 MCG tablet Take 500 mcg by mouth daily. Historical Provider, tolterodine LA (Detrol LA) 4 MG 24 hr capsule Take 4 mg by mouth Nightly. Do not crush, chew, or split. Historical Provider, umeclidinium (Incruse Ellipta) 62.5 MCG/ACT inhalation Inhale 1 puff daily. Historical Provider, Fluticasone-Salmeterol (Advair Diskus) 500-50 MCG/ACT aerosol powder 07/23/23 Historical Provider, CURRENT HOSPITAL MEDICATIONS Current Facility-Administered Medications: acetaminophen (Tylenol) tablet 650 mg, 650 mg, Oral, Q4H, Jennifer Mc APRN - [employer], 650 mg at 07/28/23310 busPIRone (Buspar) tablet 5 mg, 5 mg, Oral, BID, Casey Rubio MD, 5 mg at 07/27/232129 cephalexin (Keflex) capsule 250 mg, 250 mg, Oral, 4x daily, Casey Rubio MD, 250 mg at 07/27/232130 cetirizine (ZyrTEC) tablet 10 mg, 10 mg, Oral, Daily, Casey Rubio MD, 10 mg at 07/27/23823 cyanocobalamin (Vitamin B-12) tablet 1,000 mcg, 1,000 mcg, Oral, Daily, Casey Rubio MD, 1,000 mcg at 07/27/23823 DULoxetine (Cymbalta) DR capsule 30 mg, 30 mg, Oral, BID, Casey Rubio MD, 30 mg at 07/27/232129 enoxaparin (Lovenox) syringe 40 mg, 40 mg, SubCUTAneous, Daily, Hi Townsend MD, 40 mg at 07/26/23816 gabapentin (Neurontin) capsule 600 mg, 600 mg, Oral, TID, Casey Rubio MD, 600 mg at 07/27/232129 HYDROmorphone (Dilaudid) injection 0.25 mg, 0.25 mg, IntraVENous, q4h PRN OR HYDROmorphone (Dilaudid) injection 0.5 mg, 0.5 mg, IntraVENous, q4h PRN, Casey Rubio MD, 0.5 mg at 07/28/23 0534 ipratropium-albuterol (Duo-Neb) 0.5-2.5 mg/3 mL nebulizer solution 3 mL, 3 mL, Nebulization, PRN, Casey Rubio MD latanoprost (Xalatan) 0.005 % ophthalmic solution 1 drop, 1 drop, Both Eyes, Daily, Casey Rubio MD, 1 drop at 07/27/233 levalbuterol (Xopenex) 0.63 MG/3ML nebulizer solution 0.315 mg, 0.315 mg, Nebulization, TID, Casey Rubio MD, 0.315 mg at 07/27/231944 levothyroxine (Synthroid, Levoxyl) tablet 75 mcg, 75 mcg, O (more content not included)... [facility] 07-28-2023 Note Formatting of this n ote might be different from the original. Insurance auth approved for [employer]. Updated treatment team. Awaiting orders. [facility] [employer] [facility] 07-28-2023 Note Formatting of this n ote is different from the original. Addendum created 07/28/23 1000 by OANH Kruger CNP Clinical Note Signed, Order list changed, SmartForm saved [facility] Work Phone: 07-28-2023 Miscellaneous Notes Addendum created 07/28/23 1000 by OANH Kruger CNP Clinical Note Signed, Order list changed, SmartForm saved Addendum created 07/27/23 1417 by OANH Theodore CNP Clinical Note Signed, Order list changed, Pharmacy for encounter modified Addendum created 07/27/23 1244 by OANH Theodore CNP Pend clinical note Addendum created 07/27/23 0756 by OANH Theodore CNP Pend clinical note Addendum created 07/26/23 1257 by OANH Theodore CNP Clinical Note Signed Addendum created 07/26/23 0620 by OANH Theodore CNP Pend clinical note documented in this encounter [facility] 07-27-2023 Note Addendum created 06/09 1417 by OANH Theodore CNP Clinical Note Signed, Order list changed, Pharmacy for encounter modified [facility] 07-27-2023 Note Addendum created 06/09 1244 by OANH Theodore CNP Pend clinical note [facility] 07-27-2023 Note Formatting of this n ote is different from the original. Addendum created 07/27/23 1417 by OANH Theodore CNP Clinical Note Signed, Order list changed, Pharmacy for encounter modified [facility] 07-27-2023 Note Formatting of this n ote is different from the original. Addendum created 07/27/23 1417 by OANH Theodore CNP Clinical Note Signed, Order list changed, Pharmacy for encounter modified [facility] 07-27-2023 Note Formatting of this n ote is different from the original. Addendum created 07/27/23 1417 by OANH Theodore CNP Clinical Note Signed, Order list changed, Pharmacy for encounter modified [facility] 07-27-2023 Note Formatting of this n ote is different from the original. Addendum created 07/27/23 1417 by OANH Theodore CNP Clinical Note Signed, Order list changed, Pharmacy for encounter modified [facility] 07-27-2023 Miscellaneous Notes Addendum created 07/27/23 1417 by OANH Theodore CNP Clinical Note Signed, Order list changed, Pharmacy for encounter modified Addendum created 07/27/23 1244 by OANH Theodore CNP Pend clinical note Addendum created 07/27/23 0756 by OANH Theodore CNP Pend clinical note Addendum created 07/26/23 1257 by OANH Theodore CNP Clinical Note Signed Addendum created 07/26/23 0620 by OANH Theodore CNP Pend clinical note documented in this encounter [facility] 07-27-2023 Note Formatting of this n ote is different from the original. Addendum created 07/27/23 1244 by OANH Theodore CNP Pend clinical note [facility] 07-27-2023 Note Formatting of this n ote is different from the original. Addendum created 07/27/23 1244 by OANH Theodore CNP Pend clinical note [facility] 07-27-2023 Note Formatting of this n ote is different from the original. Addendum created 07/27/23 1244 by OANH Theodore CNP Pend clinical note [facility] 07-27-2023 Note Formatting of this n ote is different from the original. Addendum created 07/27/23 1244 by OANH Theodore CNP Pend clinical note [facility] 07-27-2023 Plan of care note Problem: Pain - Adult Goal: Verbalizes/displays adequate comfort level or baseline comfort level Outcome: Progressing Problem: Safety - Adult Goal: Free from fall injury Outcome: Progressing Problem: Discharge Planning Goal: Discharge to home or other facility with appropriate resources Outcome: Progressing Problem: Chronic Conditions and Co-morbidities Goal: Patient's chronic conditions and co-morbidity symptoms are monitored and maintained or improved Outcome: Progressing Problem: Knowledge Deficit Goal: Patient/family/caregiver demonstrates understanding of disease process, treatment plan, medications, and discharge instructions Outcome: Progressing Problem: Potential for Compromised Skin Integrity Goal: Skin Integrity is Maintained or Improved Outcome: Progressing Goal: Nutritional status is improving Outcome: Progressing Problem: Urinary Incontinence Goal: Perineal skin integrity is maintained or improved Outcome: Progressing [facility] 07-27-2023 Note Addendum created 06/09 075 by OANH Theodore CNP Pend clinical note [facility] 07-27-2023 Note Formatting of this n ote is different from the original. Addendum created 07/27/23 075 by OANH Theodore CNP Pend clinical note [facility] 07-27-2023 Note Formatting of this n ote is different from the original. Addendum created 07/27/23 075 by OANH Theodore CNP Pend clinical note [facility] 07-27-2023 Note Formatting of this n ote is different from the original. Addendum created 07/27/23 075 by OANH Theodore CNP Pend clinical note [facility] 07-27-2023 Note Formatting of this n ote is different from the original. Addendum created 07/27/23 075 by OANH Theodore CNP Pend clinical note [facility] 07-26-2023 Note Addendum created 05/10 1257 by OANH Theodore CNP Clinical Note Signed [facility] 07-26-2023 Note Formatting of this n ote is different from the original. Addendum created 07/26/23 1257 by OANH Theodore CNP Clinical Note Signed [facility] 07-26-2023 Note Formatting of this n ote is different from the original. Addendum created 07/26/23 1257 by OANH Theodore CNP Clinical Note Signed [facility] 07-26-2023 Note Formatting of this n ote is different from the original. Addendum created 07/26/23 1257 by OANH Theodore CNP Clinical Note Signed [facility] 07-26-2023 Note Formatting of this n ote is different from the original. Addendum created 07/26/23 1257 by OANH Theodore CNP Clinical Note Signed [facility] 07-26-2023 Note Formatting of this n ote is different from the original. Addendum created 07/26/23 1257 by OANH Theodore CNP Clinical Note Signed [facility] 07-26-2023 Note Formatting of this n ote is different from the original. Addendum created 07/26/23 1257 by OANH Theodore CNP Clinical Note Signed [facility] 07-26-2023 Miscellaneous Notes Addendum created 07/26/23 1257 by OANH Theodore CNP Clinical Note Signed Addendum created 07/26/23 0620 by OANH Theodore CNP Pend clinical note documented in this encounter [facility] 07-26-2023 Note Formatting of this n ote is different from the original. Images from the original note were not included. CARE COORDINATION DAILY NOTE/UPDATE Medical Plan: admitted with with a Left B2 Baker periprosthetic proximal femur fracture s/p revision+ORIF on 07/24, also s/p hammertoe correction on R foot 07/18. Ortho has signed off. Wound VAC in place. Discharge Plan: [facility]- reviewing [place] -unable to accept [address] -able to accept Discharge Barriers: pending updated therapy notes, then AUTH to be submitted, and completion of discharge orders/DEISON/med rec This TCC was tasked to follow this patient through the weekend assisting with discharge planning. Chart and Careport reviewed. Facility responses to referrals listed above. Call placed to patients room, patient is agreeable to [address]. Facility updated and asked to start AUTH. Updated docs uploaded. Therapy line called and updated PT/OT notes requested to be completed on Friday for submission of AUTH Friday. Expected discharge, Discharge Milestones, and Rapid Rounding reviewed and updated. TCC will continue to follow. Discharge Milestones and Delays Expected Date/Time: 07/28/[address] discharge order Complete med reconciliation Case mgmt discharge readiness Clinical Stability Diagnsotic Workup Expected Discharge History Expected Date/Time Set By Reviewed At 07/28/2023 Neha Cunningham RN 07/26/2023 11:38 AM pending updated therapy notes, then AUTH to be submitted, and completion of discharge orders/EDISON/med rec 07/26/2023 Victoriano Marrufo RN 07/25/2023 7:55 AM TCC ESTIMATE 07/26/2023 Victoriano Marrufo RN 07/24/2023 7:56 AM 07/25/2023 Victoriano Marrufo RN 07/23/2023 8:00 AM 07/25/2023 Timi James MD 07/23/2023 12:40 AM 07/25/2023 Timi James MD 07/22/2023 10:42 PM 07/26/2023 Luz Perez DO 07/22/2023 10:32 PM Length of Stay (Days): 4 GMLOS: 3.2 [facility] 07-26-2023 Note Orthopedic Progress Note Name: Miri Plasencia Date:07/26/2023 Attending:Jaime Lara DO Subjective Pain controlled. States that her nurse helped her undo her splint last night. Objective Vitals: 07/25/23 0953 07/25/23 1410 07/25/23 1633 07/25/23 195 BP: 109/63 112/66 BP Location: Patient Position: Pulse: 92 66 (!) 115 110 Resp: 20 18 20 18 Temp: 37.2 ?C (98.9 ?F) 36.8 ?C (98.3 ?F) TempSrc: Temporal Temporal SpO2: 97% 92% 91% 94% Weight: Height: Physical Exam: General: Resting in bed, NAD LLE Dressing/Skin: Prevena intact and holding suction, scant serosanguinous output SILT: Saphenous/Superficial Peroneal/Deep Peroneal/Tibial/Sural distributions Motor: +Dorsiflexion/Plantarflexion/Gr eat toe extension Pulses: Palpable DP/PT RLE splint had completely fallen off. It was reapplied and lightly re-wrapped. LABS: Recent Labs 07/24/23 0151 07/24/23 1306 07/24/23 1702 07/25/23 0311 WBC 8.7 -- -- 7.0 HGB 13.1 10.9* 7.7* 7.0* HCT 39.1 32.3* 23.0* 20.5* PLT 333 -- -- 243 Recent Labs 07/24/23 0151 07/25/23 0311 NA 139 136 K 3.5 3.6 CL 104 102 CO2 29 29 BUN 22* 17 CREATININE 0.35* 0.43* CALCIUM 8.9 8.4 PHOS 3.8 3.5 No results for input(s): INR in the last 72 hours. No results for input(s): SEDRATE , CRP in the last 72 hours. No results for input(s): HCG in the last 72 hours. Assessment Miri is a 68 y.o.female with a Left B2 Baker periprosthetic proximal femur fracture s/p revision+ORIF on 07/24, also s/p hammertoe correction on R foot 07/18 Plan -Operative plans: No further plans for surgery this admission -Weight bearing: RLE: NWB LLE: WBAT RUE: WBAT LUE: WBAT -Range of motion parameters: No abduction of left hip -Immobilization: RLE splint - continue, if going to remove please let ortho team know. -Antibiotics: 24 post op IV abx > 7 days keflex inpatient then switch to duricef as an outpatient, rx written -Dressings: Continue wound vac 125mmHg continous. Measure cannister output every shift. -Other: None -Diet: no restrictions from ortho standpoint -Labs: Hgb check 2 days post op -7 yesterday, repeat p -PT/OT -PT recommended outpatient/post discharge?: Yes, for basic ADLs -Medical management, dvt ppx and pain control per primary -DVT ppx recommended?: Yes, 30 days of post operative DVT ppx recommended -Follow-up with Dr. Styles in 2 weeks -Ortho to sign off, please call with questions/concerns [facility] 07-26-2023 Note Addendum created 05/10 by OANH Theodore CNP Pend clinical note [facility] 07-26-2023 Note Formatting of this n ote is different from the original. Addendum created 07/26/23619 by OANH Theodore CNP Pend clinical note [facility] 07-26-2023 Note Formatting of this n ote is different from the original. Addendum created 07/26/23619 by OANH Theodore CNP Pend clinical note [facility] 07-26-2023 Note Formatting of this n ote is different from the original. Addendum created 07/26/23619 by OANH Theodore CNP Pend clinical note [facility] 07-26-2023 Note Formatting of this n ote is different from the original. Addendum created 07/26/23619 by OANH Theodore CNP Pend clinical note [facility] 07-26-2023 Note Formatting of this n ote is different from the original. Addendum created 07/26/23619 by OANH Theodore CNP Pend clinical note [facility] 07-26-2023 Note Formatting of this n ote is different from the original. Addendum created 07/26/23619 by OANH Theodore CNP Pend clinical note [facility] 07-25-2023 Note Referral placed to [facility]- [facility] Re[facility] and nursing [facility] Let facilities know , patient will have Prevena wound VAC at discharge. Anticipate she will be ready on Friday via [employer] per TCC request. Await review and response regarding ability to accept. TCC notified. [facility] 07-25-2023 Note Care Management Prog ress Note Patient remains on H6, s/p L hip ORIF on 07/24 (also s/p R hammertoe surgery on 07/18 before admission). Prevena wound vac in use. On IV antibiotics. Supplemental oxygen at 4L (baseline is 2L at home). Hemoglobin is 7. Discharge plan is [facility]: Task sent via Careport to [facility] to send referrals to [facility], [facility] per patient request. Will await replies. TCC will continue to follow. Discharge Milestones and Delays Expected Date/Time: 07/26/[address] discharge order Complete med reconciliation Case mgmt discharge readiness Clinical Stability Diagnsotic Workup Expected Discharge History Expected Date/Time Set By Reviewed At 07/26/2023 Victoriano Marrufo RN 07/25/2023 7:55 AM TCC ESTIMATE 07/26/2023 Victoriano Marrufo RN 07/24/2023 7:56 AM 07/25/2023 Victoriano Marrufo RN 07/23/2023 8:00 AM 07/25/2023 Timi James MD 07/23/2023 12:40 AM 07/25/2023 Timi James MD 07/22/2023 10:42 PM 07/26/2023 Luz Perez DO 07/22/2023 10:32 PM Length of Stay (Days): 3 GMLOS: 3.2 [facility] 07-25-2023 Note OCCUPATIONAL THERAPY [facility] Initial Evaluation Name/MRN: Miri Plasencia ([id number]) Evaluation Date: 07/25/2023 Date of : 1955 Admission Date: 07/22/2023 4:07 PM Age: 68 y.o. Room[facility]Bed: [facility] A Discharge Recommendation: Longterm Facility Assessment IMPRESSION: Pt admitted due to a fall after right hammer toe surgery. Now with left hip fx requiring surgical repair. Greatly limited by fear of falling and anticipatory pain in conjunction to new weight bearing and ROM restrictions. Will need ongoing therapies as all activity today was limited to seated or within pivot distances. Performance Deficits /Impairments: Increased Pain, Decreased Functional Mobility, Decreased ADL status, Decreased Strength, Decreased Safety Awareness, Decreased Cognition, Decreased Endurance, Decreased Balance, Decreased High Level IADLs, and Decreased Posture Prognosis: Good Decision Making: Medium Complexity Subjective Pt cooperative and frequent cues to redirect as she is tangential and easily distracted. RN provided pain meds prior to OOB. Pain: Villanueva-Oden Pain Ratin = Hurts even more Pain Location: Right foot and left hip Past Medical History: Past Medical History: Diagnosis Date Acquired hypothyroidism 03/04/2016 Allergic rhinitis Anxiety Asthma COPD (chronic obstructive pulmonary disease) (HCC) Gastroesophageal reflux disease without esophagitis 03/04/2016 GERD (gastroesophageal reflux disease) Hypothyroidism Lumbar disc disease 03/04/2016 Lung mass Osteoporosis 03/04/2016 Post herpetic neuralgia 03/04/2016 S/P lung surgery, follow-up exam 04/04/2016 Tobacco abuse 03/04/2016 Past Surgical History: Past Surgical History: Procedure Laterality Date CARPAL TUNNEL RELEASE Bilateral CERVICAL DISCECTOMY SECTION (HISTORICAL) CHOLECYSTECTOMY JOINT REPLACEMENT MOUTH SURGERY PLEURA BIOPSY Right 03/18/2016 Dr. Bowden-lobectomy Admission Diagnosis: Patient Active Problem List Diagnosis Date Noted Cigarette smoker 07/23/2023 S/p left hip fracture 07/22/2023 Hammer toe 07/18/2023 Primary cancer of right upper lobe of lung ([facility]) 03/26/2016 Osteoporosis 03/04/2016 Acquired hypothyroidism 03/04/2016 COPD (chronic obstructive pulmonary disease) ([facility]) 03/04/2016 Gastroesophageal reflux disease without esophagitis 03/04/2016 Anxiety 03/04/2016 Post herpetic neuralgia 03/04/2016 Tobacco abuse 03/04/2016 Lumbar disc disease 03/04/2016 Medical Precautions: No active isolations Proper PPE donned/doffed in accordance with facility standards. Fall Risk: [place] Fall Risk Score: 80 (High Risk) Precautions/Restrictions: Right LE Weight Bearing: Non-Weight Bearing Left LE Weight Bearing: Weight Bearing As Tolerated Hip Precautions: No left hip ABduction Family/Caregiver Present: none Overall Cognitive Status: Decreased safety/judgment; tangential and easily distracted; high fear of falling; timid for mobility; anticipatory pain; Emotional lability. Overall Orientation Status: Oriented to Place, Oriented to Situation, and Oriented to Person Social/Functional History Patient admitted from home. Lives With: Other (typically she is alone, has a son and his girlfriend staying with him now) Type of Home: trailer Home Layout: Single Level Home Home Access: Stairs to Enter with Rails (# of stairs: 4) Home Equipment: crutches Homemaking Responsibilities: Independent Receives Help From: None Prior Level of Function ADL Assistance: Independent Ambulation Assistance: Recently using crutches due to right foot sx, prior to this no device. Transfer Assistance: Independent Objective ADLs Feeding: Modified Independent, after setup Grooming: Supervision, EOB level pt washed face and combed hair, assist provided only to wash pt's back LE Dressing: Dependent, Left sock donned Engaged in EOB ADLs to increase upright activity tolerance and provide distraction from pain. Upper Extremity Assessment AROM: WFL PROM: WFL Strength: Exceptions: Grossly 3+/5 throughout, fair bilateral grasp. Bed Mobility Supine to sit: Max Assist Scooting: Max Assist Transfers/Functional Mobility Sit to stand: Max Assist, x2 Person Assist Stand to sit: Max Assist, x2 Person Assist Stand pivot: Max Assist, x2 Person Assist Standing balance: Max Assist, x2 Person Assist Transfer training initiated- required 2 skilled therapists due to need for multi-modal cues, physical assist for keeping right LE NWB, and left knee blocking. Completed x 2 stands + pivot to chair. Poor ability to come to upright position with FWW and significant walker safety concerns. Subsequent stand/pivot with therapists on each side of pt. AM-PAC AM-PAC Inpatient Daily Activity Raw Score: 17 ADL Inpatient CMS G-Code Modifier: CK Plan Pt would benefit from skilled acute OT services to address Strengthening, ROM, Balance Training, Functional Mobility Training (more content not included)... [facility] 07-25-2023 Note Formatting of this n ote might be different from the original. Referral placed to [facility]- [facility] for Re[facility] and nursing [facility] Let facilities know , patient will have Prevena wound VAC at discharge. Anticipate she will be ready on Friday via [employer] per TCC request. Await review and response regarding ability to accept. TCC notified. [facility] 07-25-2023 Note Formatting of this n ote is different from the original. Images from the original note were not included. Care Management Progress Note Patient remains on H6, s/p L hip ORIF on 07/24 (also s/p R hammertoe surgery on 07/18 before admission). Prevena wound vac in use. On IV antibiotics. Supplemental oxygen at 4L (baseline is 2L at home). Hemoglobin is 7. Discharge plan is pen[facility]iary: Task sent via Careport to [facility] to send referrals to [facility], and [facility] per patient request. Will await replies. TCC will continue to follow. Discharge Milestones and Delays Expected Date/Time: 07/26/[address] discharge order Complete med reconciliation Case mgmt discharge readiness Clinical Stability Diagnsotic Workup Expected Discharge History Expected Date/Time Set By Reviewed At 07/26/2023 Victoriano Marrufo RN 07/25/2023 7:55 AM TCC ESTIMATE 07/26/2023 Victoriano Marrufo RN 07/24/2023 7:56 AM 07/25/2023 Victoriano Marrufo RN 07/23/2023 8:00 AM 07/25/2023 Timi James MD 07/23/2023 12:40 AM 07/25/2023 Timi James MD 07/22/2023 10:42 PM 07/26/2023 Luz Perez DO 07/22/2023 10:32 PM Length of Stay (Days): 3 GMLOS: 3.2 [facility] 07-25-2023 Note PHYSICAL THERAPY [facility] Initial Evaluation Name/MRN: Miri Plasencia ([id number]) Evaluation Date: 07/25/2023 Date of : 1955 Admission Date: 07/22/2023 4:07 PM Age: 68 y.o. Room/Bed: -6123/-6123 A Discharge Recommendation: Longterm Facility Equipment Needed: No Assessment IMPRESSION: 68 y.o. pt admitted to [facility] for fall with L hip fracture. They were Max A for bed mobility, and Max A x2 for transfers. HIGH fear of falling limiting all mobility. Poor compliance with RLE NWB status. Pt is at high risk for falls. Would recommend SNF at discharge. Diagnosis: fall, Left B2 Baker periprosthetic proximal femur fracture s/p revision+ORIF on 07/24, also s/p hammertoe correction on R foot 07/18 Prognosis: good Performance Deficits /Impairments: Increased Pain, Decreased Functional Mobility, Decreased ROM, Decreased Endurance, Decreased Balance, and Decreased Fine Motor Control Decision Making: Medium Complexity Subjective Pt supine in bed. Agreeable to PT session. Cleared by nursing Pain: Villanueva-Oden Pain Ratin = Hurts even more Pain Location: L hip Past Medical History: Past Medical History: Diagnosis Date Acquired hypothyroidism 03/04/2016 Allergic rhinitis Anxiety Asthma COPD (chronic obstructive pulmonary disease) (HCC) Gastroesophageal reflux disease without esophagitis 03/04/2016 GERD (gastroesophageal reflux disease) Hypothyroidism Lumbar disc disease 03/04/2016 Lung mass Osteoporosis 03/04/2016 Post herpetic neuralgia 03/04/2016 S/P lung surgery, follow-up exam 04/04/2016 Tobacco abuse 03/04/2016 Past Surgical History: Past Surgical History: Procedure Laterality Date CARPAL TUNNEL RELEASE Bilateral CERVICAL DISCECTOMY SECTION (HISTORICAL) CHOLECYSTECTOMY JOINT REPLACEMENT MOUTH SURGERY PLEURA BIOPSY Right 03/18/2016 Dr. Hernandezinal-lobectomy Admission Diagnosis: Patient Active Problem List Diagnosis Date Noted Cigarette smoker 07/23/2023 S/p left hip fracture 07/22/2023 Hammer toe 07/18/2023 Primary cancer of right upper lobe of lung ([facility]) 03/26/2016 Osteoporosis 03/04/2016 Acquired hypothyroidism 03/04/2016 COPD (chronic obstructive pulmonary disease) ([facility]) 03/04/2016 Gastroesophageal reflux disease without esophagitis 03/04/2016 Anxiety 03/04/2016 Post herpetic neuralgia 03/04/2016 Tobacco abuse 03/04/2016 Lumbar disc disease 03/04/2016 Medical Precautions: No active isolations Proper PPE donned/doffed in accordance with facility standards. Fall Risk: [place] Fall Risk Score: 80 (High Risk) Precautions/Restrictions: Right LE Weight Bearing: Non-Weight Bearing Left LE Weight Bearing: Weight Bearing As Tolerated and NO hip abduction Lines/Drains/Airways: harding, PIV Family/Caregiver Present: none Overall Cognitive Status: WFL, emotionally labile, required increased time, high fear of falling, tentative for all mobility Overall Orientation Status: Oriented x4 Vision: no visual deficits Hearing: normal Social/Functional History Patient admitted from home. Lives With: Other (typically she is alone, has a son and his girlfriend staying with him now) Type of Home: trailer Home Layout: Single Level Home Home Access: Stairs to Enter with Rails (# of stairs: 4) Bathroom Shower/Tub: Toilet: N/A Home Equipment: crutches Homemaking Responsibilities: Independent Receives Help From: None Active Service Control Operator: Prior Level of Function ADL Assistance: Independent Ambulation Assistance: Independent Device(s) used: crutches and just since recent hammer toe surgery Transfer Assistance: Independent Pt stated she was home for <24 hours prior to falling and breaking L hip. Stated her son does not assist with home management. Objective Lower Extremity Assessment AROM: WFL PROM: WFL Strength: Exceptions: RLE at least 3/5. LLE 3+/5 Bed Mobility: Supine to sit: Max Assist HOB elevated, cues for hand placement for bed rail assist. Cues for all sequencing. Increased time. Full trunk assist, slight BLE assist to EOB. Transfers Sit to stand: Max Assist, x2 Person Assist Stand to sit: Max Assist, x2 Person Assist Stand pivot: Max Assist, x2 Person Assist EOB x1 at FWW with full L knee blocking, R foot propped with notable force through heel. Second stand EOB arm in arm with 2 skilled therapists, L knee blocking and support of RLE, force placed through R heel noted, unable to advance LLE, pivot performed to chair. Ambulation Did not assess this session. Sensation: WFL Outcome Measures AM-PAC How much HELP from another person do you currently need Turning from your back to your side while in a flat bed without using bedrails?: A Lot Moving from lying on your back to sitting on the side of a flat bed without using bedrails?: A Lot Moving to and from a bed to a chair (including a wheelchair)?: A Lot Standing up from a chair using your arms (wheelchair or bedside chair)?: A Lot Wa (more content not included)... [facility] 07-25-2023 Note Formatting of this n ote might be different from the original. SW coverage for today. Ambulance form completed and placed on pt's chart. [facility] 07-25-2023 Note Orthopedic Progress Note Name: Miri Plasencia Date:07/25/2023 Attending:Jaime Lara, DO Subjective Patient doing great this morning, pain well controlled. Her main issue is pain in her R foot, likely neuropathic-type pain. Denies any new numbness or tingling to the surgical extremity. Not lightheaded. Denies chest pain or SOB Objective Vitals: 07/24/23 1700 07/24/23 1746 07/24/23 2031 07/24/232 BP: 90/63 111/65 99/64 BP Location: Right arm Patient Position: Lying Pulse: 102 100 103 98 Resp: Temp: 36.8 ?C (98.2 ?F) 36.3 ?C (97.3 ?F) TempSrc: Temporal Temporal SpO2: (!) 89% 97% 92% 100% Weight: Height: Physical Exam: General: Resting in bed, NAD LLE Dressing/Skin: Prevena intact and holding suction, scant serosanguinous output SILT: Saphenous/Superficial Peroneal/Deep Peroneal/Tibial/Sural distributions Motor: +Dorsiflexion/Plantarflexion/Gr eat toe extension Pulses: Palpable DP/PT LABS: Recent Labs 07/22/23 1846 07/24/23 0151 07/24/23 1306 07/24/23 1702 07/25/23 0311 WBC 8.1 8.7 -- -- 7.0 HGB 12.1 13.1 10.9* 7.7* 7.0* HCT 35.3 39.1 32.3* 23.0* 20.5* PLT 283 333 -- -- 243 Recent Labs 07/22/23 1846 07/24/23 0151 07/25/23 0311 NA 138 139 136 K 3.1* 3.5 3.6 CL 106 104 102 CO2 24 29 29 BUN 18* 22* 17 CREATININE 0.31* 0.35* 0.43* CALCIUM 8.6 8.9 8.4 PHOS 3.7 3.8 3.5 Recent Labs 07/22/231845 INR 1.0 No results for input(s): SEDRATE , CRP in the last 72 hours. No results for input(s): HCG in the last 72 hours. Assessment Miri is a 68 y.o.female with a Left B2 Baker periprosthetic proximal femur fracture s/p revision+ORIF on 07/24, also s/p hammertoe correction on R foot 07/18 Plan -Operative plans: No further plans for surgery this admission -Weight bearing: RLE: NWB LLE: WBAT RUE: WBAT LUE: WBAT -Range of motion parameters: No abduction of left hip -Immobilization: No immobilization needed -Consults: None -Antibiotics: 24 post op IV abx > 7 days keflex inpatient then [facility] as [facility], rx written -Dressings: Continue wound vac 125mmHg continous. Measure cannister output every shift. -Other: None -Diet: no restrictions from ortho standpoint -Labs: Hgb check 2 days post op -currently 7.0, will continue to monitor. Asymptomatic this AM. -PT/OT -PT recommended outpatient/post discharge?: Yes, for basic ADLs -Medical management, dvt ppx and pain control per primary -DVT ppx recommended?: Yes, 30 days of post operative DVT ppx recommended -Follow-up with Dr. Styles in 2 weeks -Ortho to follow. Ronny River MD Orthopaedic Surgery PGY3 07/25/2023 6:28 AM [facility] 07-25-2023 Consult note Associated Order (s): IP CONSULT TO ANESTHESIOLOGY - ACUTE PAIN SERVICE Images from the original note were not included. PAGING: The Acute Pain Service providers are available exclusively via [employer]. APS does not utilize pagers. 07/25/2023 Lab Results Component Value Date CREATININE 0.43 (L) 07/25/2023 AST 27 07/22/2023 ALT 23 07/22/2023 Discharge Recommendations: Pending Pain Management Adjuvants: 0700 --> 0700 07/24/2023 Scheduled APAP 1000mg Gabapentin 1200mg Lidocaine patches PRN Hydromorphone 1.5mg Methocarbamol Oxycodone 15mg Ibuprofen 400mg Assessment / Pain Management Plan: Acute Postsurgical LLE pain Multimodal pain regimen: BLOCK: Fascia Iliaca Continue Acetaminophen 650 mg po q4h scheduled ATC. Liver enzymes WNL, last checked: 07/22/23 Continue Gabapentin 600mg PO TID. This is patient's home dose which she is on for residual shingle pain Continue Lidocaine patch x 1. Cut and place as needed. Continue Hydromorphone 0.25 mg - 0.5 mg IVP q4h prn moderate to severe breakthrough pain. Please utilize oral medications first. Continue Methocarbamol 750 mg PO TID PRN. Continue Oxycodone 2.5 - 5 mg po q4h prn moderate to severe breakthrough pain. Continue Naloxone 0.4 mg IVP prn opioid reversal. PRN if respiratory rate is less than 6/min and patient is difficult to arouse then notify physician STAT. Mix 9 mL of sodium chloride 0.9% with 0.4 mg (1 mL) of naloxone (NARCAN) in 10 mL syringe. (Note: dilution is 0.04 mg/mL) Give 0.08 mg (2 mL of special dilution), slow IV push, repeat up to 0.4 mg (10 mL) or until patient is responsive to physical stimulation and respiratory rate is equal to or greater than 6 breaths/min. Continue to observe, if no response within 3 minutes of administration of 0.4 mg (10 mL) total, repeat dose (0.4 mg as administered previously). Left periprosthetic proximal femur fracture S/p Left revision total hip arthroplasty, both components (cpt 16507) 07/24/23 See #1 Constipation At risk for opioid induced constipation Patient currently receiving opioids for pain management necessitating a bowel regimen. Recommend initiating scheduled Sennakot-S 8.6/50mg, 1 tablet PO BID. Would also recommend Milk of Magnesia 400mg/5ml, administer 30mL by mouth daily PRN. Opioid Use Acute: Expected to be short term post op pain, see #1 OARRS reviewed for past two years. Recurrent Gabapentin Reviewed and educated patient on responsible use of opioids: after surgery, it can be normal to experience pain. If it is mild and you can move about without great difficulty or discomfort, you may not need to take pain medication. It is very important to take your pain medication only as needed. Avoiding excessive or unnecessary medication, will enable you to progress your activity each day to improve your muscle tone and movement, deep breathing, digestion, circulation and your body's ability to heal itself. Will follow. Plan discussed with patient who appears to understand and agrees. Subjective: We have been asked to see this 68 y.o. female for postoperative pain management s/p Left revision total hip arthroplasty Reviewed XR Femur left 07/24/23 CHARLES, no pages. On arrival, pt sitting in bedside chair. Pt appears well, comfortable. Pt talkative and cooperative throughout exam, happy with current pain regimen. Pain controlled. Tolerating diet, denies n/v. Patient educated on pain regimen, aware that oxycodone po, hydromorphone IV, methocarbamol are PRN and patient must ask for these medications when needed. Educated patient to utilize oral pain medications as first line and reserve IV pain medications for severe breakthrough pain. Pt is realistic about pain control: Not all pain will be taken away, but pain should be tolerable/manageable with current regimen. Pt instructed to have staff page APS if pain becomes uncontrolled when utilizing present regimen. Pt agreeable, denies further questions. PMH reviewed below Pain Location: RLE: 0/10, LLE 6/10 with movement Aggravating Factors: Moving Sedation score: 1: Awake and alert Pain Severity: 6 on scale of 1-10 Pain Quality: aching Alleviating Factors: Rest/Pain medications Pain Management: PCP: Alberto Duckworth MD The patient's medical history and physical assessment, medications, allergies, patient's current medical condition, imaging, and labs were reviewed as part of this consultation. [x] Patient's Medications have been reviewed. [x] Patient's OARRS report (PDMP) have been reviewed. Social History Tobacco Use Smoking Status Every Day Packs/day: 1 Types: Cigarettes Smokeless Tobacco Not on file Social History Substance and Sexual Activity Alcohol Use Yes Social History Substance and Sexual Activity Drug Use Not on file Objective Findings: Height: 157.5 cm (5' 2 ) Weight: 49.4 kg (109 lb) BMI (Calculated): 19.93 Vital signs: Blood pressure 120/68, pulse 92, temperature 36.1 C (97 F), temperature source Temporal, resp. rate 20, height 1.575 m (5' 2 ), weight 49.4 kg (109 lb), SpO2 97%. Allergies: Patient has no known allergies. Past Medical History: Diagnosis Date Acquired hypothyroidism 03/04/2016 Allergic rhinitis Anxiety Asthma COPD (chronic obstructive pulmonary disease) (HCC) Gastroesophageal reflux disease without esophagitis 03/04/2016 GERD (gastroesophageal reflux disease) Hypothyroidism Lumbar disc disease 03/04/2016 Lung mass Osteoporosis 03/04/2016 Post herpetic neuralgia 03/04/2016 S/P lung surgery, follow-up exam 04/04/2016 Tobacco abuse 03/04/2016 Past Surgical History: Procedure Laterality Date CARPAL TUNNEL RELEASE Bilateral CERVICAL DISCECTOMY SECTION (HISTORICAL) CHOLECYSTECTOMY JOINT REPLACEMENT MOUTH SURGERY PLEURA BIOPSY Right 03/18/2016 Dr. Hernandezinal-lobectomy Family History Problem Relation Name Age of Onset Other (94140) Mother Cancer Father Cancer Sister Patient Active Problem List Diagnosis Osteoporosis Acquired hypothyroidism COPD (chronic obstructive pulmonary disease) (HCC) Gastroesophageal reflux disease without esophagitis Anxiety Post herpetic neuralgia Tobacco abuse Lumbar disc disease Primary cancer of right upper lobe of lung (HCC) S/p left hip fracture Hammer toe Cigarette smoker Review of Systems Constitutional: Negative. HENT: Negative. Eyes: Negative. Respiratory: Negative. Cardiovascular: Negative. Gastrointestinal: Negative. Musculoskeletal: Negative. Skin: Positive for wound. Surgical wound Neurological: Negative. Psychiatric/Behavioral: Negative. Physical Exam Vitals and nursing note reviewed. Constitutional: Appearance: Normal appearance. HENT: Head: Normocephalic and atraumatic. Eyes: Extraocular Movements: Extraocular movements intact. Conjunctiva/sclera: Conjunctivae normal. Pupils: Pupils are equal, round, and reactive to light. Cardiovascular: Rate and Rhythm: Normal rate and regular rhythm. Pulmonary: Comments: Pt on 3LNC O2 Abdominal: General: Bowel sounds are normal. Palpations: Abdomen is soft. Musculoskeletal: Cervical back: Normal range of motion and neck supple. Comments: RLE in hard cast Skin: General: Skin is warm and dry. Comments: Surgical incision c/d/I Neurological: General: No focal deficit present. Mental Status: She is alert and oriented to person, place, and time. Psychiatric: Mood and Affect: Mood normal. Behavior: Behavior normal. Thought Content: Thought content normal. PAGING: The Acute Pain Service providers are available exclusively via [employer]. APS does not utilize pagers. [facility] 07-25-2023 Consult note Associated Order (s): IP CONSULT TO ANESTHESIOLOGY - ACUTE PAIN SERVICE Images from the original note were not included. PAGING: The Acute Pain Service providers are available exclusively via [employer]. APS does not utilize pagers. 07/25/2023 Lab Results Component Value Date CREATININE 0.43 (L) 07/25/2023 AST 27 07/22/2023 ALT 23 07/22/2023 Discharge Recommendations: Pending Pain Management Adjuvants: 0700 --> 0700 07/24/2023 Scheduled APAP 1000mg Gabapentin 1200mg Lidocaine patches PRN Hydromorphone 1.5mg Methocarbamol Oxycodone 15mg Ibuprofen 400mg Assessment / Pain Management Plan: Acute Postsurgical LLE pain Multimodal pain regimen: BLOCK: Fascia Iliaca Continue Acetaminophen 650 mg po q4h scheduled ATC. Liver enzymes WNL, last checked: 07/22/23 Continue Gabapentin 600mg PO TID. This is patient's home dose which she is on for residual shingle pain Continue Lidocaine patch x 1. Cut and place as needed. Continue Hydromorphone 0.25 mg - 0.5 mg IVP q4h prn moderate to severe breakthrough pain. Please utilize oral medications first. Continue Methocarbamol 750 mg PO TID PRN. Continue Oxycodone 2.5 - 5 mg po q4h prn moderate to severe breakthrough pain. Continue Naloxone 0.4 mg IVP prn opioid reversal. PRN if respiratory rate is less than 6/min and patient is difficult to arouse then notify physician STAT. Mix 9 mL of sodium chloride 0.9% with 0.4 mg (1 mL) of naloxone (NARCAN) in 10 mL syringe. (Note: dilution is 0.04 mg/mL) Give 0.08 mg (2 mL of special dilution), slow IV push, repeat up to 0.4 mg (10 mL) or until patient is responsive to physical stimulation and respiratory rate is equal to or greater than 6 breaths/min. Continue to observe, if no response within 3 minutes of administration of 0.4 mg (10 mL) total, repeat dose (0.4 mg as administered previously). Left periprosthetic proximal femur fracture S/p Left revision total hip arthroplasty, both components (cpt 24968) 07/24/23 See #1 Constipation At risk for opioid induced constipation Patient currently receiving opioids for pain management necessitating a bowel regimen. Recommend initiating scheduled Sennakot-S 8.6/50mg, 1 tablet PO BID. Would also recommend Milk of Magnesia 400mg/5ml, administer 30mL by mouth daily PRN. Opioid Use Acute: Expected to be short term post op pain, see #1 OARRS reviewed for past two years. Recurrent Gabapentin Reviewed and educated patient on responsible use of opioids: after surgery, it can be normal to experience pain. If it is mild and you can move about without great difficulty or discomfort, you may not need to take pain medication. It is very important to take your pain medication only as needed. Avoiding excessive or unnecessary medication, will enable you to progress your activity each day to improve your muscle tone and movement, deep breathing, digestion, circulation and your body's ability to heal itself. Will follow. Plan discussed with patient who appears to understand and agrees. Subjective: We have been asked to see this 68 y.o. female for postoperative pain management s/p Left revision total hip arthroplasty Reviewed XR Femur left 07/24/23 CHARLES, no pages. On arrival, pt sitting in bedside chair. Pt appears well, comfortable. Pt talkative and cooperative throughout exam, happy with current pain regimen. Pain controlled. Tolerating diet, denies n/v. Patient educated on pain regimen, aware that oxycodone po, hydromorphone IV, methocarbamol are PRN and patient must ask for these medications when needed. Educated patient to utilize oral pain medications as first line and reserve IV pain medications for severe breakthrough pain. Pt is realistic about pain control: Not all pain will be taken away, but pain should be tolerable/manageable with current regimen. Pt instructed to have staff page APS if pain becomes uncontrolled when utilizing present regimen. Pt agreeable, denies further questions. PMH reviewed below Pain Location: RLE: 0/10, LLE 6/10 with movement Aggravating Factors: Moving Sedation score: 1: Awake and alert Pain Severity: 6 on scale of 1-10 Pain Quality: aching Alleviating Factors: Rest/Pain medications Pain Management: PCP: Alberto Duckworth MD The patient's medical history and physical assessment, medications, allergies, patient's current medical condition, imaging, and labs were reviewed as part of this consultation. [x] Patient's Medications have been reviewed. [x] Patient's OARRS report (PDMP) have been reviewed. Social History Tobacco Use Smoking Status Every Day Packs/day: 1 Types: Cigarettes Smokeless Tobacco Not on file Social History Substance and Sexual Activity Alcohol Use Yes Social History Substance and Sexual Activity Drug Use Not on file Objective Findings: Height: 157.5 cm (5' 2 ) Weight: 49.4 kg (109 lb) BMI (Calculated): 19.93 Vital signs: Blood pressure 120/68, pulse 92, temperature 36.1 C (97 F), temperature source Temporal, resp. rate 20, height 1.575 m (5' 2 ), weight 49.4 kg (109 lb), SpO2 97%. Allergies: Patient has no known allergies. Past Medical History: Diagnosis Date Acquired hypothyroidism 03/04/2016 Allergic rhinitis Anxiety Asthma COPD (chronic obstructive pulmonary disease) ([facility]) Gastroesophageal reflux disease without esophagitis 03/04/2016 GERD (gastroesophageal reflux disease) Hypothyroidism Lumbar disc disease 03/04/2016 Lung mass Osteoporosis 03/04/2016 Post herpetic neuralgia 03/04/2016 S/P lung surgery, follow-up exam 04/04/2016 Tobacco abuse 03/04/2016 Past Surgical History: Procedure Laterality Date CARPAL TUNNEL RELEASE Bilateral CERVICAL DISCECTOMY SECTION (HISTORICAL) CHOLECYSTECTOMY JOINT REPLACEMENT MOUTH SURGERY PLEURA BIOPSY Right 03/18/2016 Dr. Hernandezinal-lobectomy Family History Problem Relation Name Age of Onset Other (27695) Mother Cancer Father Cancer Sister Patient Active Problem List Diagnosis Osteoporosis Acquired hypothyroidism COPD (chronic obstructive pulmonary disease) (HCC) Gastroesophageal reflux disease without esophagitis Anxiety Post herpetic neuralgia Tobacco abuse Lumbar disc disease Primary cancer of right upper lobe of lung (HCC) S/p left hip fracture Hammer toe Cigarette smoker Review of Systems Constitutional: Negative. HENT: Negative. Eyes: Negative. Respiratory: Negative. Cardiovascular: Negative. Gastrointestinal: Negative. Musculoskeletal: Negative. Skin: Positive for wound. Surgical wound Neurological: Negative. Psychiatric/Behavioral: Negative. Physical Exam Vitals and nursing note reviewed. Constitutional: Appearance: Normal appearance. HENT: Head: Normocephalic and atraumatic. Eyes: Extraocular Movements: Extraocular movements intact. Conjunctiva/sclera: Conjunctivae normal. Pupils: Pupils are equal, round, and reactive to light. Cardiovascular: Rate and Rhythm: Normal rate and regular rhythm. Pulmonary: Comments: Pt on 3LNC O2 Abdominal: General: Bowel sounds are normal. Palpations: Abdomen is soft. Musculoskeletal: Cervical back: Normal range of motion and neck supple. Comments: RLE in hard cast Skin: General: Skin is warm and dry. Comments: Surgical incision c/d/I Neurological: General: No focal deficit present. Mental Status: She is alert and oriented to person, place, and time. Psychiatric: Mood and Affect: Mood normal. Behavior: Behavior normal. Thought Content: Thought content normal. PAGING: The Acute Pain Service providers are available exclusively via [employer]. APS does not utilize pagers. Associated Order(s): IP CONSULT TO PODIATRY Images from the original note were not included. Ortho H&P/Consult Patient: Miri Plasencia Date of : 1955 Acct: [id number] PCP: MOHSEN MARTINEZ MD Date of Admission: 07/22/2023 Date of Service: Pt seen/examined on 07/23/2023 Chief Complaint: Recent right foot surgery History Of Present Illness: This is a 68 y.o. female who presents with left hip pain after a fall from standing. The patient was unable to get up and had to call for help. Patient was transferred from [facility]. Denies significant pain besides left hip. Denies head trauma and loss of consciousness. Denies numbness and tingling in affected extremity. Patient is additionally s/p hammer toe surgery on 07/18 at [place] and has been ambulating with crutches to keep weight off her right foot until this most recent fall. Prior to surgery patient ambulated with a cane. Endorses smoking 8-10 cigarettes/day. Denies alcohol and illicit drug use. PMH of Non small cell lung cancer, COPD, emphysema. Lives with son. Orthopaedic surgery history: Right hammer toe correction, Ari Bailey, 07/18/2023 Left hip replacement, Ari Pradhan, 2017. Left knee replacement, Dr. Ignacio, [place], 1989' She is not known to any local orthopedic surgeons. Patient ambulation status: ambulates with: cane. Antiplatelets/Anticoagulation includes: none. Hx from chart and/or Pt. Past Medical History: Past Medical History: Diagnosis Date Acquired hypothyroidism 03/04/2016 Allergic rhinitis Anxiety Asthma COPD (chronic obstructive pulmonary disease) (HCC) Gastroesophageal reflux disease without esophagitis 03/04/2016 GERD (gastroesophageal reflux disease) Hypothyroidism Lumbar disc disease 03/04/2016 Lung mass Osteoporosis 03/04/2016 Post herpetic neuralgia 03/04/2016 S/P lung surgery, follow-up exam 04/04/2016 Tobacco abuse 03/04/2016 Past Surgical History: Past Surgical History: Procedure Laterality Date CARPAL TUNNEL RELEASE Bilateral CERVICAL DISCECTOMY SECTION (HISTORICAL) CHOLECYSTECTOMY JOINT REPLACEMENT MOUTH SURGERY PLEURA BIOPSY Right 03/18/2016 Dr. Bowden-lobectomy Home Medications: Prior to Admission medications Medication Sig Start Date End Date Taking? Authorizing Provider Cyanocobalamin 1000 MCG capsule Take 1 capsule by mouth daily. 01/31/22 Yes Historical Provider, MULTIPLE VITAMIN PO Take by mouth. 01/31/22 Yes Historical Provider, albuterol 108 (90 Base) MCG/ACT inhaler Inhale 2 puffs every 6 hours as needed for wheezing or shortness of breath. Historical Provider, busPIRone (Buspar) 5 MG tablet Take 5 mg by mouth 2 times daily. Historical Provider, dexlansoprazole (Dexilant) [address] capsule Take 60 mg by mouth daily. Historical Provider, DULoxetine (Cymbalta) [address] capsule Take 30 mg by mouth 2 times daily. Do not crush or chew. Historical Provider, Fluticasone-Salmeterol (Wixela Inhub) 500-50 MCG/ACT aerosol powder Inhale 1 Inhalation 2 times daily. Historical Provider, gabapentin (Neurontin) 600 MG tablet Take 600 mg by mouth 3 times daily. Historical Provider, latanoprost (Xalatan) 0.005 % ophthalmic solution Administer 1 drop into both eyes before bedtime. Historical Provider, levothyroxine (Synthroid, Levoxyl) 75 MCG tablet Take 75 mcg by mouth every morning (before breakfast). Historical Provider, loratadine (Claritin) 10 MG tablet Take 10 mg by mouth daily. Historical Provider, montelukast (Singulair) 10 MG tablet Take 10 mg by mouth daily. Historical Provider, Roflumilast (Daliresp) 500 MCG tablet Take 500 mcg by mouth daily. Historical Provider, tolterodine LA (Detrol LA) 4 MG 24 hr capsule Take 4 mg by mouth Nightly. Do not crush, chew, or split. Historical Provider, MD umeclidinium (Incruse Ellipta) 62.5 MCG/ACT inhalation Inhale 1 puff daily. Historical Provider, Fluticasone-Salmeterol (Advair Diskus) 500-50 MCG/ACT aerosol powder 07/23/23 Historical Provider, Current Hospital Medications: Current Facility-Administered Medications: bacitracin 500 UNIT/GM ointment - Pyxis ADS Override Pull, , , , acetaminophen (Tylenol) tablet 1,000 mg, 1,000 mg, Oral, q8h, Timi James MD, 1,000 mg at 07/23/23 1242 busPIRone (Buspar) tablet 5 mg, 5 mg, Oral, BID, Timi James MD, 5 mg at 07/23/23 1052 cetirizine (ZyrTEC) tablet 10 mg, 10 mg, Oral, Daily, Timi James MD, 10 mg at 07/23/23 1052 cyanocobalamin (Vitamin B-12) tablet 1,000 mcg, 1,000 mcg, Oral, Daily, Timi James MD, 1,000 mcg at 07/23/23 1052 DULoxetine (Cymbalta) DR capsule 30 mg, 30 mg, Oral, BID, Timi James MD, 30 mg at 07/23/23 1152 gabapentin (Neurontin) capsule 600 mg, 600 mg, Oral, TID, Timi James MD, 600 mg at 07/23/23 1243 ipratropium-albuterol (Duo-Neb) 0.5-2.5 mg/3 mL nebulizer solution 3 mL, 3 mL, Nebulization, PRN, Timi James MD latanoprost (Xalatan) 0.005 % ophthalmic solution 1 drop, 1 drop, Both Eyes, Daily, Timi James MD levalbuterol (Xopenex) 0.63 MG/3ML nebulizer solution 0.315 mg, 0.315 mg, Nebulization, TID, Timi James MD, 0.315 mg at 07/23/23 1350 [START ON 07/24/2023] levothyroxine (Synthroid, Levoxyl) tablet 75 mcg, 75 mcg, Oral, qAM AC, Timi James MD montelukast (Singulair) tablet 10 mg, 10 mg, Oral, Daily, Timi James MD, 10 mg at 07/23/23 1052 naloxone (Narcan) injection 0.4 mg, 0.4 mg, IntraVENous, PRN, Timi James MD nicotine (Nicoderm, Step 2) 14 MG/24HR patch 1 patch, 1 patch, TransDERmal, Daily, 1 patch at 07/23/23 0828 FOLLOWED BY [START ON 09/03/2023] nicotine (Nicoderm, Step 3) 7 MG/24HR patch 1 patch, 1 patch, TransDERmal, Daily, Luz Perez DO ondansetron ODT (Zofran-ODT) disintegrating tablet 4 mg, 4 mg, Oral, q8h PRN OR ondansetron (Zofran) injection 4 mg, 4 mg, IntraVENous, q6h PRN, Timi James MD oxyCODONE (Roxicodone) immediate release tablet 2.5 mg, 2.5 mg, Oral, q4h PRN OR oxyCODONE (Roxicodone) immediate release tablet 5 mg, 5 mg, Oral, q4h PRN, Roc Martinez DO, 5 mg at 07/23/23 1803 pantoprazole (ProtoNix) EC tablet 40 mg, 40 mg, Oral, qAM AC, Timi James MD, 40 mg at 07/23/23 0546 phenol (Chloraseptic) 1.4 % mouth/throat spray 1 spray, 1 spray, Mouth/Throat, q2h PRN, Timi James MD, 1 spray at 07/23/23 1052 polyethylene glycol (PEG) 3350 (Miralax) packet 17 g, 17 g, Oral, Daily PRN, Timi James MD Roflumilast (Daliresp) tablet 500 mcg, 500 mcg, Oral, Daily, Timi James MD, 500 mcg at 07/23/23 1152 tiotropium (Spiriva) 18 MCG per inhalation capsule 18 mcg, 1 capsule, Inhalation, Daily, Timi James MD, 18 mcg at 07/23/23 1052 trospium (Sanctura) tablet 20 mg, 20 mg, Oral, Daily, Timi James MD, 20 mg at 07/23/23 1052 Allergies: Patient has no known allergies. Social History: Social History Socioeconomic History Marital status: Spouse name: Not on file Number of children: Not on file Years of education: Not on file Highest education level: Not on file Occupational History Not on file Tobacco Use Smoking status: Every Day Packs/day: 1 Types: Cigarettes Smokeless tobacco: Not on file Substance and Sexual Activity Alcohol use: Yes Drug use: Not on file Sexual activity: Not on file Other Topics Concern Not on file Social History Narrative Not on file Social Determinants of Health Financial Resource Strain: Not on file Food Insecurity: Not on file Transportation Needs: Not on file Physical Activity: Not on file Stress: Not on file Social Connections: Not on file Intimate Partner Violence: Not on file Housing Stability: Not on file Family History: Family History Problem Relation Name Age of Onset Other ([id number]) Mother Cancer Father Cancer Sister Further Family History is noncontributory to this injury. REVIEW OF SYSTEMS: Review of Systems - General ROS: negative for - chills, fatigue, fever, malaise or night sweats Psychological ROS: negative Ophthalmic ROS: negative ENT ROS: negative for - headaches or sore throat Hematological and Lymphatic ROS: negative for - bleeding problems or blood clots Respiratory ROS: no cough, shortness of breath, or wheezing Cardiovascular ROS: no chest pain or dyspnea on exertion Gastrointestinal ROS: negative Musculoskeletal ROS: See HPI Neurological ROS: negative for - bowel and bladder control changes, gait disturbance or numbness/tingling All other systems reviewed and are negative PHYSICAL EXAM: BP (!) 151/80 (BP Location: Right arm) Pulse 88 Temp 36.4 C (97.5 F) (Temporal) Resp 24 Ht 1.575 m (5' 2 ) Wt 49.4 kg (109 lb) SpO2 95% BMI 19.94 kg/m GENERAL APPEARANCE: Awake and oriented x3. No acute distress, except appropriate to injury. MOOD AND AFFECT: Calm appropriate to situation GAIT AND STATION: Patient is in bed and unable to ambulate secondary to known injury. COORDINATION and BALANCE: Patient is grossly coordinated unable to ambulate secondary to known injury. Right Upper Extremity: -No obvious pain or deformity to inspection with normal joint range of motion, stability, and muscle strength except noted below -No TTP over clavicle, shoulder, humerus, elbow, forearm, wrist, hand, or fingers -TTP: nontender throughout extremity -Radial pulse palpable -SILT in radial/median/ ulnar nerve distributions -Motor + AIN/PIN/ulnar nerve functions -No Lymphedema -Skin intact except where noted below -Painless pROM at shoulder/elbow/wrist Left Upper Extremity: -No obvious pain or deformity to inspection with normal joint range of motion, stability, and muscle strength except noted below -No TTP over clavicle, shoulder, humerus, elbow, forearm, wrist, hand, or fingers -TTP: nontender throughout extremity -Radial pulse palpable -SILT in radial/median/ ulnar nerve distributions -Motor + AIN/PIN/ulnar nerve functions -No Lymphedema -Skin intact except where noted below -Painless pROM at shoulder/elbow/wrist Right Lower Extremity: -No obvious pain or deformity to inspection with normal joint range of motion, stability, and muscle strength except noted below -No TTP over pelvis, hip, thigh, knee, tibia, lateral mal, medial mal, calc, midfoot, forefoot -TTP: Nontender throughout extremity -Pulse: DP Palpable, PT Palpable -SILT in the superficial peroneal, deep peroneal, tibial, sural, saphenous nerve distributions -Motor function of quad, tibialis anterior, and gactrocsoleus complex intact; extensor hallucis longus function not assessed due to known injury -No Lymphedema -Skin intact except where noted below -Painless pROM at hip/knee/ankle See clinical images below. Well-healing surgical incisions over dorsum of right great toe and second toe extending into the dorsum of forefoot with covering K wire in place at distal tip of second toe. Mild erythema surrounding incision and sutures. No purulent drainage or signs of wound dehiscence/breakdown. Left Lower Extremity: -No obvious pain or deformity to inspection with normal joint range of motion, stability, and muscle strength except noted below. Extremity shortened and externally rotated. Skin over lateral hip is clean and dry without signs of wounds or breakdown. -No TTP over knee, tibia, lateral mal, medial mal, calc, midfoot, forefoot -TTP: hip -Pulse: DP Palpable, PT Palpable -SILT in the superficial peroneal, deep peroneal, tibial, sural, saphenous nerve distributions -Motor function of tibialis anterior, extensor hallucis longus, and gactrocsoleus complex intact -No Lymphedema -Skin intact except where noted below -Painless pROM at knee/ankle - + logroll DOUG incision is well-healed. No open wounds or concern for open fracture Labs: CBC: Lab Results Component Value Date WBC 8.1 07/22/2023 RBC 3.71 (L) 07/22/2023 BMP: Lab Results Component Value Date GLUCOSE 99 07/22/2023 CO2 24 07/22/2023 BUN 18 (H) 07/22/2023 CREATININE 0.31 (L) 07/22/2023 CALCIUM 8.6 07/22/2023 PT/INR: Lab Results Component Value Date INR 1.0 07/22/2023 Type and Screen: Lab Results Component Value Date RH POS 07/22/2023 CRP: No results found for: CRP ESR: No results found for: SEDRATE HgBA1c: No components found for: LABA1C The above labs were reviewed by me. Radiology: The below images were independently reviewed and interpreted with pertinent findings noted below. XR: Left femur/pelvis: Prior DOUG metaphyseal fit stem appears loose within the metaphyseal region secondary to fracture. Cup appears intact with no signs of lucency. Fracture extending from metaphysis to proximal diaphyseal region of femur. No other acute fracture or dislocation. Right foot: Hardware in place from prior great toe and second toe surgery. Radiology reports reviewed. ASSESSMENT: 68 y.o. female s/p right great toe and second toe hammertoe correction surgery on 07/18. PLAN: -D/W Dr. Caruso -No acute surgical intervention -Keep splint/dressing c/d/i until outpatient follow-up -NWB RLE -Activity as tolerated -Ice & elevate -Neurovascular checks -Skin checks -Follow-up outpatient with Dr. Amor Roberson -Pain and medical management per primary team. -Please see orthopedic trauma surgery notes for further evaluation and management of patient's left periprosthetic fracture. -Orthopaedic foot/ankle surgery will sign off. Please page application security architect orthopaedic resident for questions or concerns. Leyla Walsh MD Orthopedic Surgery PGY-2 07/23/2023 at 7:27 PM .Ortho Consult Patient: Miri Plasencia Date of : 1955 Acct: [id number] PCP: MOHSEN MARTINEZ MD Date of Admission: 07/22/2023 Date of Service: Pt seen/examined on 07/22/2023 Chief Complaint: L hip pain History Of Present Illness: 68 y.o. female who presents with left hip pain after a fall from standing. The patient was unable to get up and had to call for help. Patient was transferred from [facility]. Denies significant pain besides left hip. Denies head trauma and loss of consciousness. Denies numbness and tingling in affected extremity. Patient currently has right lower extremity splint s/p hammer toe surgery 07/18 and currently ambulates with crutches. Prior to surgery patient ambulated with a cane. Endorses smoking 8-10 cigarettes/day. Denies alcohol and illicit drug use. PMH of Non small cell lung cancer, COPD, emphysema. Lives with son. Orthopaedic surgery history: Right hammer toe correction, Ari Joiner, 07/18/2023 Left hip replacement, Dr. Lerma, [place], 2018. Left knee replacement, Dr. Ignacio, [place], 1989' She is not known to any local orthopedic surgeons. Patient ambulation status: ambulates with: cane. Antiplatelets/Anticoagulation includes: none. Hx from chart and/or Pt. Past Medical History: Past Medical History: Diagnosis Date Acquired hypothyroidism 03/04/2016 Allergic rhinitis Anxiety Asthma COPD (chronic obstructive pulmonary disease) (HCC) Gastroesophageal reflux disease without esophagitis 03/04/2016 GERD (gastroesophageal reflux disease) Hypothyroidism Lumbar disc disease 03/04/2016 Lung mass Osteoporosis 03/04/2016 Post herpetic neuralgia 03/04/2016 S/P lung surgery, follow-up exam 04/04/2016 Tobacco abuse 03/04/2016 Past Surgical History: Past Surgical History: Procedure Laterality Date CARPAL TUNNEL RELEASE Bilateral CERVICAL DISCECTOMY SECTION (HISTORICAL) CHOLECYSTECTOMY JOINT REPLACEMENT MOUTH SURGERY PLEURA BIOPSY Right 03/18/2016 Bowden-lobectomy Home Medications: Prior to Admission medications Not on File Current Hospital Medications: Current Facility-Administered Medications: ketamine 12.5 mg in sodium chloride 0.9 % 50 mL ivpb, 0.25 mg/kg, IntraVENous, Once, Raymundo Garduno, DO No current outpatient medications on file. Allergies: Patient has no known allergies. Social History: Social History Socioeconomic History Marital status: Spouse name: Not on file Number of children: Not on file Years of education: Not on file Highest education level: Not on file Occupational History Not on file Tobacco Use Smoking status: Every Day Packs/day: 1 Types: Cigarettes Smokeless tobacco: Not on file Substance and Sexual Activity Alcohol use: Yes Drug use: Not on file Sexual activity: Not on file Other Topics Concern Not on file Social History Narrative Not on file Social Determinants of Health Financial Resource Strain: Not on file Food Insecurity: Not on file Transportation Needs: Not on file Physical Activity: Not on file Stress: Not on file Social Connections: Not on file Intimate Partner Violence: Not on file Housing Stability: Not on file Family History: Family History Problem Relation Name Age of Onset Other ([id number]) Mother Cancer Father Cancer Sister Further Family History is noncontributory to this injury. REVIEW OF SYSTEMS: Review of Systems - General ROS: negative for - chills, fatigue, fever, malaise or night sweats Psychological ROS: negative Ophthalmic ROS: negative ENT ROS: negative for - headaches or sore throat Hematological and Lymphatic ROS: negative for - bleeding problems or blood clots Respiratory ROS: no cough, shortness of breath, or wheezing Cardiovascular ROS: no chest pain or dyspnea on exertion Gastrointestinal ROS: negative Musculoskeletal ROS: See HPI Neurological ROS: negative for - bowel and bladder control changes, gait disturbance or numbness/tingling All other systems reviewed and are negative PHYSICAL EXAM: BP (!) 155/78 Pulse 72 Temp 36.7 C (98.1 F) (Oral) Resp 16 Ht 1.575 m (5' 2 ) Wt 49.4 kg (109 lb) SpO2 96% BMI 19.94 kg/m GENERAL APPEARANCE: Awake and oriented x3. No acute distress, except appropriate to injury. MOOD AND AFFECT: Calm appropriate to situation GAIT AND STATION: Patient is in bed and unable to ambulate secondary to known injury. REFLEXES: Not assessed COORDINATION and BALANCE: Patient is unable to ambulate secondary to known injury. Lymphadenopathy: none on examination of the affected extremity(s) Right Upper Extremity: -No obvious pain or deformity to inspection with normal joint range of motion, stability, and muscle strength except noted below -No TTP over clavicle, shoulder, humerus, elbow, forearm, wrist, hand, or fingers -TTP: nontender throughout extremity -Radial pulse palpable -SILT in radial/median/ ulnar nerve distributions -Motor + AIN/PIN/ulnar nerve functions -No Lymphedema -Skin intact except where noted below -Painless pROM at shoulder/elbow/wrist Left Upper Extremity: -No obvious pain or deformity to inspection with normal joint range of motion, stability, and muscle strength except noted below -No TTP over clavicle, shoulder, humerus, elbow, forearm, wrist, hand, or fingers -TTP: nontender throughout extremity -Radial pulse palpable -SILT in radial/median/ ulnar nerve distributions -Motor + AIN/PIN/ulnar nerve functions -No Lymphedema -Skin intact except where noted below -Painless pROM at shoulder/elbow/wrist Left Lower Extremity: -No obvious pain or deformity to inspection with normal joint range of motion, stability, and muscle strength except noted below. Extremity shortened and externally rotated. Skin over lateral hip is clean and dry without signs of wounds or breakdown. -No TTP over knee, tibia, lateral mal, medial mal, calc, midfoot, forefoot -TTP: hip -Pulse: DP Palpable, PT Palpable -SILT in the superficial peroneal, deep peroneal, tibial, sural, saphenous nerve distributions -Motor function of tibialis anterior, extensor hallucis longus, and gactrocsoleus complex intact -No Lymphedema -Skin intact except where noted below -Painless pROM at knee/ankle - + logroll DOUG incision is well-healed. No open wounds or concern for open fracture Right Lower Extremity: -No obvious pain or deformity to inspection with normal joint range of motion, stability, and muscle strength except noted below -No TTP over pelvis, hip, thigh, knee, tibia, lateral mal, medial mal, calc, midfoot, forefoot -TTP: Nontender throughout extremity -Pulse: BCR to GT, splint to RLE covering all other toes -SILT in the superficial peroneal, deep peroneal, tibial, sural, saphenous nerve distributions -Motor function of quad -No Lymphedema -Skin intact except where noted below -Painless pROM at hip/knee/ankle Posterior slab splint to RLE and covering all toes except GT. Labs: CBC: No results found for: WBC , RBC , HEMOGLOBIN BMP:No results found for: GLUCOSE , SODIUM , POTASSIUM , CHLORIDE , CO2 , BUN , CREATININE , CALCIUM PT/INR: No results found for: PT , INR , APTT Type and Screen: No results found for: RH , LABANTI CRP: No results found for: CRP ESR: No results found for: SEDRATE HgBA1c: No components found for: LABA1C The above labs were reviewed by me. Radiology: The below images were independently reviewed and interpreted XR: Left femur/pelvis: Prior DOUG metaphyseal fit stem appears loose within the metaphyseal region secondary to fracture. Cup appears intact with no signs of lucency. Fracture extending from metaphysis to proximal diaphyseal region of femur. No other acute fracture or dislocation. Radiology report reviewed. ASSESSMENT: 68 y.o. female with L B2 Baker periprosthetic proximal femur fracture PLAN: -D/w Dr. Mcnamara -Plan for OR for L femur ORIF and L hip revision arthroplasty on 07/24 -NPO at Midnight, 07/24 -Clear per medicine pending -Consented -Pre-op workup in process -Ice -APS consulted for gabino-operative pain, hip block done by ED -Bedrest -harding -Admit to medicine -Pain control & medical management per primary -Please hold DVT prophylaxis in anticipation of OR -Please comment on clearance in case of OR, page ortho application security architect with clearance status Ann-Marie Nice MD PGY-2 Orthopaedic Surgery Associated attestation - Faisal Styles MD - 07/24/2023 3:40 PM EST Attestation: The patient was seen, examined and all relevant radiographs were reviewed and independently interpreted which show left hip periprosthetic femur fracture. Discussed with the patient that given the fracture and current status of the implants, it appears her hip stem is loose. Recommendation is for left revision DOUG with diaphyseal engaging stem and open reduction internal fixation as necessary. Risks, benefits, and alternatives of surgery were reviewed at length to include bleeding, infection, dislocation, leg length discrepancy, neurovascular injury, fracture, failure to provide the intended benefits, need for further surgery, blood clots and general medical risks. The patient expressed understanding and ultimately elected to proceed with the indicated surgery. The proposed surgery is consistent with elective major surgery with the following specific risk factors: instability, infection, fracture. I agree with what is documented above with any changes noted. The plan of care was discussed with the evaluating resident. Without treatment this injury poses threat to bodily function both acutely and chronically. Patient will also require parenteral narcotic medication for pain management. Electronically signed by Faisal Styles M.D. 07/24/2023 at 3:20 PM. documented in this encounter [facility] 07-25-2023 Note Paged by RN as cedrick dale has a headache and wanted something for sleep. Upon evaluation, headache is reportedly bilateral and frontal. Was not yet due for Tylenol at that time. Ordered 1x dose of ibuprofen 400 and melatonin 5mg. [facility] 07-25-2023 Nurse Note IMS @ bedside [facility] 07-24-2023 Note Patient: Miri Plasencia Procedure Summary Date: 07/24/23 Room / Location: [address] Operating Room Anesthesia Start: 1052 Anesthesia Stop: 1545 Procedure: LEFT OPEN REDUCTION INTERNAL FIXATION PERIPRSTHETIC FEMORAL FRACTURE PROX END OR NECK POSSIBLE REVISION HIP ARTHROPLASTY (Left: Hip) Diagnosis: S/p left hip fracture (S/p left hip fracture [Z87.81]) Surgeons: Faisal Styles MD Responsible Provider: Riky Sandoval MD Anesthesia Type: general, regional ASA Status: 3 Anesthesia Type: general, regional Vitals Value Taken Time BP 143/77 07/24/23 1545 Temp 98.6 07/24/23 1548 Pulse 92 07/24/23 1548 Resp 16 07/24/23 1548 SpO2 98 % 07/24/23 1548 Vitals shown include unfiled device data. Anesthesia Post Evaluation Patient location during evaluation: PACU Patient participation: complete - patient participated Level of consciousness: awake and alert Pain management: satisfactory to patient Airway patency: patent Dental Injury: no Cardiovascular status: acceptable, blood pressure returned to baseline and hemodynamically stable Respiratory status: acceptable and spontaneous ventilation Hydration status: euvolemic Nausea/Vomiting: controlled No notable events documented. Patient can be discharged once all PACU criteria has been met. [facility] 07-24-2023 Note Patient: Miri Plasencia Procedure Summary Date: 07/24/23 Room / Location: [facility] OR [address] [place] [address] Operating Room Anesthesia Start: 1052 Anesthesia Stop: 1545 Procedure: LEFT OPEN REDUCTION INTERNAL FIXATION PERIPRSTHETIC FEMORAL FRACTURE PROX END OR NECK POSSIBLE REVISION HIP ARTHROPLASTY (Left: Hip) Diagnosis: S/p left hip fracture (S/p left hip fracture [Z87.81]) Surgeons: Faisal Styles MD Responsible Provider: Riky Sandoval MD Anesthesia Type: general, regional ASA Status: 3 Anesthesia Type: general, regional Vitals Value Taken Time BP 143/77 07/24/23 1545 Temp 98.6 07/24/23 1547 Pulse 92 07/24/23 1547 Resp 16 07/24/23 1547 SpO2 100 % 07/24/23 1547 Vitals shown include unfiled device data. Anesthesia Post Evaluation Patient location during evaluation: PACU Patient participation: complete - patient participated Level of consciousness: awake and alert Pain management: satisfactory to patient Multimodal analgesia pain management approach Airway patency: patent Two or more strategies used to mitigate risk of obstructive sleep apnea Cardiovascular status: acceptable and hemodynamically stable Respiratory status: acceptable Hydration status: acceptable No notable events documented. MIPS #430 PONV Patient received an inhalational anesthetic (4554F) Patient does not exhibit three or more risk factors for PONV (X0430)) MIPS # 424 Perioperative Temperature Management Anesthesia time was 60 minutes or longer (4255F) Anesthesai administered was General (inhalational or TIVA) or Neuraxial block (X0424) At least one body temperature greater than 95.8F/35.5C achieved within the 30 mins immediately prior to or the 15 minutes immediately following anesthesia end time (G9771) MIPS #477 Multimodal Pain Management Not emergent case Patient was administered multimodal pain management (two or more drugs and/or interventions excluding systemic opioids) in the periopeartive period occurring at some time between 6 hours prior to anesthesia start time until discharged from PACU (G2148) MIPS #404 Anesthesiology Smoking Abstinence The patient is a current smoker (G9642) (e.g. cigarette, cigar, pipe, e-cigarette/vaping/marijuana) The patient underwent an elective surgery or procedure requiring anesthesia (G9643) The patient received preop smoking cessation instructions prior to the day of surgery or procedure by MD JUAQUIN refrigeration operator proxy staff (G9497) The patient did not smoke the day of the procedure (G9644) I completed my handoff to the receiving clinician during which we: 1. Identified the patient 2. Identified the responsible provider 3. Reviewed the pertinent medical history 4. Discussed the surgical course 5. Reviewed intra-op anesthesia management and issues during anesthesia 6. Set expectations for post-procedure period 7. Allowed opportunity for questions and acknowledgement of understanding. [facility] 07-24-2023 Hospital Discharg e instructions Casey Rubio MD - 07/24/2023 4:[address] Faisal Styles Adult Hip and Knee Reconstruction Total Hip Discharge Instruction Physical Therapy Physical Therapy should be arranged for you prior to your discharge. Therapy should begin 1 or 2 days after surgery and continue 3 times a week for a month. Do the exercises at home on the days you do not see a therapist. Dressing Your wound will be covered by a dressing after surgery. It should not be removed until you see Dr. Styles in office. You can shower as long as there is no drainage from the wound. Most of the time, your stitches will be under the skin and will dissolve of their own. If you have kelvin or external stitches they can be removed in office two weeks after surgery. If the wound is draining, the dressing should be changed daily. The wound should be dry and without drainage by about 14 days postoperative. If there is persistent drainage from the wound after this time period, you should call our office immediately. If there is worsening redness around the incision, you should also call the office immediately. These may be signs of a superficial or deep wound infection and you may have to return to the office for an evaluation by one of our staff. Common concerns after hip replacement surgery include swelling and bruising. These can be quite signifcant in nature and can appear anywhere from the thigh to the toes. These are typically worse at night which can contribute to trouble sleeping comfortably for more than one to two hours at a time. Activity You will be using an assistive device (walker, crutches, or cane). Your physical therapist will help you with this. Most patients are able to get in and out of bed, use the rest room, and go up and down stairs when they go home. We d like you to get up and walk every hour after surgery. For the first 1-2 weeks you will be walking with a walker or two crutches. After that, you can start using a cane. Preventing Postoperative Hip Dislocations Dislocations are rare, but if they occur they most often occur the first 3 months after surgery. Before surgery, the physical therapist begins teaching you special precautions and how to avoid dislocation. After surgery, everyone will be reminding you not to bend the hip too much, not to twist at the waist, and to avoid turning your leg in or out.patients hip joints are so stable after surgery that they do not have dislocation precautions. If you are one of these patients, the therapist will tell you not to worry about dislocation but you should still avoid extreme bending and twisting. Again, your therapist will go over this after surgery. Bathing Your dressing is waterproof. You may take a shower but not a bath. Precautions It is very common to have swelling and bruising in the thigh, lower leg and foot after surgery. Elevating your leg, doing ankle pump exercises, and using ice packs will help. Call us if the swelling does not subside overnight. Call for a temperature over 101. Take the pain medications as needed for pain. Pain pills can cause constipation. Use over the counter stool softeners like Colace to avoid constipation. If Colace is not effective use a gentle over the counter laxative such as Miralx Please refer to your medication sheet for more information regarding any prescriptions you have been given to take after surgery. Follow up office visit The Doctor would like see you in 2 weeks. Please avoid any other surgery, procedure or dental procedure until cleared by Dr. Styles. Common Questions About Hip Replacement Question: How long can I expect to have pain after surgery? Answer: The time varies for each patient. Many patients report that there is very little pain right after surgery, but postoperative soreness may continue for 3 - 4 weeks. Question. How long until bone ingrowth occurs? Answer. Bone ingrowth occurs between 6 weeks and 1 year. Question. How long after surgery will I have to limit weight bearing on my leg? Answer. The amount of weight you are allowed to put on your leg varies from full weight bearing to just the weight of your foot. Several surgical factors are considered in making this decision and your surgeon will inform you of your weight bearing status following the procedure. Most patients are cleared to be full weightbearing, as tolerated. Question. Why do I have to take a blood thinner after surgery and how long will this continue? Answer. A blood thinning medicine is recommended to prevent blood clots and is usually discontinued after your first follow-up appointment. Question: When can I resume sexual activities? Answer. You can resume sexual activity 3 - 6 weeks after surgery. The physical therapist lance manzo. Question: Why does the skin feel funny around my incision? Answer: The nerves in the skin cross the front of the hip in an inside-out direction. When an incision is made on the hip, these tiny nerves are divided and the skin on the outside will feel fuzzy or numb. This sensation will lessen with time and is normal for all patients with hip replacement surgery. Question: Why is my leg discolored? Answer: You may develop some discoloration (like a bruise) in the leg. This discoloration, which may extend to the hip or ankle, will slowly disappear. Question: What about cocoa butter and vitamin E oil? Answer: Do not use either of these until after your four week postoperative visit. Ask for clearance to use during that visit. Question: A stitch is sticking out. What do I do? Answer: We often suture the skin from underneath to reduce scarring. The knot at the end of the stitch sometimes will protrude from the skin. Redness and a small amount of drainage may appear. Cleanse the skin with peroxide. Please notify your surgeon s of office. Question: When can I drive my car? Answer: Usually after 4 weeks. A patient s decision to drive sooner is a personal decision related to their mobility and pain control. You cannot drive while you are taking narcotic pain medicine such as [place], Percocet, Hydrocodone or Oxycodone. Question: When can I go in the swimming pool? Answer: Ordinarily, patients may resume pool activities after the first follow-up visit. Be sure to check with the surgeon or fellow at that time. Question. When can I start playing tennis, ski or golf? Answer. Active sports are generally not resumed until 3 - 6 months after surgery.This is to allow for bone ingrowth of your new hip and muscle strengthening. Question. When will I be able to return to work? Answer. This depends on the type of work you do as well as several other factors. This kristy an individual basis and you should discuss with your surgeon. Melinda Jang RN - 07/28/2023 10:19 AM EST Continuity of Care Form Patient Name: Miri Plasencia : 1955 Admit date: 07/22/2023 Discharge date: 07/29/2023 Code Status Order: Full Code Advance Directives: N Admitting Physician: Jaime Lara DO PCP: MOHSEN MARTINEZ MD Discharging Nurse: Javier JANG RN Discharging Hospital Unit/Room#: [id number]/[id number] A Discharging Unit Emergency Contact: Extended Emergency Contact Information Primary Emergency Contact: Jose Alberto King Relation: Sibling Past Surgical History: Past Surgical History: Procedure Laterality Date CARPAL TUNNEL RELEASE Bilateral CERVICAL DISCECTOMY SECTION (HISTORICAL) CHOLECYSTECTOMY JOINT REPLACEMENT MOUTH SURGERY PLEURA BIOPSY Right 03/18/2016 Bowden-lobectomy Immunization History: Immunization History Administered Date(s) Administered COVID-19, mRNA, LNP-S, PF, louann-sucrose, 30 mcg/0.3 mL 07/14/2023 Covid-19, Pfizer Bivalent Booster, (Age 12y+), Im, 30 Mcg/0e 05/01/2022 Covid-19, Pfizer Spear Top, Do Not Dilute, (Age 12 Y+), Im, L 11/14/2021 Pfizer SARS-CoV-2 Vaccination 10/23/2020, 11/13/2020, 05/16/2021 Active Problems: Medical Problems Problem List * (Principal) S/p left hip fracture Hammer toe Cigarette smoker Osteoporosis Acquired hypothyroidism COPD (chronic obstructive pulmonary disease) (HCC) Gastroesophageal reflux disease without esophagitis Anxiety Post herpetic neuralgia Tobacco abuse Lumbar disc disease Primary cancer of right upper lobe of lung (HCC) Isolation/Infection: No active isolations No active infections Nurse Assessment: Last Vital Signs: BP 113/66 Pulse 74 Temp 36.8 C (98.2 F) (Temporal) Resp 18 Ht 1.575 m (5' 2 ) Wt 49.4 kg (109 lb) SpO2 98% BMI 19.94 kg/m Last documented pain score (0-10 scale): Last Weight: Wt Readings from Last 1 Encounters: 07/22/23 49.4 kg (109 lb) Mental Status: EDISON Patient Mental Status: oriented, alert, thought processes intact, and able to concentrate and follow conversation IV Access: EDISON IV Access: None Nursing Mobility/ADLs: Walking Total assistance Transfer Total assistance Bathing Total assistance Dressing Total assistance Toileting Total assistance Feeding Minimal assistance Air Traffic Control Specialist Minimal assistance Med Delivery no Wound Care Documentation and Therapy: Wound/Incision 07/24/23 Incision Leg Anterior;Left;Upper (Active) Site Assessment Unable to assess 07/27/23 0820 Odor None 07/27/23 2100 Drainage Amount None 07/27/23 0820 Primary Dressing Vacuum dressing 07/27/23 2100 Dressing Status Clean, dry & intact 07/25/23 0800 Number of days: 3 Wound/Incision Incision Foot Right (Active) Site Assessment Unable to assess 07/27/23 2100 Dressing Status Clean, dry & intact 07/25/23 0800 Number of days: Elimination: Continence: Bowel: yes Bladder: yes Urinary Catheter: None Colostomy/Ileostomy/Ileal Conduit: None Date of Last BM: 07/29/2023 Intake/Output Summary (Last 24 hours) at 07/28/2023 1019 Last data filed at 07/28/2023 0600 Gross per 24 hour Intake 1115.11 ml Output 1400 ml Net -284.89 ml I/O last 3 completed shifts: In: 1355.1 (27.4 mL/kg) [P.O.:240; I.V.:24.1 (0.5 mL/kg); Blood:1091] Out: 2000 (40.5 mL/kg) [Urine:2000 (1.1 mL/kg/hr)] Weight: 49.4 kg Safety Concerns: history of falls (last 30 days) Impairments/Disabilities: none Nutrition Therapy: Current Nutrition Therapy: Oral diet: general Routes of Feeding: oral Liquids: no restrictions Daily Fluid Restriction: no Last Modified Barium Swallow with Video (Video Swallowing Test): not done Treatments at the Time of Hospital Discharge: Respiratory Treatments: SEE MAR Oxygen Therapy: is on oxygen at 2.0 L/min per nasal cannula. Ventilator: No ventilator support Rehab Therapies: physical therapy, occupational therapy, nursing, and aide Weight Bearing Status/Restrictions: WBAT- LEFT LEG, NWB- RIGHT LEG Other Medical Equipment (for information only, NOT a DME order): bedside commode and wheeled walker Other Treatments: PREVENA WOUND VAC LEFT HIP, SPLINT/IMMOBILIZER RIGHT FOOT Patient's personal belongings (please select all that are sent with patient): micky RN SIGNATURE: MANAGEMENT/SOCIAL WORK SECTION Inpatient Status Date: 07/22/23 Readmission Risk Assessment Score: @READMISSIONRISKDETAILS@ Discharging to Facility/ Agency Name: [facility] [employer] Phone: [phone] Address: [address] [place] [address] Electronics Supervisor/Commercial Lending Relationship Manager signature: ICIAN SECTION Prognosis: good Condition at Discharge: stable Rehab Potential (if transferring to Rehab): good Recommended Labs or Other Treatments After Discharge: none Physician Certification: I certify the above information and transfer of Miri Plasencia is necessary for the continuing treatment of the diagnosis listed and that she requires penitentiary facility for less than 30 days. Update Admission H&P: No change in H&P PHYSICIAN SIGNATURE: documented in this encounter [facility] 07-24-2023 Note Peripheral Block Time Out: 07/24/2023 10:42 AM Start time: 07/24/2023 10:43 AM End time: 07/24/2023 10:47 AM Reason for block: at surgeon's request and post-op pain management Staffing Performed: LEAD PL SQL DEVELOPER Resident/LEAD PL SQL DEVELOPER: Faisal Field APRN - ANNETTE Preanesthetic Checklist Completed: patient identified, IV checked, site marked, risks and benefits discussed, surgical consent and timeout performed Region: Lower Extremities Primary: Apryl Secondary: fascia Iliaca Peripheral Block Patient position: supine Prep: ChloraPrep Patient monitoring: heart rate, continuous pulse ox, groundwater monitoring technician and continuous capnometry O2: ETT/LMA Laterality: left Injection technique: single-shot Guidance: ultrasound guided -image retained in chart, tip of the needle identified by ultraound during injection. Needle Needle: 22G X 80 mm Additional Notes 07/24/2023 10:43 AM Assessment Injection assessment: negative aspiration for heme, no paresthesia on injection, incremental injection, local visualized surrounding nerve on ultrasound and transient paresthesias Heart rate change: no Slow fractionated injection: yes Required Documentation: Relevant anatomy identified (Nerves, Vessels, Muscles), Negative for blood on aspiration, Local anesthetic injected incrementally with intermittent aspiration every 5 mL, Normal resistance with injection, Local anesthetic spread visualized around nerves or plane., No EKG changes noted, No symptoms of toxicity and No paresthesias reported by patient during injectionMedications [id number]-[id number]-xrfrc phrine (TAP) syringe - Injection 50 mL - 07/24/2023 10:43:00 AM [facility] 07-24-2023 Note Airway Date/Time: 07/24/2023 11:00 AM Urgency: scheduled Airway not difficult General Information and Staff Patient location during procedure: Procedural Resident/LEAD PL SQL DEVELOPER: OANH Almanzar CRNA Performed: LEAD PL SQL DEVELOPER Performed by: OANH Almanzar CRNA Authorized by: OANH Almanzar CRNA Indications and Patient Condition Indications for airway management: anesthesia and airway protection Sedation level: Asleep Preoxygenated: yes Patient position: sniffing Final Airway Details Final airway type: endotracheal airway Successful airway: ETT Cuffed: yes Successful intubation technique: direct laryngoscopy Endotracheal tube insertion site: oral Blade: You Blade size: #3 ETT size (mm): 7.0 Cormack-Lehane Classification: grade IIa - partial view of glottis Placement verified by: chest auscultation and capnometry Measured from: lips ETT to lips (cm): 20 Number of attempts at approach: 1 Number of other approaches attempted: 0 [facility] 07-24-2023 Note Patient: Miri Plasencia Procedure Information Date/Time: 07/24/23 1030 Procedure: LEFT OPEN REDUCTION INTERNAL FIXATION PERIPRSTHETIC FEMORAL FRACTURE PROX END OR NECK POSSIBLE REVISION HIP ARTHROPLASTY (Left: Hip) Location: [facility] OR Operating Room Surgeons: Faisal Styles MD Relevant Problems Anesthesia (+) S/p left hip fracture Endo (+) Acquired hypothyroidism GI (+) Gastroesophageal reflux disease without esophagitis Neuro/Psych (+) Anxiety Pulmonary (+) COPD (chronic obstructive pulmonary disease) ([facility]) Other (+) Primary cancer of right upper lobe of lung ([facility]) Past Medical History: Past Medical History: 03/04/2016: Acquired hypothyroidism No date: Allergic rhinitis No date: Anxiety No date: Asthma No date: COPD (chronic obstructive pulmonary disease) ([facility]) 03/04/2016: Gastroesophageal reflux disease without esophagitis No date: GERD (gastroesophageal reflux disease) No date: Hypothyroidism 03/04/2016: Lumbar disc disease No date: Lung mass 03/04/2016: Osteoporosis 03/04/2016: Post herpetic neuralgia 04/04/2016: S/P lung surgery, follow-up exam 03/04/2016: Tobacco abuse Past Surgical History: Past Surgical History: No date: CARPAL TUNNEL RELEASE; Bilateral No date: CERVICAL DISCECTOMY No date: SECTION (HISTORICAL) No date: CHOLECYSTECTOMY No date: JOINT REPLACEMENT No date: MOUTH SURGERY 03/18/2016: PLEURA BIOPSY; Right Comment: Bowden-lobectomy Social History: TOBACCO: reports that she has been smoking cigarettes. She has been smoking an average of 1 pack per day. She does not have any smokeless tobacco history on file. ETOH: reports current alcohol use. Social History Substance and Sexual Activity Drug Use Not on file Family History: Family History Problem Relation Name Age of Onset ? Other (50754) Mother ? Cancer Father ? Cancer Sister Screening: unknown Clinical information reviewed: Tobacco Allergies Meds Med Hx Surg Hx Fam Hx Physical Exam Airway Mallampati: II TM distance: >3 FB Neck ROM: full endotracheal tube not in place Cardiovascular Dental Pulmonary Abdominal Anesthesia Plan patient is NPO appropriate Any family history or previous problems with anesthesia no ASA 3 general and regional Any family history or previous problems with anesthesia no The patient is a current smoker. Patient was previously instructed to abstain from smoking on day of procedure. Patient did not smoke on day of procedure. Anesthetic plan and risks discussed with patient. Use of blood products discussed with who consented to blood products. JOHNATHON Screening Labs: Lab Results Component Value Date WBC 8.7 07/24/2023 HGB 13.1 07/24/2023 HCT 39.1 07/24/2023 MCV 94.7 07/24/2023 PLT 333 07/24/2023 Lab Results Component Value Date NA 139 07/24/2023 K 3.5 07/24/2023 CL 104 07/24/2023 CO2 29 07/24/2023 BUN 22 (H) 07/24/2023 CREATININE 0.35 (L) 07/24/2023 GLUCOSE 125 (H) 07/24/2023 CALCIUM 8.9 07/24/2023 PROT 6.6 07/22/2023 ALKPHOS 97 07/22/2023 AST 27 07/22/2023 ALT 23 07/22/2023 EGFR >90.0 07/24/2023 Pain Score: 8 No echocardiogram results found for the past 14 days 07/22/23 ECG 12-LEAD 07/23/2023 3:31 PM (Final) Impression Sinus rhythm Anteroseptal infarct, age indeterminate No old ekg available for comparison Electronically Signed On 07-23-2023 15:31:08 EST by Kevin Lucas Signed by: Kevin Lucas MD on 07/23/2023 3:31 PM [facility] 07-24-2023 Note Formatting of this n ote might be different from the original. [facility] [address] [facility] [id number] Dept: [phone] Loc: [phone] Operative Report Patient Name: Miri Plasencia Date of : 1955 Date of Surgery: 07/24/23 Pre-operative diagnosis: Left periprosthetic proximal femur fracture Post-operative diagnosis: Same Procedure(s): Left revision total hip arthroplasty, both components (cpt 26779) Surgeon: Faisal Styles M.D. Church Worker(s): Casey Rubio M.D. Anesthesia: General EBL: 1000 cc IVF: 2L Crystalloid, 300 mL 25% albumin Medications: Ancef 2 grams IV at start of procedure, redosed another 2g at the 4-hour emigdio Implants: Marcos Sikh Modular Hip System size 115mm x 18mm diaphyseal stem, size 21mm/+10 proximal body, Bath Biolox ceramic V40 head size 28/-2.7mm, Marcos MDM liner size 42mm, X3 outer poly size 42mm, three 2.0mm Dall-Miles cables Clinical History/Indication for Surgery The patient is a 68 y.o. year old female who was presents for left periprosthetic proximal femur fracture. X-rays showed a Baker B2 proximal femur fracture with a loose femoral component. Given the fracture and state of her implant, recommendation was for revision DOUG to diaphyseal fitting femoral stem and revision to dual mobility. Risks, benefits, and alternatives of surgery were reviewed at length to include bleeding, infection, dislocation, leg length discrepancy, neurovascular injury, fracture, failure to provide the intended benefits, need for further surgery, blood clots and general medical risks. The patient expressed understanding and ultimately elected to proceed with the indicated surgery. Operative Narration The patient was brought to the operating room and transferred to the operating table. A spinal anesthetic was placed by the anesthesia team. The patient was then turned to the lateral decubitus position with the operative extremity facing up. An axillary roll was placed. All bony prominences were protected with padding. The operative leg was then prepped and draped in standard sterile orthopedic fashion. A surgical timeout was then performed to confirm the correct patient, correct extremity, and correct x-rays. Antibiotics and TXA were confirmed to be given. An incision was made for a posterior approach, centered over the greater trochanter and taken down to the fascia. The fascia was incised and retracted. The sciatic nerve was palpated posterior to the surgical field and protected throughout the case. The Charnley retractor was placed. The piriformis along with the remaining short external rotators were identified and released from the posterior trochanter. These were tagged for later repair. A capsulotomy was performed and deep flaps were tagged with suture and retracted. Hematoma was encountered. The femoral stem's neck was identified and dissection carried along the neck posteriorly until the acetabular component was encountered. The redundant capsule was excised. The femoral head was dislocated. A tamp was used to remove the head from the trunnion. The distal femur could be felt to be separate from the trochanter fracture. The femur was fully internally rotated, and a posterior retractor was placed for the femur and the proximal femur was exposed. Inspection of the proximal femur showed micromotion of the stem with manipulation as well as some fibrous growth between the proximal femur and femoral stem. Soft tissue and bone was removed to expose the shoulder of the implant. A pencil-tip saul was used to disrupt any remaining surfaces between the proximal implant and bone. A removal device was assembled to the trunnion and the femoral component was easily extracted. Evaluation of the proximal femur showed the proximal segment of the greater and lesser trochanter to be fractured in once piece from the distal segment of the femur. Next, the acetabulum was exposed with circumferential retractors directly on bone. Any remaining scar tissue was removed. The edges of the acetabular component were fully exposed. A drill was used to make a packing machine pilot can router hole in the poly liner and a screw inserted to remove the liner. A hemalatha was used to pull on the cup, which showed complete movement of the pelvis signifying excellent fixation of the cup. Decision at this time was to insert the final dual mobility metal shell. The final shell of above size was impacted into place with excellent initial seat. Irrigation was performed. Attention was then turned back to the femur. Distal exposure was continued with a subvastus approach, elevating the vastus lateralis off the posterior margin and reflecting it anteriorly. This was carried down past the fracture to allow placement of a prophylactic cable. Cable passer was used right off bone and the cable passed and tensioned just distal to the fracture site. A large reduction clamp was then used to manipulate the proximal femur fracture fragment and a second cable was passed in similar fashion. The cable was tensioned and fluoroscopy confirmed good reduction of the fracture and cable placement. The femur was fully internally rotated, and a posterior retractor was placed for the femur and the proximal femur was exposed in preparation for the diaphyseal stem. The canal was initially reamed with flexible reamers and then sequentially reamed with the rigid reamers to the above size where good cortical screaming was heard. Fluoroscopy confirmed good cortical fit and stem length in the diaphysis. The reamer was removed and the final diaphyseal stem of the above size was impacted into place. Next, the proximal body was prepared. The reamers were sequentially placed to the above size. Trialing was performed with the trial proximal body in adequate anteversion and the above noted dual mobility, which showed that the above neck length was appropriate for limb length and offset hoahaoism. It was noted that the greater trochanter fractured from the lesser trochanter fragment at this point. The vastus-abductor sleeve was well-maintained with the greater trochanter and it was decided to leave this fragment alone. A third cable was passed just distal to the lesser trochanter to provide another point of fixation for the main fracture. The hip was dislocated and the trial components removed. The wound was copiously irrigated with normal saline. The final proximal body was impacted into place, with care to note the appropriate anteversion from trialing. The above noted head was impacted onto the trunnion and the hip reduced. Final range of motion of the hip demonstrated a stable hip to 65 of internal rotation at 90 of hip flexion and to full external rotation with the leg in full extension. Leg lengths were restored. Next, thorough irrigation was performed with normal saline and dilute betadine. 1g of Vancomycin powder was placed into the joint. The capsule was closed with #5 Ethibond. The subvastus exposure was closed with a running #2 barbed monofilament suture. The fascial layer was then reapproximated with 0 vicryl and a running #2 barbed monofilament suture. 2-0 Vicryl sutures were used to close the subcutaneous skin, and kelvin were used for the skin closure. A Prevena incisional vac was applied. The patient was awakened and transferred to the recovery room in stable condition. Postoperative Plan WBAT operative extremity Posterior hip precautions x6 weeks No active hip abduction Abx x24h postop, then PO x7 days PT DVT per primary Prevena to remain for 14 days Follow-up in 2 weeks This operative report was prepared and signed by Faisal Styles MD at 07/24/23, 3:41 PM [facility] Phone: 07-24-2023 Note Orthopedic Progress Note Name: Miri Plasencia Date:07/24/2023 Attending:Jaime Lara, Subjective Pt doing ok. Pain tolerable if she doesn't move. No new questions about surgery. Objective Vitals: 07/23/23 0802 07/23/23 1015 07/23/23 1350 07/23/231958 BP: (!) 151/80 121/77 BP Location: Right arm Right arm Patient Position: Sitting Pulse: 88 95 Resp: 24 Temp: 36.4 ?C (97.5 ?F) 36.8 ?C (98.2 ?F) TempSrc: Temporal Temporal SpO2: 94% 95% 95% 96% Weight: Height: Physical Exam: General: Resting in bed, NAD LLE Dressing/Skin: Skin intact SILT: Saphenous/Superficial Peroneal/Deep Peroneal/Tibial/Sural distributions Motor: +Dorsiflexion/Plantarflexion/Gr eat toe extension Pulses: Palpable DP/PT LABS: Recent Labs 07/22/236 07/24/23 015 WBC 8.1 8.7 HGB 12.1 13.1 HCT 35.3 39.1 PLT 283 333 Recent Labs 07/22/23184507/24/23150 NA 138 139 K 3.1* 3.5 CL 106 104 CO2 24 29 BUN 18* 22* CREATININE 0.31* 0.35* CALCIUM 8.6 8.9 PHOS 3.7 3.8 Recent Labs 07/22/231845 INR 1.0 No results for input(s): SEDRATE , CRP in the last 72 hours. No results for input(s): HCG in the last 72 hours. Assessment Miri is a 68 y.o.female with a Left B2 Baker periprosthetic proximal femur fracture Plan -Plan for OR for L femur ORIF and L hip revision arthroplasty today -NPO -Clear per medicine -Consented -Signed -Ice -APS consulted for gabino-operative pain, hip block done by ED -Bedrest -harding -Pain control & medical management per primary -Please hold DVT prophylaxis in anticipation of OR -Please comment on clearance in case of OR, page ortho application security architect with clearance status Rusty Daley MD Orthopedic Surgery, PGY5 07/24/23 6:32 AM [phone] [facility] 07-23-2023 Consult note Associated Order (s): IP CONSULT TO PODIATRY Images from the original note were not included. Ortho H&P/Consult Patient: Miri Plasencia Date of : 1955 Acct: [id number] PCP: MOHSEN MARTINEZ MD Date of Admission: 07/22/2023 Date of Service: Pt seen/examined on 07/23/2023 Chief Complaint: Recent right foot surgery History Of Present Illness: This is a 68 y.o. female who presents with left hip pain after a fall from standing. The patient was unable to get up and had to call for help. Patient was transferred from [facility]. Denies significant pain besides left hip. Denies head trauma and loss of consciousness. Denies numbness and tingling in affected extremity. Patient is additionally s/p hammer toe surgery on 07/18 at [place] and has been ambulating with crutches to keep weight off her right foot until this most recent fall. Prior to surgery patient ambulated with a cane. Endorses smoking 8-10 cigarettes/day. Denies alcohol and illicit drug use. PMH of Non small cell lung cancer, COPD, emphysema. Lives with son. Orthopaedic surgery history: Right hammer toe correction, Dr. Roberson, [place], 07/18/2023 Left hip replacement, Dr. Lerma, [place], 2018. Left knee replacement, Dr. Ignacio, [place], 1989's She is not known to any local orthopedic surgeons. Patient ambulation status: ambulates with: cane. Antiplatelets/Anticoagulation includes: none. Hx from chart and/or Pt. Past Medical History: Past Medical History: Diagnosis Date Acquired hypothyroidism 03/04/2016 Allergic rhinitis Anxiety Asthma COPD (chronic obstructive pulmonary disease) (HCC) Gastroesophageal reflux disease without esophagitis 03/04/2016 GERD (gastroesophageal reflux disease) Hypothyroidism Lumbar disc disease 03/04/2016 Lung mass Osteoporosis 03/04/2016 Post herpetic neuralgia 03/04/2016 S/P lung surgery, follow-up exam 04/04/2016 Tobacco abuse 03/04/2016 Past Surgical History: Past Surgical History: Procedure Laterality Date CARPAL TUNNEL RELEASE Bilateral CERVICAL DISCECTOMY SECTION (HISTORICAL) CHOLECYSTECTOMY JOINT REPLACEMENT MOUTH SURGERY PLEURA BIOPSY Right 03/18/2016 Dr. Hernandezinal-lobectomy Home Medications: Prior to Admission medications Medication Sig Start Date End Date Taking? Authorizing Provider Cyanocobalamin 1000 MCG capsule Take 1 capsule by mouth daily. 01/31/22 Yes Historical Provider, MULTIPLE VITAMIN PO Take by mouth. 01/31/22 Yes Historical Provider, albuterol 108 (90 Base) MCG/ACT inhaler Inhale 2 puffs every 6 hours as needed for wheezing or shortness of breath. Historical Provider, busPIRone (Buspar) 5 MG tablet Take 5 mg by mouth 2 times daily. Historical Provider, dexlansoprazole (Dexilant) [address] capsule Take 60 mg by mouth daily. Historical Provider, DULoxetine (Cymbalta) [address] capsule Take 30 mg by mouth 2 times daily. Do not crush or chew. Historical Provider, Fluticasone-Salmeterol (Wixela Inhub) 500-50 MCG/ACT aerosol powder Inhale 1 Inhalation 2 times daily. Historical Provider, gabapentin (Neurontin) 600 MG tablet Take 600 mg by mouth 3 times daily. Historical Provider, latanoprost (Xalatan) 0.005 % ophthalmic solution Administer 1 drop into both eyes before bedtime. Historical Provider, levothyroxine (Synthroid, Levoxyl) 75 MCG tablet Take 75 mcg by mouth every morning (before breakfast). Historical Provider, loratadine (Claritin) 10 MG tablet Take 10 mg by mouth daily. Historical Provider, montelukast (Singulair) 10 MG tablet Take 10 mg by mouth daily. Historical Provider, Roflumilast (Daliresp) 500 MCG tablet Take 500 mcg by mouth daily. Historical Provider, tolterodine LA (Detrol LA) 4 MG 24 hr capsule Take 4 mg by mouth Nightly. Do not crush, chew, or split. Historical Provider, umeclidinium (Incruse Ellipta) 62.5 MCG/ACT inhalation Inhale 1 puff daily. Historical Provider, Fluticasone-Salmeterol (Advair Diskus) 500-50 MCG/ACT aerosol powder 07/23/23 Historical Provider, Current Hospital Medications: Current Facility-Administered Medications: bacitracin 500 UNIT/GM ointment - Pyxis ADS Override Pull, , , , acetaminophen (Tylenol) tablet 1,000 mg, 1,000 mg, Oral, q8h, Timi James MD, 1,000 mg at 07/23/23 1242 busPIRone (Buspar) tablet 5 mg, 5 mg, Oral, BID, Timi James MD, 5 mg at 07/23/23 1052 cetirizine (ZyrTEC) tablet 10 mg, 10 mg, Oral, Daily, Timi James MD, 10 mg at 07/23/23 1052 cyanocobalamin (Vitamin B-12) tablet 1,000 mcg, 1,000 mcg, Oral, Daily, Timi James MD, 1,000 mcg at 07/23/23 1052 DULoxetine (Cymbalta) DR capsule 30 mg, 30 mg, Oral, BID, Timi James MD, 30 mg at 07/23/23 1152 gabapentin (Neurontin) capsule 600 mg, 600 mg, Oral, TID, Timi James MD, 600 mg at 07/23/23 1243 ipratropium-albuterol (Duo-Neb) 0.5-2.5 mg/3 mL nebulizer solution 3 mL, 3 mL, Nebulization, PRN, Timi James MD latanoprost (Xalatan) 0.005 % ophthalmic solution 1 drop, 1 drop, Both Eyes, Daily, Timi James MD levalbuterol (Xopenex) 0.63 MG/3ML nebulizer solution 0.315 mg, 0.315 mg, Nebulization, TID, Timi James MD, 0.315 mg at 07/23/23 1350 [START ON 07/24/2023] levothyroxine (Synthroid, Levoxyl) tablet 75 mcg, 75 mcg, Oral, qAM AC, Timi James MD montelukast (Singulair) tablet 10 mg, 10 mg, Oral, Daily, Timi James MD, 10 mg at 07/23/23 1052 naloxone (Narcan) injection 0.4 mg, 0.4 mg, IntraVENous, PRN, Timi James MD nicotine (Nicoderm, Step 2) 14 MG/24HR patch 1 patch, 1 patch, TransDERmal, Daily, 1 patch at 07/23/23 0828 FOLLOWED BY [START ON 09/03/2023] nicotine (Nicoderm, Step 3) 7 MG/24HR patch 1 patch, 1 patch, TransDERmal, Daily, Luz Perez, DO ondansetron ODT (Zofran-ODT) disintegrating tablet 4 mg, 4 mg, Oral, q8h PRN OR ondansetron (Zofran) injection 4 mg, 4 mg, IntraVENous, q6h PRN, Timi James MD oxyCODONE (Roxicodone) immediate release tablet 2.5 mg, 2.5 mg, Oral, q4h PRN OR oxyCODONE (Roxicodone) immediate release tablet 5 mg, 5 mg, Oral, q4h PRN, Roc Martinez DO, 5 mg at 07/23/23 1803 pantoprazole (ProtoNix) EC tablet 40 mg, 40 mg, Oral, qAM AC, Timi James MD, 40 mg at 07/23/23 0546 phenol (Chloraseptic) 1.4 % mouth/throat spray 1 spray, 1 spray, Mouth/Throat, q2h PRN, Timi James MD, 1 spray at 07/23/23 1052 polyethylene glycol (PEG) 3350 (Miralax) packet 17 g, 17 g, Oral, Daily PRN, Timi James MD Roflumilast (Daliresp) tablet 500 mcg, 500 mcg, Oral, Daily, Timi James MD, 500 mcg at 07/23/23 1152 tiotropium (Spiriva) 18 MCG per inhalation capsule 18 mcg, 1 capsule, Inhalation, Daily, Timi James MD, 18 mcg at 07/23/23 1052 trospium (Sanctura) tablet 20 mg, 20 mg, Oral, Daily, Timi James MD, 20 mg at 07/23/23 1052 Allergies: Patient has no known allergies. Social History: Social History Socioeconomic History Marital status: Spouse name: Not on file Number of children: Not on file Years of education: Not on file Highest education level: Not on file Occupational History Not on file Tobacco Use Smoking status: Every Day Packs/day: 1 Types: Cigarettes Smokeless tobacco: Not on file Substance and Sexual Activity Alcohol use: Yes Drug use: Not on file Sexual activity: Not on file Other Topics Concern Not on file Social History Narrative Not on file Social Determinants of Health Financial Resource Strain: Not on file Food Insecurity: Not on file Transportation Needs: Not on file Physical Activity: Not on file Stress: Not on file Social Connections: Not on file Intimate Partner Violence: Not on file Housing Stability: Not on file Family History: Family History Problem Relation Name Age of Onset Other ([address]276) Mother Cancer Father Cancer Sister Further Family History is noncontributory to this injury. REVIEW OF SYSTEMS: Review of Systems - General ROS: negative for - chills, fatigue, fever, malaise or night sweats Psychological ROS: negative Ophthalmic ROS: negative ENT ROS: negative for - headaches or sore throat Hematological and Lymphatic ROS: negative for - bleeding problems or blood clots Respiratory ROS: no cough, shortness of breath, or wheezing Cardiovascular ROS: no chest pain or dyspnea on exertion Gastrointestinal ROS: negative Musculoskeletal ROS: See HPI Neurological ROS: negative for - bowel and bladder control changes, gait disturbance or numbness/tingling All other systems reviewed and are negative PHYSICAL EXAM: BP (!) 151/80 (BP Location: Right arm) Pulse 88 Temp 36.4 C (97.5 F) (Temporal) Resp 24 Ht 1.575 m (5' 2 ) Wt 49.4 kg (109 lb) SpO2 95% BMI 19.94 kg/m GENERAL APPEARANCE: Awake and oriented x3. No acute distress, except appropriate to injury. MOOD AND AFFECT: Calm appropriate to situation GAIT AND STATION: Patient is in bed and unable to ambulate secondary to known injury. COORDINATION and BALANCE: Patient is grossly coordinated unable to ambulate secondary to known injury. Right Upper Extremity: -No obvious pain or deformity to inspection with normal joint range of motion, stability, and muscle strength except noted below -No TTP over clavicle, shoulder, humerus, elbow, forearm, wrist, hand, or fingers -TTP: nontender throughout extremity -Radial pulse palpable -SILT in radial/median/ ulnar nerve distributions -Motor + AIN/PIN/ulnar nerve functions -No Lymphedema -Skin intact except where noted below -Painless pROM at shoulder/elbow/wrist Left Upper Extremity: -No obvious pain or deformity to inspection with normal joint range of motion, stability, and muscle strength except noted below -No TTP over clavicle, shoulder, humerus, elbow, forearm, wrist, hand, or fingers -TTP: nontender throughout extremity -Radial pulse palpable -SILT in radial/median/ ulnar nerve distributions -Motor + AIN/PIN/ulnar nerve functions -No Lymphedema -Skin intact except where noted below -Painless pROM at shoulder/elbow/wrist Right Lower Extremity: -No obvious pain or deformity to inspection with normal joint range of motion, stability, and muscle strength except noted below -No TTP over pelvis, hip, thigh, knee, tibia, lateral mal, medial mal, calc, midfoot, forefoot -TTP: Nontender throughout extremity -Pulse: DP Palpable, PT Palpable -SILT in the superficial peroneal, deep peroneal, tibial, sural, saphenous nerve distributions -Motor function of quad, tibialis anterior, and gactrocsoleus complex intact; extensor hallucis longus function not assessed due to known injury -No Lymphedema -Skin intact except where noted below -Painless pROM at hip/knee/ankle See clinical images below. Well-healing surgical incisions over dorsum of right great toe and second toe extending into the dorsum of forefoot with covering K wire in place at distal tip of second toe. Mild erythema surrounding incision and sutures. No purulent drainage or signs of wound dehiscence/breakdown. Left Lower Extremity: -No obvious pain or deformity to inspection with normal joint range of motion, stability, and muscle strength except noted below. Extremity shortened and externally rotated. Skin over lateral hip is clean and dry without signs of wounds or breakdown. -No TTP over knee, tibia, lateral mal, medial mal, calc, midfoot, forefoot -TTP: hip -Pulse: DP Palpable, PT Palpable -SILT in the superficial peroneal, deep peroneal, tibial, sural, saphenous nerve distributions -Motor function of tibialis anterior, extensor hallucis longus, and gactrocsoleus complex intact -No Lymphedema -Skin intact except where noted below -Painless pROM at knee/ankle - + logroll DOUG incision is well-healed. No open wounds or concern for open fracture Labs: CBC: Lab Results Component Value Date WBC 8.1 07/22/2023 RBC 3.71 (L) 07/22/2023 BMP: Lab Results Component Value Date GLUCOSE 99 07/22/2023 CO2 24 07/22/2023 BUN 18 (H) 07/22/2023 CREATININE 0.31 (L) 07/22/2023 CALCIUM 8.6 07/22/2023 PT/INR: Lab Results Component Value Date INR 1.0 07/22/2023 Type and Screen: Lab Results Component Value Date RH POS 07/22/2023 CRP: No results found for: CRP ESR: No results found for: SEDRATE HgBA1c: No components found for: LABA1C The above labs were reviewed by me. Radiology: The below images were independently reviewed and interpreted with pertinent findings noted below. XR: Left femur/pelvis: Prior DOUG metaphyseal fit stem appears loose within the metaphyseal region secondary to fracture. Cup appears intact with no signs of lucency. Fracture extending from metaphysis to proximal diaphyseal region of femur. No other acute fracture or dislocation. Right foot: Hardware in place from prior great toe and second toe surgery. Radiology reports reviewed. ASSESSMENT: 68 y.o. female s/p right great toe and second toe hammertoe correction surgery on 07/18. PLAN: -D/W Dr. Caruso -No acute surgical intervention -Keep splint/dressing c/d/i until outpatient follow-up -NWB RLE -Activity as tolerated -Ice & elevate -Neurovascular checks -Skin checks -Follow-up outpatient with Dr. Amor Roberson -Pain and medical management per primary team. -Please see orthopedic trauma surgery notes for further evaluation and management of patient's left periprosthetic fracture. -Orthopaedic foot/ankle surgery will sign off. Please page application security architect orthopaedic resident for questions or concerns. Leyla Walsh MD Orthopedic Surgery PGY-2 07/23/2023 at 7:27 PM [facility] [employer] Phone: 07-23-2023 Note Formatting of this n ote might be different from the original. Care Managment Initial Assessment Date: 07/23/2023 Patient Name: Miri Plasencia : 1955 Patient Information Source of Information: Patient Cognition/Language: WFL - Within Functional Limits Permission given to speak with patient denial management representative/caregiver as indicated: No Confirmation of Payer with patient/family: Yes Payer Name: [employer] [place]: No Confirmation of Primary Care Physician: Confirmed PCP Name: Dr Duckworth Seen in last 2 years?: Yes Primary Caregiver: Self If assistance needed, confirmed caregiver ready, willing and able to care for patient at discharge: Confirmed with: Living Arrangements Current Residence: Private Residence (trailer) Number of Floors 1 Number of Entry Steps: 4 Bed/Bath Levels: Both first floor Facility: Facility Name: Plan to Return: Lives with: Children, Extended family members Support Systems: Children, Family members Activities of Daily Living Ambulation: Independent Bathing/Dressing: Independent Elimination/Continence/Toiletin g: Independent Feeding: Independent Who Assists with Activities of Daily Living: Instrumental Activities of Daily Living Prescription Coverage: Yes [facility] [place] [facility] Medication Management: Independent Transportation/Shopping: Assistance Provider Transportation/Shopping Assistance Provider Name: son is helping Transportation Mode: Car Needs Assistance with Transportation at Discharge: No Meal Preparation: Assistance Provider Meal Prep Assistance Provider Name: son and daughter in law Laundry/Cleaning: Assistance Provider Laundry/Cleaning Assistance Provider Name: son and daughter in law Finances/Bill Paying: Independent Communication: Independent Types of Care Services/Equipment Utilized Care Services: (NA) Dialysis Type: NA Durable Medical Equipment: Oxygen (Continuous or prn), Other (Comment), Nebulizer, Walker, Wheelchair (standard or power), Cane, Raised Toilet Seat Oxygen Flow Rate: 2L Patient's Goal/Discharge Plan Patient expects to be discharged to: home with home care vs rehab Discharge Planning Actions: Continue to follow Patient's Choice Rights and [employer] and Collaborative Relationships Disclosed as Indicated for Post-Acute Care: NA Interdisciplinary Team Engagement: PT/OT Social Work Referral for: Additional Information: Met with patient at their bedside. Introduced self and role. Discussed discharge planning. Patient has help at home and transportation available upon discharge. Discharge plan is to be determined pending therapy recommendations after surgery.Patient verbalized understanding of discharge plan and agrees with plan. TCC will continue to follow. [facility] 07-23-2023 Note Brief Orthopedic Jaison jarad Progress Note Orthopedics team contacted treating surgeon office and discussed patient's L DOUG. For preoperative planning and documentation, implants used listed below: Anato Marcos femoral stem size 4 Marcos trident acetabular shell size 52mm Bath X3 polyethylene E Marcos Biolox delta 36mm, -5mm femoral head Plan -D/w Dr. Mcnamara -Plan for OR for L femur ORIF and L hip revision arthroplasty on 07/24 -NPO at Midnight, 07/24 -Clear per medicine pending -Consented -Pre-op workup in process -Ice -APS consulted for gabino-operative pain, hip block done by ED -Ranjan radford -Admit to medicine -Pain control & medical management per primary -Please hold DVT prophylaxis in anticipation of OR -Please comment on clearance in case of OR, page ortho application security architect with clearance status Devan Ignacio M.D. Orthopaedic Surgery PGY-1 07/23/2023 [facility] 07-23-2023 Note Procedure Nerve Block Performed by: Martell Hunter MD Authorized by: Raymundo Garduno DO Consent: Consent obtained: Written Consent given by: Patient Risks discussed: Infection, intravenous injection, pain, unsuccessful block, bleeding, allergic reaction, nerve damage and swelling Alternatives discussed: No treatment [place] protocol: Procedure explained and questions answered to patient or proxy's satisfaction: yes Relevant documents present and verified: yes Test results available: yes Imaging studies available: yes Required blood products, implants, devices, and special equipment available: yes Site/side marked: yes Immediately prior to procedure, a time out was called: yes Patient identity confirmed: Arm band and hospital-assigned identification number Indications: Indications: Pain relief Location: Body area: Lower extremity Lower extremity nerve: Femoral (fascial iliaca and femoral nerve block) Laterality: Left Pre-procedure details: Skin preparation: Chlorhexidine Preparation: Patient was prepped and draped in usual sterile fashion Skin anesthesia: Skin anesthesia method: Local infiltration Local anesthetic: Bupivacaine 0.5% w/o epi Procedure details: Block needle gauge: 21 G Guidance: ultrasound Anesthetic injected: Bupivacaine 0.5% w/o epi Injection procedure: Anatomic landmarks identified, incremental injection, negative aspiration for blood and introduced needle Post-procedure details: Outcome: Pain relieved Procedure completion: Tolerated well, no immediate complications Martell Hunter MD Resident 07/22/23 [id number] [facility] 07-22-2023 Note Associated Order(s): Nerve Block Procedure Nerve Block Performed by: Martell Hunter MD Authorized by: Raymundo Garduno DO Consent: Consent obtained: Written Consent given by: Patient Risks discussed: Infection, intravenous injection, pain, unsuccessful block, bleeding, allergic reaction, nerve damage and swelling Alternatives discussed: No treatment [place] protocol: Procedure explained and questions answered to patient or proxy's satisfaction: yes Relevant documents present and verified: yes Test results available: yes Imaging studies available: yes Required blood products, implants, devices, and special equipment available: yes Site/side marked: yes Immediately prior to procedure, a time out was called: yes Patient identity confirmed: Arm band and hospital-assigned identification number Indications: Indications: Pain relief Location: Body area: Lower extremity Lower extremity nerve: Femoral (fascial iliaca and femoral nerve block) Laterality: Left Pre-procedure details: Skin preparation: Chlorhexidine Preparation: Patient was prepped and draped in usual sterile fashion Skin anesthesia: Skin anesthesia method: Local infiltration Local anesthetic: Bupivacaine 0.5% w/o epi Procedure details: Block needle gauge: 21 G Guidance: ultrasound Anesthetic injected: Bupivacaine 0.5% w/o epi Injection procedure: Anatomic landmarks identified, incremental injection, negative aspiration for blood and introduced needle Post-procedure details: Outcome: Pain relieved Procedure completion: Tolerated well, no immediate complications Martell Hunter MD Resident 07/22/23 0437 [facility] Phone: 07-22-2023 Note Attestation signed by Jaime Lara DO at 07/23/2023 4:43 PM I saw and evaluated the patient. I agree with the findings and plan of care as documented in the resident's note, except as noted in Green text. Patient seen and examined personally during bedside teaching rounds (Date of Service: 07/23/23) Summary and [place] Changes to Care Plan: Ms. Plasencia is a 68-year-old female presenting with a fall found to have a left hip fracture. She recently had a podiatry surgery and had fallen because she lost balance with her crutches. Additional history includes COPD, hypothyroidism, neuropathy (due to hiatal hernia?), And NSC lung cancer. Patient's only symptom is pain in her left hip. She reports no shortness of breath, cough, chest pain. ARISCAT score (used to predict respiratory complications)-puts her at an intermediate risk for surgery. NSQUIP indicates a below average risk overall. She is medically optimized for surgery 7AM-5PM: contact resident on [facility] Med [facility] (find by hovering over attending's name on left side of patient's chart) 5PM-7AM: contact 3 res Internal Medicine: Med Team Initial History and Physical Miri Plasencia : 1955(68 y.o.) Date: July 22, 2023 TEAM: Deepak Attending: Dr. Lara Subjective: Chief Complaint: Fall HPI Miri Plasencia is a 68 y.o. female with PMH COPD, hypothyroidism, neuropathy, NSC lung cancer that presented to [facility] on 07/22/2023 from outside facility ([facility]) with chief complaint of L hip pain and fracture after fall from standing while on crutches. Patient had a surgery for right hammer toe deformity on 07/18. Patient was on crutches and fell at home on 07/19. She was down for about 1 hour and was found by her son who took her to [facility]. Left hip x-ray revealed left hip fracture. She lives with her son at home. She denies hitting her head or losing consciousness. She denies any presyncope, dizziness, lightheadedness, changes in vision, weakness of extremities prior to the fall. At this time, she is endorsing left lower extremity pain, with significant pain to palpation or movement. The right leg is wrapped and bandaged. She has a chronic cough 2/2 COPD. She denies any chest pain, shortness of breath, fever, chills, dysuria at this time. She says she takes 9 medications daily but is unsure of the medications. She denies alcohol use but endorses smoking 8 cigarettes a day for many years. In the ED, vitals are stable. Temp 98.1, HR 72, RR 16, BP 155/78, SpO2 96% on RA. Labs are significant for K 3.1. X-ray of the left femur shows s/p left hip arthroplasty and periprostatic fracture in left proximal femur. Orthopedic surgery was consulted and with possible plans for OR. We will admit for medical management. Review of Systems Constitutional: Negative for chills and fever. Respiratory: Positive for cough (chronic cough). Negative for chest tightness and shortness of breath. Cardiovascular: Negative for chest pain and palpitations. Gastrointestinal: Negative for abdominal pain, constipation, diarrhea, nausea and vomiting. Genitourinary: Negative for dysuria and urgency. Musculoskeletal: Positive for myalgias (left leg pain). Neurological: Negative for dizziness, syncope, light-headedness and headaches. Past Medical History: Diagnosis Date Acquired hypothyroidism 03/04/2016 Allergic rhinitis Anxiety Asthma COPD (chronic obstructive pulmonary disease) (HCC) Gastroesophageal reflux disease without esophagitis 03/04/2016 GERD (gastroesophageal reflux disease) Hypothyroidism Lumbar disc disease 03/04/2016 Lung mass Osteoporosis 03/04/2016 Post herpetic neuralgia 03/04/2016 S/P lung surgery, follow-up exam 04/04/2016 Tobacco abuse 03/04/2016 Past Surgical History: Procedure Laterality Date CARPAL TUNNEL RELEASE Bilateral CERVICAL DISCECTOMY SECTION (HISTORICAL) CHOLECYSTECTOMY JOINT REPLACEMENT MOUTH SURGERY PLEURA BIOPSY Right 03/18/2016 Dr. Hernandezinal-lobectomy Family History Problem Relation Name Age of Onset Other (04661) Mother Cancer Father Cancer Sister Social History Tobacco Use Smoking Status Every Day Packs/day: 1 Types: Cigarettes Smokeless Tobacco Not on file Social History Substance and Sexual Activity Alcohol Use Yes Social History Substance and Sexual Activity Drug Use Not on file No Known Allergies Prior to Admission medications Not on File Objective: Vitals: 07/22/23 1647 07/22/23 1705 BP: (!) 155/78 Pulse: 72 Resp: 16 Temp: 36.7 ?C (98.1 ?F) TempSrc: Oral SpO2: 96% Weight: 109 lb (49.4 kg) 109 lb (49.4 kg) Height: 5' 2 (1.575 m) Physical Exam Constitutional: General: She is not in acute dis (more content not included)... [facility] 07-22-2023 History and physical note Internal Medicine: Med Team Initial History and Physical Miri Plasencia : 1955(68 y.o.) Date: July 22, 2023 TEAM: Deepak Attending: Dr. Lara Subjective: Chief Complaint: Fall HPI Miri Plasencia is a 68 y.o. female with PMH COPD, hypothyroidism, neuropathy, NSC lung cancer that presented to [facility] on 07/22/2023 from outside facility ([facility]) with chief complaint of L hip pain and fracture after fall from standing while on crutches. Patient had a surgery for right hammer toe deformity on 07/18. Patient was on crutches and fell at home on 07/19. She was down for about 1 hour and was found by her son who took her to [facility]. Left hip x-ray revealed left hip fracture. She lives with her son at home. She denies hitting her head or losing consciousness. She denies any presyncope, dizziness, lightheadedness, changes in vision, weakness of extremities prior to the fall. At this time, she is endorsing left lower extremity pain, with significant pain to palpation or movement. The right leg is wrapped and bandaged. She has a chronic cough 2/2 COPD. She denies any chest pain, shortness of breath, fever, chills, dysuria at this time. She says she takes 9 medications daily but is unsure of the medications. She denies alcohol use but endorses smoking 8 cigarettes a day for many years. In the ED, vitals are stable. Temp 98.1, HR 72, RR 16, BP 155/78, SpO2 96% on RA. Labs are significant for K 3.1. X-ray of the left femur shows s/p left hip arthroplasty and periprostatic fracture in left proximal femur. Orthopedic surgery was consulted and with possible plans for OR. We will admit for medical management. Review of Systems Constitutional: Negative for chills and fever. Respiratory: Positive for cough (chronic cough). Negative for chest tightness and shortness of breath. Cardiovascular: Negative for chest pain and palpitations. Gastrointestinal: Negative for abdominal pain, constipation, diarrhea, nausea and vomiting. Genitourinary: Negative for dysuria and urgency. Musculoskeletal: Positive for myalgias (left leg pain). Neurological: Negative for dizziness, syncope, light-headedness and headaches. Past Medical History: Diagnosis Date Acquired hypothyroidism 03/04/2016 Allergic rhinitis Anxiety Asthma COPD (chronic obstructive pulmonary disease) (HCC) Gastroesophageal reflux disease without esophagitis 03/04/2016 GERD (gastroesophageal reflux disease) Hypothyroidism Lumbar disc disease 03/04/2016 Lung mass Osteoporosis 03/04/2016 Post herpetic neuralgia 03/04/2016 S/P lung surgery, follow-up exam 04/04/2016 Tobacco abuse 03/04/2016 Past Surgical History: Procedure Laterality Date CARPAL TUNNEL RELEASE Bilateral CERVICAL DISCECTOMY SECTION (HISTORICAL) CHOLECYSTECTOMY JOINT REPLACEMENT MOUTH SURGERY PLEURA BIOPSY Right 03/18/2016 Dr. Hernandezinal-lobectomy Family History Problem Relation Name Age of Onset Other (69990) Mother Cancer Father Cancer Sister Social History Tobacco Use Smoking Status Every Day Packs/day: 1 Types: Cigarettes Smokeless Tobacco Not on file Social History Substance and Sexual Activity Alcohol Use Yes Social History Substance and Sexual Activity Drug Use Not on file No Known Allergies Prior to Admission medications Not on File Objective: Vitals: 07/22/23 1647 07/22/23 1705 BP: (!) 155/78 Pulse: 72 Resp: 16 Temp: 36.7 C (98.1 F) TempSrc: Oral SpO2: 96% Weight: 109 lb (49.4 kg) 109 lb (49.4 kg) Height: 5' 2 (1.575 m) Physical Exam Constitutional: General: She is not in acute distress. Appearance: Normal appearance. She is not ill-appearing. HENT: Head: Normocephalic and atraumatic. Nose: Nose normal. Eyes: Extraocular Movements: Extraocular movements intact. Pupils: Pupils are equal, round, and reactive to light. Cardiovascular: Rate and Rhythm: Normal rate and regular rhythm. Pulses: Normal pulses. Heart sounds: Normal heart sounds. Pulmonary: Effort: Pulmonary effort is normal. No respiratory distress. Breath sounds: Wheezing present. Abdominal: General: Abdomen is flat. Bowel sounds are normal. There is no distension. Palpations: Abdomen is soft. Tenderness: There is no abdominal tenderness. Musculoskeletal: General: Tenderness (tenderness of left hip) and signs of injury (right lower extremity is bandaged) present. Skin: General: Skin is warm and dry. Neurological: Mental Status: She is alert and oriented to person, place, and time. [facility] within last 24 hours Auto WBC Date Value Ref Range Status 07/22/2023 8.1 3.6 - 10.7 10*3/uL Final Hemoglobin Date Value Ref Range Status 07/22/2023 12.1 11.7 - 16.0 g/dL Final Hematocrit Date Value Ref Range Status 07/22/2023 35.3 35.0 - 47.0 % Final Platelets Date Value Ref Range Status 07/22/2023 283 140 - 440 10*3/uL Final MCV Date Value Ref Range Status 07/22/2023 95.0 80.0 - 98.0 fL Final SODIUM Date Value Ref Range Status 07/22/2023 138 135 - 145 mmol/L Final POTASSIUM Date Value Ref Range Status 07/22/2023 3.1 (L) 3.5 - 5.1 mmol/L Final CHLORIDE Date Value Ref Range Status 07/22/2023 106 98 - 107 mmol/L Final CARBON DIOXIDE Date Value Ref Range Status 07/22/2023 24 22 - 30 mmol/L Final UREA NITROGEN Date Value Ref Range Status 07/22/2023 18 (H) 7 - 17 mg/dL Final CREATININE Date Value Ref Range Status 07/22/2023 0.31 (L) 0.52 - 1.04 mg/dL Final GLUCOSE Date Value Ref Range Status 07/22/2023 99 70 - 100 mg/dL Final CALCIUM Date Value Ref Range Status 07/22/2023 8.6 8.4 - 10.4 mg/dL Final INR Date Value Ref Range Status 07/22/2023 1.0 0.9 - 1.1 Final Comment: Recommended Anticoagulant Therapy: SEE BELOW ----- INR of 2.0 - 3.0 : - Prophylaxis of Venous Thrombosis (high-risk surgery) - Treatment of Venous Thrombosis - Treatment of Pulmonary Embolism (Includes tissue heart valves, Acute Myocardial Infarction to prevent systemic embolism, Valvular Heart Disease, and Atrial Fibrillation) ----- INR of 2.5 - 3.5 : - Mechanical Prosthetic Valves (high risk) - If oral anticoagulant therapy is used to prevent Myocardial Infarction No results found for: CKTOTAL , CKMB , TROPONINI No results found for: PROCAL , CHOL , TRIG , HDL , TSH , VITD25 , HGBA1C , VANCOTROUGH Assessment and Plan: Active Problems: There are no active Hospital Problems. Left proximal femur fracture - Pt initially seen at [facility] - Hip x-ray shows s/p total left hip arthroplasty with periprostatic fracture of left proximal femur - Orthopedic surgery consulted - Possible plans for OR - Hold DVT prophylaxis - NPO at midnight - Pain control with Tylenol 1000 mg q8h PRN and oxycodone 2.5/5 mg q6h PRN COPD - Per pt, she is on 2 L NC at night - Continue home 2 L O2 NC at bedtime - Med rec unclear; will attempt to call pharmacy for full med rec in AM - Start duo-nebs Hypokalemia - K 3.1 on admission - Replete lytes as necessary - Monitor with BMP Neuropathy - Pt on home gabapentin - Continue home gabapentin 600 mg 4 times daily Hypothyroidism - Unclear what dose of levothyroxine pt takes at home - Will attempt to clarify with patient or pharmacy on home levothyroxine dose - Goals of Care: FULL CODE - DVT Prophylaxis: Hold DVT prophylaxis at this time for possible surgery - GI Prophylaxis: Consider home Dexilant - Diet: NPO at midnight - BMI Classification: Body mass index is 19.94 kg/m . Normal (BMI 18.5-24.9) - Disposition: Admit to [facility]. - Given the signs and symptoms associated with her primary diagnosis in the setting of her comorbid conditions, she is expected to require >48 hrs of hospital care (i.e. inpatient level care). Associated attestation - Jaime Lara DO - 07/23/2023 4:43 PM EST I saw and evaluated the patient. I agree with the findings and plan of care as documented in the resident's note, except as noted in Green text. Patient seen and examined personally during bedside teaching rounds (Date of Service: 07/23/23) Summary and Oleary Changes to Care Plan: Ms. Plasencia is a 68-year-old female presenting with a fall found to have a left hip fracture. She recently had a podiatry surgery and had fallen because she lost balance with her crutches. Additional history includes COPD, hypothyroidism, neuropathy (due to hiatal hernia?), And NSC lung cancer. Patient's only symptom is pain in her left hip. She reports no shortness of breath, cough, chest pain. ARISCAT score (used to predict respiratory complications)-puts her at an intermediate risk for surgery. NSQUIP indicates a below average risk overall. She is medically optimized for surgery 7AM-5PM: contact resident on [facility] Med C (find by hovering over attending's name on left side of patient's chart) 5PM-7AM: contact [address] 07-22-2023 History and physical note Internal Medicine: Med Team Initial History and Physical Miri Plasencia : 1955(68 y.o.) Date: July 22, 2023 TEAM: Deepak Attending: Dr. Lara Subjective: Chief Complaint: Fall HPI Miri Plasencia is a 68 y.o. female with PMH COPD, hypothyroidism, neuropathy, NSC lung cancer that presented to [facility] on 07/22/2023 from outside facility ([facility]) with chief complaint of L hip pain and fracture after fall from standing while on crutches. Patient had a surgery for right hammer toe deformity on 07/18. Patient was on crutches and fell at home on 07/19. She was down for about 1 hour and was found by her son who took her to [facility]. Left hip x-ray revealed left hip fracture. She lives with her son at home. She denies hitting her head or losing consciousness. She denies any presyncope, dizziness, lightheadedness, changes in vision, weakness of extremities prior to the fall. At this time, she is endorsing left lower extremity pain, with significant pain to palpation or movement. The right leg is wrapped and bandaged. She has a chronic cough 2/2 COPD. She denies any chest pain, shortness of breath, fever, chills, dysuria at this time. She says she takes 9 medications daily but is unsure of the medications. She denies alcohol use but endorses smoking 8 cigarettes a day for many years. In the ED, vitals are stable. Temp 98.1, HR 72, RR 16, BP 155/78, SpO2 96% on RA. Labs are significant for K 3.1. X-ray of the left femur shows s/p left hip arthroplasty and periprostatic fracture in left proximal femur. Orthopedic surgery was consulted and with possible plans for OR. We will admit for medical management. Review of Systems Constitutional: Negative for chills and fever. Respiratory: Positive for cough (chronic cough). Negative for chest tightness and shortness of breath. Cardiovascular: Negative for chest pain and palpitations. Gastrointestinal: Negative for abdominal pain, constipation, diarrhea, nausea and vomiting. Genitourinary: Negative for dysuria and urgency. Musculoskeletal: Positive for myalgias (left leg pain). Neurological: Negative for dizziness, syncope, light-headedness and headaches. Past Medical History: Diagnosis Date Acquired hypothyroidism 03/04/2016 Allergic rhinitis Anxiety Asthma COPD (chronic obstructive pulmonary disease) (HCC) Gastroesophageal reflux disease without esophagitis 03/04/2016 GERD (gastroesophageal reflux disease) Hypothyroidism Lumbar disc disease 03/04/2016 Lung mass Osteoporosis 03/04/2016 Post herpetic neuralgia 03/04/2016 S/P lung surgery, follow-up exam 04/04/2016 Tobacco abuse 03/04/2016 Past Surgical History: Procedure Laterality Date CARPAL TUNNEL RELEASE Bilateral CERVICAL DISCECTOMY SECTION (HISTORICAL) CHOLECYSTECTOMY JOINT REPLACEMENT MOUTH SURGERY PLEURA BIOPSY Right 03/18/2016 Dr. Hernandezinal-lobectomy Family History Problem Relation Name Age of Onset Other (37775) Mother Cancer Father Cancer Sister Social History Tobacco Use Smoking Status Every Day Packs/day: 1 Types: Cigarettes Smokeless Tobacco Not on file Social History Substance and Sexual Activity Alcohol Use Yes Social History Substance and Sexual Activity Drug Use Not on file No Known Allergies Prior to Admission medications Not on File Objective: Vitals: 07/22/23 1647 07/22/23 1705 BP: (!) 155/78 Pulse: 72 Resp: 16 Temp: 36.7 C (98.1 F) TempSrc: Oral SpO2: 96% Weight: 109 lb (49.4 kg) 109 lb (49.4 kg) Height: 5' 2 (1.575 m) Physical Exam Constitutional: General: She is not in acute distress. Appearance: Normal appearance. She is not ill-appearing. HENT: Head: Normocephalic and atraumatic. Nose: Nose normal. Eyes: Extraocular Movements: Extraocular movements intact. Pupils: Pupils are equal, round, and reactive to light. Cardiovascular: Rate and Rhythm: Normal rate and regular rhythm. Pulses: Normal pulses. Heart sounds: Normal heart sounds. Pulmonary: Effort: Pulmonary effort is normal. No respiratory distress. Breath sounds: Wheezing present. Abdominal: General: Abdomen is flat. Bowel sounds are normal. There is no distension. Palpations: Abdomen is soft. Tenderness: There is no abdominal tenderness. Musculoskeletal: General: Tenderness (tenderness of left hip) and signs of injury (right lower extremity is bandaged) present. Skin: General: Skin is warm and dry. Neurological: Mental Status: She is alert and oriented to person, place, and time. [facility] within last 24 hours Auto WBC Date Value Ref Range Status 07/22/2023 8.1 3.6 - 10.7 10*3/uL Final Hemoglobin Date Value Ref Range Status 07/22/2023 12.1 11.7 - 16.0 g/dL Final Hematocrit Date Value Ref Range Status 07/22/2023 35.3 35.0 - 47.0 % Final Platelets Date Value Ref Range Status 07/22/2023 283 140 - 440 10*3/uL Final MCV Date Value Ref Range Status 07/22/2023 95.0 80.0 - 98.0 fL Final SODIUM Date Value Ref Range Status 07/22/2023 138 135 - 145 mmol/L Final POTASSIUM Date Value Ref Range Status 07/22/2023 3.1 (L) 3.5 - 5.1 mmol/L Final CHLORIDE Date Value Ref Range Status 07/22/2023 106 98 - 107 mmol/L Final CARBON DIOXIDE Date Value Ref Range Status 07/22/2023 24 22 - 30 mmol/L Final UREA NITROGEN Date Value Ref Range Status 07/22/2023 18 (H) 7 - 17 mg/dL Final CREATININE Date Value Ref Range Status 07/22/2023 0.31 (L) 0.52 - 1.04 mg/dL Final GLUCOSE Date Value Ref Range Status 07/22/2023 99 70 - 100 mg/dL Final CALCIUM Date Value Ref Range Status 07/22/2023 8.6 8.4 - 10.4 mg/dL Final INR Date Value Ref Range Status 07/22/2023 1.0 0.9 - 1.1 Final Comment: Recommended Anticoagulant Therapy: SEE BELOW ----- INR of 2.0 - 3.0 : - Prophylaxis of Venous Thrombosis (high-risk surgery) - Treatment of Venous Thrombosis - Treatment of Pulmonary Embolism (Includes tissue heart valves, Acute Myocardial Infarction to prevent systemic embolism, Valvular Heart Disease, and Atrial Fibrillation) ----- INR of 2.5 - 3.5 : - Mechanical Prosthetic Valves (high risk) - If oral anticoagulant therapy is used to prevent Myocardial Infarction No results found for: CKTOTAL , CKMB , TROPONINI No results found for: PROCAL , CHOL , TRIG , HDL , TSH , VITD25 , HGBA1C , VANCOTROUGH Assessment and Plan: Active Problems: There are no active Hospital Problems. Left proximal femur fracture - Pt initially seen at [facility] - Hip x-ray shows s/p total left hip arthroplasty with periprostatic fracture of left proximal femur - Orthopedic surgery consulted - Possible plans for OR - Hold DVT prophylaxis - NPO at midnight - Pain control with Tylenol 1000 mg q8h PRN and oxycodone 2.5/5 mg q6h PRN COPD - Per pt, she is on 2 L NC at night - Continue home 2 L O2 NC at bedtime - Med rec unclear; will attempt to call pharmacy for full med rec in AM - Start duo-nebs Hypokalemia - K 3.1 on admission - Replete lytes as necessary - Monitor with BMP Neuropathy - Pt on home gabapentin - Continue home gabapentin 600 mg 4 times daily Hypothyroidism - Unclear what dose of levothyroxine pt takes at home - Will attempt to clarify with patient or pharmacy on home levothyroxine dose - Goals of Care: FULL CODE - DVT Prophylaxis: Hold DVT prophylaxis at this time for possible surgery - GI Prophylaxis: Consider home Dexilant - Diet: NPO at midnight - BMI Classification: Body mass index is 19.94 kg/m . Normal (BMI 18.5-24.9) - Disposition: Admit to [facility]. - Given the signs and symptoms associated with her primary diagnosis in the setting of her comorbid conditions, she is expected to require >48 hrs of hospital care (i.e. inpatient level care). Associated attestation - Jaime Lara DO - 07/23/2023 4:43 PM EST I saw and evaluated the patient. I agree with the findings and plan of care as documented in the resident's note, except as noted in Green text. Patient seen and examined personally during bedside teaching rounds (Date of Service: 07/23/23) Summary and Oleary Changes to Care Plan: Ms. Plasencia is a 68-year-old female presenting with a fall found to have a left hip fracture. She recently had a podiatry surgery and had fallen because she lost balance with her crutches. Additional history includes COPD, hypothyroidism, neuropathy (due to hiatal hernia?), And NSC lung cancer. Patient's only symptom is pain in her left hip. She reports no shortness of breath, cough, chest pain. ARISCAT score (used to predict respiratory complications)-puts her at an intermediate risk for surgery. NSQUIP indicates a below average risk overall. She is medically optimized for surgery 7AM-5PM: contact resident on [facility] Med C (find by hovering over attending's name on left side of patient's chart) 5PM-7AM: contact AI3 res documented in this encounter [facility] 07-22-2023 Consult note Formatting of th is note is different from the original. .Ortho Consult Patient: Miri Plasencia Date of : 1955 Acct: [id number] PCP: MOHSEN MARTINEZ MD Date of Admission: 07/22/2023 Date of Service: Pt seen/examined on 07/22/2023 Chief Complaint: L hip pain History Of Present Illness: 68 y.o. female who presents with left hip pain after a fall from standing. The patient was unable to get up and had to call for help. Patient was transferred from [facility]. Denies significant pain besides left hip. Denies head trauma and loss of consciousness. Denies numbness and tingling in affected extremity. Patient currently has right lower extremity splint s/p hammer toe surgery 07/18 and currently ambulates with crutches. Prior to surgery patient ambulated with a cane. Endorses smoking 8-10 cigarettes/day. Denies alcohol and illicit drug use. PMH of Non small cell lung cancer, COPD, emphysema. Lives with son. Orthopaedic surgery history: Right hammer toe correction, Ari Joiner, 07/18/2023 Left hip replacement, Ari Pradhan, 2017. Left knee replacement, Dr. Ignacio, [place], 1989's She is not known to any local orthopedic surgeons. Patient ambulation status: ambulates with: cane. Antiplatelets/Anticoagulation includes: none. Hx from chart and/or Pt. Past Medical History: Past Medical History: Diagnosis Date Acquired hypothyroidism 03/04/2016 Allergic rhinitis Anxiety Asthma COPD (chronic obstructive pulmonary disease) ([facility]) Gastroesophageal reflux disease without esophagitis 03/04/2016 GERD (gastroesophageal reflux disease) Hypothyroidism Lumbar disc disease 03/04/2016 Lung mass Osteoporosis 03/04/2016 Post herpetic neuralgia 03/04/2016 S/P lung surgery, follow-up exam 04/04/2016 Tobacco abuse 03/04/2016 Past Surgical History: Past Surgical History: Procedure Laterality Date CARPAL TUNNEL RELEASE Bilateral CERVICAL DISCECTOMY SECTION (HISTORICAL) CHOLECYSTECTOMY JOINT REPLACEMENT MOUTH SURGERY PLEURA BIOPSY Right 03/18/2016 Bowden-lobectomy Home Medications: Prior to Admission medications Not on File Current Hospital Medications: Current Facility-Administered Medications: ketamine 12.5 mg in sodium chloride 0.9 % 50 mL ivpb, 0.25 mg/kg, IntraVENous, Once, Raymundo Garduno, DO No current outpatient medications on file. Allergies: Patient has no known allergies. Social History: Social History Socioeconomic History Marital status: Spouse name: Not on file Number of children: Not on file Years of education: Not on file Highest education level: Not on file Occupational History Not on file Tobacco Use Smoking status: Every Day Packs/day: 1 Types: Cigarettes Smokeless tobacco: Not on file Substance and Sexual Activity Alcohol use: Yes Drug use: Not on file Sexual activity: Not on file Other Topics Concern Not on file Social History Narrative Not on file Social Determinants of Health Financial Resource Strain: Not on file Food Insecurity: Not on file Transportation Needs: Not on file Physical Activity: Not on file Stress: Not on file Social Connections: Not on file Intimate Partner Violence: Not on file Housing Stability: Not on file Family History: Family History Problem Relation Name Age of Onset Other (37700) Mother Cancer Father Cancer Sister Further Family History is noncontributory to this injury. REVIEW OF SYSTEMS: Review of Systems - General ROS: negative for - chills, fatigue, fever, malaise or night sweats Psychological ROS: negative Ophthalmic ROS: negative ENT ROS: negative for - headaches or sore throat Hematological and Lymphatic ROS: negative for - bleeding problems or blood clots Respiratory ROS: no cough, shortness of breath, or wheezing Cardiovascular ROS: no chest pain or dyspnea on exertion Gastrointestinal ROS: negative Musculoskeletal ROS: See HPI Neurological ROS: negative for - bowel and bladder control changes, gait disturbance or numbness/tingling All other systems reviewed and are negative PHYSICAL EXAM: BP (!) 155/78 Pulse 72 Temp 36.7 C (98.1 F) (Oral) Resp 16 Ht 1.575 m (5' 2 ) Wt 49.4 kg (109 lb) SpO2 96% BMI 19.94 kg/m GENERAL APPEARANCE: Awake and oriented x3. No acute distress, except appropriate to injury. MOOD AND AFFECT: Calm appropriate to situation GAIT AND STATION: Patient is in bed and unable to ambulate secondary to known injury. REFLEXES: Not assessed COORDINATION and BALANCE: Patient is unable to ambulate secondary to known injury. Lymphadenopathy: none on examination of the affected extremity(s) Right Upper Extremity: -No obvious pain or deformity to inspection with normal joint range of motion, stability, and muscle strength except noted below -No TTP over clavicle, shoulder, humerus, elbow, forearm, wrist, hand, or fingers -TTP: nontender throughout extremity -Radial pulse palpable -SILT in radial/median/ ulnar nerve distributions -Motor + AIN/PIN/ulnar nerve functions -No Lymphedema -Skin intact except where noted below -Painless pROM at shoulder/elbow/wrist Left Upper Extremity: -No obvious pain or deformity to inspection with normal joint range of motion, stability, and muscle strength except noted below -No TTP over clavicle, shoulder, humerus, elbow, forearm, wrist, hand, or fingers -TTP: nontender throughout extremity -Radial pulse palpable -SILT in radial/median/ ulnar nerve distributions -Motor + AIN/PIN/ulnar nerve functions -No Lymphedema -Skin intact except where noted below -Painless pROM at shoulder/elbow/wrist Left Lower Extremity: -No obvious pain or deformity to inspection with normal joint range of motion, stability, and muscle strength except noted below. Extremity shortened and externally rotated. Skin over lateral hip is clean and dry without signs of wounds or breakdown. -No TTP over knee, tibia, lateral mal, medial mal, calc, midfoot, forefoot -TTP: hip -Pulse: DP Palpable, PT Palpable -SILT in the superficial peroneal, deep peroneal, tibial, sural, saphenous nerve distributions -Motor function of tibialis anterior, extensor hallucis longus, and gactrocsoleus complex intact -No Lymphedema -Skin intact except where noted below -Painless pROM at knee/ankle - + logroll DOUG incision is well-healed. No open wounds or concern for open fracture Right Lower Extremity: -No obvious pain or deformity to inspection with normal joint range of motion, stability, and muscle strength except noted below -No TTP over pelvis, hip, thigh, knee, tibia, lateral mal, medial mal, calc, midfoot, forefoot -TTP: Nontender throughout extremity -Pulse: BCR to GT, splint to RLE covering all other toes -SILT in the superficial peroneal, deep peroneal, tibial, sural, saphenous nerve distributions -Motor function of quad -No Lymphedema -Skin intact except where noted below -Painless pROM at hip/knee/ankle Posterior slab splint to RLE and covering all toes except GT. Labs: CBC: No results found for: WBC , RBC , HEMOGLOBIN BMP:No results found for: GLUCOSE , SODIUM , POTASSIUM , CHLORIDE , CO2 , BUN , CREATININE , CALCIUM PT/INR: No results found for: PT , INR , APTT Type and Screen: No results found for: RH , LABANTI CRP: No results found for: CRP ESR: No results found for: SEDRATE HgBA1c: No components found for: LABA1C The above labs were reviewed by me. Radiology: The below images were independently reviewed and interpreted XR: Left femur/pelvis: Prior DUOG metaphyseal fit stem appears loose within the metaphyseal region secondary to fracture. Cup appears intact with no signs of lucency. Fracture extending from metaphysis to proximal diaphyseal region of femur. No other acute fracture or dislocation. Radiology report reviewed. ASSESSMENT: 68 y.o. female with L B2 Baker periprosthetic proximal femur fracture PLAN: -D/w Dr. Mcnamara -Plan for OR for L femur ORIF and L hip revision arthroplasty on 07/24 -NPO at Midnight, 07/24 -Clear per medicine pending -Consented -Pre-op workup in process -Ice -APS consulted for gabino-operative pain, hip block done by ED -Bedrest -harding -Admit to medicine -Pain control & medical management per primary -Please hold DVT prophylaxis in anticipation of OR -Please comment on clearance in case of OR, page ortho application security architect with clearance status Ann-Marie Nice MD PGY-2 Orthopaedic Surgery Associated attestation - Faisal Styles MD - 07/24/2023 3:40 PM EST Attestation: The patient was seen, examined and all relevant radiographs were reviewed and independently interpreted which show left hip periprosthetic femur fracture. Discussed with the patient that given the fracture and current status of the implants, it appears her hip stem is loose. Recommendation is for left revision DOUG with diaphyseal engaging stem and open reduction internal fixation as necessary. Risks, benefits, and alternatives of surgery were reviewed at length to include bleeding, infection, dislocation, leg length discrepancy, neurovascular injury, fracture, failure to provide the intended benefits, need for further surgery, blood clots and general medical risks. The patient expressed understanding and ultimately elected to proceed with the indicated surgery. The proposed surgery is consistent with elective major surgery with the following specific risk factors: instability, infection, fracture. I agree with what is documented above with any changes noted. The plan of care was discussed with the evaluating resident. Without treatment this injury poses threat to bodily function both acutely and chronically. Patient will also require parenteral narcotic medication for pain management. Electronically signed by Faisal Styles M.D. 07/24/2023 at 3:20 PM. [employer] Phone: 07-22-2023 Emergency department Note Emergency Department Encounter [facility] EMERGENCY DEPT Patient: Miri Plasencia : 1955 Date of Evaluation: 07/22/2023 ED Supervising Physician: Raymundo Garduno DO I independently examined and evaluated Miri Plasencia. This will serve as my Supervisory note and shared attestation. I did perform a substantive portion of the visit including all aspects of the Medical Decision Making. I wore appropriate PPE for the entirety of this encounter. In brief, Miri Plasencia is a 68 y.o. that presents to the emergency department as a transfer from an [facility] facility with a left hip fracture. Was medicated with Dilaudid and route. Fell from standing position while on crutches due to a right lower extremity injury and injured her left hip. Focused exam: Vital signs noted. Well-appearing patient lying in bed, normal respiratory pattern without conversational dyspnea or respiratory distress. Normal speech and mental status. Right lower extremity is splinted. Left lower extremity is externally rotated and painful with any movement. Neurovascularly intact. Brief ED course/MDM: I was present, supervising and assisting with the fascia iliac/femoral nerve block performed by the resident, see procedure note for full details. Analgesia provided in the emergency department. Preoperative testing initiated. Patient admitted to medicine with consult orthopedics. All diagnostic, treatment, and disposition decisions were made by myself in conjunction with the Resident. I also supervised oleary portions of any procedures performed by the Resident. For all further details of the patient's emergency department visit, please see their documentation. (Comment: Please note this report has been produced using speech recognition software and may contain errors related to that system including errors in grammar, punctuation, and spelling, as well as words and phrases that may be inappropriate. If there are any questions or concerns please feel free to contact the dictating provider for clarification.) Raymundo Garduno DO [employer] Raymundo Garduno DO 07/24/23 2077 EMERGENCY DEPARTMENT ENCOUNTER Pt Name: Miri Plasencia Birthdate 1955 Date of evaluation: 07/22/2023 ED Provider: Angie Fagan DO CHIEF COMPLAINT Chief Complaint Patient presents with Fall Pt is a transfer from [facility]. Pt fell on Friday and was found today by her son. Pt has left hip rotation, confirmed hip fracture and was transferred here as an ortho consult. Hip Pain HISTORY OF PRESENT ILLNESS (Location/Symptom, Timing/Onset, Context/Setting, Quality, Duration, Modifying Factors, Severity) Note limiting factors. I wore appropriate PPE for the entirety of this encounter. HPI Miri Plasencia is a 68 y.o. female w/ SigPMHx of COPD (home O2 2L at night), hypothyroidism, NSC Lung Cancer, previous L hip replacement 2017 who presents to the emergency department via transfer from [facility] with L hip pain and fracture after fall from standing on 07/19 while on crutches from previous surgery on RLE on 07/18. Pt states was unable to get up for roughly one hour, was eventually able crawl onto bed and call son who took her to [facility] on 07/19. Pt endorses 5/10 L hip pain at rest, and increased pain with movement of LLE. Pt denies hitting head, LOC, or blood thinners. Endorses cough that is chronic and unchanged in nature, denies change in sputum production, endorses decreased appetite since surgery. Denies Headache, dizziness, fever, chills, CP, SOB, n/v/d/c, blood in urine or stool, LE edema. Nursing Notes were reviewed. Limitations to history: None Outside historians: None REVIEW OF SYSTEMS Review of Systems Constitutional: Positive for appetite change. Respiratory: Positive for cough (endorses chronic in nature). Negative for chest tightness. Cardiovascular: Negative for chest pain and leg swelling. Gastrointestinal: Negative for abdominal pain, blood in stool, diarrhea, nausea and vomiting. Genitourinary: Negative for dysuria and hematuria. Musculoskeletal: Negative for myalgias. L hip pain s/p fall Skin: Positive for wound (Right foot s/p surgery fri). Neurological: Negative for dizziness, weakness, numbness and headaches. Psychiatric/Behavioral: Negative for agitation and confusion. PAST MEDICAL HISTORY Past Medical History: Diagnosis Date Acquired hypothyroidism 03/04/2016 Allergic rhinitis Anxiety Asthma COPD (chronic obstructive pulmonary disease) (HCC) Gastroesophageal reflux disease without esophagitis 03/04/2016 GERD (gastroesophageal reflux disease) Hypothyroidism Lumbar disc disease 03/04/2016 Lung mass Osteoporosis 03/04/2016 Post herpetic neuralgia 03/04/2016 S/P lung surgery, follow-up exam 04/04/2016 Tobacco abuse 03/04/2016 SURGICAL HISTORY Past Surgical History: Procedure Laterality Date CARPAL TUNNEL RELEASE Bilateral CERVICAL DISCECTOMY SECTION (HISTORICAL) CHOLECYSTECTOMY JOINT REPLACEMENT MOUTH SURGERY PLEURA BIOPSY Right 03/18/2016 Dr. Hernandezinal-lobectomy CURRENT MEDICATIONS Previous Medications No medications on file ALLERGIES Patient has no known allergies. FAMILY HISTORY Family History Problem Relation Name Age of Onset Other (03992) Mother Cancer Father Cancer Sister SOCIAL HISTORY Social History Socioeconomic History Marital status: Tobacco Use Smoking status: Every Day Packs/day: 1 Types: Cigarettes Substance and Sexual Activity Alcohol use: Yes SCREENINGS Loren Coma Scale Best Eye Response: Spontaneous Best Verbal Response: Oriented Best Motor Response: Follows commands Rampart Coma Scale Score: 15 PHYSICAL EXAM ED Triage Vitals [07/22/23 1705] Temp Heart Rate Resp BP 36.7 C (98.1 F) 72 16 (!) 155/78 SpO2 Temp Source Heart Rate Source Patient Position 96 % Oral Monitor -- BP Location FiO2 (%) -- -- Physical Exam Constitutional: Appearance: Normal appearance. HENT: Head: Normocephalic and atraumatic. Mouth/Throat: Mouth: Mucous membranes are moist. Eyes: Extraocular Movements: Extraocular movements intact. Conjunctiva/sclera: Conjunctivae normal. Pupils: Pupils are equal, round, and reactive to light. Cardiovascular: Rate and Rhythm: Normal rate and regular rhythm. Pulses: Normal pulses. Heart sounds: Normal heart sounds. Pulmonary: Effort: Pulmonary effort is normal. Breath sounds: Rhonchi (bilateral) present. Abdominal: General: Bowel sounds are normal. Palpations: Abdomen is soft. Musculoskeletal: General: Tenderness and signs of injury (LE shortened and externally rotated) present. Comments: RLE split and wrapped in mindy bandage. Skin: General: Skin is warm and dry. Capillary Refill: Capillary refill takes less than 2 seconds. Neurological: General: No focal deficit present. Mental Status: She is alert and oriented to person, place, and time. Psychiatric: Mood and Affect: Mood normal. Behavior: Behavior normal. DIAGNOSTIC RESULTS RADIOLOGY (Per Emergency Physician): Interpretation per the Radiologist below, if available at the time of this note: XR chest 1 view Final Result 1. Right shoulder calcific tendinopathy. 2. No confluent consolidation. Report Dictated on Electronically Signed By: Dorinda Gomez MD Electronically Signed Date/Time: 07/22/2023 8:01 PM EST LABS: Labs Reviewed CBC (HEMOGRAM) - Abnormal Result Value Auto WBC 8.1 RBC 3.71 (*) Hemoglobin 12.1 Hematocrit 35.3 MCV 95.0 MCH 32.5 MCHC 34.2 RDW 13.1 Platelets 283 MPV 7.3 (*) BASIC METABOLIC PANEL - Abnormal SODIUM 138 POTASSIUM 3.1 (*) CHLORIDE 106 CARBON DIOXIDE 24 UREA NITROGEN 18 (*) CREATININE 0.31 (*) GLUCOSE 99 CALCIUM 8.6 ANION GAP 9 eGFR >90.0 PROTHROMBIN TIME - Normal PROTHROMBIN TIME 10.6 INR 1.0 BLOOD TYPE AND SCREEN GEL ABO Grouping O Antibody Screen NEG Rh Type POS All other labs were within normal range or not returned as of this dictation. EMERGENCY DEPARTMENT COURSE and DIFFERENTIAL DIAGNOSIS/MDM: Vitals: Vitals: 07/22/23 1647 07/22/23 1705 BP: (!) 155/78 Pulse: 72 Resp: 16 Temp: 36.7 C (98.1 F) TempSrc: Oral SpO2: 96% Weight: 49.4 kg (109 lb) 49.4 kg (109 lb) Height: 1.575 m (5' 2 ) The patient presented with a chief complaint of L hip pain and fracture from [facility]. Patient in no apparent acute distress on examination. Patient was given Dilaudid en Rout, Ketamine while in the ED, and nerve block performed with bupivicaine PF and Lidocaine for pain control. While in the ED, lab work significant for BUN 18, K 3.1 Klor Con 40 mEq was ordered. On Physical exam, LE noted to be painful with movement, shorted and externally rotated, pt was neruovascularly intact. Pt noted to have coarse lung sounds with history of COPD, denies any changes in sputum production, recent exacerbations or SOB. CXR showed coarsening of interstitium, with no confluent consolidation noted. Ortho was consulted further management under medical admit, [facility] was consulted who agreed to accept patient as primary. Diagnoses as of 07/22/232231 S/p left hip fracture External records reviewed: ED records from [facility] interpreted by me: Labwork Discussions with other clinicians: Front Elevator Operator DERIC and Ortho Chronic conditions impacting care: COPD Social determinants of health affecting care: N/A ED Medications managed: Medications ketamine 12.5 mg in sodium chloride 0.9 % 50 mL ivpb (has no administration in time range) bupivacaine PF (Marcaine) 0.5 % injection 20 mL (has no administration in time range) lidocaine (Xylocaine) 1 % injection 20 mL (has no administration in time range) potassium chloride (Klor-Con) packet 40 mEq (has no administration in time range) potassium chloride (Klor-Con) packet 20 mEq (has no administration in time range) Prescription drugs considered: Pain medication Ketamine given in ED, Dilaudid given en rout PROCEDURES: Unless otherwise noted below, none -Nerve block performed in ED by attending FINAL IMPRESSION No diagnosis found. DISPOSITION PATIENT REFERRED TO: No follow-up provider specified. DISCHARGE MEDICATIONS: New Prescriptions No medications on file (Comment: Please note this report has been produced using speech recognition software and may contain errors related to that system including errors in grammar, punctuation, and spelling, as well as words and phrases that may be inappropriate. If there are any questions or concerns please feel free to contact the dictating provider for clarification.) Angie Fagan DO (electronically signed) Emergency Medicine Provider Angie Fagan DO Resident 07/22/232154 documented in this encounter [facility] 07-22-2023 Physician Emergency department Note Emergency Department Encounter [facility] EMERGENCY DEPT Patient: Miri Plasencia : 1955 Date of Evaluation: 07/22/2023 ED Supervising Physician: Raymundo Garduno DO I independently examined and evaluated Miri Plasencia. This will serve as my Supervisory note and shared attestation. I did perform a substantive portion of the visit including all aspects of the Medical Decision Making. I wore appropriate PPE for the entirety of this encounter. In brief, Miri Plasencia is a 68 y.o. that presents to the emergency department as a transfer from an outlying facility with a left hip fracture. Was medicated with Dilaudid and route. Fell from standing position while on crutches due to a right lower extremity injury and injured her left hip. Focused exam: Vital signs noted. Well-appearing patient lying in bed, normal respiratory pattern without conversational dyspnea or respiratory distress. Normal speech and mental status. Right lower extremity is splinted. Left lower extremity is externally rotated and painful with any movement. Neurovascularly intact. Brief ED course/MDM: I was present, supervising and assisting with the fascia iliac/femoral nerve block performed by the resident, see procedure note for full details. Analgesia provided in the emergency department. Preoperative testing initiated. Patient admitted to medicine with consult orthopedics. All diagnostic, treatment, and disposition decisions were made by myself in conjunction with the Resident. I also supervised oleary portions of any procedures performed by the Resident. For all further details of the patient's emergency department visit, please see their documentation. (Comment: Please note this report has been produced using speech recognition software and may contain errors related to that system including errors in grammar, punctuation, and spelling, as well as words and phrases that may be inappropriate. If there are any questions or concerns please feel free to contact the dictating provider for clarification.) Raymundo Garduno DO [facility] Raymundo Garduno DO 07/24/23 1400 [facility] [employer] Phone: 07-22-2023 Physician Emergency department Note EMERGENCY DEPARTMENT ENCOUNTER Pt Name: Miri Plasencia Birthdate 1955 Date of evaluation: 07/22/2023 ED Provider: Angie Fagan DO CHIEF COMPLAINT Chief Complaint Patient presents with Fall Pt is a transfer from [facility]. Pt fell on Friday and was found today by her son. Pt has left hip rotation, confirmed hip fracture and was transferred here as an ortho consult. Hip Pain HISTORY OF PRESENT ILLNESS (Location/Symptom, Timing/Onset, Context/Setting, Quality, Duration, Modifying Factors, Severity) Note limiting factors. I wore appropriate PPE for the entirety of this encounter. HPI Miri Plasencia is a 68 y.o. female w/ SigPMHx of COPD (home O2 2L at night), hypothyroidism, NSC Lung Cancer, previous L hip replacement 2017 who presents to the emergency department via transfer from [facility] with L hip pain and fracture after fall from standing on 07/19 while on crutches from previous surgery on RLE on 07/18. Pt states was unable to get up for roughly one hour, was eventually able crawl onto bed and call son who took her to [facility] on 07/19. Pt endorses 5/10 L hip pain at rest, and increased pain with movement of LLE. Pt denies hitting head, LOC, or blood thinners. Endorses cough that is chronic and unchanged in nature, denies change in sputum production, endorses decreased appetite since surgery. Denies Headache, dizziness, fever, chills, CP, SOB, n/v/d/c, blood in urine or stool, LE edema. Nursing Notes were reviewed. Limitations to history: None Outside historians: None REVIEW OF SYSTEMS Review of Systems Constitutional: Positive for appetite change. Respiratory: Positive for cough (endorses chronic in nature). Negative for chest tightness. Cardiovascular: Negative for chest pain and leg swelling. Gastrointestinal: Negative for abdominal pain, blood in stool, diarrhea, nausea and vomiting. Genitourinary: Negative for dysuria and hematuria. Musculoskeletal: Negative for myalgias. L hip pain s/p fall Skin: Positive for wound (Right foot s/p surgery fri). Neurological: Negative for dizziness, weakness, numbness and headaches. Psychiatric/Behavioral: Negative for agitation and confusion. PAST MEDICAL HISTORY Past Medical History: Diagnosis Date Acquired hypothyroidism 03/04/2016 Allergic rhinitis Anxiety Asthma COPD (chronic obstructive pulmonary disease) (HCC) Gastroesophageal reflux disease without esophagitis 03/04/2016 GERD (gastroesophageal reflux disease) Hypothyroidism Lumbar disc disease 03/04/2016 Lung mass Osteoporosis 03/04/2016 Post herpetic neuralgia 03/04/2016 S/P lung surgery, follow-up exam 04/04/2016 Tobacco abuse 03/04/2016 SURGICAL HISTORY Past Surgical History: Procedure Laterality Date CARPAL TUNNEL RELEASE Bilateral CERVICAL DISCECTOMY SECTION (HISTORICAL) CHOLECYSTECTOMY JOINT REPLACEMENT MOUTH SURGERY PLEURA BIOPSY Right 03/18/2016 Dr. Hernandezinal-lobectomy CURRENT MEDICATIONS Previous Medications No medications on file ALLERGIES Patient has no known allergies. FAMILY HISTORY Family History Problem Relation Name Age of Onset Other (02142) Mother Cancer Father Cancer Sister SOCIAL HISTORY Social History Socioeconomic History Marital status: Tobacco Use Smoking status: Every Day Packs/day: 1 Types: Cigarettes Substance and Sexual Activity Alcohol use: Yes SCREENINGS Rampart Coma Scale Best Eye Response: Spontaneous Best Verbal Response: Oriented Best Motor Response: Follows commands Loren Coma Scale Score: 15 PHYSICAL EXAM ED Triage Vitals [07/22/23 1705] Temp Heart Rate Resp BP 36.7 C (98.1 F) 72 16 (!) 155/78 SpO2 Temp Source Heart Rate Source Patient Position 96 % Oral Monitor -- BP Location FiO2 (%) -- -- Physical Exam Constitutional: Appearance: Normal appearance. HENT: Head: Normocephalic and atraumatic. Mouth/Throat: Mouth: Mucous membranes are moist. Eyes: Extraocular Movements: Extraocular movements intact. Conjunctiva/sclera: Conjunctivae normal. Pupils: Pupils are equal, round, and reactive to light. Cardiovascular: Rate and Rhythm: Normal rate and regular rhythm. Pulses: Normal pulses. Heart sounds: Normal heart sounds. Pulmonary: Effort: Pulmonary effort is normal. Breath sounds: Rhonchi (bilateral) present. Abdominal: General: Bowel sounds are normal. Palpations: Abdomen is soft. Musculoskeletal: General: Tenderness and signs of injury (LE shortened and externally rotated) present. Comments: RLE split and wrapped in mindy bandage. Skin: General: Skin is warm and dry. Capillary Refill: Capillary refill takes less than 2 seconds. Neurological: General: No focal deficit present. Mental Status: She is alert and oriented to person, place, and time. Psychiatric: Mood and Affect: Mood normal. Behavior: Behavior normal. DIAGNOSTIC RESULTS RADIOLOGY (Per Emergency Physician): Interpretation per the Radiologist below, if available at the time of this note: XR chest 1 view Final Result 1. Right shoulder calcific tendinopathy. 2. No confluent consolidation. Report Dictated on Electronically Signed By: Dorinda Gomez MD Electronically Signed Date/Time: 07/22/2023 8:01 PM EST LABS: Labs Reviewed CBC (HEMOGRAM) - Abnormal Result Value Auto WBC 8.1 RBC 3.71 (*) Hemoglobin 12.1 Hematocrit 35.3 MCV 95.0 MCH 32.5 MCHC 34.2 RDW 13.1 Platelets 283 MPV 7.3 (*) BASIC METABOLIC PANEL - Abnormal SODIUM 138 POTASSIUM 3.1 (*) CHLORIDE 106 CARBON DIOXIDE 24 UREA NITROGEN 18 (*) CREATININE 0.31 (*) GLUCOSE 99 CALCIUM 8.6 ANION GAP 9 eGFR >90.0 PROTHROMBIN TIME - Normal PROTHROMBIN TIME 10.6 INR 1.0 BLOOD TYPE AND SCREEN GEL ABO Grouping O Antibody Screen NEG Rh Type POS All other labs were within normal range or not returned as of this dictation. EMERGENCY DEPARTMENT COURSE and DIFFERENTIAL DIAGNOSIS/MDM: Vitals: Vitals: 07/22/23 1647 07/22/23 1705 BP: (!) 155/78 Pulse: 72 Resp: 16 Temp: 36.7 C (98.1 F) TempSrc: Oral SpO2: 96% Weight: 49.4 kg (109 lb) 49.4 kg (109 lb) Height: 1.575 m (5' 2 ) The patient presented with a chief complaint of L hip pain and fracture from [facility]. Patient in no apparent acute distress on examination. Patient was given Dilaudid en Rout, Ketamine while in the ED, and nerve block performed with bupivicaine PF and Lidocaine for pain control. While in the ED, lab work significant for BUN 18, K 3.1 Klor Con 40 mEq was ordered. On Physical exam, LE noted to be painful with movement, shorted and externally rotated, pt was neruovascularly intact. Pt noted to have coarse lung sounds with history of COPD, denies any changes in sputum production, recent exacerbations or SOB. CXR showed coarsening of interstitium, with no confluent consolidation noted. Ortho was consulted further management under medical admit, AR was consulted who agreed to accept patient as primary. Diagnoses as of 07/22/232 S/p left hip fracture External records reviewed: ED records from [facility] interpreted by me: Labwork Discussions with other clinicians: Front Elevator Operator AR and Ortho Chronic conditions impacting care: COPD Social determinants of health affecting care: N/A ED Medications managed: Medications ketamine 12.5 mg in sodium chloride 0.9 % 50 mL ivpb (has no administration in time range) bupivacaine PF (Marcaine) 0.5 % injection 20 mL (has no administration in time range) lidocaine (Xylocaine) 1 % injection 20 mL (has no administration in time range) potassium chloride (Klor-Con) packet 40 mEq (has no administration in time range) potassium chloride (Klor-Con) packet 20 mEq (has no administration in time range) Prescription drugs considered: Pain medication Ketamine given in ED, Dilaudid given en rout PROCEDURES: Unless otherwise noted below, none -Nerve block performed in ED by attending FINAL IMPRESSION No diagnosis found. DISPOSITION PATIENT REFERRED TO: No follow-up provider specified. DISCHARGE MEDICATIONS: New Prescriptions No medications on file (Comment: Please note this report has been produced using speech recognition software and may contain errors related to that system including errors in grammar, punctuation, and spelling, as well as words and phrases that may be inappropriate. If there are any questions or concerns please feel free to contact the dictating provider for clarification.) Angie Fagan DO (electronically signed) Emergency Medicine Provider Angie Fagan DO Resident 07/22/232154 [employer] Phone: documented in this encounter [facility] anesthesia Narrative* Procedure Summary Procedure Name Responsible Anesthesiologist Anesthesia Start Time Anesthesia Stop Time Pain Service Consult Events No events on file. Meds * Agents No agents on file. * Blood No blood administrations on file. Lines, Drains, and Airways Type Details Placement Removal Wound/Incision Y; Incision; Foot; Right 07/24/23 1434 by Peripheral IV Placement Date: 01/07; Placement Time: 1600; Existing LDA Placed by: Other hospital; Catheter Size: 18 G; Orientation: Anterior, Distal, Left; Location: Forearm; Site Prep: Alcohol 07/22/23 1600 by Gio Blackmon Wound/Incision 07/24/23; 1141; Mikala phillipon; Leg; Anterior, Left, Upper 07/24/23 1141 by Elizabeth Mathur RN Negative Pressure Wound Therapy 07/24/23; 1515; Dr. Styles; Surgical; Leg; Anterior, Left, Upper 07/24/23 1515 by Roselia Lew RN [facility] Procedure Summary Procedure Name Responsible Anesthesiologist Anesthesia Start Time Anesthesia Stop Time Pain Service Consult Events No events on file. Meds * Agents No agents on file. * Blood No blood administrations on file. Lines, Drains, and Airways Type Details Placement Removal Wound/Incision Y; Incision; Foot; Right 07/24/23 1434 by Peripheral IV Placement Date: 01/07; Placement Time: 1600; Existing LDA Placed by: Other hospital; Catheter Size: 18 G; Orientation: Anterior, Distal, Left; Location: Forearm; Site Prep: Alcohol 07/22/23 1600 by Gio Blackmon Wound/Incision 07/24/23; 1141; Inci nghia; Leg; Anterior, Left, Upper 07/24/23 1141 by Elizabeth Mathur RN Negative Pressure Wound Therapy 07/24/23; 1515; Dr. Styles; Surgical; Leg; Anterior, Left, Upper 07/24/23 1515 by Roselia Lew RN Female External Urinary Catheter 07/28/23; 0600 07/28/23 0600 by Melinda Jang RN documented in this encounter [facility] Advance Directives No Advanced Directives Records FoundLatest Code Status on File Code Status Date Activated Date Inactivated Comments Full Code 07/23/2023 12:42 AM Latest Code Status on File Code Status Date Activated Date Inactivated Comments Full Code 07/23/2023 12:42 AM 07/29/2023 5:55 PM Latest Code Status on File Code Status Date Activated Date Inactivated Comments Full Code 07/23/2023 12:42 AM 07/29/2023 5:55 PM Reason for Referral Specialty Diagnoses / Procedures Referred By Contac t Referred To Contact Diagnoses S/p left hip fracture Lumbar disc disease Heidi Drake MD [address] [place] [address] Referral ID Status Reason Start Date Expiration Date V isits Requested Visits Authorized [id number] Pending Review 1 1 Summary Purpose Family History No Family History Records FoundNo Family History Records FoundNo Family History Records Found Additional Source Comments Reason for Visit (unrecogniz ed section and content) Referral ID Status Reason Start Date Expiration Date Visits Re quested Visits Authorized [id number] 1 Reason Comments Fall Pt is a transfer fro [facility]. Pt fell on Friday and was found today by her son. Pt has left hip rotation, confirmed hip fracture and was transferred here as an ortho consult. Hip Pain Reason Onset Date Comments Error (VOID this visit) 07/29/2023 Care Teams (unrecognized sec tion and content) Rent Control Office Manager Relationship Specialty Start Date End Date Mohsen Martinez MD [address] [place], [place] [id number] PCP - General 03/07/16 Rent Control Office Manager Relationship Specialty Start Date End Date Mohsen Martinez MD [address] [place] [address] PCP - General 03/07/16 Rent Control Office Manager Relationship Specialty Start Date End Date Mohsen Martinez MD [address] [place], [place] [address] PCP - General 03/07/16 Rent Control Office Manager Relationship Specialty Start Date End Date Mohsen Martinez MD [address] [place] [address] PCP - General 03/07/16 Scheduled Active and Recently Administ ered Medications (unrecognized section and content) Continuous Medication Order 07/27/2023 07/28/2023 07/29/2023 heparin 25,000 units in dextrose 5% 250mL infusion (premix) (CANCELED) 5-30 Units/kg/hr 49.4 kg (2.47-14.82 mL/hr, rounded to 2.5-14.8 mL/hr), IntraVENous, Continuous, Starting on Fri07/28/23 at 1045, HIGH Dose Heparin Weight Based Dosing (VTE/DVT/PE) >>>>Initial dose: 18 units/kg/hr<<<< Subsequent dosing: aPTT < 30 Heparin Full re-bolus Increase infusion by 2 units/kg/hr; notify prescriber. aPTT 30-45.9 Heparin Half re-bolus Increase infusion by 1 unit/kg/hr aPTT 46-80.9 No bolus No change aPTT 81-100.9 Hold heparin for 60 min Decrease infusion by 1 unit/kg/hr aPTT > 100.9 Hold heparin for 60 min Decrease infusion by 2 units/kg/hr; notify prescriber Check aPTT 6 hours after initiation and 6 hours after every dose change; every 12 hrs x 1 day after 2 consecutive therapeutic aPTT; daily after every 12 hrs x 1 day is complete. 1217 (New Bag - Provider: Melinda Jang RN)1845 (Rate/Dose Verify - Provider: Melinda Jang RN)1935 (Handoff - Provider: Elan Andrews RN) 0145 (New Bag - Provider: Elan Andrews, SHAY)0656 (Rate/Dose Verify - Provider: Elan Andrews RN)0657 (Rate/Dose Verify - Provider: Elan Andrews RN)0729 (Rate/Dose Change - Provider: Elan Andrews, RN)1100 (Stopped - Provider: Melinda Jang RN) PRN Medication Order 07/27/2023 07/28/2023 07/29/2023 heparin injection 1,976 Units (CANCELED) 1,976 Units (40 Units/kg 49.4 kg), IntraVENous, As needed, heparin dosing algorithm, Starting on 07/28/23 at 1030, Half dose re-bolus based on pharmacy algorithm 0142 (Given - Provider: Elan Andrews RN)0726 (Given - Provider: Elan Andrews RN) HYDROmorphone (Dilaudid) injection 0.5 mg (CANCELED)(Linked Group 3) 0.5 mg, IntraVENous, Every 4 hours PRN, severe pain (7-10), Starting on Lucia 07/24/23 at 0917, If oral and IV narcotics ordered, use oral first and only use IV if oral is ineffective or cannot take oral. Do Not give oral and IV within 1 hour of each other unless specifically ordered. 0430 (Given - Provider: Lemuel Davila RN)0846 (Given - Provider: Martha Mejia, SHAY)1354 (Given - Provider: Martha Mejia RN) 0534 (Given - Provider: Lemuel Davila RN) iopamidol (Isovue-370) 76 % injection 75 mL (COMPLETED) 75 mL, IntraVENous, IMG once PRN, contrast, Starting on Fri07/27/23 at 1116, For 1 dose 1120 (Given - Provider: Emma Isbell, RT (R)(CT)) ipratropium-albuterol (Duo-Neb) 0.5-2.5 mg/3 mL nebulizer solution 3 mL 3 mL, Nebulization, As needed, wheezing, Starting on Fri07/23/23 at 1030 methocarbamol (Robaxin) tablet 750 mg 750 mg, Oral, Every 8 hours PRN, muscle spasms, Starting on Fri07/25/23 at 1237 0846 (Given - Provider: Martha Mejia, RN)1718 (Given - Provider: Martha Mejia, RN) 0311 (Given - Provider: Lemuel Davila RN)1216 (Given - Provider: Melinda Jang, RN)2213 (Given - Provider: Elan Andrews, RN) 0828 (Given - Provider: Melinda Jang, SHAY) naloxone (Narcan) injection 0.4 mg 0.4 mg, IntraVENous, PRN, opioid reversal, Starting on Fri07/22/23 at 2324, For oversedation/difficult to rouse, pinpoint pupils, RR < 8; notify primary team application security architect if used ondansetron (Zofran) injection 4 mg(Linked Group 4) 4 mg, IntraVENous, Every 6 hours PRN, nausea, vomiting, Starting on Fri07/23/23 at 0042, 1st Line. Give IV if patient is unable to take orally. If inadequate response within 60 minutes, proceed to next-line agent or contact provider if no further options ordered. ondansetron ODT (Zofran-ODT) disintegrating tablet 4 mg(Linked Group 4) 4 mg, Oral, Every 8 hours PRN, nausea, vomiting, Starting on Fri07/23/23 at 0042, 1st Line. If inadequate response within 60 minutes, proceed to next-line agent or contact provider if no further options ordered. Patient should allow tablet to dissolve on tongue. Do not remove from blister pack until just before administering. oxyCODONE (Roxicodone) immediate release tablet 2.5 mg (CANCELED) 2.5 mg, Oral, Every 4 hours PRN, moderate pain (4-6), Starting on Fri07/23/23 at 1200 0152 (See Alternative - Provider: Lemuel Davila RN)0619 (See Alternative - Provider: Lemuel Davila RN)1059 (Given - Provider: Martha Mejia RN) oxyCODONE (Roxicodone) immediate release tablet 5 mg (CANCELED) 5 mg, Oral, Every 4 hours PRN, severe pain (7-10), Starting on Fri07/23/23 at 1200 0152 (Given - Provider: Lemuel Davila RN)0619 (Given - Provider: Lemuel Davila RN)1059 (See Alternative - Provider: Martha Mejia RN) oxyCODONE (Roxicodone) immediate release tablet 5 mg(Linked Group 5) 5 mg, Oral, Every 4 hours PRN, moderate pain (4-6), Starting on 07/27/23 at 1414 1718 (Given - Provider: Martha Mejia RN)2233 (Given - Provider: Lemuel Davila RN) 0311 (Given - Provider: Lemuel Davila RN)0913 (See Alternative - Provider: Melinda Jang RN)1354 (See Alternative - Provider: Melinda Jang RN)2213 (See Alternative - Provider: Elan Andrews RN) 0607 (Given - Provider: Elan Andrews RN)1047 (See Alternative - Provider: Melinda Jang RN)1423 (See Alternative - Provider: Melinda Jang RN) oxyCODONE (Roxicodone) immediate release tablet 7.5 mg(Linked Group 5) 7.5 mg, Oral, Every 4 hours PRN, severe pain (7-10), Starting on 07/27/23 at 1414 1718 (See Alternative - Provider: Martha Mejia RN)2233 (See Alternative - Provider: Lemuel Davila RN) 0311 (See Alternative - Provider: Lemuel Davila RN)0913 (Given - Provider: Melinda Jang RN)1354 (Given - Provider: Melinda Jang RN)2213 (Given - Provider: Elan Andrews RN) 0607 (See Alternative - Provider: Elan Andrews, SHAY)1047 (Given - Provider: Melinda Jang, RN)1423 (Given - Provider: Melinda Jang, RN) phenol (Chloraseptic) 1.4 % mouth/throat spray 1 spray 1 spray, Mouth/Throat, Every 2 hour PRN, sore throat, Starting on Fri07/23/23 at 1029, Instruct patient to spit out after 15 seconds. sodium chloride 0.9 % infusion 250 mL/hr, IntraVENous, Administer over 10 Minutes, As needed, For use in priming line prior to transfusion (prime via gravity) and flush line post transfusion, Starting on Fri07/27/23 at 0249, For 1 dose, For use in priming line prior to transfusion (prime via gravity) and flush line post transfusion ONLY. Discontinue once line has been cleared of remaining blood product. Linked Groups Order Group 1: apixaban (Eliquis) tablet 10 mgJump to med 10 mg, Oral, 2 times daily, First dose on Fri07/29/23 at 1100, For 7 days, Anticoagulant Followed by apixaban (Eliquis) tablet 5 mgJump to med 5 mg, Oral, 2 times daily, First dose on Fri08/05/23 at 0900, Anticoagulant Group 2: nicotine (Nicoderm, Step 2) 14 MG/24HR patch 1 patchJump to med 1 patch, TransDERmal, Administer over 24 Hours, Daily, First dose on Fri07/23/23 at 0900, For 42 days, Apply new patch to nonhairy, clean, dry skin on the upper body or upper outer arm. Rotate patch sites. Notify Pharmacy if patient or provider prefers patch to be removed at bedtime and replaced in the morning. Followed by nicotine (Nicoderm, Step 3) 7 MG/24HR patch 1 patchJump to med 1 patch, TransDERmal, Administer over 24 Hours, Daily, First dose on Fri09/03/23 at 0900, For 14 days, Apply new patch to nonhairy, clean, dry skin on the upper body or upper outer arm. Rotate patch sites. Notify Pharmacy if patient or provider prefers patch to be removed at bedtime and replaced in the morning. Group 3: HYDROmorphone (Dilaudid) injection 0.25 mg (CANCELED) 0.25 mg, IntraVENous, Every 4 hours PRN, moderate pain (4-6), Starting on Lucia 07/24/23 at 0917, If oral and IV narcotics ordered, use oral first and only use IV if oral is ineffective or cannot take oral. Do Not give oral and IV within 1 hour of each other unless specifically ordered. Or HYDROmorphone (Dilaudid) injection 0.5 mg (CANCELED)Jump to med 0.5 mg, IntraVENous, Every 4 hours PRN, severe pain (7-10), Starting on Lucia 07/24/23 at 0917, If oral and IV narcotics ordered, use oral first and only use IV if oral is ineffective or cannot take oral. Do Not give oral and IV within 1 hour of each other unless specifically ordered. Group 4: ondansetron ODT (Zofran-ODT) disintegrating tablet 4 mgJump to med 4 mg, Oral, Every 8 hours PRN, nausea, vomiting, Starting on 07/23/23 at 0042, 1st Line. If inadequate response within 60 minutes, proceed to next-line agent or contact provider if no further options ordered. Patient should allow tablet to dissolve on tongue. Do not remove from blister pack until just before administering. Or ondansetron (Zofran) injection 4 mgJump to med 4 mg, IntraVENous, Every 6 hours PRN, nausea, vomiting, Starting on 07/23/23 at 0042, 1st Line. Give IV if patient is unable to take orally. If inadequate response within 60 minutes, proceed to next-line agent or contact provider if no further options ordered. Group 5: oxyCODONE (Roxicodone) immediate release tablet 5 mgJump to med 5 mg, Oral, Every 4 hours PRN, moderate pain (4-6), Starting on 07/27/23 at 1414 Or oxyCODONE (Roxicodone) immediate release tablet 7.5 mgJump to med 7.5 mg, Oral, Every 4 hours PRN, severe pain (7-10), Starting on 07/27/23 at 1414 INFORMATION SOURCE (unrecogn ized section and content) DATE CREATED AUTHOR AUTHOR'S ORGANIZ ATION 08/22/2023 [facility] DATE CREATED AUTHOR AUTHOR'S ORGANIZ ATION 09/06/2023 [facility] FOR RECORDS PERTAINING TO PATIENTS WHO ARE OR HAVE BEEN ENROLLED IN A CHEMICAL DEPENDENCY/SUBSTANCEABUSE PROGRAM, SOME INFORMATION MAY BE OMITTED. This clinical summary was aggregated from multiple sources. Caution should be exercised in using it in the provision of clinical care. This summary normalizes information from multiple sources, and as a consequence, information in this document may materially change the coding, format and clinical context of patient data. In addition, data may be omitted in some cases. CLINICAL DECISIONS SHOULD BE BASED ON THE PRIMARY CLINICAL RECORDS. [facility] [employer] [facility]. provides no warranty or guarantee of the accuracy or completeness of information in this document.
== END | disposition home or self-care (01) ==
LOC: CT 08:04
PROVIDERS: PCP Internal Medicine; Referring Provider Nurse Practitioner Acute Care; Visit Provider Nurse Practitioner Acute Care
DX: R91.1 Solitary pulmonary nodule (principal)
CPT/HCPCS: 71250

== ENCOUNTER → 2023-10-27 | Outpatient (CLI) | payer MEDICARE, MEDICAID, SELFPAY ==
[2023-10-27 12:34] LABS: Absolute Lymphocyte Count 1.93 X10^3/uL (0.83-4.51); Absolute Neutrophil Count 4.8 X10^3/uL (2.0-7.7); Basophil# 0.06 X10^3/uL; Basophil% 0.8 % (0-1); Hemoglobin 11.6 g/dL (12.0-15.0); Lymphocyte # 1.93 X10^3/ul (0.83-4.51); Lymphocyte % 26.3 % (19-41); Mean Corp Hgb Conc 30.5 g/dL (32-36); Mean Corpuscular Hgb 27.2 pg (27.0-32.0); Mean Corpuscular Volume 89.2 fL (81-99); Mean Platelet Vol. 9.1 fl (6.2-12.0); Monocyte# 0.54 X10^3/uL; Monocyte% 7.3 % (0-10); NRBC Flagged by Analyzer 0 % (0-5); Neutrophil # 4.79 X10^3/uL (2.7-7.7); Neutrophil % 65.2 % (47-70); Platelet Count 422 K/mm3 (150-450); RBC Distribution Width CV 15.6 % (11.6-14.6); RBC Distribution Width SD 50.9 fl (35.1-43.9); Red Blood Count 4.26 M/mm3 (4.2-5.4); White Blood Count 7.4 K/mm3 (4.4-11.0)
[2023-10-27 12:53] LABS: ALB/GLOB Ratio 0.7 RATIO (0.9-2.4); AST(SGOT) 4 U/L (15-37); Alanine Aminotransfer ALT/SGPT 13 U/L (13-56); Alkaline Phosphatase 139 U/L (45-117); Anion Gap 6 (5-15); BUN 13 mg/dL (7-18); BUN/Creat Ratio 21.8 RATIO (10-20); Calcium,Total 9.4 mg/dL (8.5-10.1); Chloride 102 mmol/L (98-107); EST Glomerular Filtration Rate 107 mL/min (>60); Est Glom Filt Rate - Afr Amer 129 mL/min (>60); Globulin 4.6 g/dL (2.2-4.2); Glucose 108 mg/dL (74-106); Potassium 3.8 mmol/L (3.5-5.1); Protein, Total 7.6 g/dL (6.4-8.2); Sodium Level 138 mmol/L (136-145)
== END | disposition home or self-care (01) ==
LOC: BIMLAB 10:13
PROVIDERS: PCP Internal Medicine; Visit Provider Internal Medicine
DX: C34.91 Malignant neoplasm of unspecified part of right bronchus or lung (principal); F41.9 Anxiety disorder, unspecified; F32.A Depression, unspecified
CPT/HCPCS: 36415; 80053; 85025

== ENCOUNTER 2023-11-05 13:13 | Outpatient (RCR) | payer MEDICARE, MEDICAID, SELFPAY ==
--- NOTE | 2023-11-05 14:59 | HP.PTEVAL ---
Patient's Visit Information Visit Information Visit Information: MIRI PLASENCIA is a 68 year old F referred to Physical Therapy by Dr. Xena Duckworth MD with a diagnosis of L hip pain, h/o fx of L hip (healed). Date of Evaluation: 11/05/23 Physical Therapist: AMELIA Garcia Visit Plan Frequency: 2x /Week Duration: 2 Months Plan: 2X/ week for 8 weeks for gait mechanics, L knee ext ROM, B hip strength, stairs, functional transfers, balance, and HEP HEP: B supine QS, Bridges Subjective Subjective: On Jul 18 had her R hammer toes and bunion surgery and she took 2 steps out of bed and shattered her L hip replacement in 2018 and fx pelvis. The fracture is heal on the L. She can walk and out of the boot and walking with a cane. She is not taking pain pills. sent her here because she is concerned. She was in a assisted and she signed herself out cause no one was helping her in there. She was not up walking in Longterm. She left the [place] Sep 01. She was doing some exercises from her first L THR. She reports that when she sit to stands she can get up on first attmept using her arms but when she stands she has L knee bent and not as much weight through her L leg. She feels that she has a fear of falling. Stairs: 5 steps with 1 railing she goes 2 feet to a stair. She has pain when she sits down. Pain R foot pain: Pain Intensity (Out of 10): 3 L hip pain: Pain Intensity (Out of 10): 0 Objective Objective: Gait: walks with a straight cane with decrease stance time on the L LE, flexed knee on the L, decrease step length, cane too high. flexed trunk, decreased proper cane walking sequence LE MMT: R hip flex 15.7 and L 15.5 R knee ext 29.6 and L 26.9 R knee flex 11.9 and L 10.9 R hip abd 16 and L 11.3 Bridges 1/2 normal ROM Pt is not able to get his L knee straight in supine L knee ext -9 from full extension. R knee full extension. PROM L to 100 degrees. Balance/Special Test Scores Lower Extremity Functional Score: 44 Goals Goal 1:: I HEP Goal Time Frame: 6-8 Weeks Goal 2:: Be able to walk with least restrictive device with equal stance time and heel to toe gait pattern Goal Time Frame: 6-8 Weeks Goal 3:: Obtain full L knee extension AROM Goal Time Frame: 6-8 Weeks Goal 4:: Increase L LE strength (at the time of the eval: LE MMT: R hip flex 15.7 and L 15.5 R knee ext 29.6 and L 26.9 R knee flex 11.9 and L 10.9 R hip abd 16 and L 11.3 Rehabilitation Potential Rehabilitation Potential: Good Anticipated Interventions Patient/Client Instruction: Educate patient on: Condition and Plan of Care For the Purpose of:: To decrease pain, To increase ROM, To improve nutrient delivery to tissue, To increase oxygenation perfusion, To improve muscle performance and motor function, To improve ability to perform ADL's, To improve performance and independence with ADL's, To decrease level of supervision to perform tasks, To improve ability of physical actions for home/community/work/leisure, To improve gait and locomotor functions, To improve health of tissue, To decrease soft tissue restriction, To increase flexibility/ROM, To improve balance and To improve safety with gait Therapeutic Exercise to Include: Strength training, Endurance training, Balance training, Postural training, Flexibilty training, Gait and locomotor training, Neuromotor development, Passive ROM and Active ROM For the Purpose of:: To decrease pain, To increase ROM, To improve nutrient delivery to tissue, To increase oxygenation perfusion, To improve muscle performance and motor function, To improve ability to perform ADL's, To increase tolerance to activity/condition/position, To improve performance and independence with ADL's, To decrease level of supervision to perform tasks, To improve ability of physical actions for home/community/work/leisure, To improve gait and locomotor functions, To improve health of tissue, To decrease soft tissue restriction, To increase flexibility/ROM, To improve endurance, To improve balance and To improve safety with gait Functional Training to Include: Gait training For the Purpose of:: To improve gait and locomotor functions and To improve safety with gait Text: Thank you for the opportunity to evaluate your patient. For Medicare and Medicare HMO plans, please review the plan of care and approve it. It will need to be FAXED BACK to us at [phone] for Medicare purposes. For Medicare only, by signing this I certify the plan of care. Please let me know if there are questions or concerns regarding this plan of care. Physician Signature: Date:
== END 2023-11-05 19:00 | disposition home or self-care (01) ==
LOC: PT 13:13
PROVIDERS: PCP Internal Medicine; Visit Provider Internal Medicine
DX: M25.552 Pain in left hip (principal); Z87.81 Personal history of (healed) traumatic fracture
CPT/HCPCS: 97161

== ENCOUNTER → 2024-03-01 | Outpatient (CLI) | payer MEDICARE, MEDICAID, SELFPAY ==
--- NOTE | 2024-03-01 12:40 | CT_ITS ---
STUDY: CT CHEST WITH CONTRAST REASON FOR EXAM: Female, 68 years old. MONITOR LUNG CA RADIATION DOSAGE (If Supplied By Facility): CTDIvol = ( 7.42 ) mGy, DLP = ( 172.99 ) mGycm TECHNIQUE: Transaxial imaging was performed following intravenous administration of IV 100mL Isovue-300. Multiplanar coronal and sagittal images were reformatted. Individualized dose optimization techniques were used for this CT. COMPARISON: Comparison is made with prior study of October 21, 2023. FINDINGS: CHEST Hyperinflation and emphysematous changes more prominent in the upper lobes. The patient status post right upper lobectomy. Stable linear scarring at the right lung base. There is no demonstrated pleural abnormality. Normal heart and pericardium. Normal mediastinum. Normal hilar regions. Normal unenhanced pulmonary arteries. Normal aorta arch and descending thoracic aorta. There are degenerative changes of the thoracic spine. Stable 1.2 cm hypodensity in the left adrenal gland. CT/Chest WITH Contrast IMPRESSION: Stable examination. Electronically Signed: Aubrey Noble MD at 15:14 EDT ,
[2024-03-01 13:07] LABS: CREATININE FINGERSTICK < 1.0 mg/dL (0.55-1.02); EGFR FINGERSTICK > 60.0000 mL/min (>60)
== END | disposition home or self-care (01) ==
PROVIDERS: PCP Internal Medicine; Referring Provider Internal Medicine Medical Oncology; Visit Provider Internal Medicine Medical Oncology
DX: C34.11 Malignant neoplasm of upper lobe, right bronchus or lung (principal)
CPT/HCPCS: 71260; Q9967

== ENCOUNTER → 2024-05-14 | Outpatient (CLI) | payer MEDICARE, MEDICAID, SELFPAY ==
[2024-05-14 13:27] LABS: Cholesterol 219 mg/dL (200); High Density Lipoprotein 69 mg/dL; Thyroid Stim Hormone (TSH) 0.862 uIU/mL (0.358-3.740); Triglycerides 58 mg/dL; Very Low Density Lipoprotein 12 mg/dL (5-40)
== END | disposition home or self-care (01) ==
LOC: BIMLAB 09:58
PROVIDERS: PCP Internal Medicine; Referring Provider Internal Medicine; Visit Provider Internal Medicine
DX: E03.9 Hypothyroidism, unspecified (principal)
CPT/HCPCS: 36415; 80061; 84443

== ENCOUNTER → 2024-05-24 | Outpatient (CLI) | payer MEDICARE, MEDICAID, SELFPAY | END | disposition home or self-care (01) | LOC: PSN 10:11 | PROVIDERS: PCP Internal Medicine; Referring Provider Nurse Practitioner Acute Care; Visit Provider Nurse Practitioner Acute Care | DX: J44.9 Chronic obstructive pulmonary disease, unspecified (principal) | CPT/HCPCS: 94060; 94726; 94729 ==

== ENCOUNTER → 2024-06-03 | Outpatient (CLI) | payer MEDICARE, MEDICAID, SELFPAY ==
[2024-06-03 13:45] VITALS: PULSE 77; PULSE 82; PULSE 94; PULSE 95; PULSE 96; PULSE 97; O2SAT 100; O2SAT 93; O2SAT 94; O2SAT 95; O2SAT 96; O2SAT 97
--- NOTE | 2024-06-03 14:06 | CPS ---
Three minutes into test pt needed to to a break due to leg pain. Pt resumed walk at minute 5.
--- NOTE | 2024-06-16 17:43 | PCM.PSN.6M ---
PSN 6 Minute Walk Test 6 Minute Walk Test 6 Minute Walk Test: 6 Minute Walk Test PSN:6-Minute Walk Test Start: 06/03/24 13:59 Freq: Status: Active Protocol: RESP.6MINW Document 06/03/24 13:45 AEH (Rec: 06/03/24 14:07 AEH [id number]) 6 Minute Walk Test Date Performed 06/03/24 Time Performed 13:45 Height 5 ft 2 in Weight: 47.627 kg Weight in Pounds 105.[address]: Dacia Assistive device used: None Pre-test Oxygen Delivery Method Room Air Pulse Ox (%) 100 Pulse Rate (60-100 beats/min) 77 Dyspnea Violeta Scale (0-10) 0.5 Exertion Violeta Scale (6-20) 6 1st minute Oxygen Delivery Method Room Air Pulse Ox (%) 95 Pulse Rate (60-100 beats/min) 97 2nd minute Oxygen Delivery Method Room Air Pulse Ox (%) 94 Pulse Rate (60-100 beats/min) 95 3rd minute Oxygen Delivery Method Room Air Pulse Ox (%) 97 Pulse Rate (60-100 beats/min) 96 Number of Rests Taken 1 4th minute Oxygen Delivery Method Room Air Number of Rests Taken 1 5th minute Oxygen Delivery Method Room Air Pulse Ox (%) 93 Pulse Rate (60-100 beats/min) 94 6th minute Oxygen Delivery Method Room Air Pulse Ox (%) 95 Pulse Rate (60-100 beats/min) 97 Dyspnea Violeta Scale (0-10) 3 Exertion Violeta Scale (6-20) 14 Post-test Oxygen Delivery Method Room Air Pulse Ox (%) 96 Pulse Rate (60-100 beats/min) 82 Full Laps Walked 6 Partial Lap, Number of Tiles Walked 0 Total Distance Walked (ft) 354 06/03/24 14:06 Cardiopulmonary Services by Raquel De Souza Three minutes into test pt needed to to a break due to leg pain. Pt resumed walk at minute 5. Initialized on 06/03/24 14:06 - END OF NOTE Recommendations Recommendations: No supplemental oxygen is indicated at this time. However, patient may benefit from retesting if exercise tolerance improves. Could also benefit from evaluation for claudication if this has not been done previously.
--- NOTE | 2024-06-18 15:41 | PCM.PSN.6M ---
PSN 6 Minute Walk Test 6 Minute Walk Test 6 Minute Walk Test: 6 Minute Walk Test PSN:6-Minute Walk Test Start: 06/03/24 13:59 Freq: Status: Active Protocol: RESP.6MINW Document 06/03/24 13:45 AEH (Rec: 06/03/24 14:07 AEH [id number]) 6 Minute Walk Test Date Performed 06/03/24 Time Performed 13:45 Height 5 ft 2 in Weight: 47.627 kg Weight in Pounds 105.[address]: Dacia Assistive device used: None Pre-test Oxygen Delivery Method Room Air Pulse Ox (%) 100 Pulse Rate (60-100 beats/min) 77 Dyspnea Violeta Scale (0-10) 0.5 Exertion Violeta Scale (6-20) 6 1st minute Oxygen Delivery Method Room Air Pulse Ox (%) 95 Pulse Rate (60-100 beats/min) 97 2nd minute Oxygen Delivery Method Room Air Pulse Ox (%) 94 Pulse Rate (60-100 beats/min) 95 3rd minute Oxygen Delivery Method Room Air Pulse Ox (%) 97 Pulse Rate (60-100 beats/min) 96 Number of Rests Taken 1 4th minute Oxygen Delivery Method Room Air Number of Rests Taken 1 5th minute Oxygen Delivery Method Room Air Pulse Ox (%) 93 Pulse Rate (60-100 beats/min) 94 6th minute Oxygen Delivery Method Room Air Pulse Ox (%) 95 Pulse Rate (60-100 beats/min) 97 Dyspnea Violeta Scale (0-10) 3 Exertion Violeta Scale (6-20) 14 Post-test Oxygen Delivery Method Room Air Pulse Ox (%) 96 Pulse Rate (60-100 beats/min) 82 Full Laps Walked 6 Partial Lap, Number of Tiles Walked 0 Total Distance Walked (ft) 354 06/03/24 14:06 Cardiopulmonary Services by Raquel De Souza Three minutes into test pt needed to to a break due to leg pain. Pt resumed walk at minute 5. Initialized on 06/03/24 14:06 - END OF NOTE Interpretation Interpretation: The patient was able to ambulate 354 feet over the course of 6 minutes on room air with no assistive devices and 1 break secondary to leg pain. The patient did experience significant desaturation from a baseline of 100% to as low as 93%. No significant tachycardia was noted. These findings are consistent with a respiratory limitation exercise tolerance. Recommendations Recommendations: No supplemental oxygen is indicated at this time. However, patient may benefit from retesting if exercise tolerance improves. Could also benefit from evaluation for claudication if this has not been done previously.
== END | disposition home or self-care (01) ==
LOC: PSN 13:32
PROVIDERS: PCP Internal Medicine; Referring Provider Nurse Practitioner Acute Care; Visit Provider Nurse Practitioner Acute Care
DX: J44.9 Chronic obstructive pulmonary disease, unspecified (principal)
CPT/HCPCS: 94618

== ENCOUNTER → 2024-07-01 | Outpatient (CLI) | payer MEDICARE, MEDICAID, SELFPAY ==
--- NOTE | 2024-07-01 08:27 | BI_ITS ---
MAMMOGRAPHY - BILATERAL SCREENING REASON FOR EXAM: Female, 69 years old. Routine annual screening examination. PERTINENT HISTORY: Sister with breast cancer. History of lung cancer. TECHNIQUE: Digital bilateral breast gab (3D mammographic acquisition) in the CC and MLO projections. 2-D mediolateral oblique (MLO) and craniocaudad (CC) views of both breasts were obtained. CAD: Full Field Digital Mammography with Computer Added Detection was performed. COMPARISON: Comparison is made with prior study June 17, 2022 and June 15, 2021. FINDINGS: Breast Composition: There are scattered areas of fibroglandular density. Stable 3.1 cm heterogeneous nodule in the central slightly lateral aspect of the right breast. Faint lucencies are seen within it. This most likely dense fatty deposits. No other significant abnormalities are identified. There has been no significant change since the prior study. BI/SCRN MAMM (CAD)W/GAB BILAT IMPRESSION: Stable bilateral screening mammogram. Yearly follow-up mammogram recommended. (A) ASSESSMENT CATEGORY: BIRADS Category 2: Benign. A letter regarding these results will be sent to the patient by the facility within 30 days. Approximately 10% of breast cancers are not detected by mammography. A normal mammogram should not delay biopsy of a clinically suspicious abnormality. [id number] Electronically Signed: Aubrey Noble MD at 10:28 EST ,
--- NOTE | 2024-07-01 08:27 | BD_ITS ---
STUDY: DUAL ENERGY X-RAY ABSORPTIOMETRY / DXA REASON FOR EXAM: Female, 69 years old. Osteopenia TECHNIQUE: Bone Mineral Density (BMD) measurements of lumbar spine and right hip were obtained. COMPARISON: Comparison is made with prior study dated June 19, 2022. FINDINGS: Lumbar Spine (L1-L4): g/cm2 (1.269) / T-score (1.5) / Z-score (3.6) Findings are suggestive of normal bone density with a low fracture risk. Right Femur Total: g/cm2 (0.730) / T-score (-1.7) / Z-score (-0.3) Right Femoral Neck: g/cm2 (0.577) / T-score (-2.4) / Z-score (-0.8) The T-Scores on the most recent prior examination were: Lumbar Spine (L1-L4): There has been worsening of bone density since the previous examination. Right Femur Total: which represents a worsening of 7%. BD/Dexa Bone Density Study IMPRESSION: The patient is considered osteopenic as outlined below according to World Rm Organization (WHO) criteria with a high fracture risk. There has been worsening of bone density since the previous examination. Reference Information: The T-score is the number of standard deviations above or below the standard which is normal for young adults at their peak bone mineral density. The World Health Organization (WHO) interprets the T-scores as follows: Above -1 Normal bone density Between -1 and -2.5 Osteopenia Equal to / or below -2.5 Osteoporosis As a practical clinical guideline, osteopenia may be graded as follows: Mild -1 through -1.5 Moderate -1.6 through -2.0 Severe -2.1 through -2.4 The Z-score is the number of standard deviations above or below age-matched controls. A Z-score of less than -1.5 would be considered abnormal. References: 1. NIH Osteoporosis and Related Bone Diseases www osteo.org 2. International Society for Clinical Densitometry www iscd.org 3. National Osteoporosis Foundation www nof.org Electronically Signed: Aubrey Noble MD at 13:26 EST ,
== END | disposition home or self-care (01) ==
LOC: OPBD 08:27
PROVIDERS: PCP Internal Medicine; Referring Provider Internal Medicine; Visit Provider Internal Medicine
DX: Z12.31 Encounter for screening mammogram for malignant neoplasm of breast (principal); M85.88 Other specified disorders of bone density and structure, other site; Z87.81 Personal history of (healed) traumatic fracture; Z78.0 Asymptomatic menopausal state
CPT/HCPCS: 77063; 77067; 77080

== ENCOUNTER → 2024-08-03 | Outpatient (CLI) | payer MEDICARE, SELFPAY | END | disposition home or self-care (01) | LOC: LABSPEC 15:21 | PROVIDERS: PCP Internal Medicine; Referring Provider Nurse Practitioner Family; Visit Provider Nurse Practitioner Family | DX: J44.9 Chronic obstructive pulmonary disease, unspecified (principal) | CPT/HCPCS: 87070; 87205 ==

== ENCOUNTER → 2024-09-20 | Outpatient (CLI) | payer MEDICARE, MEDICAID, SELFPAY ==
[2024-09-20 16:03] LABS: Vitamin D,25 Hydroxy 65.8 ng/mL
[2024-09-20 16:11] LABS: ALB/GLOB Ratio 0.8 RATIO (0.9-2.4); AST(SGOT) 10 U/L (15-37); Alanine Aminotransfer ALT/SGPT 15 U/L (13-56); Albumin, Serum 3.5 g/dL (3.2-5.0); Alkaline Phosphatase 115 U/L (45-117); Anion Gap 7 (5-15); BUN 8 mg/dL (7-18); BUN/Creat Ratio 14.9 RATIO (10-20); Calcium,Total 9.3 mg/dL (8.5-10.1); Chloride 102 mmol/L (98-107); Creatinine, Serum 0.54 mg/dL (0.55-1.02); EST Glomerular Filtration Rate 120 mL/min (>60); Est Glom Filt Rate - Afr Amer 146 mL/min (>60); Globulin 4.2 g/dL (2.2-4.2); Glucose 103 mg/dL (74-106); Potassium 3.8 mmol/L (3.5-5.1); Protein, Total 7.7 g/dL (6.4-8.2); Sodium Level 137 mmol/L (136-145)
== END | disposition home or self-care (01) ==
PROVIDERS: PCP Internal Medicine; Visit Provider Internal Medicine
DX: E03.9 Hypothyroidism, unspecified (principal); M85.88 Other specified disorders of bone density and structure, other site
CPT/HCPCS: 36415; 80053; 82306; 84443

== ENCOUNTER → 2024-11-26 | Outpatient (CLI) | payer MEDICARE, MEDICAID, SELFPAY ==
[2024-11-26 13:48] VITALS: PULSE 105; PULSE 108; PULSE 115; PULSE 116; PULSE 117; PULSE 119; PULSE 120; O2SAT 88; O2SAT 89; O2SAT 90; O2SAT 91; O2SAT 92; O2SAT 94
--- NOTE | 2024-11-29 11:07 | WT_ITS ---
PSN 6 Minute Walk Test 6 Minute Walk Test 6 Minute Walk Test: 6 Minute Walk Test PSN:6-Minute Walk Test Start: 11/26/24 13:48 Freq: Status: Active Protocol: RESP.6MINW Document 11/26/24 13:48 DEBORAHJC (Rec: 11/26/24 13:50 [email or web address] [id number]) 6 Minute Walk Test Date Performed 11/26/24 Time Performed 13:00 Height 5 ft 1 in Weight: 94 lb Weight in Pounds 94.[address]: Patti Hope [employer] Assistive device None used: Pre-test Oxygen Delivery Room Air Method Pulse Ox (%) 92 Pulse Rate (60-100 105 H beats/min) Dyspnea Violeta Scale ( 0 0-10) Exertion Violeta Scale 6 (6-20) 1st minute Oxygen Delivery Room Air Method Pulse Ox (%) 91 Pulse Rate (60-100 115 H beats/min) 2nd minute Oxygen Delivery Room Air Method Pulse Ox (%) 90 Pulse Rate (60-100 120 H beats/min) 3rd minute Oxygen Delivery Room Air Method Pulse Ox (%) 90 Pulse Rate (60-100 116 H beats/min) 4th minute Oxygen Delivery Room Air Method Pulse Ox (%) 89 Pulse Rate (60-100 117 H beats/min) 5th minute Oxygen Delivery Room Air Method Pulse Ox (%) 89 Pulse Rate (60-100 119 H beats/min) 6th minute Oxygen Delivery Room Air Method Pulse Ox (%) 88 Pulse Rate (60-100 119 H beats/min) Dyspnea Violeta Scale ( 5 0-10) Exertion Violeta Scale 14 (6-20) Post-test Oxygen Delivery Room Air Method Pulse Ox (%) 94 Pulse Rate (60-100 108 H beats/min) Full Laps Walked 11 Partial Lap, Number 55 of Tiles Walked Total Distance 704 Walked (ft) Interpretation Interpretation: The patient ambulated 704 feet over the course of 6 minutes beginning on room air without assistive devices. Pretesting oxygen saturation was noted to be 92% on room air. With ambulation, the elmer oxygen saturation was 88%. This represents a significant exertional oxygen desaturation, consistent with a pulmonary limitation to exercise tolerance. Recommendations Recommendations: Close interval follow-up is recommended, given the oxygen desaturation noted during this study.
== END | disposition home or self-care (01) ==
PROVIDERS: PCP Internal Medicine; Referring Provider Nurse Practitioner Acute Care; Visit Provider Nurse Practitioner Acute Care
DX: J96.11 Chronic respiratory failure with hypoxia (principal)
CPT/HCPCS: 94618

== ENCOUNTER → 2025-02-16 | Outpatient (CLI) | payer MEDICARE, MEDICAID, SELFPAY ==
--- NOTE | 2025-02-16 08:11 | ART_ITS ---
Reason For Study Reason For Study: Claudication Procedure A bilateral lower extremity continuous wave Doppler with analog waveform analysis,segmental pressures,and ankle brachial indexes with exercise. Left Segmental Pressures Left brachial= 153mmHg. Left low thigh = 163mmHg. Left calf = 140mmHg. Left posterior tibial artery = 136mmHg. Left dorsalis pedis artery = 129mmHg. Left digit = 84 mmHg. The left dorsalis pedis waveforms are biphasic. The left posterior tibial artery waveforms are biphasic. Right Segmental Pressures Right brachial= 158mmHg. Right high thigh = 164mmHg. Right low thigh = 149mmHg. Right calf = 127mmHg. Right posterior tibial artery = 123mmHg. Right dorsalis pedis artery = 119mmHg. Right digit = 92 mmHg. The right dorsalis pedis waveforms are biphasic. The right posterior tibial artery waveforms are biphasic. Indices The right ankle brachial index by the dorsalis pedis is 0.75. The right ankle brachial index by the posterior tibial artery is 0.78. The right digital-brachial index is 0.58. The right post exercise ankle brachial index is 0.57. The left ankle brachial index by the dorsalis pedis is 0.82. The left ankle brachial index by the posterior tibial artery is 0.86. The left digital-brachial index is 0.53. The left post exercise ankle brachial index is 0.68. VL/Lower Ext Art Exam w/ Exercise Interpretation Summary Right BRYAN 0.78, moderate arterial insufficiency. Doppler/PVR waveforms and segm ental pressures reveal distal SFA/popliteal disease. Right lower extremity with abnormal response to exercise and post exercise BRYAN in the moderate category. Left BRYAN 0.86, moderate arterial insufficiency. Doppler/PVR waveforms and segme ntal pressures reveal distal SFA/popliteal disease. Left lower extremity with abnormal response to exercise and post exercise BRYAN i n the moderate category. Ordering Physician: Luis Carter Referring Physician: Xena Duckworth Performed By: Michelle Menon RVT
== END | disposition home or self-care (01) ==
LOC: CVS 08:09
PROVIDERS: PCP Internal Medicine; Referring Provider Physician Assistant; Visit Provider Physician Assistant
DX: I73.9 Peripheral vascular disease, unspecified (principal)
CPT/HCPCS: 93924

== ENCOUNTER → 2025-03-18 | Outpatient (CLI) | payer MEDICARE, MEDICAID, SELFPAY ==
[2025-03-18 12:21] LABS: Hematocrit 42.7 % (37-47); Hemoglobin 14.6 g/dL (12.0-15.0); Immature Granulocytes Count 0.050 X10^3/uL (0.0-0.0); Mean Corp Hgb Conc 34.2 g/dL (32-36); Mean Corpuscular Volume 94.5 fL (81-99); Mean Platelet Vol. 9.8 fl (6.2-12.0); NRBC Flagged by Analyzer 0 % (0-5); Platelet Count 337 K/mm3 (150-450); RBC Distribution Width CV 14.5 % (11.6-14.6); RBC Distribution Width SD 50.4 fl (35.1-43.9); Red Blood Count 4.52 M/mm3 (4.2-5.4); White Blood Count 9.3 K/mm3 (4.4-11.0)
[2025-03-18 12:51] LABS: AST(SGOT) 15 U/L (<=31); Alanine Aminotransfer ALT/SGPT 14 U/L (<=34); Albumin, Serum 4.2 g/dL (3.4-4.8); Alkaline Phosphatase 82 U/L (35-104); Anion Gap 13 (5-15); BUN 12 mg/dL (4-19); BUN/Creat Ratio 19.4 RATIO (10-20); Calcium,Total 9.8 mg/dL (7.6-11.0); Carbon Dioxide 29.2 mmol/L (21.0-32.0); Chloride 97 mmol/L (98-108); Cholesterol 177 mg/dL (<=200); Globulin 2.9 g/dL (2.2-4.2); Glucose 122 mg/dL (70-99); Low Density Lipoprotein Calc. 80 mg/dL; Potassium 4.1 mmol/L (3.3-5.1); Triglycerides 104 mg/dL; Very Low Density Lipoprotein 21 mg/dL (5-40); cholesterol:hdl ratio screen 2.33
== END | disposition home or self-care (01) ==
LOC: BIMLAB 10:06
PROVIDERS: PCP Internal Medicine; Referring Provider Internal Medicine; Visit Provider Internal Medicine
DX: E03.9 Hypothyroidism, unspecified (principal); K21.9 Gastro-esophageal reflux disease without esophagitis
CPT/HCPCS: 36415; 80053; 80061; 84443; 85025

== ENCOUNTER → 2025-03-22 | Outpatient (CLI) | payer MEDICARE, MEDICAID, SELFPAY ==
--- NOTE | 2025-03-22 08:00 | CT_ITS ---
PROCEDURE: CTA ABD W/RUNOFF W/WO CONTRAST 03/22/2025 REASON FOR EXAM: PAD (SFE / POPLITEAL) TECHNIQUE: CTA ABD W/RUNOFF W/WO CONTRAST Multiplanar Sagittal and Coronal images were obtained. CONTRAST: Isovue 370 VOLUME: 75 mL One or more dose reduction techniques were used (e.g., Automated exposure control, adjustment of the mA and/or kV according to patient size, use of iterative reconstruction technique). RADIATION DOSE SUMMARY: CTDlvol: 4.33 mGy DLP: 891.46 mGycm COMPARISON: None. FINDINGS: Aorta: Atherosclerotic calcifications. No aneurysm. No dissection. Iliac Arteries: Atherosclerotic calcifications causing moderate more than 50% stenosis of the bilateral common iliac and external iliac arteries. Celiac: Patent. SMA: Patent. JONES : Patent. Right Renal: Patent. Left Renal: Patent. Right lower extremity: No significant stenosis of the right common femoral artery and femoris profundus. Atherosclerotic calcifications cause moderate stenosis of the right femoral artery. The right popliteal artery is patent. Occlusion of the right anterior cerebral artery which reconstitutes as the prosthesis pedis artery. The posterior tibial artery and peroneal arteries are patent. Left lower extremity: Moderate narrowing of the left common femoral and femoral arteries with atherosclerotic calcifications. The left popliteal artery is patent. Occlusion of the right anterior tibial artery. The peroneal artery and posterior tibial arteries are small but patent. Extravascular Findings: The liver, spleen, kidneys, adrenal glands, bladder The gallbladder is not seen and likely surgically resected. No biliary dilation. No bowel obstruction or bowel wall thickening. No free air or free fluid. No acute bony abnormalities. Multilevel degenerate changes of the lumbar spine. No soft tissue abnormalities. 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 CT/CTA Abd w/Runoff W/WO Contrast IMPRESSION: CTA runoff a significant for atherosclerotic calcifications causing moderate ar ound 50% narrowing of the iliac arteries and bilateral femoral arteries. And occlusion of the bilateral anterior tibial art eries. Reading Location[facility]
--- NOTE | 2025-03-22 08:00 | CT_ITS ---
PROCEDURE: CHEST WITH CONTRAST 03/22/2025 REASON FOR EXAM: HX OF LUNG CA TECHNIQUE: CHEST WITH CONTRAST Coronal and Sagittal reconstruction series were provided. One or more dose reduction techniques were used (e.g., Automated exposure control, adjustment of the mA and/or kV according to patient size, use of iterative reconstruction technique). RADIATION DOSE SUMMARY: CTDlvol: 14 mGy DLP: 153 mGycm COMPARISON: 03/01/2024 FINDINGS: Central airways are patent. Bronchial wall thickening. Moderate emphysema. On the right, status post upper lobectomy. On the left, dependent atelectasis. No consolidation, effusion, pneumothorax, or suspicious lung nodule. Bilaterally, there are localized areas of tree-in-bud densities consistent with bronchiolitis. Unremarkable base of neck and axilla. Thoracic spine scoliosis and degeneration. Status post cervical spine surgery. Normal esophagus. Normal heart size. No acute vascular pathology. No acute chest wall findings. Stable left adrenal nodule. No acute upper abdominal findings. CT/Chest WITH Contrast IMPRESSION: Status post right upper lobectomy for lung cancer. No evidence for tumor resid ual/recurrence. Reading Location: [place] [id number]
--- NOTE | 2025-03-22 08:00 | CT_ITS ---
PROCEDURE: CHEST WITH CONTRAST 03/22/2025 REASON FOR EXAM: HX OF LUNG CA TECHNIQUE: CHEST WITH CONTRAST Coronal and Sagittal reconstruction series were provided. One or more dose reduction techniques were used (e.g., Automated exposure control, adjustment of the mA and/or kV according to patient size, use of iterative reconstruction technique). RADIATION DOSE SUMMARY: CTDlvol: 14 mGy DLP: 153 mGycm COMPARISON: 03/01/2024 FINDINGS: Central airways are patent. Bronchial wall thickening. Moderate emphysema. On the right, status post upper lobectomy. On the left, dependent atelectasis. No consolidation, effusion, pneumothorax, or suspicious lung nodule. Bilaterally, there are localized areas of tree-in-bud densities consistent with bronchiolitis. Unremarkable base of neck and axilla. Thoracic spine scoliosis and degeneration. Status post cervical spine surgery. Normal esophagus. Normal heart size. No acute vascular pathology. No acute chest wall findings. Stable left adrenal nodule. No acute upper abdominal findings. CT/Chest WITH Contrast IMPRESSION: Status post right upper lobectomy for lung cancer. No evidence for tumor resid ual/recurrence. Reading Location: [place] [id number]
== END | disposition home or self-care (01) ==
LOC: CT 07:45
PROVIDERS: PCP Internal Medicine; Referring Provider Physician Assistant; Visit Provider Physician Assistant
DX: I73.9 Peripheral vascular disease, unspecified (principal); Z85.118 Personal history of other malignant neoplasm of bronchus and lung; J98.11 Atelectasis; E27.9 Disorder of adrenal gland, unspecified; I70.0 Atherosclerosis of aorta
CPT/HCPCS: 71260; 75635; Q9967

== ENCOUNTER → 2025-06-22 | Outpatient (CLI) | payer MEDICARE, MEDICAID, SELFPAY ==
[2025-06-22 16:52] LABS: Hematocrit 37.3 % (37-47); Hemoglobin 12.5 g/dL (12.0-15.0); Immature Granulocytes Count 0.040 X10^3/uL (0.0-0.0); Mean Corp Hgb Conc 33.5 g/dL (32-36); Mean Corpuscular Volume 94.7 fL (81-99); Mean Platelet Vol. 9.1 fl (6.2-12.0); NRBC Flagged by Analyzer 0 % (0-5); Platelet Count 320 K/mm3 (150-450); RBC Distribution Width CV 13.3 % (11.6-14.6); RBC Distribution Width SD 46.4 fl (35.1-43.9); Red Blood Count 3.94 M/mm3 (4.2-5.4); White Blood Count 8.4 K/mm3 (4.4-11.0)
[2025-06-22 18:06] LABS: AST(SGOT) 15 U/L (<=31); Alanine Aminotransfer ALT/SGPT 13 U/L (<=34); Albumin, Serum 4.0 g/dL (3.4-4.8); Alkaline Phosphatase 86 U/L (35-104); Anion Gap 13 (5-15); BUN 10 mg/dL (4-19); BUN/Creat Ratio 18.2 RATIO (10-20); Calcium,Total 9.4 mg/dL (7.6-11.0); Carbon Dioxide 24.4 mmol/L (21.0-32.0); Chloride 100 mmol/L (98-108); Estimated Creatinine Clearance 47.67 ml/min (50-250); Globulin 2.7 g/dL (2.2-4.2); Glucose 108 mg/dL (70-99); Potassium 3.6 mmol/L (3.3-5.1)
== END | disposition home or self-care (01) ==
LOC: LABSPEC 06-23 15:14
PROVIDERS: PCP Internal Medicine; Visit Provider Internal Medicine
DX: J44.9 Chronic obstructive pulmonary disease, unspecified (principal); E03.9 Hypothyroidism, unspecified
CPT/HCPCS: 80053; 84443; 85025

== ENCOUNTER → 2025-07-06 | Outpatient (CLI) | payer MEDICARE, MEDICAID, SELFPAY | END | disposition home or self-care (01) | LOC: PSN 09:31 | PROVIDERS: PCP Internal Medicine; Referring Provider Nurse Practitioner Family; Visit Provider Nurse Practitioner Family | DX: J44.9 Chronic obstructive pulmonary disease, unspecified (principal) | CPT/HCPCS: 94060; 94726; 94729 ==

== ENCOUNTER → 2025-08-04 | Outpatient (CLI) | payer MEDICARE, MEDICAID, SELFPAY ==
[2025-08-04 11:02] VITALS: PULSE 112; PULSE 116; PULSE 117; PULSE 119; PULSE 120; PULSE 121; O2SAT 93; O2SAT 94; O2SAT 95; O2SAT 96
--- NOTE | 2025-08-04 11:02 | CPS ---
Pt feels SOB even at rest. Her WOB increased from the time she started walking until she sat down after the 6 minute walk.
--- NOTE | 2025-08-04 12:45 | BI_ITS ---
EXAM: SCRN MAMM (CAD)W/GAB BILAT DATE: 08/04/2025 CLINICAL HISTORY: F, Age 70 y/o , BREAST CANCER SCREENING Sister with breast cancer. Personal history of lung cancer. TECHNIQUE: Procedure Code: [id number] Modality: MG Procedure: SCRN MAMM (CAD)W/GAB BILAT COMPARISON: Prior exam(s) dated July 01, 2024.. FINDINGS: TISSUE DENSITY: There are scattered areas of fibroglandular density. Bilateral Breast Mammographic Findings: There is a 2.6 cm x 2 cm nodular density with lucencies within it in the deep upper lateral aspect of the right breast. This has decreased slightly in size as compared to prior study. This may represent an MR Johnathan. No suspicious masses, areas of developing architectural distortion, or suspicious calcifications. There has been no significant interval change. BI/SCRN MAMM (CAD)W/GAB BILAT IMPRESSION: Stable bilateral screening mammogram. OVERALL FINAL ASSESSMENT BI-RADS 2: BENIGN RECOMMENDATION: Routine annual follow-up in 1 Year Additional Recommendation none A letter with findings and recommendations will be mailed to the patient. Reading Location: [facility]
--- NOTE | 2025-08-08 10:47 | PCM.PSN.6M ---
PSN 6 Minute Walk Test 6 Minute Walk Test 6 Minute Walk Test: 6 Minute Walk Test PSN:6-Minute Walk Test Start: 08/04/25 11:20 Freq: Status: Active Protocol: RESP.6MINW Document 08/04/25 11:02 [facility] (Rec: 08/04/25 11:27 [facility] [id number]) 6 Minute Walk Test Date Performed 08/04/25 Time Performed 11:02 Height 5 ft Weight: 105 lb Weight in Pounds 105.[address]: Xena Duckworth FIO2 (% Oxygen) 21 Assistive device None used: Pre-test Oxygen Delivery Room Air Method Pulse Ox (%) 95 Pulse Rate (60-100 112 H beats/min) Dyspnea Violeta Scale ( 3 0-10) Exertion Violeta Scale 9 (6-20) 1st minute Oxygen Delivery Room Air Method Pulse Ox (%) 96 Pulse Rate (60-100 116 H beats/min) Reported Symptoms Increased Work of Breathing 2nd minute Oxygen Delivery Room Air Method Pulse Ox (%) 95 Pulse Rate (60-100 120 H beats/min) Reported Symptoms Increased Work of Breathing 3rd minute Oxygen Delivery Room Air Method Pulse Ox (%) 94 Pulse Rate (60-100 121 H beats/min) Reported Symptoms Increased Work of Breathing 4th minute Oxygen Delivery Room Air Method Pulse Ox (%) 94 Pulse Rate (60-100 117 H beats/min) Reported Symptoms Increased Work of Breathing 5th minute Oxygen Delivery Room Air Method Pulse Ox (%) 93 Pulse Rate (60-100 119 H beats/min) Reported Symptoms Increased Work of Breathing 6th minute Oxygen Delivery Room Air Method Pulse Ox (%) 93 Pulse Rate (60-100 119 H beats/min) Dyspnea Violeta Scale ( 8 0-10) Exertion Violeta Scale 17 (6-20) Number of Rests 0 Taken Reported Symptoms Increased Work of Breathing Post-test Oxygen Delivery Room Air Method Pulse Ox (%) 96 Pulse Rate (60-100 116 H beats/min) Dyspnea Violeta Scale ( 4 0-10) Exertion Violeta Scale 13 (6-20) Full Laps Walked 12 Partial Lap, Number 0 of Tiles Walked Total Distance 708 Walked (ft) Interpretation Interpretation: The patient ambulated 708 feet over the course of 6 minutes beginning on room air without assistive devices. Pretesting oxygen saturation was noted to be 95% on room air. With ambulation, the elmer oxygen saturation was 93%. Although there was evidence of impaired walk distance, there was no significant exertional oxygen desaturation. Recommendations Recommendations: There is no indication for the use of supplemental oxygen at this time.
== END | disposition home or self-care (01) ==
PROVIDERS: PCP Internal Medicine; Referring Provider Internal Medicine; Visit Provider Internal Medicine
DX: Z12.31 Encounter for screening mammogram for malignant neoplasm of breast (principal); J44.9 Chronic obstructive pulmonary disease, unspecified; M85.80 Other specified disorders of bone density and structure, unspecified site; Z78.0 Asymptomatic menopausal state
CPT/HCPCS: 77063; 77067; 94618